=== PATIENT | male | born 1935 | race Caucasian/White ===

== ENCOUNTER 2016-08-05 14:05 | Inpatient (IN) | payer MEDICARE, MEDICAID ==
[~2016-08-05] VITALS: Ht 175.3 cm; Wt 99.5 kg
[~2016-08-05 14:05] MED LIST: ACET325T33 GTB; ALB.5NB20 HHN; ASCO500S2 GTB; DEXT1DRO7 OP; DOCU60SY GTB; DOXA4TAB2 GTB; LACT10SO5 GTB; OMEP40CA6 GTB; RTATR HHN
[2016-08-05] MEDS ORDERED: SODIUM CHLORIDE 0.9% 1L BAG IV* STA (14:25)
[2016-08-05] MEDS ORDERED: CEFEPIME 1GM/50 ML (PMX) 50 ML IVPB ONE (14:30)
[2016-08-05] MEDS ORDERED: VANCOMYCIN 1 GM (PMX) 250 ML IVPB ONE (14:30)
--- NOTE | 2016-08-05 14:58 | RADRPT ---
PROCEDURE: XR Chest. CLINICAL INDICATION: Possible Sepsis TECHNIQUE: Single portable view of the chest was obtained COMPARISON: Chest 09/30/2013. FINDINGS: Again noted is a tracheostomy. The patient is to left and rotated to the right. There is increased density at both lung bases which appears similar and while this may all relate to atelectasis and s carring however basilar infiltrates cannot be excluded. Note there is pleural reaction on the right and a small right pleural effusion should be considered. No definite left pleural effusion. The u pper lungs are clear. It is difficult to assess the heart size however it does not appear enlarged. There is no evidence by mass congestion and pneumothorax. IMPRESSION: 1. No significant change from 09/30/2013. 2. Increased density at the lung bases may all relate to atelectasis and scarring however basilar i nfiltrates cannot be excluded. 3. No definite congestive heart failure. RPTAT:AAJJ Physician Kerry Date Time Electronically viewed and signed by Physician Kerry on 08/05/2016 14:58 /
[2016-08-05 15:13] LABS: HEMATOCRIT 30.8 % (42.0-52.0); HEMOGLOBIN 9.9 g/dl (14.0-18.0); MEAN CORPUSCULAR HEMOGLOBIN 25.7 pg (29.0-33.0); MEAN CORPUSCULAR HGB CONC 32.3 g/dl (32.0-37.0); MEAN CORPUSCULAR VOLUME 79.6 fl (82.0-101.0); MEAN PLATELET VOLUME 9.2 fl (7.4-10.4); PLATELET COUNT 238 10^3/UL (140-440); RED BLOOD COUNT 3.87 10^6/ul (4.70-6.10); RED CELL DISTRIBUTION WIDTH 19.7 % (11.5-14.5); UNCORRECTED WBC 29.5 10^3/ul (4.8-10.8); WHITE BLOOD COUNT 29.5 10^3/ul (4.8-10.8)
[2016-08-05 15:15] LABS: CONDITION 1; LH ANALYZER COMMENTS 1; SUSPECT 1
[2016-08-05 15:16] LABS: ADD UMIC YES; URINE BILIRUBIN (Dip) NEGATIVE (NEGATIVE); URINE BLOOD (Dip) 3+ (NEGATIVE); URINE GLUCOSE (Dip) NEGATIVE (NEGATIVE); URINE KETONES (Dip) NEGATIVE (NEGATIVE); URINE LEUKOCYTE ESTERASE (Dip) 2+ (NEGATIVE); URINE NITRITE (Dip) NEGATIVE (NEGATIVE); URINE TOTAL PROTEIN (Dip) 1+ (NEGATIVE); URINE UROBILINOGEN (Dip) 0.2 E.U./dL (0.1-1.0)
[2016-08-05 15:23] LABS: INR 1.11; PROTIME 14.3 Sec (12.2-14.2); PT RATIO 1.1
[2016-08-05] MEDS ORDERED: DOXA4TAB2 GTB (15:23)
[2016-08-05 15:24] LABS: PARTIAL THROMBOPLASTIN TIME 33.1 Sec (25.0-35.0)
[2016-08-05 15:27] LABS: ALBUMIN 3.3 g/dl (3.3-4.9)
[2016-08-05 15:28] LABS: POTASSIUM 4.5 mmol/L (3.5-5.1)
[2016-08-05] MEDS ORDERED: CRAN450T7 GTB (15:28)
[2016-08-05 15:30] LABS: BILIRUBIN,INDIRECT 0.8 mg/dl (0-1.1); BILIRUBIN,TOTAL 0.8 mg/dl (0.2-1.3); CREATININE 1.17 mg/dl (0.61-1.24)
[2016-08-05] MEDS ORDERED: DEXT15DR2 BOTH EYES (15:30)
[2016-08-05 15:31] LABS: ALBUMIN/GLOBULIN RATIO 0.8; CALCIUM 8.7 mg/dl (8.4-10.2); TOTAL PROTEIN 7.4 g/dl (6.1-8.1)
[2016-08-05 15:32] LABS: URINE COLOR DARK YELLOW (YELLOW)
[2016-08-05] MEDS ORDERED: OMEP20CA16 GTB (15:33)
[2016-08-05 15:35] LABS: BACTERIA,URINE MANY; SQUAMOUS EPITHELIAL CELL,UR MODERATE
[2016-08-05] MEDS ORDERED: BEN25 GTB (15:35)
[2016-08-05 15:41] LABS: TROPONIN-I 0.018 ng/ml (0.00-0.12)
[2016-08-05] MEDS ORDERED: ACET160L14 GTB (15:50)
[2016-08-05] MEDS ORDERED: HEP30MU30 IJ (16:04)
[2016-08-05] MEDS ORDERED: DSS GTB (16:06)
--- NOTE | 2016-08-05 16:43 | ERA ---
ER Documentation Chief Complaint Date/Time DATE: 08/05/16 TIME: 16:32 Chief Complaint PT HERE WITH ABN LAB WORK, ELEVATED WBC, PT TRACH/VENT HPI 81-year-old man brought in by EMS from snf for elevated WBC and suspected urinary tract infection. He has a suprapubic catheter in place and has had recent purulent discharge into the catheter and urinary bag. 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 He has had no vomiting or diarrhea, no blood per rectum. HPI supplemented by reviewing previous medical records, snf records, speaking to EMS, and nursing staff. ROS All systems reviewed and are negative except as per history of present illness. Medications Home Meds Reported Medications [Dss] No Conflict Check, 100 MG GTB DAILY 08/05/16 Heparin Sod (Porcine) (Heparin) 1,000 Unit/Ml Soln, 5000 UNIT IJ Q12 08/05/16 Acetaminophen (Ed-Apap) 160 Mg/5 Ml Liquid, 640 MG GTB Q6 Y for PRN TEMP>100 08/05/16 Diphenhydramine Hcl* (Benadryl*) 25 Mg Cap, 25 MG GTB Q4H Y for ITCHING, CAP 08/05/16 Omeprazole* (Omeprazole*) 20 Mg Capsule.dr, 40 MG GTB QAM, #30 CAP 08/05/16 Dextran/Hypromellose/Glycerin (Artificial Tears Drops) 15 Ml Drops, 1 DROP BOTH EYES Q12, EA 08/05/16 Cranberry Fruit (CRANBERRY) 450 Mg Tablet, 450 MG GTB DAILY, TAB 08/05/16 Doxazosin Mesylate* (Cardura*) 4 Mg Tablet, 4 MG GTB QHS, #30 TAB HOLD IF SBP<110 FOR HYPERTENSION 08/05/16 Discontinued Reported Medications Acetaminophen* (Tylenol*) 325 Mg Tablet, 650 MG GTB Q6 Y for FEVER 09/30/13 Docusate Sodium (Colace) 60 Mg/15 Ml Syrup, 10 ML GTB DAILY 09/30/13 Doxazosin Mesylate* (Cardura*) 4 Mg Tablet, 4 MG GTB HS 09/30/13 Ipratropium [place]* (Atrovent*) 2.5 Ml Nebu, 0.5 MG HHN Q6 09/30/13 Albuterol Sulfate* (Albuterol Sulfate* Neb) 20 Ml Nebu, 2.5 MG HHN Q6 09/30/13 Dextran 70/Hypromellose/Pf (ARTIFICIAL TEARS DROPS) 1 Each Droperette, 1 EACH OP BID 06/02/13 Omeprazole* (Omeprazole*) 40 Mg Capsule.dr, 40 MG GTB DAILY 06/02/13 Lactulose* (Lactulose*) 10 Gm/15 Ml Solution, 10 GM GTB DAILY 06/02/13 Ascorbic Acid* (Vitamin C* Liq) 100 Mg/Ml Syrup, 500 MG GTB DAILY 06/02/13 Allergies Allergies: Coded Allergies: No Known Allergy (Unverified , 08/05/16) PMhx/Soc 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, recurrent urinary tract infections, hypertension, diabetes mellitus, cauda equina syndrome, anemia, urinary retention, previous ventricular tachycardia History of Surgery: Yes Anesthesia Reaction: No Hx Neurological Disorder: Yes Hx Respiratory Disorders: Yes Hx Cardiac Disorders: Yes Hx Psychiatric Problems: No Hx Alcohol Use: No Hx Substance Use: No Hx Tobacco Use: No Smoking Status: Former smoker FmHx Family History: No diabetes Physical Exam Vitals Vital Signs Date Time Temp Pulse Resp B/P Pulse Ox O2 Delivery O2 Flow Rate FiO2 08/05/16 16:09 97.6 79 14 129/65 100 Mechanical Ventilator 08/05/16 14:28 97.6 81 12 113/64 100 Physical Exam GENERAL: Elderly, chronically debilitated man, afebrile, dehydrated HEENT: Dry mucous membranes, pink conjunctiva, no cervical spine tenderness or step-off deformities, no goiter, no jaundice or icterus, extraocular movements intact without pain. No submandibular induration, and no pharyngeal erythema NEURO: Eyes are open, pupils equal round reactive to light, patient has movement of the right upper extremity although he has diffuse extremity contractures, positive gaze tracking, nonverbal CARDIAC: Regular rate and rhythm, no murmurs rubs or gallops LUNGS: Clear bilaterally no wheezing crackles or stridor ABDOMEN: Protuberant and soft, no rigidity, no rebound, no psoas sign no obturator sign. Normoactive bowel sounds SKIN: Warm and dry to touch, no abrasions, contusions, or hematomas, no lacerations, no ecchymosis, no target lesions, and without ulcers EXTREMITIES: No clubbing cyanosis or edema, calves are bilaterally symmetrical, no Homans sign, no popliteal cord sign. Distal pulses equal and bilateral PSYCH: Normal affect without agitation or irritability Result Diagram: 08/05/16 1450 08/05/16 1450 Results 24 hrs Laboratory Tests Test 08/05/16 14:50 08/05/16 15:00 Activated Partial Thromboplast Time 33.1Sec Alanine Aminotransferase (ALT/SGPT) 22IU/L Albumin 3.3g/dl Albumin/Globulin Ratio 0.80 Alkaline Phosphatase 75IU/L Anion Gap 17 Aspartate Amino Transf (AST/SGOT) 16IU/L Blood Morphology Comment Blood Urea Nitrogen 38mg/dl Calcium Level 8.7mg/dl Carbon Dioxide Level 29mmol/L Chloride Level 91mmol/L Creatinine 1.17mg/dl Direct Bilirubin 0.00mg/dl Globulin 4.10g/dl Glucose Level 157mg/dl Hematocrit 30.8% Hemoglobin 9.9g/dl INR International Normalized Ratio 1.11 Indirect Bilirubin 0.8mg/dl Lactic Acid Level 1.6mmol/L Lipase 31U/L Mean Corpuscular Hemoglobin 25.7pg Mean Corpuscular Hemoglobin Concent 32.3g/dl Mean Corpuscular Volume 79.6fl Mean Platelet Volume 9.2fl Platelet Count 77558^3/UL Potassium Level 4.5mmol/L Prothrombin Time 14.3Sec Prothrombin Time Ratio 1.1 Red Blood Count 3.8710^6/ul Red Cell Distribution Width 19.7% Sodium Level 132mmol/L Total Bilirubin 0.8mg/dl Total Protein 7.4g/dl Troponin I 0.018ng/ml White Blood Count 29.510^3/ul Urine Bacteria MANY Urine Bilirubin NEGATIVE Urine Clarity CLOUDY Urine Color DARK YELLOW Urine Glucose NEGATIVE% Urine Hemoglobin 3+ Urine Ketones NEGATIVE Urine Leukocyte Esterase 2+ Urine Microscopic RBC 10-25/HPF Urine Microscopic WBC >200/HPF Urine Nitrite NEGATIVE Urine Specific [place] 1.015 Urine Squamous Epithelial Cells MODERATE Urine Total Protein 1+ Urine Urobilinogen 0.2 E.U./dL Urine pH 6.5 Current Medications Medications (Trade) Dose Ordered Sig/Pedrito Route PRN Reason Start Time Stop Time Status Last Admin Dose Admin Sodium Chloride 2000 ml 2,000 ml BOLUS OVER 2 HOURS STAT IV* 08/05/16 14:25 1/13/17 14:28 DC 08/05/16 15:06 Vancomycin HCl 250 ml @ 125 mls/hr ONCE ONCE IVPB 08/05/16 14:30 08/05/16 16:29 DC 08/05/16 16:04 Cefepime HCl (Maxipime 1gm/50 ml (Pmx)) 50 ml @ 100 mls/hr ONCE ONCE IVPB 08/05/16 14:30 08/05/16 14:59 DC 08/05/16 15:10 Procedures/MDM IV line was established patient was placed on patient monitor rhythm strip revealed a sinus rhythm at about 80 bpm with upright P and T waves. Patient was afebrile. Blood and urine cultures have been ordered results are pending I will follow-up. I administered 2 L normal saline intravenously and cefepime 1 g IV as well as vancomycin 1 g IV. EKG performed, read by me: 79 bpm, normal sinus rhythm, normal axis, no acute ST segment changes, narrow QRS complex, with good R-wave progression in precordial leads. Chest X-ray 1V Interpreted by me: Soft Tissue: No acute abnormalities Bones: No acute abnormalities Mediastinum/Cardiac Silhouette/Lungs: Atelectatic changes bilaterally, no acute infiltrates CBC revealed leukocytosis of 30, electrolytes revealed dehydration with an increased BUN/creatinine ratio, liver function tests are normal, troponin was negative. Urine analysis was positive for infection. Lactic acid was low at 1.6. Patient's infectious symptoms have not stabilized and the patient is at risk of rapid decompensation. The patient will be admitted for careful hydration, antibiotic therapy, and infectious source control. Severe Sepsis Assessment: Infectious Source: Bladder Severe Sepsis Managment: Blood Cultures X 2 before broad spectrum antibiotics initiated within 3 hours of recognition. 30 ml/kg NS bolus 20 mL's per KG bolus was given as I do not want to push the patient to fluid overload Initial Lactate: normal Repeat Lactate not indicated as initial < 2.0 Critical Care: Time: 30 minutes Treatments/Evaluations: Emergent fluid management, while maintaining close respiratory support. Immediate broad spectrum antibiotic therapy. Simultaneous assessment for possible sources in order to direct therapy. Consideration for invasive and chemical support to prevent respiratory or cardiac collapse. Perfusion Reassessment for Septic Shock: Temp afebrile, Pulse 70, RR 18, BP 140/80 Heart Exam: Regular rate Lung Exam: No Crackles Capillary Refill: Less than 2 second Peripheral Pulses: Radially present Skin: Warm and dry I considered further perfusion assessment with CVP measurement, SCVO2, bedside ultrasound volume assessment, passive leg raise, trial of further fluid bolus. And preceded with IV antibiotic Accepting Care Team: Current data and ongoing care discussed. Time: Time of admission Primary Provider: Dr. Kwok Consulting: Pulmonary Outstanding Data: none Departure Diagnosis: Primary Impression: UTI (urinary tract infection) Qualified Code: N30.00 - Acute cystitis without hematuria Additional Impressions: Dehydration Respiratory failure Qualified Code: J96.21 - Acute on chronic respiratory failure with hypoxia Tracheostomy dependence Lymphocytosis Condition: Fair SALLY NGUYEN MD Aug 05, 2016 16:43
[2016-08-05] MEDS ORDERED: VANCOMYCIN IV PER PHARMACY XX SCH (17:30)
--- NOTE | 2016-08-05 18:01 | HP ---
DATE OF ADMISSION: 08/05/2016 CHIEF COMPLAINT: The [facility] for elevated white blood cell s and suspected urinary tract infection. HISTORY OF PRESENT ILLNESS: The patient is a 81-year-old gentleman with past medical history positi ve for ventilator dependent respiratory failure, patient was status post CVA with intracranial bleed , chronic encephalopathy, dysphagia with PEG, hypertension, cauda equina syndrome, chronic anemia an d history of ventricular tachycardia. The patient cannot provide any medical history due to history of encephalopathy, most of the history was obtained from medical records and talking to the ER phys ician and nursing staff. The patient's white blood cells were noted to be elevated 29,500. Urinaly sis was positive for leukocyte esterase and many bacteria. Urine looks cloudy. The patient has a F oley catheter. Lactic acid was 1.6. The patient did not have any fever on admission, patient was d iagnosed for possible urinary tract infection and was started on broad spectrum antibiotics, was giv en vancomycin and cefepime in the emergency room and patient will be admitted for further evaluation and management. Urine and blood cultures were collected as well prior to starting of antibiotic tr eatment. No nausea, vomiting were reported. PAST MEDICAL HISTORY: Per HPI. PAST SURGICAL HISTORY: Status post tracheostomy, status post PEG placement, status post right nephr ostomy. FAMILY HISTORY: Noncontributory. SOCIAL HISTORY: The patient is a former smoker according to records, the patient currently is a res ident of subacute facility and no current history of tobacco use, illicit drug use or alcohol use. ALLERGIES: NO KNOWN ALLERGIES. MEDICATIONS ON ADMISSION: 1. Heparin. 2. Tylenol. 3. Benadryl. 4. Omeprazole. 5. Artificial Tears. 6. Cranberry extract. 7. Doxazosin. REVIEW OF SYSTEMS: A 12-point review of systems is negative unless what mentioned in the HPI. PHYSICAL GENERAL: Well-developed, obese gentleman, opens eyes. Does not follow any commands. Awake. VITAL SIGNS: Temperature 97.6, pulse is 79, blood pressure 129/65, respiratory rate 14 on assist co ntrol of 14, oxygen saturation is 100% on 100% FIO2. HEENT: Head is atraumatic, normocephalic. Pupils equal, round, reactive to light and accommodation . Oral mucosa is pink and moist. NECK: Supple. The patient has a tracheostomy at the base of the neck with no bleeding, moderate am ount of secretions. CHEST: Slightly diminished at the bases. Scattered rhonchi bilaterally. GASTROINTESTINAL: Abdomen is protuberant, soft, nondistended, nontender. G-tube with intact stoma. There is no guarding, no tenderness. Bowel sounds present. EXTREMITIES: No edema, clubbing, cyanosis present. GENITOURINARY: The patient has a Aguilar catheter with yellow urine with noted sediment. SKIN: There is no apparent rash noted. NEUROLOGIC: The patient opens eyes. Does not follow any commands. The patient also has contractur ed left upper and lower extremity. LABORATORY AND IMAGING DATA: On admission, chest x-ray with no significant change from year 2013, i ncreased density at the lung bases may be all related to atelectasis and scarring. However, bibasil ar infiltrates cannot be excluded. Known definite congestive heart failure. CBC: White blood cells 29.5, hemoglobin 9.9, hematocrit 30.8, platelets 238. Chemistry: Sodium 13 2, potassium 4.5, chloride 91, carbon dioxide 29, anion gap 17, BUN is 38, creatinine 1.17, glucose 157, AST 16, ALT is 22, alkaline phosphatase 75, lipase 31. ASSESSMENT AND PLAN: 1. Possible urinary tract infection. Continue patient on cefepime and vancomycin secondary to syst emic inflammatory response syndrome with leukocytosis secondary to #1. 2. Possible healthcare-acquired pneumonia. Continue patient on broad spectrum antibiotics. Will a sk Dr. Enriquez to see patient in infectious disease consultation. 3. Ventilator dependent respiratory failure. Will ask Dr. Gomez to see patient in pulmonology co nsultation. Continue oxygen supplementation, bronchodilators and ventilator support. 4. Hemorrhagic cerebrovascular accident. 5. Benign prostatic hypertrophy. Continue doxazosin. 6. Hypertension. Continue to monitor blood pressure. 7. Chronic encephalopathy. 8. Dysphagia with PEG. Will continue current G-tube feeding, monitor residual, aspiration precauti ons. 9. Continue heparin for deep venous thrombosis prophylaxis and omeprazole for peptic ulcer disease prophylaxis. Further recommendations based on clinical course. Plan of care discussed with Dr. Ramos. Dictated By: JAGJIT ART PRODUCT DEVELOPMENT WORKER for RACHELLE RAMOS MD SR/NTS Conf#: [id number] [facility]#: [id number]
[2016-08-05 19:51] LABS: LYMPHOCYTES # 2.7 10^3/ul (0.8-2.9); MONOCYTE # 1.5 10^3/ul (0.3-0.9)
[2016-08-05] MEDS: DOXAZOSIN 4 MG TAB GTB SCH (21:11)
[2016-08-05] MEDS: ARTIFICIAL TEARS 15 ML OPH BOTH EYES SCH (21:13)
[2016-08-05] MEDS: HEPARIN 5,000 UNIT/0.5 ML SYG SC SCH (21:23)
--- NOTE | 2016-08-05 21:53 | CONS ---
DATE OF ADMISSION: 08/05/2016 DATE OF CONSULTATION: 08/05/2016 TYPE OF CONSULTATION: Infectious Disease. REASON FOR CONSULTATION: Antibiotic management. HISTORY OF PRESENT ILLNESS: Jason Morgan is a 81-year-old male with numerous problems who was sent from [facility] facility with elevated white count and suspected UTI. His past problems i nclude: 1. Ventilator-dependent respiratory failure. 2. Status post tracheostomy. 3. Status post G-tube placement for dysphagia. 4. Status post right nephrostomy. 5. Status post cerebrovascular accident with intracranial bleed. 6. Chronic encephalopathy. 7. Hypertension. 8. Cauda equina syndrome. 9. Chronic anemia. 10. History of supraventricular tachycardia. On admission, the patient's white count was 29.5, H and H of 9.9 and 30.8, platelet count 238,000. BUN and creatinine is 38/1.17, glucose of 157. AST 16, ALT 22. The patient has a Aguilar catheter. Lactic acid was 1.6. Urinalysis is positive for leukocyte esterase and many bacteria. He had 2+ le ukocyte esterase and greater than 200 white cells per high powered field. BUN and creatinine was 38 /1.17. Chest x-ray showed no significant change from 09/30/2013, increased density of lung bases ma y all relate to atelectasis and scarring; however basilar infiltrates cannot be excluded. No defini te congestive heart failure. PAST MEDICAL HISTORY: Operations as outlined. FAMILY HISTORY: Noncontributory. SOCIAL HISTORY: He is a former smoker. He resides in a subacute facility. No current history of s moking, drugs or alcohol use. ALLERGIES: NONE TO PENICILLIN, SULFA OR FOODS. MEDICATIONS: Per chart. REVIEW OF SYSTEMS: As per HPI. PHYSICAL EXAMINATION: GENERAL: The patient is a well-developed, well-nourished, obese male who does not follow commands. He is awake. He has a trach, PEG and a Aguilar. SKIN: Without generalized rash. HEENT: Within normal limits. NECK: Supple. LYMPH NODES: None palpable. NECK: He has a tracheostomy in base of the neck. No bleeding, no discharge. CHEST: Decreased breath sounds at the bases with occasional rhonchi scattered bilaterally. HEART: Without murmur or gallop. ABDOMEN: Soft, nontender, without organosplenomegaly or masses. G-tube is intact. Bowel sounds ar e present. EXTREMITIES: Without cyanosis, clubbing, or edema. RECTAL AND GENITAL: Deferred. NEUROLOGIC: The patient is encephalopathic. He also has contractured left upper and left lower ext remities. IMPRESSION AND PLAN: The patient was started on vancomycin and cefepime for possible urinary tract infection, as well as possible healthcare-acquired pneumonia and was seen by Dr. Gomez as well. H as a history of hemorrhagic cerebrovascular accident, benign prostatic hypertrophy on doxazosin. I will dictate my findings to Dr. Kwok. Dictated By: MARIA GUADALUPE DIMAS MD, JD/KAYLA Conf#: [id number] DID#: [id number]
[2016-08-06] VITALS (20 sets, daily range): BP systolic 118–128; BP diastolic 50–65; PULSE 81–90; RESP 12–21; TEMP 98.2
[2016-08-06] MEDS: CEFEPIME 1GM/50 ML (PMX) 50 ML IVPB SCH ×3 (00:32→22:52)
[2016-08-06] MEDS ORDERED: VANCOMYCIN 1.25 GM in SOD CHLORIDE 0.9% 250 ML IVPB SCH (01:00)
[2016-08-06] MEDS ORDERED: ALBUTEROL/IPRATROPIUM (NEB) 3 ML AMP HHN PRN (06:00)
[2016-08-06] MEDS ORDERED: ACETAMINOPHEN 325 MG TAB PO PRN (06:00)
[2016-08-06] MEDS ORDERED: PANTOPRAZOLE (EC) 40 MG TAB PO SCH (06:00)
[2016-08-06 08:00] LABS: BASOPHIL # 0.1 10^3/ul (0.0-0.1); BASOPHILS % 0.4 % (0.0-2.0); EOSINOPHILS # 0.2 10^3/ul (0.0-0.5); HEMATOCRIT 30.3 % (42.0-52.0); HEMOGLOBIN 9.6 g/dl (14.0-18.0); LYMPHOCYTES # 1.2 10^3/ul (0.8-2.9); LYMPHOCYTES % 5.6 % (15.0-51.0); MEAN CORPUSCULAR HEMOGLOBIN 25.5 pg (29.0-33.0); MEAN CORPUSCULAR HGB CONC 31.9 g/dl (32.0-37.0); MEAN PLATELET VOLUME 9.4 fl (7.4-10.4); MONOCYTE # 0.7 10^3/ul (0.3-0.9); MONOCYTES % 3.2 % (0.0-11.0); NEUTROPHIL # 19.7 10^3/ul (1.6-7.5); NEUTROPHILS % 89.8 % (39.0-77.0); PLATELET COUNT 239 10^3/UL (140-440); RED BLOOD COUNT 3.79 10^6/ul (4.70-6.10); RED CELL DISTRIBUTION WIDTH 20.1 % (11.5-14.5)
[2016-08-06 08:11] LABS: CONDITION 1; LH ANALYZER COMMENTS 1
[2016-08-06 08:31] LABS: POTASSIUM 4.5 mmol/L (3.5-5.1)
[2016-08-06 08:34] LABS: CREATININE 0.93 mg/dl (0.61-1.24)
[2016-08-06 08:35] LABS: CALCIUM 8.5 mg/dl (8.4-10.2)
[2016-08-06] MEDS: LANSOPRAZOLE 30 MG CAP GTB SCH (09:40)
[2016-08-06] MEDS: HEPARIN 5,000 UNIT/0.5 ML SYG SC SCH ×2 (09:51→22:53)
--- NOTE | 2016-08-06 10:40 | CONS ---
Date/Time of Note Date/Time of Note DATE: 08/06/16 TIME: 10:39 Assessment/Plan Assessment/Plan Chief Complaint/Hosp Course ID PROGRESS NOTE TOTAL ABX DAY #2 => Vanco IV + Cefepime 24H INTERVAL SUMMARY * Noncommunicative on the Vent, chronic encephalopathy, no fevers, WBC down, renal fx stable * CXR 08/05/16: IMPRESSION:1. No significant change from 09/30/2013.2. Increased density at the lung bases may all relate to atelectasis and scarring however basilar infiltrates cannot be excluded.3. No definite congestive heart failure. PHYSICAL EXAMINATION: GENERAL: 81 yo M w/chronic encephalopathy, VSS, NAD, vented HEENT: Unremarkable NECK: Trachea secure to Vent CHEST: Rise symmetrical with course BS, Vented HEART: RRR ABDOMEN: Soft, peg EXTREMITIES: Warm ID ASSESSMENT: 81 yo obese, chronic encephalopathic M due to PMHx ICH, cauda equina syndrome w/ functional quadriplegia, dysphagia, Trach/peg admit with: 1. SIRS w/marked leukocytosis, no fevers recorded @ [facility], VSS 2. UTI per UA 3. Hx of recurrent UTI due to retention => 1) BPH, 2) Neurogenic bladder 4. Chronic hypoxic VDRF * CXR this admission without compelling evidence for PNA, same as CXR in 2013 5. 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 Problems: Consultation Date/Type/Reason Admit Date/Time Aug 05, 2016 at 15:58 Initial Consult Date Exam/Review of Systems Vital Signs Vitals Vital Signs Date Time Temp Pulse Resp B/P Pulse Ox O2 Delivery O2 Flow Rate FiO2 08/06/16 07:31 98.5 85 12 128/62 100 08/06/16 05:04 50 08/06/16 03:55 Trach Collar Results Result Diagram: 08/06/16 0700 08/06/16 0700 Results 24 hrs Laboratory Tests Test 08/05/16 14:50 08/05/16 15:00 08/05/16 17:30 08/05/16 22:17 Activated Partial Thromboplast Time 33.1 Alanine Aminotransferase (ALT/SGPT) 22 Albumin 3.3 Albumin/Globulin Ratio 0.80 Alkaline Phosphatase 75 Anion Gap 17 H Aspartate Amino Transf (AST/SGOT) 16 Band Neutrophils % 8.0 H Blood Morphology Comment Blood Urea Nitrogen 38 H Calcium Level 8.7 Carbon Dioxide Level 29 Chloride Level 91 L Creatinine 1.17 Direct Bilirubin 0.00 Globulin 4.10 H Glucose Level 157 Hematocrit 30.8 L Hemoglobin 9.9 L INR International Normalized Ratio 1.11 Indirect Bilirubin 0.8 Lactic Acid Level 1.6 1.0 0.9 Lipase 31 Lymphocytes # 2.7 Lymphocytes % 9.0 L Mean Corpuscular Hemoglobin 25.7 L Mean Corpuscular Hemoglobin Concent 32.3 Mean Corpuscular Volume 79.6 L Mean Platelet Volume 9.2 Monocytes # 1.5 H Monocytes % 5.0 Neutrophils # 23.0 H Neutrophils % 78.0 H Platelet Count 238 Potassium Level 4.5 Prothrombin Time 14.3 H Prothrombin Time Ratio 1.1 Red Blood Count 3.87 L Red Cell Distribution Width 19.7 H Sodium Level 132 L Total Bilirubin 0.8 Total Protein 7.4 Troponin I 0.018 White Blood Count 29.5 H Urine Bacteria MANY Urine Bilirubin NEGATIVE Urine Clarity CLOUDY H Urine Color DARK YELLOW Urine Glucose NEGATIVE Urine Hemoglobin 3+ H Urine Ketones NEGATIVE Urine Leukocyte Esterase 2+ H Urine Microscopic RBC 10-25 Urine Microscopic WBC >200 Urine Nitrite NEGATIVE Urine Specific [place] 1.015 Urine Squamous Epithelial Cells MODERATE Urine Total Protein 1+ H Urine Urobilinogen 0.2 E.U./dL Urine pH 6.5 Test 08/06/16 07:00 Anion Gap 14 Basophils # Pending Basophils % Pending Blood Morphology Comment Blood Urea Nitrogen 30 H Calcium Level 8.5 Carbon Dioxide Level 29 Chloride Level 98 Creatinine 0.93 Eosinophils # Pending Eosinophils % Pending Glucose Level 119 Hematocrit 30.3 L Hemoglobin 9.6 L Lymphocytes # Pending Lymphocytes % Pending Mean Corpuscular Hemoglobin 25.5 L Mean Corpuscular Hemoglobin Concent 31.9 L Mean Corpuscular Volume 80.0 L Mean Platelet Volume 9.4 Monocytes # Pending Monocytes % Pending Neutrophils # Pending Neutrophils % Pending Nucleated Red Blood Cells # Pending Nucleated Red Blood Cells % Pending Platelet Count 239 Potassium Level 4.5 Red Blood Count 3.79 L Red Cell Distribution Width 20.1 H Sodium Level 136 White Blood Count 22.0 #H Medications Medications Current Medications Eye Lubricant (Artificial Tears Oph) 1 drop Q12 BOTH EYES Last administered on 08/05/16 21:13; Admin Dose 1 DROP; Start 08/05/16 at 21:00 Doxazosin Mesylate (Cardura) 4 mg QHS GTB Last administered on 08/05/16 21:11 ; Admin Dose 4 MG; Start 08/05/16 at 21:00 Heparin Sodium (Porcine) 5000 unit 5,000 unit Q12 SC Last administered on 09:51; Admin Dose 5,000 UNIT; Start 08/05/16 at 21:00 Cefepime HCl 50 ml @ 100 mls/hr Q12 IVPB Last administered on 08/06/16 00:32 ; Admin Dose 100 MLS/HR; Start 08/05/16 at 23:00 Vancomycin HCl/ Sodium Chloride (Vancocin/NS) 250 ml @ 83.333 mls/ hr Q12H IVPB Last administered on 08/06/16 02:49; Admin Dose 83.333 MLS/HR; Start at 01:00 Acetaminophen (Tylenol Tab) 650 mg Q6H PRN PO PAIN AND OR ELEVATED TEMP; Start 08/06/16 at 06:00 Influenza Virus Vaccine (Fluzone) 0.5 ml ONCE ONCE IM* ; Start 08/08/16 at 09:00 ; Stop 08/08/16 at 09:01 Lansoprazole (Prevacid) 30 mg DAILY@06 GTB Last administered on 08/06/16 09:40 ; Admin Dose 30 MG; Start 08/06/16 at 08:30 RAYMUNDO ROBLEDO NP Aug 06, 2016 10:40
[2016-08-06] MEDS: ARTIFICIAL TEARS 15 ML OPH BOTH EYES SCH ×2 (11:33→22:52)
[2016-08-06 12:32] LABS: ANISOCYTOSIS 1+; BURR CELLS 1+
--- NOTE | 2016-08-06 13:57 | CONS ---
DATE OF ADMISSION: 08/05/2016 DATE OF CONSULTATION: 08/06/2016 TYPE OF CONSULTATION: Pulmonary. REASON FOR CONSULTATION: Shortness of breath. Thank you, Dr. Sheldon, for this consultation. HISTORY OF PRESENT ILLNESS: This is a 81-year-old gentleman with a history of vent-dependent respir atory failure secondary to a cerebrovascular accident with encephalopathy, with dysphagia and PEG tu be, a history of cauda equina syndrome and chronic anemia, [facility] [place] [facility] of fever and leukocytosis and found to have bacteremia, with a white count of 29,0 00 and lactic acid mildly elevated. The patient is nonverbal and unable to give me further details. PAST MEDICAL HISTORY: As above. MEDICATIONS: Per chart. ALLERGIES: NONE KNOWN. SOCIAL HISTORY: Nonsmoker, no alcohol, no history of drug use. FAMILY HISTORY: Noncontributory. SYSTEMS REVIEW: A 12-point review of systems was negative, other than that mentioned above. PHYSICAL EXAMINATION: GENERAL: Chronically ill-appearing gentleman, who appears comfortable at rest. Eyes are open. Not following commands. VITAL SIGNS: Currently afebrile. Pulse is 86, blood pressure 119/50, O2 saturation 98% on 50% FIO2 . NECK: Trach site is clean and intact. CARDIAC EXAM: S1, S2. No added sounds or murmurs. CHEST: Diminished air entry bilaterally. ABDOMEN: Soft, nontender. No guarding, no rebound. EXTREMITIES: No cyanosis, clubbing, or edema. NEUROLOGIC: Generalized weakness. Unable to assess. LABORATORY: White count 22,000, hemoglobin 9.6, platelets of 239, BUN 30, creatinine 0.93, INR 1.11 . Chest x-ray was reviewed and shows bibasilar atelectasis. IMPRESSION: 1. Vent-dependent respiratory failure. 2. Severe sepsis, likely secondary to healthcare-associated pneumonia and probable urinary tract in fection. 3. Encephalopathy secondary to a history of hemorrhagic cerebrovascular accident. 4. Vent-dependent respiratory failure. PLAN: 1. Patient to continue on vent support. 2. Continue broad-spectrum antibiotics. 3. Continue tube feeding. 4. Deep venous thrombosis and gastrointestinal prophylaxis. Dictated By: SARINA BRISCOE/KAYLA Conf#: [id number] DID#: [id number]
[2016-08-06] MEDS: VANCOMYCIN 1 GM in NS 250 ML IVPB SCH (15:41)
[2016-08-06] MEDS: DOXAZOSIN 4 MG TAB GTB SCH (22:53)
[2016-08-07] VITALS (25 sets, daily range): BP systolic 116–142; BP diastolic 56–65; PULSE 68–81; RESP 12–20
[2016-08-07] MEDS: VANCOMYCIN 1 GM in NS 250 ML IVPB SCH (03:08)
[2016-08-07] MEDS: LANSOPRAZOLE 30 MG CAP GTB SCH (06:39)
[2016-08-07 07:11] LABS: BASOPHILS % 0.1 % (0.0-2.0); EOSINOPHILS # 0.4 10^3/ul (0.0-0.5); EOSINOPHILS % 2.9 % (0.0-7.0); HEMATOCRIT 27.7 % (42.0-52.0); HEMOGLOBIN 8.8 g/dl (14.0-18.0); LYMPHOCYTES # 1.4 10^3/ul (0.8-2.9); MEAN CORPUSCULAR HEMOGLOBIN 25.5 pg (29.0-33.0); MEAN CORPUSCULAR HGB CONC 31.9 g/dl (32.0-37.0); MEAN CORPUSCULAR VOLUME 79.8 fl (82.0-101.0); MEAN PLATELET VOLUME 9.9 fl (7.4-10.4); MONOCYTE # 0.7 10^3/ul (0.3-0.9); MONOCYTES % 5.3 % (0.0-11.0); NEUTROPHILS % 80.7 % (39.0-77.0); PLATELET COUNT 244 10^3/UL (140-440); RED BLOOD COUNT 3.47 10^6/ul (4.70-6.10); RED CELL DISTRIBUTION WIDTH 19.9 % (11.5-14.5); UNCORRECTED WBC 12.4 10^3/ul (4.8-10.8); WHITE BLOOD COUNT 12.4 10^3/ul (4.8-10.8)
[2016-08-07 07:25] LABS: CONDITION 1; LH ANALYZER COMMENTS 1
[2016-08-07 07:46] LABS: POTASSIUM 4.6 mmol/L (3.5-5.1)
[2016-08-07 07:48] LABS: CREATININE 0.96 mg/dl (0.61-1.24)
[2016-08-07 07:49] LABS: CALCIUM 8.2 mg/dl (8.4-10.2)
[2016-08-07] MEDS: CEFEPIME 1GM/50 ML (PMX) 50 ML IVPB SCH ×2 (08:58→21:16)
[2016-08-07] MEDS: ARTIFICIAL TEARS 15 ML OPH BOTH EYES SCH ×2 (08:58→21:16)
[2016-08-07] MEDS: HEPARIN 5,000 UNIT/0.5 ML SYG SC SCH ×2 (09:09→21:19)
--- NOTE | 2016-08-07 14:59 | PN ---
Date/Time of Note Date/Time of Note DATE: 08/07/16 TIME: 14:55 Assessment/Plan VTE Prophylaxis VTE Prophylaxis Intervention: heparin Lines/Catheters [facility] Peripheral IV Urinary Cath still in place: Yes (Suprapubic Cath.) Reason Cath still needed: urinary retention Assessment/Plan Assessment/Plan 1. Possible urinary tract infection. Continue patient on cefepime and vancomycin secondary to systemic inflammatory response syndrome with leukocytosis secondary to #1. 2. Possible healthcare-acquired pneumonia. - Continue patient on broad spectrum antibiotics. - per Dr. Enriquez in infectious disease consultation. 3. Ventilator dependent respiratory failure. - per Dr. Gomez to see patient in pulmonology consultation. Continue oxygen supplementation, bronchodilators and ventilator support. 4. Hemorrhagic cerebrovascular accident. 5. Benign prostatic hypertrophy. Continue doxazosin. 6. Hypertension. Continue to monitor blood pressure. 7. Chronic encephalopathy. 8. Dysphagia with PEG. Will continue current G-tube feeding, monitor residual , aspiration precautions. 9. Continue heparin for deep venous thrombosis prophylaxis and omeprazole for peptic ulcer disease prophylaxis. Further recommendations based on clinical course. Plan of care discussed with Dr. Kwok. Subjective 24 Hr Interval Summary Free Text/Dictation NAD. No new issues reported per staff Constitutional: requiring O2 Exam/Review of Systems Vital Signs Vitals Vital Signs Date Time Temp Pulse Resp B/P Pulse Ox O2 Delivery O2 Flow Rate FiO2 08/07/16 13:00 74 14 100 40 08/07/16 11:30 98.6 129/58 08/06/16 03:55 Trach Collar Intake and Output 08/06/16 08/06/16 08/07/16 15:00 23:00 07:00 Intake Total 1980 ml 300 ml Output Total 1150 ml Balance 830 ml 300 ml Exam Eyes: nl sclera ENMT: nl external ears & nose Neck: non-tender Respiratory: diminished breath sounds, other Cardiovascular: nl pulses Gastrointestinal: non-tender, other, soft Neurological: lethargic Skin: other Lymph: nontender Results Result Diagram: 08/07/16 0600 08/07/16 0600 Results 24 hrs Laboratory Tests Test 08/07/16 06:00 Anion Gap 14 Basophils # 0.0 Basophils % 0.1 Blood Morphology Comment Blood Urea Nitrogen 33 H Calcium Level 8.2 L Carbon Dioxide Level 29 Chloride Level 102 Creatinine 0.96 Eosinophils # 0.4 Eosinophils % 2.9 Glucose Level 138 Hematocrit 27.7 L Hemoglobin 8.8 L Lymphocytes # 1.4 Lymphocytes % 11.0 L Mean Corpuscular Hemoglobin 25.5 L Mean Corpuscular Hemoglobin Concent 31.9 L Mean Corpuscular Volume 79.8 L Mean Platelet Volume 9.9 Monocytes # 0.7 Monocytes % 5.3 Neutrophils # 10.0 H Neutrophils % 80.7 H Nucleated Red Blood Cells # 0.0 Nucleated Red Blood Cells % 0.0 Platelet Count 244 Potassium Level 4.6 Red Blood Count 3.47 L Red Cell Distribution Width 19.9 H Sodium Level 140 White Blood Count 12.4 #H Medications Medications Current Medications Eye Lubricant (Artificial Tears Oph) 1 drop Q12 BOTH EYES Last administered on 08/07/16 08:58; Admin Dose 1 DROP; Start 08/05/16 at 21:00 Doxazosin Mesylate (Cardura) 4 mg QHS GTB Last administered on 08/06/16 22:53 ; Admin Dose 4 MG; Start 08/05/16 at 21:00 Heparin Sodium (Porcine) 5000 unit 5,000 unit Q12 SC Last administered on 09:09; Admin Dose 5,000 UNIT; Start 08/05/16 at 21:00 Cefepime HCl (Maxipime 1gm/50 ml (Pmx)) 50 ml @ 100 mls/hr Q12 IVPB Last administered on 08/07/16 08:58; Admin Dose 100 MLS/HR; Start 08/05/16 at 23:00 Acetaminophen (Tylenol Tab) 650 mg Q6H PRN PO PAIN AND OR ELEVATED TEMP; Start 08/06/16 at 06:00 Influenza Virus Vaccine (Fluzone) 0.5 ml ONCE ONCE IM* ; Start 08/08/16 at 09:00 ; Stop 08/08/16 at 09:01 Lansoprazole 30 mg 30 mg DAILY@06 GTB Last administered on 08/07/16 06:39; Admin Dose 30 MG; Start 08/06/16 at 08:30 Vancomycin HCl (Vancocin) 250 ml @ 125 mls/hr Q12H IVPB Last administered on 03:08; Admin Dose 125 MLS/HR; Start 08/06/16 at 15:00 SAMIA LICEA Aug 07, 2016 14:58
--- NOTE | 2016-08-07 15:18 | CONS ---
Date/Time of Note Date/Time of Note DATE: 08/07/16 TIME: 15:14 Assessment/Plan Assessment/Plan Chief Complaint/Hosp Course ID PROGRESS NOTE TOTAL ABX DAY #3 => Vanco IV + Cefepime 24H INTERVAL SUMMARY * Clincally improving => Noncommunicative on the Vent, chronic encephalopathy, no fevers, WBC downtrend continues, renal fx stable * CXR 08/05/16: IMPRESSION:1. No significant change from 09/30/2013.2. Increased density at the lung bases may all relate to atelectasis and scarring however basilar infiltrates cannot be excluded.3. No definite congestive heart failure. 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 SIRS w/marked leukocytosis, no fevers recorded @ [facility], VSS * BCx on admission (-) preliminary 2. Complicated polymicrobial GNR UTI: Duane: 08/05/16-1499 URINE CULTURE Preliminary Organism 1 GRAM NEGATIVE CHERELLE COLONY COUNT >100,000 CFU/ml Organism 2 GRAM NEGATIVE CHERELLE#2 COLONY COUNT >100,000 CFU/ml 3. Hx of recurrent UTI due to retention => 1) BPH, 2) Neurogenic bladder 4. Chronic hypoxic VDRF * CXR this admission without compelling evidence for PNA, same as CXR in 2013 5. 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 Problems: Consultation Date/Type/Reason Admit Date/Time Aug 05, 2016 at 15:58 Exam/Review of Systems Vital Signs Vitals Vital Signs Date Time Temp Pulse Resp B/P Pulse Ox O2 Delivery O2 Flow Rate FiO2 08/07/16 15:04 98.5 70 14 127/58 98 08/07/16 13:00 40 08/06/16 03:55 Trach Collar Intake and Output 08/06/16 08/06/16 08/07/16 15:00 23:00 07:00 Intake Total 1980 ml 300 ml Output Total 1150 ml Balance 830 ml 300 ml Results Result Diagram: 08/07/16 0600 08/07/16 0600 Results 24 hrs Laboratory Tests Test 08/07/16 06:00 Anion Gap 14 Basophils # 0.0 Basophils % 0.1 Blood Morphology Comment Blood Urea Nitrogen 33 H Calcium Level 8.2 L Carbon Dioxide Level 29 Chloride Level 102 Creatinine 0.96 Eosinophils # 0.4 Eosinophils % 2.9 Glucose Level 138 Hematocrit 27.7 L Hemoglobin 8.8 L Lymphocytes # 1.4 Lymphocytes % 11.0 L Mean Corpuscular Hemoglobin 25.5 L Mean Corpuscular Hemoglobin Concent 31.9 L Mean Corpuscular Volume 79.8 L Mean Platelet Volume 9.9 Monocytes # 0.7 Monocytes % 5.3 Neutrophils # 10.0 H Neutrophils % 80.7 H Nucleated Red Blood Cells # 0.0 Nucleated Red Blood Cells % 0.0 Platelet Count 244 Potassium Level 4.6 Red Blood Count 3.47 L Red Cell Distribution Width 19.9 H Sodium Level 140 White Blood Count 12.4 #H Medications Medications Current Medications Eye Lubricant (Artificial Tears Oph) 1 drop Q12 BOTH EYES Last administered on 08/07/16t 08:58; Admin Dose 1 DROP; Start 08/05/16 at 21:00 Doxazosin Mesylate (Cardura) 4 mg QHS GTB Last administered on 08/06/16 22:53 ; Admin Dose 4 MG; Start 08/05/16 at 21:00 Heparin Sodium (Porcine) 5000 unit 5,000 unit Q12 SC Last administered on 09:09; Admin Dose 5,000 UNIT; Start 08/05/16 at 21:00 Cefepime HCl (Maxipime 1gm/50 ml (Pmx)) 50 ml @ 100 mls/hr Q12 IVPB Last administered on 08/07/16 08:58; Admin Dose 100 MLS/HR; Start 08/05/16 at 23:00 Acetaminophen (Tylenol Tab) 650 mg Q6H PRN PO PAIN AND OR ELEVATED TEMP; Start 08/06/16 at 06:00 Influenza Virus Vaccine (Fluzone) 0.5 ml ONCE ONCE IM* ; Start 08/08/16 at 09:00 ; Stop 08/08/16 at 09:01 Lansoprazole 30 mg 30 mg DAILY@06 GTB Last administered on 08/07/16 06:39; Admin Dose 30 MG; Start 08/06/16 at 08:30 Vancomycin HCl (Vancocin) 250 ml @ 125 mls/hr Q12H IVPB Last administered on 03:08; Admin Dose 125 MLS/HR; Start 08/06/16 at 15:00 RAYMUNDO ROBLEDO NP Aug 07, 2016 15:18
--- NOTE | 2016-08-07 18:18 | PN ---
DATE: 08/07/2016 SUBJECTIVE: The patient remains stable on mechanical ventilation. No new events. PHYSICAL EXAMINATION: VITAL SIGNS: Temperature 98, pulse is 74, blood pressure 129/58, O2 saturation 96%, FIO2 of 40%. NECK: Trach site clean and intact. CARDIAC: S1, S2. No added sounds or murmurs. CHEST: Diminished air entry bilaterally. ABDOMEN: Soft, nontender. No guarding or rebound. EXTREMITIES: No cyanosis, clubbing, edema. NEUROLOGIC: Grossly intact. No focal deficits. LABORATORY DATA: White count 12.4, hemoglobin 8.9, platelets of 244. BUN 33, creatinine 0.96. IMPRESSION: 1. Respiratory failure. 2. Resolving leukocytosis. 3. Urinary tract infection and likely healthcare-associated pneumonia. 4. History of chronic encephalopathy. PLAN: 1. Continue antibiotics with improvement in leukocytosis. 2. Continue tube feeding. 3. Continue vent support. 4. DVT and GI prophylaxis. Dictated By: SARINA AGUIRRE MD SV/KAYLA Conf#: [id number] DID#: [id number] CC: RACHELLE RAMOS MD;*EndCC*
[2016-08-07] MEDS: VANCOMYCIN 750 MG in SOD CHLORIDE 0.9% 150 ML IVPB SCH (21:16)
[2016-08-07] MEDS: DOXAZOSIN 4 MG TAB GTB SCH (21:17)
[2016-08-08] VITALS (26 sets, daily range): BP systolic 102–146; BP diastolic 60–86; PULSE 64–80; RESP 12–20
[2016-08-08] MEDS: LANSOPRAZOLE 30 MG CAP GTB SCH (05:55)
[2016-08-08 06:12] LABS: EOSINOPHILS # 0.4 10^3/ul (0.0-0.5); EOSINOPHILS % 3.8 % (0.0-7.0); HEMATOCRIT 26.1 % (42.0-52.0); HEMOGLOBIN 8.4 g/dl (14.0-18.0); LYMPHOCYTES # 1.4 10^3/ul (0.8-2.9); LYMPHOCYTES % 12.2 % (15.0-51.0); MEAN CORPUSCULAR HEMOGLOBIN 25.6 pg (29.0-33.0); MEAN CORPUSCULAR HGB CONC 32.1 g/dl (32.0-37.0); MEAN CORPUSCULAR VOLUME 79.8 fl (82.0-101.0); MEAN PLATELET VOLUME 8.8 fl (7.4-10.4); MONOCYTE # 0.8 10^3/ul (0.3-0.9); MONOCYTES % 6.9 % (0.0-11.0); NEUTROPHIL # 8.7 10^3/ul (1.6-7.5); NEUTROPHILS % 77.1 % (39.0-77.0); PLATELET COUNT 249 10^3/UL (140-440); RED BLOOD COUNT 3.27 10^6/ul (4.70-6.10); RED CELL DISTRIBUTION WIDTH 20.5 % (11.5-14.5); UNCORRECTED WBC 11.2 10^3/ul (4.8-10.8); WHITE BLOOD COUNT 11.2 10^3/ul (4.8-10.8)
[2016-08-08 06:21] LABS: CONDITION 1; LH ANALYZER COMMENTS 1
[2016-08-08 06:27] LABS: POTASSIUM 4.6 mmol/L (3.5-5.1)
[2016-08-08 06:30] LABS: CREATININE 0.79 mg/dl (0.61-1.24)
[2016-08-08 06:31] LABS: CALCIUM 8.1 mg/dl (8.4-10.2)
[2016-08-08] MEDS ORDERED: LIDOCAINE 1% (MDV) 20 ML INJ SC ONE (08:00)
[2016-08-08] MEDS ORDERED: INFLUENZA VIRUS VACCINE 0.5 ML (DISPENSING) IM* ONE (09:00)
[2016-08-08] MEDS: ARTIFICIAL TEARS 15 ML OPH BOTH EYES SCH ×2 (09:12→21:04)
[2016-08-08] MEDS: CEFEPIME 1GM/50 ML (PMX) 50 ML IVPB SCH (09:12)
[2016-08-08] MEDS: HEPARIN 5,000 UNIT/0.5 ML SYG SC SCH ×2 (09:17→21:05)
[2016-08-08] MEDS: VANCOMYCIN 750 MG in SOD CHLORIDE 0.9% 150 ML IVPB SCH (09:24)
--- NOTE | 2016-08-08 16:16 | CONS ---
Date/Time of Note Date/Time of Note DATE: 08/08/16 TIME: 16:08 Assessment/Plan Assessment/Plan Chief Complaint/Hosp Course ID PROGRESS NOTE TOTAL ABX DAY #4 => Vanco IV + Cefepime 24H INTERVAL SUMMARY * Low Grade temps persisting = overall improved * Noncommunicative on the Vent, chronic encephalopathy, no fevers, WBC downtrend continues, renal fx stable 508 Source: CATHETER U Sp Descrip: URINE CULTURE Final Organism 1 K PNEUMO ESBL COLONY COUNT >100,000 CFU/ml . MULTI DRUG RESISTANT ORGANISM Organism 2 MORGANELLA MORGANII SSP MORG. COLONY COUNT >100,000 CFU/ml PHONED TO ALYSHA, TEL, LEFT A MESSAGE ON Proenza Schouer AND A COPY TO AT 1040 08/08/16 BY AD. RACH GOSS M.I.CWero RX M.I.C. 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 SIRS w/marked leukocytosis, no fevers recorded @ [facility], VSS * BCx on admission (-) preliminary 2. Complicated polymicrobial GNR UTI: Duane: 08/05/16-1500 URINE CULTURE Final Organism 1 K PNEUMO ESBL MULTI DRUG RESISTANT ORGANISM COLONY COUNT >100,000 CFU/ml Organism 2 MORGANELLA MORGANII SSP MORG. COLONY COUNT >100,000 CFU/ml 3. Hx of recurrent UTI due to retention => 1) BPH, 2) Neurogenic bladder 4. Chronic hypoxic VDRF * CXR this admission without compelling evidence for PNA, same as CXR in 2013 5. 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 . Problems: Consultation Date/Type/Reason Admit Date/Time Aug 05, 2016 at 15:58 Exam/Review of Systems Vital Signs Vitals Vital Signs Date Time Temp Pulse Resp B/P Pulse Ox O2 Delivery O2 Flow Rate FiO2 08/08/16 16:05 98.6 73 20 146/74 99 08/08/16 15:10 40 08/08/16 04:00 Mechanical Ventilator Intake and Output 08/07/16 08/07/16 08/08/16 15:00 23:00 07:00 Intake Total 1290 ml 1140 ml 1440 ml Output Total 650 ml 350 ml 500 ml Balance 640 ml 790 ml 940 ml Results Result Diagram: 08/08/16 0500 08/08/16 0500 Results 24 hrs Laboratory Tests Test 08/08/16 05:00 Anion Gap 14 Basophils # 0.0 Basophils % 0.0 Blood Morphology Comment Blood Urea Nitrogen 34 H Calcium Level 8.1 L Carbon Dioxide Level 31 Chloride Level 103 Creatinine 0.79 Eosinophils # 0.4 Eosinophils % 3.8 Glucose Level 131 Hematocrit 26.1 L Hemoglobin 8.4 L Lymphocytes # 1.4 Lymphocytes % 12.2 L Mean Corpuscular Hemoglobin 25.6 L Mean Corpuscular Hemoglobin Concent 32.1 Mean Corpuscular Volume 79.8 L Mean Platelet Volume 8.8 Monocytes # 0.8 Monocytes % 6.9 Neutrophils # 8.7 H Neutrophils % 77.1 H Nucleated Red Blood Cells # 0.0 Nucleated Red Blood Cells % 0.0 Platelet Count 249 Potassium Level 4.6 Red Blood Count 3.27 L Red Cell Distribution Width 20.5 H Sodium Level 143 White Blood Count 11.2 H Medications Medications Current Medications Eye Lubricant (Artificial Tears Oph) 1 drop Q12 BOTH EYES Last administered on 08/08/16 09:12; Admin Dose 1 DROP; Start 08/05/16 at 21:00 Doxazosin Mesylate (Cardura) 4 mg QHS GTB Last administered on 08/07/16 21:17 ; Admin Dose 4 MG; Start 08/05/16 at 21:00 Heparin Sodium (Porcine) 5000 unit 5,000 unit Q12 SC Last administered on 09:17; Admin Dose 5,000 UNIT; Start 08/05/16 at 21:00 Cefepime HCl (Maxipime 1gm/50 ml (Pmx)) 50 ml @ 100 mls/hr Q12 IVPB Last administered on 08/08/16 09:12; Admin Dose 100 MLS/HR; Start 08/05/16 at 23:00 Acetaminophen (Tylenol Tab) 650 mg Q6H PRN PO PAIN AND OR ELEVATED TEMP; Start 08/06/16 at 06:00 Lansoprazole 30 mg 30 mg DAILY@06 GTB Last administered on 08/08/16 05:55; Admin Dose 30 MG; Start 08/06/16 at 08:30 Vancomycin HCl/ Sodium Chloride (Vancocin/NS) 150 ml @ 75 mls/hr Q12 IVPB Last administered on 08/08/16 09:24; Admin Dose 75 MLS/HR; Start 08/07/16 at 21 :00 Miscellaneous Information (*Rx Drug Level Order Reminder*) 1 ONCE ONCE XX ; Start 08/09/16 at 08:00; Stop 08/09/16 at 08:01 RAYMUNDO ROBLEDO NP Aug 08, 2016 16:16
[2016-08-08] MEDS ORDERED: ERTAPENEM SODIUM 1 GM in SOD CHLORIDE 0.9% 100 ML IVPB SCH (18:00)
[2016-08-08] MEDS: DOXAZOSIN 4 MG TAB GTB SCH (21:04)
--- NOTE | 2016-08-08 23:04 | PN ---
Date/Time of Note Date/Time of Note DATE: 08/08/16 TIME: 22:59 Assessment/Plan VTE Prophylaxis VTE Prophylaxis Intervention: LMWH Lines/Catheters [facility] Saline Lock Urinary Cath still in place: No Assessment/Plan Chief Complaint/Hosp Course ASSESSMENT AND PLAN: 1. Polymicrobial urinary tract infection. Continue abx per ID, Dr Enriquez. 2. Systemic inflammatory response syndrome with leukocytosis secondary to #1. 2. Possible healthcare-acquired pneumonia. Continue patient on broad spectrum antibiotics. 3. Ventilator dependent respiratory failure. Dr. Reese following in pulmonology consultation. Continue oxygen supplementation, bronchodilators and ventilator support. 4. Hemorrhagic cerebrovascular accident. 5. Benign prostatic hypertrophy. Continue doxazosin. 6. Hypertension. Continue to monitor blood pressure. 7. Chronic encephalopathy. 8. Dysphagia with PEG. Continue current G-tube feeding, monitor residual, aspiration precautions. Pt needs PICC line for IVF and abx. Continue heparin for deep venous thrombosis prophylaxis and omeprazole for peptic ulcer disease prophylaxis. Further recommendations based on clinical course. Plan of care discussed with Dr. Del Angel. Problems: Subjective 24 Hr Interval Summary Free Text/Dictation No fever, N/V reported, SR on tele. Exam/Review of Systems Vital Signs Vitals Vital Signs Date Time Temp Pulse Resp B/P Pulse Ox O2 Delivery O2 Flow Rate FiO2 08/08/16 21:06 64 08/08/16 20:17 97.9 16 102/84 100 08/08/16 19:15 40 08/08/16 04:00 Mechanical Ventilator Intake and Output 08/07/16 08/07/16 08/08/16 15:00 23:00 07:00 Intake Total 1290 ml 1140 ml 1440 ml Output Total 650 ml 350 ml 500 ml Balance 640 ml 790 ml 940 ml Exam GENERAL: Well-developed, obese gentleman, opens eyes. Does not follow any commands. HEENT: Head is atraumatic, normocephalic. NECK: Supple. The patient has a tracheostomy at the base of the neck with no bleeding, moderate amount of secretions. CHEST: Slightly diminished at the bases. Scattered rhonchi bilaterally. GASTROINTESTINAL: Abdomen is protuberant, soft, nondistended, nontender. G- tube with intact stoma. There is no guarding, no tenderness. Bowel sounds present. EXTREMITIES: No edema, clubbing, cyanosis present. GENITOURINARY: The patient has a Aguilar catheter SKIN: There is no apparent rash noted. NEUROLOGIC: The patient opens eyes. Does not follow any commands. Results Result Diagram: 08/08/16 0500 08/08/16 0500 Results 24 hrs Laboratory Tests Test 08/08/16 05:00 Anion Gap 14 Basophils # 0.0 Basophils % 0.0 Blood Morphology Comment Blood Urea Nitrogen 34 H Calcium Level 8.1 L Carbon Dioxide Level 31 Chloride Level 103 Creatinine 0.79 Eosinophils # 0.4 Eosinophils % 3.8 Glucose Level 131 Hematocrit 26.1 L Hemoglobin 8.4 L Lymphocytes # 1.4 Lymphocytes % 12.2 L Mean Corpuscular Hemoglobin 25.6 L Mean Corpuscular Hemoglobin Concent 32.1 Mean Corpuscular Volume 79.8 L Mean Platelet Volume 8.8 Monocytes # 0.8 Monocytes % 6.9 Neutrophils # 8.7 H Neutrophils % 77.1 H Nucleated Red Blood Cells # 0.0 Nucleated Red Blood Cells % 0.0 Platelet Count 249 Potassium Level 4.6 Red Blood Count 3.27 L Red Cell Distribution Width 20.5 H Sodium Level 143 White Blood Count 11.2 H Medications Medications Current Medications Eye Lubricant (Artificial Tears Oph) 1 drop Q12 BOTH EYES Last administered on 08/08/16 21:04; Admin Dose 1 DROP; Start 08/05/16 at 21:00 Doxazosin Mesylate (Cardura) 4 mg QHS GTB Last administered on 08/08/16 21:04 ; Admin Dose 4 MG; Start 08/05/16 at 21:00 Heparin Sodium (Porcine) (Heparin (5000 Units/0.5 ml)) 5,000 unit Q12 SC Last administered on 08/08/16 21:05; Admin Dose 5,000 UNIT; Start 08/05/16 at 21:00 Acetaminophen (Tylenol Tab) 650 mg Q6H PRN PO PAIN AND OR ELEVATED TEMP; Start 08/06/16 at 06:00 Lansoprazole 30 mg 30 mg DAILY@06 GTB Last administered on 08/08/16 05:55; Admin Dose 30 MG; Start 08/06/16 at 08:30 Ertapenem/Sodium Chloride (Invanz/NS) 100 ml @ 200 mls/hr Q24H IVPB Last administered on 1/16/17at 18:22; Admin Dose 200 MLS/HR; Start 08/08/16 at 18:00 ; Stop 08/16/16 at 17:59 JAGJIT ART Aug 08, 2016 23:04
[2016-08-09] VITALS (23 sets, daily range): BP systolic 123–144; BP diastolic 59–69; PULSE 58–83; RESP 12–19
[2016-08-09] MEDS: LANSOPRAZOLE 30 MG CAP GTB SCH (06:37)
[2016-08-09 07:09] LABS: CREATININE 0.7 mg/dl (0.61-1.24)
[2016-08-09 07:10] LABS: CALCIUM 8.3 mg/dl (8.4-10.2)
[2016-08-09 07:29] LABS: BASOPHIL # 0.1 10^3/ul (0.0-0.1); BASOPHILS % 0.5 % (0.0-2.0); EOSINOPHILS # 0.5 10^3/ul (0.0-0.5); EOSINOPHILS % 5.1 % (0.0-7.0); HEMATOCRIT 26.7 % (42.0-52.0); HEMOGLOBIN 8.6 g/dl (14.0-18.0); LYMPHOCYTES # 1.4 10^3/ul (0.8-2.9); LYMPHOCYTES % 12.8 % (15.0-51.0); MEAN CORPUSCULAR HEMOGLOBIN 25.9 pg (29.0-33.0); MEAN CORPUSCULAR HGB CONC 32.2 g/dl (32.0-37.0); MEAN CORPUSCULAR VOLUME 80.4 fl (82.0-101.0); MEAN PLATELET VOLUME 9.5 fl (7.4-10.4); MONOCYTE # 0.3 10^3/ul (0.3-0.9); MONOCYTES % 2.9 % (0.0-11.0); NEUTROPHIL # 8.3 10^3/ul (1.6-7.5); NEUTROPHILS % 78.7 % (39.0-77.0); PLATELET COUNT 256 10^3/UL (140-440); RED BLOOD COUNT 3.32 10^6/ul (4.70-6.10); RED CELL DISTRIBUTION WIDTH 20.2 % (11.5-14.5); UNCORRECTED WBC 10.6 10^3/ul (4.8-10.8); WHITE BLOOD COUNT 10.6 10^3/ul (4.8-10.8)
[2016-08-09 07:45] LABS: CONDITION 1; LH ANALYZER COMMENTS 1
[2016-08-09] MEDS: ARTIFICIAL TEARS 15 ML OPH BOTH EYES SCH ×2 (08:53→21:05)
[2016-08-09] MEDS: HEPARIN 5,000 UNIT/0.5 ML SYG SC SCH ×2 (08:57→21:07)
--- NOTE | 2016-08-09 11:41 | PN ---
Date/Time of Note Date/Time of Note DATE: 08/09/16 TIME: 11:37 Assessment/Plan VTE Prophylaxis VTE Prophylaxis Intervention: SCD's Lines/Catheters IV Catheter Type (from [facility]): Peripheral IV Urinary Cath still in place: No Assessment/Plan Chief Complaint/Hosp Course ASSESSMENT AND PLAN: 1. Polymicrobial urinary tract infection. Continue abx per ID, Dr Enriquez. 2. Systemic inflammatory response syndrome with leukocytosis secondary to #1. 2. Possible healthcare-acquired pneumonia. Continue patient on broad spectrum antibiotics. 3. Ventilator dependent respiratory failure. Dr. Gomez is following in pulmonology consultation. Continue oxygen supplementation, bronchodilators and ventilator support. 4. Hemorrhagic cerebrovascular accident. 5. Benign prostatic hypertrophy. Continue doxazosin. 6. Hypertension. Continue to monitor blood pressure. 7. Chronic encephalopathy. 8. Dysphagia with PEG. Continue current G-tube feeding, monitor residual, aspiration precautions. 9. IV excess. Patient needs PICC line for IVF and abxs. Poor peripheral excess. No family found to obtain consent. Continue heparin for deep venous thrombosis prophylaxis and omeprazole for peptic ulcer disease prophylaxis. Further recommendations based on clinical course. Plan of care discussed with Dr. Del Angel. Problems: Subjective 24 Hr Interval Summary Free Text/Dictation Patient looks comfortable, no fever, N/V. Exam/Review of Systems Vital Signs Vitals Vital Signs Date Time Temp Pulse Resp B/P Pulse Ox O2 Delivery O2 Flow Rate FiO2 08/09/16 11:22 71 12 99 40 08/09/16 07:14 98.3 128/66 08/08/16 04:00 Mechanical Ventilator Intake and Output 08/08/16 08/08/16 08/09/16 15:00 23:00 07:00 Intake Total 1540 ml 575 ml Output Total 600 ml 601 ml Balance 940 ml -26 ml Exam GENERAL: Well-developed, obese gentleman, opens eyes. Does not follow any commands. HEENT: Head is atraumatic, normocephalic. NECK: Supple. The patient has a tracheostomy at the base of the neck with no bleeding, moderate amount of secretions. CHEST: Slightly diminished at the bases. Scattered rhonchi bilaterally. GASTROINTESTINAL: Abdomen is protuberant, soft, nondistended, nontender. G- tube with intact stoma. There is no guarding, no tenderness. Bowel sounds present. EXTREMITIES: No edema, clubbing, cyanosis present. GENITOURINARY: The patient has a Aguilar catheter SKIN: There is no apparent rash noted. NEUROLOGIC: The patient opens eyes. Does not follow any commands. Results Result Diagram: 08/09/1662508/09/16 06 Results 24 hrs Laboratory Tests Test 08/09/16 06:26 Anion Gap 14 Basophils # 0.1 Basophils % 0.5 Blood Morphology Comment Blood Urea Nitrogen 33 H Calcium Level 8.3 L Carbon Dioxide Level 30 Chloride Level 104 Creatinine 0.70 Eosinophils # 0.5 Eosinophils % 5.1 Glucose Level 117 Hematocrit 26.7 L Hemoglobin 8.6 L Lymphocytes # 1.4 Lymphocytes % 12.8 L Mean Corpuscular Hemoglobin 25.9 L Mean Corpuscular Hemoglobin Concent 32.2 Mean Corpuscular Volume 80.4 L Mean Platelet Volume 9.5 Monocytes # 0.3 Monocytes % 2.9 Neutrophils # 8.3 H Neutrophils % 78.7 H Nucleated Red Blood Cells # 0.0 Nucleated Red Blood Cells % 0.0 Platelet Count 256 Potassium Level 5.0 Red Blood Count 3.32 L Red Cell Distribution Width 20.2 H Sodium Level 143 White Blood Count 10.6 Medications Medications Current Medications Eye Lubricant (Artificial Tears Oph) 1 drop Q12 BOTH EYES Last administered on 08/09/16 08:53; Admin Dose 1 DROP; Start 08/05/16 at 21:00 Doxazosin Mesylate (Cardura) 4 mg QHS GTB Last administered on 08/08/16 21:04 ; Admin Dose 4 MG; Start 08/05/16 at 21:00 Heparin Sodium (Porcine) (Heparin (5000 Units/0.5 ml)) 5,000 unit Q12 SC Last administered on 08/09/16 08:57; Admin Dose 5,000 UNIT; Start 08/05/16 at 21:00 Acetaminophen (Tylenol Tab) 650 mg Q6H PRN PO PAIN AND OR ELEVATED TEMP; Start 08/06/16 at 06:00 Lansoprazole 30 mg 30 mg DAILY@06 GTB Last administered on 08/09/16 06:37; Admin Dose 30 MG; Start 08/06/16 at 08:30 Ertapenem/Sodium Chloride (Invanz/NS) 100 ml @ 200 mls/hr Q24H IVPB Last administered on 1/16/17at 18:22; Admin Dose 200 MLS/HR; Start 08/08/16 at 18:00 ; Stop 08/16/16 at 17:59 JAGJIT ART Aug 09, 2016 11:41
--- NOTE | 2016-08-09 12:57 | PN ---
DATE: 08/09/2016 SUBJECTIVE: No acute changes overnight. Patient is lying comfortably in bed. He is nonverbal, no ncommunicative and afebrile. LABORATORIES: WBC today 10.6, platelets 256, neutrophils 78.7, no bands. BUN 33, creatinine 0.70. INDWELLINGS: Trach, PEG, Aguilar. MICROBIOLOGY: Urine culture on admission grew Klebsiella pneumoniae and Morganella morganii species , both susceptible to Bactrim, tobramycin. ANTIMICROBIALS: The patient is on Invanz. PHYSICAL EXAMINATION: GENERAL: Chronically ill-appearing, elderly man who is in no distress. HEENT: Head atraumatic, normocephalic. Sclerae anicteric. Buccal mucosa dry. NECK: Supple. Tracheostomy present. CHEST: Rise symmetrical. Breath sounds diminished to bases. HEART: S1, S2. ABDOMEN: Soft, bowel tones present. EXTREMITIES: Without cyanosis. ASSESSMENT: 1. Systemic inflammatory response syndrome on admission. 2. Polymicrobial multidrug resistant urinary tract infection. 3. History of benign prostatic hypertrophy. 4. Chronic respiratory failure. 5. Dysphagia. PLAN: The patient remains stable. We are going to change antibiotics back to cefepime and add oral Bactrim as Klebsiella extended-spectrum beta-lactamase was resistant to imipenem. Continue present care as per primary team. Vent support per pulmonary. Dictated By: SUSANNE LANIER GEOTECHNICAL FIELD TECHNICIAN for MARIA GUADALUPE CLARK/KAYLA Conf#: [id number] DID#: [id number]
--- NOTE | 2016-08-09 15:12 | PN ---
DATE: 08/09/2016 SUBJECTIVE: The patient remained stable, no new events. Vital signs remain stable with no evidence of fever. PHYSICAL EXAMINATION: VITAL SIGNS: Temperature 97, pulse is 65, blood pressure 123/69, O2 saturation 96% on FIO2 of 40%. NECK: Trach site clean and intact. CARDIAC: S1, S2, no added sounds or murmurs. CHEST: Diminished air entry bilaterally. ABDOMEN: Soft, nontender. No guarding or rebound. EXTREMITIES: No cyanosis, clubbing, edema. NEUROLOGIC: Generalized weakness, unable to assess. LABORATORY DATA: White count 10.6, hemoglobin 8.6, platelets 256. BUN 33, creatinine 0.7. IMPRESSION AND PLAN: 1. Status post septic shock. 2. Pending IV access. 3. Chronic encephalopathy. 4. Dysphagia with percutaneous endoscopic gastrostomy tube. 5. History of vent-dependent respiratory failure. Patient will require: 1. Continued broad-spectrum antibiotics. 2. Continue supplemental O2. 3. Continue vent support. 4. DVT and GI prophylaxis. 5. Tube feeding as tolerated. 6. Discharge planning okayed from pulmonary standpoint. Dictated By: SARINA BRISCOE/KAYLA Conf#: [id number] DID#: [id number]
[2016-08-09] MEDS: CEFEPIME 1GM/50 ML (PMX) 50 ML IVPB SCH ×2 (15:59→21:05)
--- NOTE | 2016-08-09 16:58 | RADRPT ---
PROCEDURE: XR Chest. CLINICAL INDICATION: Check PICC line position. TECHNIQUE: Single frontal view. COMPARISON: 08/05/2016. FINDINGS: There is a right arm PICC line with the tip in the right axillary vein. The tracheostomy tube remai ns in position. There is mild atelectasis at the lung bases, unchanged. The lungs are otherwise cl ear. The heart size is normal. There is a small right pleural effusion. There is no left pleural effusion. There is no pneumothorax. IMPRESSION: 1. Right arm PICC line tip in the right axillary vein. 2. Tracheostomy tube. 3. Unchanged atelectasis at the lung bases. 4. Small right pleural effusion. RPTAT: QQ .Pardeep Chase MD, MD Date Time Electronically viewed and signed by .Pardeep Chase MD, MD on 08/09/2016 16:58 .R/
--- NOTE | 2016-08-09 17:19 | RADRPT ---
PROCEDURE: Ultrasound guidance for placement of needle in right upper extremity vein. CLINICAL INDICATION: Venous access. TECHNIQUE: Limited sonography of the left upper extremity was performed. Ultrasound images were recorded and s tored in the patient's medical record. COMPARISON: None. FINDINGS: The ultrasound images demonstrate a patent left upper extremity vein. The PICC line was inserted by the PICC line nurse. IMPRESSION: 1. Ultrasound guidance for a needle placement in a left upper extremity vein. 2. The left upper extremity vein is patent. RPTAT: QQ .Pardeep Chase MD, MD Date Time Electronically viewed and signed by .Pardeep Chase MD, MD on 08/09/2016 17:19 .R/
[2016-08-09] MEDS ORDERED: SOD CHLORIDE 0.9% 100 ML ONE (17:43)
[2016-08-09] MEDS ORDERED: LIDOCAINE 1% (MPF) 5 ML VIAL ONE (17:43)
[2016-08-09] MEDS: TRIMETHOPRIM/SULFAMETHOX (DS) TAB PO SCH (21:04)
[2016-08-09] MEDS: DOXAZOSIN 4 MG TAB GTB SCH (21:05)
[2016-08-10] VITALS (23 sets, daily range): BP systolic 107–125; BP diastolic 51–63; PULSE 62–72; RESP 12–18
[2016-08-10] MEDS: LANSOPRAZOLE 30 MG CAP GTB SCH (06:27)
[2016-08-10 07:15] LABS: HEMATOCRIT 27.1 % (42.0-52.0); HEMOGLOBIN 8.8 g/dl (14.0-18.0); MEAN CORPUSCULAR HEMOGLOBIN 25.8 pg (29.0-33.0); MEAN CORPUSCULAR HGB CONC 32.4 g/dl (32.0-37.0); MEAN CORPUSCULAR VOLUME 79.6 fl (82.0-101.0); MEAN PLATELET VOLUME 9.8 fl (7.4-10.4); PLATELET COUNT 235 10^3/UL (140-440); RED BLOOD COUNT 3.41 10^6/ul (4.70-6.10)
[2016-08-10 07:19] LABS: UNCORRECTED WBC 16.3 10^3/ul (4.8-10.8); WHITE BLOOD COUNT 9.8 10^3/ul (4.8-10.8)
[2016-08-10 07:20] LABS: CONDITION 1; LH ANALYZER COMMENTS 1; SUSPECT 1
[2016-08-10 07:30] LABS: POTASSIUM 4.6 mmol/L (3.5-5.1)
[2016-08-10 07:32] LABS: CREATININE 0.81 mg/dl (0.61-1.24)
[2016-08-10 07:33] LABS: CALCIUM 8.1 mg/dl (8.4-10.2)
[2016-08-10] MEDS: TRIMETHOPRIM/SULFAMETHOX (DS) TAB PO SCH ×2 (09:36→20:46)
[2016-08-10] MEDS: ARTIFICIAL TEARS 15 ML OPH BOTH EYES SCH ×2 (09:36→20:48)
[2016-08-10] MEDS: CEFEPIME 1GM/50 ML (PMX) 50 ML IVPB SCH ×2 (09:36→20:46)
[2016-08-10] MEDS: HEPARIN 5,000 UNIT/0.5 ML SYG SC SCH ×2 (09:44→21:02)
[2016-08-10 11:40] LABS: ANISOCYTOSIS 2+
[2016-08-10 11:46] LABS: HYPOCHROMASIA 2+; MICROCYTOSIS 1+
--- NOTE | 2016-08-10 14:47 | CONS ---
Date/Time of Note Date/Time of Note DATE: 08/10/16 TIME: 14:45 Consult Date/Type/Reason Admit Date/Time Aug 05, 2016 at 15:58 Initial Consult Date Type of Consultation: ID Subjective no acute changes, awake, looks comfortable, no fevers, nad Objective Vital Signs Date Time Temp Pulse Resp B/P Pulse Ox O2 Delivery O2 Flow Rate FiO2 08/10/16 13:19 69 14 97 30 08/10/16 11:46 98.7 107/51 08/08/16 04:00 Mechanical Ventilator Intake and Output 08/09/16 08/09/16 08/10/16 15:00 23:00 07:00 Intake Total 50 ml 500 ml Output Total 650 ml Balance 50 ml -150 ml Results/Medications Result Diagram: 08/10/16 0604 08/10/16 0604 Results 24 hrs Laboratory Tests Test 08/10/16 06:04 Anion Gap 15 Anisocytosis 2+ Basophils # Basophils % Blood Morphology Comment Blood Urea Nitrogen 31 H Calcium Level 8.1 L Carbon Dioxide Level 30 Chloride Level 106 Creatinine 0.81 Eosinophils # Eosinophils % Glucose Level 122 Hematocrit 27.1 L Hemoglobin 8.8 L Hypochromasia 2+ Lymphocytes # Lymphocytes % Mean Corpuscular Hemoglobin 25.8 L Mean Corpuscular Hemoglobin Concent 32.4 Mean Corpuscular Volume 79.6 L Mean Platelet Volume 9.8 Microcytosis 1+ Monocytes # Monocytes % Neutrophils # Neutrophils % Nucleated Red Blood Cells # Nucleated Red Blood Cells % Platelet Count 235 Potassium Level 4.6 Red Blood Count 3.41 L Red Cell Distribution Width 20.0 H Sodium Level 146 H White Blood Count 9.8 Medications Current Medications Eye Lubricant (Artificial Tears Oph) 1 drop Q12 BOTH EYES Last administered on 08/10/16 09:36; Admin Dose 1 DROP; Start 08/05/16 at 21:00 Doxazosin Mesylate (Cardura) 4 mg QHS GTB Last administered on 08/09/16 21:05 ; Admin Dose 4 MG; Start 08/05/16 at 21:00 Heparin Sodium (Porcine) (Heparin (5000 Units/0.5 ml)) 5,000 unit Q12 SC Last administered on 08/10/16 09:44; Admin Dose 5,000 UNIT; Start 08/05/16 at 21:00 Acetaminophen (Tylenol Tab) 650 mg Q6H PRN PO PAIN AND OR ELEVATED TEMP; Start 08/06/16 at 06:00 Lansoprazole 30 mg 30 mg DAILY@06 GTB Last administered on 08/10/16 06:27; Admin Dose 30 MG; Start 08/06/16 at 08:30 Cefepime HCl (Maxipime 1gm/50 ml (Pmx)) 50 ml @ 100 mls/hr Q12 IVPB Last administered on 08/10/16 09:36; Admin Dose 100 MLS/HR; Start 08/09/16 at 13:30 Trimethoprim/ Sulfamethoxazole (Bactrim (Ds)) 1 tab BID PO Last administered on 08/10/16 09:36; Admin Dose 1 TAB; Start 08/09/16 at 21:00 IV Flush (NS 10 ml) 10 ml PRN PRN IV IV PROTOCOL; Start 08/09/16 at 18:00 Assessment/Plan Chief Complaint/Hosp Course INDWELLINGS: Trach, PEG, Aguilar. MICROBIOLOGY: Urine culture on admission grew Klebsiella pneumoniae and Morganella morganii species, both susceptible to Bactrim, tobramycin. ANTIMICROBIALS: Cefepime, Bactrim. PHYSICAL EXAMINATION: GENERAL: Chronically ill-appearing, elderly man who is in no distress. HEENT: Head atraumatic, normocephalic. Sclerae anicteric. Buccal mucosa dry. NECK: Supple. Tracheostomy present. CHEST: Rise symmetrical. Breath sounds diminished to bases. HEART: S1, S2. ABDOMEN: Soft, bowel tones present. EXTREMITIES: Without cyanosis. ASSESSMENT: 1. Systemic inflammatory response syndrome on admission. 2. Polymicrobial multidrug resistant urinary tract infection. 3. History of benign prostatic hypertrophy. 4. Chronic respiratory failure. 5. Dysphagia. PLAN: The patient remains stable. Continue present care, abx, vent per pulmonary DW staff Problems: SUSANNE LANIER NP Aug 10, 2016 14:47
--- NOTE | 2016-08-10 16:09 | PN ---
Date/Time of Note Date/Time of Note DATE: 08/10/16 TIME: 16:05 Assessment/Plan VTE Prophylaxis VTE Prophylaxis Intervention: SCD's Lines/Catheters IV [facility] Central Line Central line still needed: Yes Urinary Cath still in place: No (Suprapubic ) Assessment/Plan Chief Complaint/Hosp Course ASSESSMENT AND PLAN: 1. Polymicrobial urinary tract infection. Continue cefepime for per ID recommendation. Dr Enriquez is following patient in infection disease consultation. 2. Systemic inflammatory response syndrome with leukocytosis secondary to #1. 3. Possible healthcare-acquired pneumonia. Continue patient on broad spectrum antibiotics. 4. Ventilator dependent respiratory failure. Dr. Reese following in pulmonology consultation. Continue oxygen supplementation, bronchodilators and ventilator support. 5. Hemorrhagic cerebrovascular accident. 6. Benign prostatic hypertrophy. Continue doxazosin. 7. Hypertension. Continue to monitor blood pressure. 8. Chronic encephalopathy. 9. Dysphagia with PEG. Continue current G-tube feeding, monitor residual, aspiration precautions. Await for final ID recommendations prior to [facility] to [facility] facility. Continue heparin for deep venous thrombosis prophylaxis and omeprazole for peptic ulcer disease prophylaxis. Further recommendations based on clinical course. Plan of care discussed with Dr. Del Angel. Problems: Subjective 24 Hr Interval Summary Free Text/Dictation Patient status post PICC line insertion yesterday, no fever nausea vomiting per RN, continues to have moderate secretions from the trach. Exam/Review of Systems Vital Signs Vitals Vital Signs Date Time Temp Pulse Resp B/P Pulse Ox O2 Delivery O2 Flow Rate FiO2 08/10/16 15:43 98.5 71 16 110/58 97 08/10/16 15:22 30 08/08/16 04:00 Mechanical Ventilator Intake and Output 08/09/16 08/09/16 08/10/16 15:00 23:00 07:00 Intake Total 50 ml 500 ml Output Total 650 ml Balance 50 ml -150 ml Exam GENERAL: Well-developed, obese gentleman, opens eyes. Does not follow any commands. HEENT: Head is atraumatic, normocephalic. NECK: Supple. The patient has a tracheostomy at the base of the neck with no bleeding, moderate amount of secretions. CHEST: Slightly diminished at the bases. Scattered rhonchi bilaterally. GASTROINTESTINAL: Abdomen is protuberant, soft, nondistended, nontender. G- tube with intact stoma. There is no guarding, no tenderness. Bowel sounds present. EXTREMITIES: No edema, clubbing, cyanosis present. GENITOURINARY: The patient has a Aguilar catheter SKIN: There is no apparent rash noted. NEUROLOGIC: The patient opens eyes. Does not follow any commands. Results Result Diagram: 08/10/16 0604 08/10/16 0604 Results 24 hrs Laboratory Tests Test 08/10/16 06:04 Anion Gap 15 Anisocytosis 2+ Basophils # Basophils % Blood Morphology Comment Blood Urea Nitrogen 31 H Calcium Level 8.1 L Carbon Dioxide Level 30 Chloride Level 106 Creatinine 0.81 Eosinophils # Eosinophils % Glucose Level 122 Hematocrit 27.1 L Hemoglobin 8.8 L Hypochromasia 2+ Lymphocytes # Lymphocytes % Mean Corpuscular Hemoglobin 25.8 L Mean Corpuscular Hemoglobin Concent 32.4 Mean Corpuscular Volume 79.6 L Mean Platelet Volume 9.8 Microcytosis 1+ Monocytes # Monocytes % Neutrophils # Neutrophils % Nucleated Red Blood Cells # Nucleated Red Blood Cells % Platelet Count 235 Potassium Level 4.6 Red Blood Count 3.41 L Red Cell Distribution Width 20.0 H Sodium Level 146 H White Blood Count 9.8 Medications Medications Current Medications Eye Lubricant (Artificial Tears Oph) 1 drop Q12 BOTH EYES Last administered on 08/10/16 09:36; Admin Dose 1 DROP; Start 08/05/16 at 21:00 Doxazosin Mesylate (Cardura) 4 mg QHS GTB Last administered on 08/09/16 21:05 ; Admin Dose 4 MG; Start 08/05/16 at 21:00 Heparin Sodium (Porcine) (Heparin (5000 Units/0.5 ml)) 5,000 unit Q12 SC Last administered on 08/10/16 09:44; Admin Dose 5,000 UNIT; Start 08/05/16 at 21:00 Acetaminophen (Tylenol Tab) 650 mg Q6H PRN PO PAIN AND OR ELEVATED TEMP; Start 08/06/16 at 06:00 Lansoprazole 30 mg 30 mg DAILY@06 GTB Last administered on 08/10/16 06:27; Admin Dose 30 MG; Start 08/06/16 at 08:30 Cefepime HCl (Maxipime 1gm/50 ml (Pmx)) 50 ml @ 100 mls/hr Q12 IVPB Last administered on 08/10/16 09:36; Admin Dose 100 MLS/HR; Start 08/09/16 at 13:30 Trimethoprim/ Sulfamethoxazole (Bactrim (Ds)) 1 tab BID PO Last administered on 08/10/16 09:36; Admin Dose 1 TAB; Start 08/09/16 at 21:00 IV Flush (NS 10 ml) 10 ml PRN PRN IV IV PROTOCOL; Start 08/09/16 at 18:00 JAGJIT ART Aug 10, 2016 16:09
[2016-08-10] MEDS: DOXAZOSIN 4 MG TAB GTB SCH (20:47)
[2016-08-11] VITALS (24 sets, daily range): BP systolic 112–134; BP diastolic 56–63; PULSE 61–72; RESP 12–20
[2016-08-11] MEDS: LANSOPRAZOLE 30 MG CAP GTB SCH (06:25)
[2016-08-11] MEDS: ARTIFICIAL TEARS 15 ML OPH BOTH EYES SCH ×2 (10:42→20:29)
[2016-08-11] MEDS: TRIMETHOPRIM/SULFAMETHOX (DS) TAB PO SCH ×2 (10:42→20:30)
[2016-08-11] MEDS: CEFEPIME 1GM/50 ML (PMX) 50 ML IVPB SCH ×2 (10:42→20:32)
[2016-08-11] MEDS: HEPARIN 5,000 UNIT/0.5 ML SYG SC SCH ×2 (10:50→20:43)
--- NOTE | 2016-08-11 11:41 | CONS ---
Date/Time of Note Date/Time of Note DATE: 08/11/16 TIME: 11:40 Consult Date/Type/Reason Admit Date/Time Aug 05, 2016 at 15:58 Type of Consultation: ID Subjective no fevers, lying comfortably in bed, nad Objective Vital Signs Date Time Temp Pulse Resp B/P Pulse Ox O2 Delivery O2 Flow Rate FiO2 08/11/16 08:45 70 13 98 30 08/11/16 08:05 98.0 115/56 08/08/16 04:00 Mechanical Ventilator Intake and Output 08/10/16 08/10/16 08/11/16 15:00 23:00 07:00 Intake Total 550 ml Output Total 501 ml 500 ml Balance 49 ml -500 ml Results/Medications Result Diagram: 08/10/1604 08/10/16 06 Medications Current Medications Eye Lubricant (Artificial Tears Oph) 1 drop Q12 BOTH EYES Last administered on 08/11/16 10:42; Admin Dose 1 DROP; Start 08/05/16 at 21:00 Doxazosin Mesylate (Cardura) 4 mg QHS GTB Last administered on 08/10/16 20:47 ; Admin Dose 4 MG; Start 08/05/16 at 21:00 Heparin Sodium (Porcine) (Heparin (5000 Units/0.5 ml)) 5,000 unit Q12 SC Last administered on 08/11/16 10:50; Admin Dose 5,000 UNIT; Start 08/05/16 at 21:00 Acetaminophen (Tylenol Tab) 650 mg Q6H PRN PO PAIN AND OR ELEVATED TEMP; Start 08/06/16 at 06:00 Lansoprazole 30 mg 30 mg DAILY@06 GTB Last administered on 08/11/16 06:25; Admin Dose 30 MG; Start 08/06/16 at 08:30 Cefepime HCl (Maxipime 1gm/50 ml (Pmx)) 50 ml @ 100 mls/hr Q12 IVPB Last administered on 08/11/16 10:42; Admin Dose 100 MLS/HR; Start 08/09/16 at 13:30 Trimethoprim/ Sulfamethoxazole (Bactrim (Ds)) 1 tab BID PO Last administered on 08/11/16 10:42; Admin Dose 1 TAB; Start 08/09/16 at 21:00 IV Flush (NS 10 ml) 10 ml PRN PRN IV IV PROTOCOL; Start 08/09/16 at 18:00 Assessment/Plan Chief Complaint/Hosp Course INDWELLINGS: Trach, PEG, Aguilar. MICROBIOLOGY: Urine culture on admission grew Klebsiella pneumoniae and Morganella morganii species, both susceptible to Bactrim, tobramycin. ANTIMICROBIALS: Cefepime, Bactrim. PHYSICAL EXAMINATION: GENERAL: Chronically ill-appearing, elderly man who is in no distress. HEENT: Head atraumatic, normocephalic. Sclerae anicteric. Buccal mucosa dry. NECK: Supple. Tracheostomy present. CHEST: Rise symmetrical. Breath sounds diminished to bases. HEART: S1, S2. ABDOMEN: Soft, bowel tones present. EXTREMITIES: Without cyanosis. ASSESSMENT: 1. Systemic inflammatory response syndrome on admission. 2. Polymicrobial multidrug resistant urinary tract infection. 3. History of benign prostatic hypertrophy. 4. Chronic respiratory failure. 5. Dysphagia. PLAN: The patient remains stable. Continue present care, complete abx for 6 more days, vent support per pulmonary DW staff Problems: SUSANNE LANIER NP Aug 11, 2016 11:41
--- NOTE | 2016-08-11 14:30 | PN ---
DATE: 08/11/2016 PULMONARY FOLLOWUP NOTE SUBJECTIVE: The patient remains unchanged. VITAL SIGNS: Temperature 98, pulse is 70, blood pressure 134/60, O2 saturation 96% on 30% FIO2. NECK: Trach site clean and intact. CARDIAC: S1, S2, no added sounds or murmurs. CHEST: Diminished air entry bilaterally. ABDOMEN: Soft, nontender. No guarding or rebound. EXTREMITIES: No cyanosis, clubbing, no edema. NEUROLOGIC: Generalized weakness, unable to assess. LABORATORIES: White count 9.8, hemoglobin 8.7, platelets of 235. Chemistry within normal limits. IMPRESSION AND PLAN: 1. Resolving urinary tract infection and possible healthcare-associated pneumonia. 2. Vent-dependent respiratory failure. 3. Chronic encephalopathy. 4. History of dysphagia with G-tube. The patient stable for [facility] following a PICC line placement. Dictated By: SARINA BRISCOE/KAYLA Conf#: [id number] DID#: [id number]
--- NOTE | 2016-08-11 16:15 | DS ---
Date/Time of Note Date/Time of Note DATE: 08/11/16 TIME: 16:14 Discharge Summary Admission/Discharge Info Admit Date/Time Aug 05, 2016 at 15:58 Discharge Date/Time Patient Condition: Stable Hospital Course INDWELLINGS: Trach, PEG, Aguilar. MICROBIOLOGY: Urine culture on admission grew Klebsiella pneumoniae and Morganella morganii species, both susceptible to Bactrim, tobramycin. ANTIMICROBIALS: Cefepime, Bactrim. PHYSICAL EXAMINATION: GENERAL: Chronically ill-appearing, elderly man who is in no distress. HEENT: Head atraumatic, normocephalic. Sclerae anicteric. Buccal mucosa dry. NECK: Supple. Tracheostomy present. CHEST: Rise symmetrical. Breath sounds diminished to bases. HEART: S1, S2. ABDOMEN: Soft, bowel tones present. EXTREMITIES: Without cyanosis. ASSESSMENT: 1. Systemic inflammatory response syndrome on admission. 2. Polymicrobial multidrug resistant urinary tract infection. 3. History of benign prostatic hypertrophy. 4. Chronic respiratory failure. 5. Dysphagia. PLAN: The patient remains stable. Continue present care, complete abx for 6 more days, vent support per pulmonary DW staff Home Meds Reported Medications [Dss] No Conflict Check, 100 MG GTB DAILY 08/05/16 Heparin Sod (Porcine) (Heparin) 1,000 Unit/Ml Soln, 5000 UNIT IJ Q12 08/05/16 Acetaminophen (Ed-Apap) 160 Mg/5 Ml Liquid, 640 MG GTB Q6 Y for PRN TEMP>100 08/05/16 Diphenhydramine Hcl* (Benadryl*) 25 Mg Cap, 25 MG GTB Q4H Y for ITCHING, CAP 08/05/16 Omeprazole* (Omeprazole*) 20 Mg Capsule.dr, 40 MG GTB QAM, #30 CAP 08/05/16 Dextran/Hypromellose/Glycerin (Artificial Tears Drops) 15 Ml Drops, 1 DROP BOTH EYES Q12, EA 08/05/16 Cranberry Fruit (CRANBERRY) 450 Mg Tablet, 450 MG GTB DAILY, TAB 08/05/16 Doxazosin Mesylate* (Cardura*) 4 Mg Tablet, 4 MG GTB QHS, #30 TAB HOLD IF SBP<110 FOR HYPERTENSION 08/05/16 Discontinued Reported Medications Acetaminophen* (Tylenol*) 325 Mg Tablet, 650 MG GTB Q6 Y for FEVER 09/30/13 Docusate Sodium (Colace) 60 Mg/15 Ml Syrup, 10 ML GTB DAILY 09/30/13 Doxazosin Mesylate* (Cardura*) 4 Mg Tablet, 4 MG GTB HS 09/30/13 Ipratropium [place]* (Atrovent*) 2.5 Ml Nebu, 0.5 MG HHN Q6 09/30/13 Albuterol Sulfate* (Albuterol Sulfate* Neb) 20 Ml Nebu, 2.5 MG HHN Q6 09/30/13 Dextran 70/Hypromellose/Pf (ARTIFICIAL TEARS DROPS) 1 Each Droperette, 1 EACH OP BID 06/02/13 Omeprazole* (Omeprazole*) 40 Mg Capsule.dr, 40 MG GTB DAILY 06/02/13 Lactulose* (Lactulose*) 10 Gm/15 Ml Solution, 10 GM GTB DAILY 06/02/13 Ascorbic Acid* (Vitamin C* Liq) 100 Mg/Ml Syrup, 500 MG GTB DAILY 06/02/13 SAMIA LICEA Aug 11, 2016 16:14
--- NOTE | 2016-08-11 16:15 | PDOCDIS ---
Discharge Instructions CONDITION Patient Condition: Stable HOME CARE INSTRUCTIONS: Special Diet: Diabetisource ACTIVITY: Activity Restrictions: Slowly Increase Activity Rest between Activity Avoid heavy lifting Do not operate Machinery Do not operate Power Tool Avoid Heavy Housework Bathing Restrictions: Sponge Bath SAMIA LICEA Aug 11, 2016 16:15
[2016-08-11] MEDS: DOXAZOSIN 4 MG TAB GTB SCH (20:31)
== END 2016-08-11 22:02 | disposition home or self-care (01) | DRG 689 ==
LOC: E/R 14:05 → TEL 15:58
PROVIDERS: ADMIT Internal Medicine; ATTEND Internal Medicine
PROC: 5A1955Z Respiratory Ventilation, Greater than 96 Consecutive Hours (ICD-10-PCS; principal; 2016-08-05)
PROC: 02H633Z Insertion of Infusion Device into Right Atrium, Percutaneous Approach (ICD-10-PCS; 2016-08-09)
DX: N39.0 Urinary tract infection, site not specified (principal); J18.9 Pneumonia, unspecified organism; G93.49 Other encephalopathy; J96.10 Chronic respiratory failure, unspecified whether with hypoxia or hypercapnia; Z93.0 Tracheostomy status; E11.9 Type 2 diabetes mellitus without complications; E86.0 Dehydration; D64.9 Anemia, unspecified; G83.4 Cauda equina syndrome; J98.11 Atelectasis; R13.10 Dysphagia, unspecified; B96.1 Klebsiella pneumoniae [K. pneumoniae] as the cause of diseases classified elsewhere; B96.89 Other specified bacterial agents as the cause of diseases classified elsewhere; Z16.24 Resistance to multiple antibiotics; Z93.1 Gastrostomy status; Z93.59 Other cystostomy status; I69.998 Other sequelae following unspecified cerebrovascular disease; I10 Essential (primary) hypertension; Z87.891 Personal history of nicotine dependence; Y95 Nosocomial condition; N40.0 Benign prostatic hyperplasia without lower urinary tract symptoms; Z79.02 Long term (current) use of antithrombotics/antiplatelets
CPT/HCPCS: 36415; 36569; 71010; 76937; 80048; 80053; 80202; 81001; 81003; 83605; 83690; 84484; 85025; 85610; 85730; 87040; 87081; 87086; 90686; 93005; 94002; 94003; 96372; 96374; 96375; 96376; C1769; J0692; J1335; J3370; J7030; J7050

== ENCOUNTER 2017-06-28 16:56 | Inpatient (IN) | payer MEDICARE, OTHER ==
[~2017-06-28] VITALS: Ht 170.2 cm; Wt 80.0 kg
[~2017-06-28 16:56] MED LIST changes: +ACET160L14 GTB; -ACET325T33 GTB; -ALB.5NB20 HHN; -ASCO500S2 GTB; +BEN25 GTB; +CRAN450T7 GTB; +DEXT15DR2 BOTH EYES; -DEXT1DRO7 OP; -DOCU60SY GTB; +DSS GTB; +HEP30MU30 IJ; -LACT10SO5 GTB; +OMEP20CA16 GTB; -OMEP40CA6 GTB; -RTATR HHN
[2017-06-28] MEDS ORDERED: CEFEPIME 2GM/50 ML (PMX) 50 ML IVPB STA (17:01)
[2017-06-28 17:08] VITALS: Ht 170.2 cm; Wt 80.0 kg
[2017-06-28 17:28] LABS: ABNORMAL IP MESSAGE 1; HEMATOCRIT 38.4 % (42.0-52.0); MEAN CORPUSCULAR HEMOGLOBIN 26.3 pg (29.0-33.0); MEAN CORPUSCULAR HGB CONC 31.3 g/dl (32.0-37.0); MEAN CORPUSCULAR VOLUME 84.2 fl (82.0-101.0); MEAN PLATELET VOLUME 11.7 fl (7.4-10.4); PLATELET COUNT 291 10^3/UL (140-415); POSITIVE DIFF @See below; RED BLOOD COUNT 4.56 10^6/ul (4.70-6.10); RED CELL DISTRIBUTION WIDTH 19.6 % (11.5-14.5); WHITE BLOOD COUNT 33.8 10^3/ul (4.8-10.8)
--- NOTE | 2017-06-28 17:29 | RADRPT ---
PROCEDURE: XR Chest. CLINICAL INDICATION: Sepsis. TECHNIQUE: Single frontal view. COMPARISON: 08/09/2016. FINDINGS: The tracheostomy tube is in satisfactory position. There is mild left basilar atelectasis. The lungs are otherwise clear. The heart size is normal. There is no pleural effusion. There is no pneumothorax. IMPRESSION: 1. Tracheostomy tube. 2. Mild left basilar atelectasis. 3. Otherwise unremarkable chest radiograph. RPTAT: QQ .Pardeep Chase MD, Date Time Electronically viewed and signed by .Pardeep Chase MD, on 06/28/2017 17:29 .R/
[2017-06-28] MEDS ORDERED: ASC500 GTB (17:40)
[2017-06-28] MEDS ORDERED: FRS220B GTB (17:41)
[2017-06-28] MEDS ORDERED: METF500T4 GTB (17:42)
[2017-06-28] MEDS ORDERED: DOCU-159 PO (17:43)
[2017-06-28 17:49] LABS: ALBUMIN 3.5 g/dl (3.3-4.9); ALBUMIN/GLOBULIN RATIO 0.85; BILIRUBIN,INDIRECT 0.6 mg/dl (0-1.1); BILIRUBIN,TOTAL 0.6 mg/dl (0.2-1.3); CALCIUM 9.6 mg/dl (8.4-10.2); CREATININE 1.57 mg/dl (0.61-1.24); POTASSIUM 5.2 mmol/L (3.5-5.1); TOTAL PROTEIN 7.6 g/dl (6.1-8.1)
[2017-06-28 17:50] LABS: INR 1.08; PARTIAL THROMBOPLASTIN TIME 32.9 Sec (25.0-35.0); PROTIME 14.1 Sec (11.9-14.9); PT RATIO 1.1
[2017-06-28 18:00] LABS: TROPONIN-I 0.065 ng/ml (0.00-0.12)
[2017-06-28 18:12] LABS: ADD UMIC YES; UR ASCORBIC ACID 40 mg/dL (NEGATIVE); UR BACTERIA MODERATE /HPF (NONE SEEN); UR BILIRUBIN (Dip) NEGATIVE (NEGATIVE); UR BLOOD (Dip) 3+ mg/dL (NEGATIVE); UR CLARITY TURBID (CLEAR); UR COLOR YELLOW (YELLOW); UR GLUCOSE (Dip) NEGATIVE (NEGATIVE); UR KETONES (Dip) NEGATIVE (NEGATIVE); UR LEUKOCYTE ESTERASE (Dip) 2+ Leu/ul (NEGATIVE); UR NITRITE (Dip) NEGATIVE (NEGATIVE); UR RBC > 182 /HPF (0-5); UR SPECIFIC GRAVITY (Dip) 1.017 (1.003-1.030); UR SQUAMOUS EPITHELIAL CELL FEW /HPF (FEW); UR TOTAL PROTEIN (Dip) 2+ mg/dl (NEGATIVE); UR UROBILINOGEN (Dip) NEGATIVE (NEGATIVE)
--- NOTE | 2017-06-28 18:33 | HP ---
Date/Time of Note Date/Time of Note DATE: 06/28/17 TIME: 18:25 Assessment/Plan Assessment/Plan Assessment/Plan -Sepsis with leukocytosis and elevated lactate. Follow-up in urine and blood cultures. Dr. Enriquez is asked to see patient in infection disease consultation. -Possible cystitis in patient nephrostomy -Ventilator dependent respiratory failure. Dr. Gomez is asked to see patient in pulmonology consultation. 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 Plan of care discussed with Dr. Kwok. HPI/ROS Admit Date/Time Admit Date/Time Hx of Present Illness The patient is a 81-year-old male with history of hemorrhagic CVA, chronic encephalopathy, cauda equina syndrome, ventilator dependent respiratory failure , G-tube, chronic anemia and history of ventricular tachycardia. [facility] due to elevated white blood cells which is 33,000. Patient has chronic encephalopathy and cannot provide any history most of the history obtained from medical records and talking to nursing staff patient is also known to me from previous admission. Patient was noted to have elevated lactate on evaluation in the emergency room. Urinalysis was positive for leukocyte esterase. Chest x-ray is unremarkable. PMH/Family/Social Past Medical History per HPI Medical History: hypertension Past Surgical History Status post right nephrostomy, status post tracheostomy, status post G-tube placement Family History Significant Family History: no pertinent family hx Social History Alcohol Use: none Smoking Status: Former smoker Drug Use: none Exam/Review of Systems Vital Signs Vitals Vital Signs Date Time Temp Pulse Resp B/P Pulse Ox O2 Delivery O2 Flow Rate FiO2 06/28/17 17:10 94 18 97 30 06/28/17 17:08 98.1 141/110 Exam Constitutional: non-verbal Head: normocephalic Neck: other (tracheostomy), supple Respiratory: other (rhonhi) Cardiovascular: nl pulses, regular rate and rhythm Gastrointestinal: other (GT), soft Genitourinary - Male: other Neurological: lethargic Labs Result Diagram: 06/28/17 1705 06/28/17 1705 JAGJTI ART Jun 28, 2017 18:33
[2017-06-28] MEDS ORDERED: ACETAMINOPHEN 325 MG TAB PO PRN (19:00)
[2017-06-28] MEDS ORDERED: ONDANSETRON 4 MG INJ IV PRN ×2 (19:00→21:00)
[2017-06-28 19:37] LABS: ANISOCYTOSIS 1+ (0-0); EOSINOPHILS % (M) 1 % (0-7); MICROCYTOSIS 1+ (0-0); MONOCYTES % (M) 4 % (0-11); PLATELET ESTIMATE NORMAL
--- NOTE | 2017-06-28 19:49 | ERD ---
ER Documentation Chief Complaint Chief Complaint SENT FROM SNF FOR ELEVATED WBC. HPI 81-year-old male with chronic debilitated condition on trach vent sent in for increased white blood cell count. There have been no fevers reported by staff. Paramedics stated there are no other abnormalities at this patient who is on his normal vent settings. I reviewed the patient's EMR for additional history. ROS All systems reviewed and are negative except as per history of present illness. Medications Home Meds Reported Medications Docusate Sodium* (Docusate Sodium*) 100 Mg Capsule, 100 MG PO DAILY, #30 CAP 06/28/17 Metformin* (Glucophage*) 500 Mg Tab, 500 MG GTB WITH BREAKFAST LUNCH, #30 TAB 06/28/17 Ferrous Sulfate (Ferrous Sulfate) 220 Mg/5 Ml Elixir, 7.5 ML GTB BID, BOTTLE 06/28/17 Ascorbic Acid (Vitamin C) 500 Mg Tab, 500 MG GTB BID, TAB 06/28/17 Heparin Sod (Porcine) (Heparin) 1,000 Unit/Ml Soln, 5000 UNIT IJ Q12 08/05/16 Dextran/Hypromellose/Glycerin (Artificial Tears Drops) 15 Ml Drops, 1 DROP BOTH EYES Q12, EA 08/05/16 Cranberry Fruit (CRANBERRY) 450 Mg Tablet, 450 MG GTB DAILY, TAB 08/05/16 Doxazosin Mesylate* (Cardura*) 4 Mg Tablet, 4 MG GTB QHS, #30 TAB HOLD IF SBP<110 FOR HYPERTENSION 08/05/16 Discontinued Reported Medications [Dss] No Conflict Check, 100 MG GTB DAILY 08/05/16 Acetaminophen (Ed-Apap) 160 Mg/5 Ml Liquid, 640 MG GTB Q6 Y for PRN TEMP>100 08/05/16 Diphenhydramine Hcl* (Benadryl*) 25 Mg Cap, 25 MG GTB Q4H Y for ITCHING, CAP 08/05/16 Omeprazole* (Omeprazole*) 20 Mg Capsule., 40 MG GTB QAM, #30 CAP 08/05/16 Allergies Allergies: Coded Allergies: No Known Allergy (Unverified , 06/28/17) PMhx/Soc History of Surgery: No Hx Neurological Disorder: No (CVA. Chronic encephalopathy) Hx Respiratory Disorders: No Hx Cardiac Disorders: No (Hx of V tach) Hx Psychiatric Problems: No Hx Miscellaneous Medical Probl: Yes (Cauda equina syndrome) Hx Alcohol Use: No ([place]) Smoking Status: Former smoker Physical Exam Vitals Vital Signs Date Time Temp Pulse Resp B/P Pulse Ox O2 Delivery O2 Flow Rate FiO2 06/28/17 18:30 95 15 102/61 98 Trach Collar 06/28/17 17:10 94 18 97 30 06/28/17 17:08 98.1 88 16 141/110 100 Physical Exam Const: [] No obvious distress on vent, debilitated, not responsive. Head: Atraumatic Eyes: Normal Conjunctiva ENT: Normal External Ears, Nose and Mouth. Neck: Trach site clean dry intact, no deformities. Resp: Transmitted upper airway rhonchorous sounds from ventilator, no asymmetric breath sounds noticed. Cardio: Regular rate and rhythm, no murmurs Abd: Soft, mild distention with tympany, unable to elicit any appearance of pain with deep palpation, normal bowel sounds and no palpable masses Skin: No petechiae or rashes Ext: No cyanosis, mild bilateral edema lower extremity and sacrum, no evidence of acute infection or abscess, distal pulses intact all 4 extremities Neur: Awake, no signs of being alert, to participate with neurological exam secondary to chronic condition. Result Diagram: 06/28/17 1705 06/28/17 170 Results 24 hrs Laboratory Tests Test 06/28/17 17:05 06/28/17 17:20 White Blood Count 33.810^3/ul Red Blood Count 4.5610^6/ul Hemoglobin 12.0g/dl Hematocrit 38.4% Mean Corpuscular Volume 84.2fl Mean Corpuscular Hemoglobin 26.3pg Mean Corpuscular Hemoglobin Concent 31.3g/dl Red Cell Distribution Width 19.6% Platelet Count 18930^3/UL Mean Platelet Volume 11.7fl Segmented Neutrophils % (Manual) 70% Band Neutrophils % (Manual) 21% Lymphocytes % (Manual) 4% Monocytes % (Manual) 4% Eosinophils % (Manual) 1% Nucleated Red Blood Cells % 0.0/100WBC Neutrophils # (Manual) 26.010^3/ul Band Neutrophils # 7.010^3/ul Absolute Lymphocytes (Manual) 1.310^3/ul Absolute Monocytes (Manual) 1.310^3/ul Platelet Estimate NORMAL Anisocytosis 1+ Microcytosis 1+ Prothrombin Time 14.1Sec Prothrombin Time Ratio 1.1 INR International Normalized Ratio 1.08 Activated Partial Thromboplast Time 32.9Sec Sodium Level 141mmol/L Potassium Level 5.2mmol/L Chloride Level 102mmol/L Carbon Dioxide Level 30mmol/L Anion Gap 14 Blood Urea Nitrogen 58mg/dl Creatinine 1.57mg/dl Glucose Level 151mg/dl Lactic Acid Level 2.5mmol/L Calcium Level 9.6mg/dl Total Bilirubin 0.6mg/dl Direct Bilirubin 0.00mg/dl Indirect Bilirubin 0.6mg/dl Aspartate Amino Transf (AST/SGOT) 17IU/L Alanine Aminotransferase (ALT/SGPT) 29IU/L Alkaline Phosphatase 72IU/L Troponin I 0.065ng/ml Total Protein 7.6g/dl Albumin 3.5g/dl Globulin 4.10g/dl Albumin/Globulin Ratio 0.85 Urine Color YELLOW Urine Clarity TURBID Urine pH 5.0 Urine Specific [place] 1.017 Urine Ketones NEGATIVEmg/dL Urine Nitrite NEGATIVEmg/dL Urine Bilirubin NEGATIVEmg/dL Urine Urobilinogen NEGATIVEmg/dL Urine Leukocyte Esterase 2+Mindy/ul Urine Microscopic RBC > 182/HPF Urine Microscopic WBC > 182/HPF Urine Squamous Epithelial Cells FEW/HPF Urine Bacteria MODERATE/HPF Urine Hyaline Casts FEW/HPF Urine Hemoglobin 3+mg/dL Urine Glucose NEGATIVEmg/dL Urine Total Protein 2+mg/dl Current Medications Medications (Trade) Dose Ordered Sig/Pedrito Route PRN Reason Start Time Stop Time Status Last Admin Dose Admin Cefepime HCl (Maxipime 2gm/50 ml (Pmx)) 50 ml @ 100 mls/hr ONCE STAT IVPB 06/28/17 17:01 06/28/17 17:30 DC 06/28/17 17:27 Ondansetron HCl (Zofran Inj) 4 mg ER BRIDGE PRN IV NAUSEA AND/OR VOMITING 06/28/17 19:00 06/29/17 18:59 Acetaminophen (Tylenol Tab) 650 mg ER BRIDGE PRN PO MILD PAIN/FEVER 06/28/17 19:00 06/29/17 18:59 Procedures/MDM Debilitated patient with multiple comorbidities with UTI with extremely high white blood cell count as well as renal insufficiency. Signs of dehydration with lactic acid of 2.5. Patient does not meet criteria for sepsis as he has had normal vital signs of the I feel he very fragile condition. He was given 2 L of normal saline and cefepime. Urine culture and blood cultures and feces cultures were obtained. No tachycardia. Keeping the patient on his current ventilator settings. Patient is being admitted to telemetry to Dr. Kwok for further management. EKG interpretation: Normal sinus rhythm rate of 92, first-degree AV block, no ST or T-wave changes concerning for acute ischemia. court monitor interpretation: Normal sinus rhythm without arrhythmia Chest x-ray interpretation: See no acute process, I see no infiltrates, no pulmonary edema, pneumothorax, no fractures. Departure Diagnosis: Primary Impression: Complicated UTI (urinary tract infection) Additional Impressions: Renal insufficiency Chronic respiratory failure Dehydration Lactic acidosis Condition: Serious JOON YUN DO Jun 28, 2017 19:49
[2017-06-28] MEDS ORDERED: SOD CHLORIDE 0.9% 1,000 ML IV ONE ×2 (20:00)
[2017-06-28] MEDS ORDERED: VANCOMYCIN IV PER PHARMACY XX SCH (21:00)
[2017-06-28] MEDS ORDERED: morphine 2 MG INJ IV PRN (21:00)
[2017-06-28] MEDS ORDERED: HEPARIN 5,000 UNIT/0.5 ML VIAL SC SCH (21:00)
[2017-06-28 22:00] VITALS: RESP 15
[2017-06-28 22:32] VITALS: PULSE 95
[2017-06-28 22:48] VITALS: BP 121/64; PULSE 93; RESP 14
[2017-06-28 23:49] VITALS: BP 118/62; RESP 20
[2017-06-29] VITALS (21 sets, daily range): BP systolic 136–168; BP diastolic 64–76; PULSE 79–95; RESP 13–22
[2017-06-29] MEDS ORDERED: NACL 0.9% 3 ML SYG IV SCH
[2017-06-29] MEDS ORDERED: DEXTROSE 50% 50 ML SYRINGE IV PRN ×2 (00:30)
[2017-06-29] MEDS ORDERED: GLUCOSE GEL 15 GRAM TUBE BUCCAL PRN (00:30)
[2017-06-29] MEDS ORDERED: GLUCOSE GEL 15 GRAM TUBE PO PRN ×2 (00:30)
[2017-06-29] MEDS ORDERED: GLUCAGON 1 MG INJ IM PRN (00:30)
[2017-06-29] MEDS ORDERED: VANCOMYCIN 1.5 GM in SOD CHLORIDE 0.9% 250 ML IVPB ONE (01:00)
[2017-06-29] MEDS: DEXTROSE 5%-0.45% NACL 1,000 ML IV SCH ×2 (01:25→09:17)
[2017-06-29] MEDS: DOXAZOSIN 4 MG TAB GTB SCH ×2 (01:43→21:55)
[2017-06-29] MEDS ORDERED: ACCU-CHEK XX SCH (02:00)
[2017-06-29] MEDS ORDERED: metFORMIN 500 MG TAB GTB SCH (07:55)
[2017-06-29 08:09] LABS: ABNORMAL IP MESSAGE 1; HEMATOCRIT 33.6 % (42.0-52.0); HEMOGLOBIN 10.4 g/dl (14.0-18.0); MEAN CORPUSCULAR HEMOGLOBIN 26.1 pg (29.0-33.0); MEAN CORPUSCULAR VOLUME 84.2 fl (82.0-101.0); MEAN PLATELET VOLUME 11.6 fl (7.4-10.4); PLATELET COUNT 272 10^3/UL (140-415); POSITIVE DIFF @See below; RED BLOOD COUNT 3.99 10^6/ul (4.70-6.10); RED CELL DISTRIBUTION WIDTH 19.8 % (11.5-14.5); WHITE BLOOD COUNT 26.5 10^3/ul (4.8-10.8)
[2017-06-29 08:30] LABS: CALCIUM 9.2 mg/dl (8.4-10.2); CREATININE 1.42 mg/dl (0.61-1.24); POTASSIUM 4.5 mmol/L (3.5-5.1)
[2017-06-29] MEDS: FAMOTIDINE 20 MG TAB PO SCH (08:56)
[2017-06-29] MEDS: ASCORBIC ACID 500 MG TAB GTB SCH ×2 (08:56→21:55)
[2017-06-29] MEDS: DOCUSATE SODIUM 100 MG CAP PO SCH (08:56)
[2017-06-29] MEDS: ARTIFICIAL TEARS 15 ML OPH BOTH EYES SCH ×2 (08:56→21:55)
[2017-06-29] MEDS: FERROUS SULFATE 60 MG/ML 5ML CUP GTB SCH ×2 (08:57→21:54)
[2017-06-29] MEDS: INSULIN ASPART [NOVOLOG] 3 ML PEN SC SCH ×4 (08:59→18:23)
[2017-06-29] MEDS ORDERED: CEFEPIME 1GM/50 ML (PMX) 50 ML IVPB SCH (09:00)
[2017-06-29 09:01] LABS: ANISOCYTOSIS 2+ (0-0); BASOPHILS % (M) 1 % (0-2); EOSINOPHILS % (M) 2 % (0-7); MICROCYTOSIS 2+ (0-0); MONOCYTES % (M) 3 % (0-11); PLATELET ESTIMATE NORMAL; POLYCHROMASIA 3+ (0-0)
[2017-06-29] MEDS: ACETAMINOPHEN 325 MG TAB PO PRN (11:26)
--- NOTE | 2017-06-29 12:21 | CONS ---
DATE OF ADMISSION: 06/28/2017 DATE OF CONSULTATION: REASON FOR CONSULTATION: Ventilator management. Thank you, Dr. Kwok, for this consultation. 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 Found on admission to have white count of 33, no change neurologicall y, leuk esterase was noted in the urine. The patient nonverbal, unable to give me further informati on. PAST MEDICAL HISTORY: As above. MEDICATIONS: Per chart. ALLERGIES: NONE. SOCIAL HISTORY: Nonsmoker, no alcohol, no history of drug use. FAMILY HISTORY: Noncontributory. SYSTEMS REVIEW: A 12-point review of systems currently unable to perform. PHYSICAL EXAMINATION: GENERAL: Chronically ill appearing gentleman, appears comfortable at rest, no acute distress. VITAL SIGNS: Currently afebrile, pulse is 93, blood pressure 153/74, O2 sat 96%, FIO2 of 30%. NECK: Trach site appears clean and intact. CARDIAC: S1, S2, no added sounds or murmurs. CHEST: Diminished air entry bilaterally. ABDOMEN: Soft, nontender. No guarding or rebound. EXTREMITIES: No cyanosis, clubbing, edema. NEUROLOGIC: Generalized weakness. LABORATORY DATA: White count now 26.5, hemoglobin 10.4, platelets of 272. BUN 57, creatinine 1.42, INR was 1.08. Chest x-ray on admission demonstrated mild bibasilar atelectasis. Urinalysis was po sitive for UTI. IMPRESSION AND PLAN: 1. Ventilator-dependent respiratory failure. 2. History of encephalopathy. 3. Urinary tract infection with significant leukocytosis. 4. Dysphagia with gastrostomy tube. PLAN: 1. Continue antibiotics, currently on vancomycin and cefepime pending cultures. 2. Continue tube feeding. 3. Continue mechanical ventilation. 4. Aspiration precautions. 5. DVT and GI prophylaxis. Dictated By: SARINA AGUIRRE MD SV/KAYLA Conf#: [id number] DID#: [id number] CC: RACHELLE KWOK MD;*EndCC*
--- NOTE | 2017-06-29 12:55 | CONS ---
DATE OF ADMISSION: 06/28/2017 DATE OF CONSULTATION: 06/29/2017 INFECTIOUS DISEASE CONSULTATION REASON FOR CONSULTATION: Antibiotic management. HISTORY OF PRESENT ILLNESS: Jason Morgan is a 81-year-old male with numerous problems who com es in with sepsis and is being seen for antibiotics for infectious disease evaluation. The patient is a 81-year-old male with numerous problems includin. Hemorrhagic CVA. 2. Chronic encephalopathy. 3. Cauda equina syndrome. 4. Ventilator-dependent respiratory failure. 5. G-tube. 6. Anemia of chronic disease. 7. Ventricular tachycardia. The patient was brought into the emergency room with an elevated white count. His white count was 3 3.8, H and H of 12 and 38.4, platelet count 291,000. BUN and creatinine 58/1.57, glucose of 151, po tassium 5.2. As noted, he has chronic encephalopathy and most of the history is taken from medical records. He had elevated lactic acid also in the emergency room. Chest x-ray was unremarkable. Hi s urinalysis showed 2+ leukocyte esterase, greater than 182 red cells and white cells per high power ed field, moderate bacteria and the urine was turbid. He had a tracheostomy in place, mild left bas ilar atelectasis. PAST SURGICAL HISTORY: Includes status post right nephrostomy, status post tracheostomy, status pos t G-tube placement. FAMILY HISTORY: Noncontributory. SOCIAL HISTORY: He does not smoke currently, but was a former smoker. He does not drink or abuse d rugs. He lives in a custodial facility and is encephalopathic, has a history of hypertension in the past. ALLERGIES: NONE TO PENICILLIN, SULFA OR FOODS. MEDICATIONS: Per chart review. REVIEW OF SYSTEMS: As per HPI. PHYSICAL EXAMINATION: GENERAL: The patient is nonverbal. VITAL SIGNS: Stable. He is afebrile. SKIN: Without generalized rash. HEENT: Within normal limits. NECK: Supple. Tracheostomy in place. LYMPH NODES: None palpable. CHEST: Scattered rhonchi bilaterally. HEART: Without murmur or gallop. ABDOMEN: Soft, nontender without organosplenomegaly or masses. G-tube in place. RECTAL AND GENITAL: Deferred. NEUROLOGIC: No focal neurological abnormalities. IMPRESSION AND PLAN: The patient currently comes in with significant elevated white count and he al so has a significant urinary tract infection. The patient was begun on vancomycin and cefepime. We will continue him on this regimen since he is from a healthcare facility or a penitentiary. I will await the results of the cultures. His white count is down somewhat to 26.5 today. I will dictate my findings to Dr. Ramos and nurse practitioner Bianka Huffman. Dictated By: MARIA GUADALUPE DIMAS MD, JD/NTS Conf#: [id number] DID#: [id number] CC: RACHELLE RAMOS MD;*EndCC*
--- NOTE | 2017-06-29 18:58 | PN ---
Date/Time of Note Date/Time of Note DATE: 06/29/17 TIME: 18:57 Assessment/Plan Lines/Catheters IV Catheter Type (from Nrs): Mid Line Assessment/Plan Assessment/Plan -Sepsis with leukocytosis and elevated lactate. Follow-up in urine and blood cultures. Dr. Enriquez is asked to see patient in infection disease consultation. -Possible cystitis in patient nephrostomy -Ventilator dependent respiratory failure. Dr. Gomez is asked to see patient in pulmonology consultation. 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 Plan of care discussed with Dr. Kwok. Exam/Review of Systems Vital Signs Vitals Vital Signs Date Time Temp Pulse Resp B/P Pulse Ox O2 Delivery O2 Flow Rate FiO2 06/29/17 17:10 82 17 99 30 06/29/17 15:57 98.5 136/64 06/28/17 22:48 Trach Collar Intake and Output 06/28/17 06/28/17 06/29/17 15:00 23:00 07:00 Intake Total 830 ml Output Total 500 ml Balance 330 ml Exam Constitutional: non-verbal Respiratory: diminished breath sounds Cardiovascular: nl pulses Gastrointestinal: other, soft Musculoskeletal: muscle weakness Results Result Diagram: 06/29/17 0743 06/29/17 0743 Results 24 hrs Laboratory Tests Test 06/28/17 19:20 06/28/17 22:30 06/29/17 01:55 06/29/17 07:43 Lactic Acid Level 1.7 1.3 Bedside Glucose 156 White Blood Count 26.5 #H Red Blood Count 3.99 L Hemoglobin 10.4 L Hematocrit 33.6 L Mean Corpuscular Volume 84.2 Mean Corpuscular Hemoglobin 26.1 L Mean Corpuscular Hemoglobin Concent 31.0 L Red Cell Distribution Width 19.8 H Platelet Count 272 Mean Platelet Volume 11.6 H Neutrophils % Segmented Neutrophils % (Manual) 67 Band Neutrophils % (Manual) 19 H Lymphocytes % Lymphocytes % (Manual) 8 L Monocytes % Monocytes % (Manual) 3 Eosinophils % Eosinophils % (Manual) 2 Basophils % Basophils % (Manual) 1 Nucleated Red Blood Cells % 0.0 Neutrophils # Neutrophils # (Manual) 19.1 H Band Neutrophils # 5.0 H Absolute Lymphocytes (Manual) 2.1 Lymphocytes # Monocytes # Absolute Monocytes (Manual) 0.7 Eosinophils # Basophils # Basophils # (Manual) 0.2 H Nucleated Red Blood Cells # Platelet Estimate NORMAL Polychromasia 3+ Anisocytosis 2+ Microcytosis 2+ Sodium Level 145 H Potassium Level 4.5 Chloride Level 105 Carbon Dioxide Level 31 Anion Gap 14 Blood Urea Nitrogen 57 H Creatinine 1.42 H Glucose Level 209 Hemoglobin A1c 5.7 Calcium Level 9.2 Test 06/29/17 08:53 06/29/17 11:27 06/29/17 18:19 Bedside Glucose 201 195 191 Medications Medications Current Medications Ascorbic Acid (Vitamin C) 500 mg BID GTB Last administered on 06/29/17 08:56; Admin Dose 500 MG; Start 06/29/17 at 09:00 Eye Lubricant (Artificial Tears Oph) 1 drop Q12 BOTH EYES Last administered on 06/29/17 08:56; Admin Dose 1 DROP; Start 06/29/17 at 09:00 Docusate Sodium (Colace) 100 mg DAILY PO Last administered on 06/29/17 08:56; Admin Dose 100 MG; Start 06/29/17 at 09:00 Doxazosin Mesylate (Cardura) 4 mg QHS GTB Last administered on 06/29/17 01:43 ; Admin Dose 4 MG; Start 06/29/17 at 00:00 Ferrous Sulfate (Feosol Liquid Cup) 330 mg BID GTB Last administered on 08:57; Admin Dose 330 MG; Start 06/29/17 at 09:00 Ondansetron HCl (Zofran Inj) 4 mg Q6H PRN IV NAUSEA AND/OR VOMITING; Start 06/28/17 at 21:00 Acetaminophen (Tylenol Tab) 650 mg Q6H PRN PO PAIN LEVEL 1-3 OR FEVER Last administered on 06/29/17 11:26; Admin Dose 650 MG; Start 06/28/17 at 21:00 Morphine Sulfate (morphine) 2 mg Q4H PRN IV PAIN LEVEL 7-10; Start 06/28/17 at 21:00 Famotidine (Pepcid) 20 mg DAILY PO Last administered on 06/29/17 08:56; Admin Dose 20 MG; Start 06/29/17 at 09:00 Diagnostic Test (Pha) 1 ea 1 ea 02 XX ; Start 06/29/17 at 02:00 Dextrose/Sodium Chloride 1,000 ml @ 100 mls/hr Q10H IV Last administered on t 09:17; Admin Dose 100 MLS/HR; Start 06/29/17 at 00:00 Vancomycin HCl (Vancocin) 250 ml @ 125 mls/hr Q24H IVPB ; Start 06/30/17 at 01: 00 Miscellaneous Information 1 ea NOTE XX ; Start 06/29/17 at 00:30 Glucose (Glutose) 15 gm Q15M PRN PO DECREASED GLUCOSE; Start 06/29/17 at 00:30 Glucose (Glutose) 22.5 gm Q15M PRN PO DECREASED GLUCOSE; Start 06/29/17 at 00: 30 Dextrose (D50w Syringe) 25 ml Q15M PRN IV DECREASED GLUCOSE; Start 06/29/17 at 00:30 Dextrose (D50w Syringe) 50 ml Q15M PRN IV DECREASED GLUCOSE; Start 06/29/17 at 00:30 Glucagon (Glucagen) 1 mg Q15M PRN IM DECREASED GLUCOSE; Start 06/29/17 at 00:30 Glucose 15 gm 15 gm Q15M PRN BUCCAL DECREASED GLUCOSE; Start 06/29/17 at 00:30 Cefepime HCl (Maxipime 1gm/50 ml (Pmx)) 50 ml @ 100 mls/hr Q24H IVPB ; Start 06/30/17 at 09:00 SAMIA LICEA Jun 29, 2017 18:58
[2017-06-30] VITALS (24 sets, daily range): BP systolic 130–167; BP diastolic 63–78; PULSE 73–92; RESP 12–20
[2017-06-30] MEDS ORDERED: VANCOMYCIN 1 GM in NS 250 ML IVPB SCH (01:00)
[2017-06-30] MEDS: Insulin NOVOLOG SS MILD Algorithm (NPO/TPN/ENTERAL FEEDS) SC SCH ×4 (01:31→17:37)
[2017-06-30] MEDS: DEXTROSE 5%-0.45% NACL 1,000 ML IV SCH ×3 (04:50→16:00)
[2017-06-30 07:29] LABS: BASOPHIL # 0.1 10^3/ul (0.0-0.1); BASOPHILS % 0.4 % (0.0-2.0); EOSINOPHILS # 0.4 10^3/ul (0.0-0.5); EOSINOPHILS % 2.6 % (0.0-7.0); HEMATOCRIT 30.6 % (42.0-52.0); HEMOGLOBIN 9.1 g/dl (14.0-18.0); LYMPHOCYTES # 1.5 10^3/ul (0.8-2.9); LYMPHOCYTES % 9.6 % (15.0-51.0); MEAN CORPUSCULAR HEMOGLOBIN 25.6 pg (29.0-33.0); MEAN CORPUSCULAR HGB CONC 29.7 g/dl (32.0-37.0); MEAN PLATELET VOLUME 12.2 fl (7.4-10.4); MONOCYTE # 1.2 10^3/ul (0.3-0.9); MONOCYTES % 7.5 % (0.0-11.0); NEUTROPHIL # 12.4 10^3/ul (1.6-7.5); NEUTROPHILS % 78.6 % (39.0-77.0); PLATELET COUNT 247 10^3/UL (140-415); RED BLOOD COUNT 3.56 10^6/ul (4.70-6.10); RED CELL DISTRIBUTION WIDTH 19.6 % (11.5-14.5); WHITE BLOOD COUNT 15.7 10^3/ul (4.8-10.8)
[2017-06-30 07:50] LABS: CALCIUM 8.2 mg/dl (8.4-10.2); CREATININE 1.07 mg/dl (0.61-1.24); POTASSIUM 4.3 mmol/L (3.5-5.1)
[2017-06-30] MEDS ORDERED: CEFEPIME 1GM/50 ML (PMX) 50 ML IVPB SCH (09:00)
[2017-06-30] MEDS: FERROUS SULFATE 60 MG/ML 5ML CUP GTB SCH ×2 (09:24→21:47)
[2017-06-30] MEDS: ASCORBIC ACID 500 MG TAB GTB SCH ×2 (09:24→21:47)
[2017-06-30] MEDS: FAMOTIDINE 20 MG TAB PO SCH (09:24)
[2017-06-30] MEDS: DOCUSATE SODIUM 100 MG CAP PO SCH (09:24)
[2017-06-30] MEDS: ARTIFICIAL TEARS 15 ML OPH BOTH EYES SCH ×2 (09:25→21:46)
--- NOTE | 2017-06-30 15:13 | CONS ---
Date/Time of Note Date/Time of Note DATE: 06/30/17 TIME: 15:12 Consult Date/Type/Reason Admit Date/Time Jun 28, 2017 at 19:00 Initial Consult Date Type of Consultation: Pulmonary Subjective Patient remains stable this morning. No new events Objective Vital Signs Date Time Temp Pulse Resp B/P Pulse Ox O2 Delivery O2 Flow Rate FiO2 06/30/17 13:22 80 06/30/17 13:10 15 99 30 06/30/17 11:52 98.7 148/67 06/28/17 22:48 Trach Collar Intake and Output 06/29/17 06/29/17 06/30/17 14:59 22:59 06:59 Intake Total 600 ml 2055 ml Output Total 500 ml 1200 ml Balance 100 ml 855 ml Exam PHYSICAL EXAMINATION: GENERAL: Chronically ill appearing gentleman, appears comfortable at rest, no acute distress. VITAL SIGNS: As above NECK: Trach site appears clean and intact. CARDIAC: S1, S2, no added sounds or murmurs. CHEST: Diminished air entry bilaterally. ABDOMEN: Soft, nontender. No guarding or rebound. EXTREMITIES: No cyanosis, clubbing, edema. NEUROLOGIC: Generalized weakness. Results/Medications Result Diagram: 06/30/1737 06/30/17 0637 Results 24 hrs Laboratory Tests Test 06/29/17 18:19 06/30/17 01:23 06/30/17 06:28 06/30/17 06:37 Bedside Glucose 191 204 156 White Blood Count 15.7 #H Red Blood Count 3.56 L Hemoglobin 9.1 L Hematocrit 30.6 L Mean Corpuscular Volume 86.0 Mean Corpuscular Hemoglobin 25.6 L Mean Corpuscular Hemoglobin Concent 29.7 L Red Cell Distribution Width 19.6 H Platelet Count 247 Mean Platelet Volume 12.2 H Neutrophils % 78.6 H Lymphocytes % 9.6 L Monocytes % 7.5 Eosinophils % 2.6 Basophils % 0.4 Nucleated Red Blood Cells % 0.0 Neutrophils # 12.4 H Lymphocytes # 1.5 Monocytes # 1.2 H Eosinophils # 0.4 Basophils # 0.1 Nucleated Red Blood Cells # 0.0 Sodium Level 141 Potassium Level 4.3 Chloride Level 103 Carbon Dioxide Level 30 Anion Gap 12 Blood Urea Nitrogen 41 #H Creatinine 1.07 Glucose Level 167 Calcium Level 8.2 L Test 06/30/17 12:24 Bedside Glucose 249 H Medications Current Medications Ascorbic Acid (Vitamin C) 500 mg BID GTB Last administered on 06/30/17 09:24; Admin Dose 500 MG; Start 06/29/17 at 09:00 Eye Lubricant (Artificial Tears Oph) 1 drop Q12 BOTH EYES Last administered on 06/30/17 09:25; Admin Dose 1 DROP; Start 06/29/17 at 09:00 Docusate Sodium (Colace) 100 mg DAILY PO Last administered on 06/30/17 09:24; Admin Dose 100 MG; Start 06/29/17 at 09:00 Doxazosin Mesylate (Cardura) 4 mg QHS GTB Last administered on 06/29/17 21:55 ; Admin Dose 4 MG; Start 06/29/17 at 00:00 Ferrous Sulfate (Feosol Liquid Cup) 330 mg BID GTB Last administered on 09:24; Admin Dose 330 MG; Start 06/29/17 at 09:00 Ondansetron HCl (Zofran Inj) 4 mg Q6H PRN IV NAUSEA AND/OR VOMITING; Start 06/28/17 at 21:00 Acetaminophen (Tylenol Tab) 650 mg Q6H PRN PO PAIN LEVEL 1-3 OR FEVER Last administered on 06/29/17 11:26; Admin Dose 650 MG; Start 06/28/17 at 21:00 Morphine Sulfate (morphine) 2 mg Q4H PRN IV PAIN LEVEL 7-10; Start 06/28/17 at 21:00 Famotidine 20 mg 20 mg DAILY PO Last administered on 06/30/17 09:24; Admin Dose 20 MG; Start 06/29/17 at 09:00 Dextrose/Sodium Chloride (D5-1/2ns) 1,000 ml @ 100 mls/hr Q10H IV Last administered on 06/30/17 04:50; Admin Dose 100 MLS/HR; Start 06/29/17 at 00:00 Miscellaneous Information 1 ea NOTE XX ; Start 06/29/17 at 00:30 Glucose (Glutose) 15 gm Q15M PRN PO DECREASED GLUCOSE; Start 06/29/17 at 00:30 Glucose (Glutose) 22.5 gm Q15M PRN PO DECREASED GLUCOSE; Start 06/29/17 at 00: 30 Dextrose (D50w Syringe) 25 ml Q15M PRN IV DECREASED GLUCOSE; Start 06/29/17 at 00:30 Dextrose (D50w Syringe) 50 ml Q15M PRN IV DECREASED GLUCOSE; Start 06/29/17 at 00:30 Glucagon (Glucagen) 1 mg Q15M PRN IM DECREASED GLUCOSE; Start 06/29/17 at 00:30 Glucose (Glutose) 15 gm Q15M PRN BUCCAL DECREASED GLUCOSE; Start 06/29/17 at 00 :30 Insulin Aspart (Adult SC Insulin - Mild Algorithm)... Q6 SC Last administered on 06/30/17t 12:34; Admin Dose 3 UNIT; Start 06/30/17 at 00:00 Cefepime HCl (Maxipime 1gm/50 ml (Pmx)) 50 ml @ 100 mls/hr Q12 IVPB ; Start at 21:00 Assessment/Plan Chief Complaint/Hosp Course IMPRESSION AND PLAN: 1. Ventilator-dependent respiratory failure. 2. History of encephalopathy. 3. Urinary tract infection Klebsiella and strep species with improving leukocytosis 4. Dysphagia with gastrostomy tube. PLAN: 1. Continue antibiotics. ID recommendations. 2. Continue tube feeding. 3. Continue mechanical ventilation. 4. Aspiration precautions. 5. DVT and GI prophylaxis. Problems: SARINA AGUIRRE MD, [facility] Jun 30, 2017 15:13
--- NOTE | 2017-06-30 16:12 | PN ---
Date/Time of Note Date/Time of Note DATE: 06/30/17 TIME: 16:10 Assessment/Plan VTE Prophylaxis VTE Prophylaxis Intervention: SCD's Lines/Catheters IV C[facility]ter Type (from [facility]): Mid Line Assessment/Plan Chief Complaint/Hosp Course Assessment/Plan -Sepsis with leukocytosis and elevated lactate with GNR bacteremia 2 to UTI. Continue antibiotics per ID. Dr. Enriquez is following in infection disease consultation. -Acute cystitis in patient with nephrostomy -Ventilator dependent respiratory failure. Dr. Gomez is following in pulmonology consultation. 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 Plan of care discussed with Dr. Kwok. Problems: Exam/Review of Systems Vital Signs Vitals Vital Signs Date Time Temp Pulse Resp B/P Pulse Ox O2 Delivery O2 Flow Rate FiO2 06/30/17 15:45 98.9 77 18 134/75 97 06/30/17 15:10 30 06/28/17 22:48 Trach Collar Intake and Output 06/29/17 06/29/17 06/30/17 15:00 23:00 07:00 Intake Total 600 ml 2055 ml Output Total 500 ml 1200 ml Balance 100 ml 855 ml Exam Constitutional: non-verbal Head: normocephalic Neck: other (tracheostomy), supple Respiratory: other (rhonhi) Cardiovascular: nl pulses, regular rate and rhythm Gastrointestinal: other (GT), soft Genitourinary - Male: other Neurological: lethargic Results Result Diagram: 06/30/17 0637 06/30/17 0637 Results 24 hrs Laboratory Tests Test 06/29/17 18:19 06/30/17 01:23 06/30/17 06:28 06/30/17 06:37 Bedside Glucose 191 204 156 White Blood Count 15.7 #H Red Blood Count 3.56 L Hemoglobin 9.1 L Hematocrit 30.6 L Mean Corpuscular Volume 86.0 Mean Corpuscular Hemoglobin 25.6 L Mean Corpuscular Hemoglobin Concent 29.7 L Red Cell Distribution Width 19.6 H Platelet Count 247 Mean Platelet Volume 12.2 H Neutrophils % 78.6 H Lymphocytes % 9.6 L Monocytes % 7.5 Eosinophils % 2.6 Basophils % 0.4 Nucleated Red Blood Cells % 0.0 Neutrophils # 12.4 H Lymphocytes # 1.5 Monocytes # 1.2 H Eosinophils # 0.4 Basophils # 0.1 Nucleated Red Blood Cells # 0.0 Sodium Level 141 Potassium Level 4.3 Chloride Level 103 Carbon Dioxide Level 30 Anion Gap 12 Blood Urea Nitrogen 41 #H Creatinine 1.07 Glucose Level 167 Calcium Level 8.2 L Test 06/30/17 12:24 Bedside Glucose 249 H Medications Medications Current Medications Ascorbic Acid (Vitamin C) 500 mg BID GTB Last administered on 06/30/17 09:24; Admin Dose 500 MG; Start 06/29/17 at 09:00 Eye Lubricant (Artificial Tears Oph) 1 drop Q12 BOTH EYES Last administered on 06/30/17 09:25; Admin Dose 1 DROP; Start 06/29/17 at 09:00 Docusate Sodium (Colace) 100 mg DAILY PO Last administered on 06/30/17 09:24; Admin Dose 100 MG; Start 06/29/17 at 09:00 Doxazosin Mesylate (Cardura) 4 mg QHS GTB Last administered on 06/29/17 21:55 ; Admin Dose 4 MG; Start 06/29/17 at 00:00 Ferrous Sulfate (Feosol Liquid Cup) 330 mg BID GTB Last administered on 09:24; Admin Dose 330 MG; Start 06/29/17 at 09:00 Ondansetron HCl (Zofran Inj) 4 mg Q6H PRN IV NAUSEA AND/OR VOMITING; Start 06/28/17 at 21:00 Acetaminophen (Tylenol Tab) 650 mg Q6H PRN PO PAIN LEVEL 1-3 OR FEVER Last administered on 06/29/17 11:26; Admin Dose 650 MG; Start 06/28/17 at 21:00 Morphine Sulfate (morphine) 2 mg Q4H PRN IV PAIN LEVEL 7-10; Start 06/28/17 at 21:00 Famotidine 20 mg 20 mg DAILY PO Last administered on 06/30/17 09:24; Admin Dose 20 MG; Start 06/29/17 at 09:00 Dextrose/Sodium Chloride (D5-1/2ns) 1,000 ml @ 100 mls/hr Q10H IV Last administered on 06/30/17 04:50; Admin Dose 100 MLS/HR; Start 06/29/17 at 00:00 Miscellaneous Information 1 ea NOTE XX ; Start 06/29/17 at 00:30 Glucose (Glutose) 15 gm Q15M PRN PO DECREASED GLUCOSE; Start 06/29/17 at 00:30 Glucose (Glutose) 22.5 gm Q15M PRN PO DECREASED GLUCOSE; Start 06/29/17 at 00: 30 Dextrose (D50w Syringe) 25 ml Q15M PRN IV DECREASED GLUCOSE; Start 06/29/17 at 00:30 Dextrose (D50w Syringe) 50 ml Q15M PRN IV DECREASED GLUCOSE; Start 06/29/17 at 00:30 Glucagon (Glucagen) 1 mg Q15M PRN IM DECREASED GLUCOSE; Start 06/29/17 at 00:30 Glucose (Glutose) 15 gm Q15M PRN BUCCAL DECREASED GLUCOSE; Start 06/29/17 at 00 :30 Insulin Aspart (Adult SC Insulin - Mild Algorithm)... Q6 SC Last administered on 06/30/17t 12:34; Admin Dose 3 UNIT; Start 06/30/17 at 00:00 Cefepime HCl (Maxipime 1gm/50 ml (Pmx)) 50 ml @ 100 mls/hr Q12 IVPB ; Start at 21:00 JAGJIT ART Jun 30, 2017 16:12
[2017-06-30] MEDS: CEFEPIME 1GM/50 ML (PMX) 50 ML IVPB SCH (21:47)
[2017-06-30] MEDS: DOXAZOSIN 4 MG TAB GTB SCH (21:47)
[2017-07-01] VITALS (24 sets, daily range): BP systolic 141–164; BP diastolic 66–77; PULSE 72–77; RESP 12–20
[2017-07-01] MEDS: Insulin NOVOLOG SS MILD Algorithm (NPO/TPN/ENTERAL FEEDS) SC SCH ×5 (01:12→23:51)
[2017-07-01] MEDS: DEXTROSE 5%-0.45% NACL 1,000 ML IV SCH ×2 (05:20→11:51)
[2017-07-01 06:59] LABS: BASOPHIL # 0.1 10^3/ul (0.0-0.1); BASOPHILS % 0.6 % (0.0-2.0); EOSINOPHILS # 0.6 10^3/ul (0.0-0.5); EOSINOPHILS % 5.2 % (0.0-7.0); HEMATOCRIT 30.3 % (42.0-52.0); HEMOGLOBIN 9.1 g/dl (14.0-18.0); LYMPHOCYTES # 1.5 10^3/ul (0.8-2.9); MEAN CORPUSCULAR HEMOGLOBIN 26.1 pg (29.0-33.0); MEAN CORPUSCULAR VOLUME 87.1 fl (82.0-101.0); MEAN PLATELET VOLUME 11.8 fl (7.4-10.4); MONOCYTES % 9.4 % (0.0-11.0); NEUTROPHIL # 7.3 10^3/ul (1.6-7.5); NEUTROPHILS % 67.1 % (39.0-77.0); PLATELET COUNT 253 10^3/UL (140-415); RED BLOOD COUNT 3.48 10^6/ul (4.70-6.10); RED CELL DISTRIBUTION WIDTH 19.4 % (11.5-14.5); WHITE BLOOD COUNT 10.9 10^3/ul (4.8-10.8)
[2017-07-01 07:28] LABS: CALCIUM 8.1 mg/dl (8.4-10.2); CREATININE 0.91 mg/dl (0.61-1.24); POTASSIUM 4.3 mmol/L (3.5-5.1)
[2017-07-01] MEDS: FERROUS SULFATE 60 MG/ML 5ML CUP GTB SCH ×2 (08:48→21:38)
[2017-07-01] MEDS: DOCUSATE SODIUM 100 MG CAP PO SCH (08:48)
[2017-07-01] MEDS: FAMOTIDINE 20 MG TAB PO SCH (08:49)
[2017-07-01] MEDS: ASCORBIC ACID 500 MG TAB GTB SCH ×2 (08:49→21:38)
[2017-07-01] MEDS: CEFEPIME 1GM/50 ML (PMX) 50 ML IVPB SCH ×2 (08:49→21:37)
[2017-07-01] MEDS: ARTIFICIAL TEARS 15 ML OPH BOTH EYES SCH ×2 (08:49→22:00)
--- NOTE | 2017-07-01 08:57 | PN ---
DATE: 06/30/2017 SUBJECTIVE: No acute changes. The patient is lying comfortably in bed, afebrile and in no distress . WBC decreased to 15.7, platelets 247, neutrophils 78.6. BUN 41, creatinine 1.07. MICROBIOLOGY: Urine culture growing Klebsiella pneumoniae and Streptococcus agalactiae. Blood cult ure growing gram-negative rods. DIAGNOSTICS: Chest x-ray since admission revealed mild left basilar atelectasis. ANTIMICROBIALS: The patient is on cefepime and vancomycin. INDWELLINGS: Trach, PEG, Aguilar. PHYSICAL EXAMINATION: GENERAL: A 81-year-old elderly man who is in no distress. HEENT: Head atraumatic, normocephalic. Sclerae anicteric. Buccal mucosa dry. NECK: Supple. CHEST: Rise symmetrical. Breath sounds diminished at the bases. HEART: S1, S2. ABDOMEN: Soft, bowel sounds present. EXTREMITIES: Without cyanosis. ASSESSMENT: 1. Sepsis, present on admission. 2. Polymicrobial urinary tract infection. 3. Chronic respiratory failure. 4. Dysphagia. 5. History of nephrostomy. PLAN: The patient remains stable. White blood cell count tracing down. We are going to discontinu e vancomycin, keep him on cefepime. Repeat blood cultures. Continue vent management as per pulmona ry recommendations. Dictated By: SUSANNE LANIER LOT ATTENDANT for MARIA GUADALUPE CLARK/KAYLA Conf#: [id number] DID#: [id number]
--- NOTE | 2017-07-01 11:12 | PN ---
Date/Time of Note Date/Time of Note DATE: 07/01/17 TIME: 11:11 Assessment/Plan VTE Prophylaxis VTE Prophylaxis Intervention: other Lines/Catheters IV Catheter Type (from Nrs): Mid Line Assessment/Plan Chief Complaint/Hosp Course -Sepsis with leukocytosis and elevated lactate with GNR bacteremia 2 to UTI. Continue antibiotics per ID. Dr. Enriquez is following in infection disease consultation. -Acute cystitis in patient with nephrostomy -Ventilator dependent respiratory failure. Dr. Gomez is following in pulmonology consultation. 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 -Dysphagia with G-tube -Hypertension Patient to go to [place] if qualifies Problems: Subjective 24 Hr Interval Summary Free Text/Dictation Patient no ventilator, appears comfortable Exam/Review of Systems Vital Signs Vitals Vital Signs Date Time Temp Pulse Resp B/P Pulse Ox O2 Delivery O2 Flow Rate FiO2 07/01/17 09:37 76 15 99 30 07/01/17 07:32 98.3 146/70 06/28/17 22:48 Trach Collar Intake and Output 06/30/17 06/30/17 07/01/17 15:00 23:00 07:00 Intake Total 2090 ml 2560 ml Output Total 1050 ml 1000 ml Balance 1040 ml 1560 ml Exam Constitutional: well developed Head: atraumatic, normocephalic Neck: supple Respiratory: diminished breath sounds Cardiovascular: regular rate and rhythm Gastrointestinal: non-tender, soft Extremities: normal pulses Results Result Diagram: 07/01/17 0605 07/01/17 0605 Results 24 hrs Laboratory Tests Test 06/30/17 12:24 06/30/17 17:34 07/01/17 01:01 07/01/17 05:40 Bedside Glucose 249 H 174 197 198 Test 07/01/17 06:05 White Blood Count 10.9 #H Red Blood Count 3.48 L Hemoglobin 9.1 L Hematocrit 30.3 L Mean Corpuscular Volume 87.1 Mean Corpuscular Hemoglobin 26.1 L Mean Corpuscular Hemoglobin Concent 30.0 L Red Cell Distribution Width 19.4 H Platelet Count 253 Mean Platelet Volume 11.8 H Neutrophils % 67.1 Lymphocytes % 14.0 L Monocytes % 9.4 Eosinophils % 5.2 Basophils % 0.6 Nucleated Red Blood Cells % 0.0 Neutrophils # 7.3 Lymphocytes # 1.5 Monocytes # 1.0 H Eosinophils # 0.6 H Basophils # 0.1 Nucleated Red Blood Cells # 0.0 Sodium Level 141 Potassium Level 4.3 Chloride Level 103 Carbon Dioxide Level 31 Anion Gap 11 Blood Urea Nitrogen 33 H Creatinine 0.91 Glucose Level 184 Calcium Level 8.1 L Medications Medications Current Medications Ascorbic Acid (Vitamin C) 500 mg BID GTB Last administered on 07/01/17 08:49; Admin Dose 500 MG; Start 06/29/17 at 09:00 Eye Lubricant (Artificial Tears Oph) 1 drop Q12 BOTH EYES Last administered on 07/01/17 08:49; Admin Dose 1 DROP; Start 06/29/17 at 09:00 Docusate Sodium (Colace) 100 mg DAILY PO Last administered on 07/01/17 08:48; Admin Dose 100 MG; Start 06/29/17 at 09:00 Doxazosin Mesylate (Cardura) 4 mg QHS GTB Last administered on 06/30/17 21:47 ; Admin Dose 4 MG; Start 06/29/17 at 00:00 Ferrous Sulfate (Feosol Liquid Cup) 330 mg BID GTB Last administered on 08:48; Admin Dose 330 MG; Start 06/29/17 at 09:00 Ondansetron HCl (Zofran Inj) 4 mg Q6H PRN IV NAUSEA AND/OR VOMITING; Start 06/28/17 at 21:00 Acetaminophen (Tylenol Tab) 650 mg Q6H PRN PO PAIN LEVEL 1-3 OR FEVER Last administered on 06/29/17 11:26; Admin Dose 650 MG; Start 06/28/17 at 21:00 Morphine Sulfate (morphine) 2 mg Q4H PRN IV PAIN LEVEL 7-10; Start 06/28/17 at 21:00 Famotidine 20 mg 20 mg DAILY PO Last administered on 07/01/17 08:49; Admin Dose 20 MG; Start 06/29/17 at 09:00 Dextrose/Sodium Chloride (D5-1/2ns) 1,000 ml @ 100 mls/hr Q10H IV Last administered on 07/01/17 05:20; Admin Dose 100 MLS/HR; Start 06/29/17 at 00:00 Miscellaneous Information 1 ea NOTE XX ; Start 06/29/17 at 00:30 Glucose (Glutose) 15 gm Q15M PRN PO DECREASED GLUCOSE; Start 06/29/17 at 00:30 Glucose (Glutose) 22.5 gm Q15M PRN PO DECREASED GLUCOSE; Start 06/29/17 at 00: 30 Dextrose (D50w Syringe) 25 ml Q15M PRN IV DECREASED GLUCOSE; Start 06/29/17 at 00:30 Dextrose (D50w Syringe) 50 ml Q15M PRN IV DECREASED GLUCOSE; Start 06/29/17 at 00:30 Glucagon (Glucagen) 1 mg Q15M PRN IM DECREASED GLUCOSE; Start 06/29/17 at 00:30 Glucose (Glutose) 15 gm Q15M PRN BUCCAL DECREASED GLUCOSE; Start 06/29/17 at 00 :30 Insulin Aspart (Adult SC Insulin - Mild Algorithm)... Q6 SC Last administered on 07/01/17 05:55; Admin Dose 2 UNIT; Start 06/30/17 at 00:00 Cefepime HCl (Maxipime 1gm/50 ml (Pmx)) 50 ml @ 100 mls/hr Q12 IVPB Last administered on 07/01/17 08:49; Admin Dose 100 MLS/HR; Start 06/30/17 at 21:00 PATTI JIANG Jul 01, 2017 11:12
[2017-07-01] MEDS: SOD CHLORIDE 0.9% 1,000 ML IV SCH ×2 (12:39→21:38)
--- NOTE | 2017-07-01 16:43 | CONS ---
Date/Time of Note Date/Time of Note DATE: 07/01/17 TIME: 16:40 Consultation Date/Type/Reason Admit Date/Time Jun 28, 2017 at 19:00 Initial Consult Date SUBJECTIVE: 81 y/o male being treated for sepsis and UTI. No acute changes. The patient is awake, comfortably resting in bed, afebrile VS: 148/68 P:72 R:16 SO2:99% T:98.6 LABS: Reveiwed. WBC-10.9 BUN-33 Cr-0.91 MICROBIOLOGY: Urine culture growing Klebsiella pneumoniae and Streptococcus agalactiae. Blood culture growing gram-negative rods. DIAGNOSTICS: Chest x-ray since admission revealed mild left basilar atelectasis. ANTIMICROBIALS: The patient is on cefepime and vancomycin. INDWELLINGS: Trach, PEG, Aguilar. PHYSICAL EXAMINATION: GENERAL: A 81-year-old elderly man who is in no distress. HEENT: Head atraumatic, normocephalic. Sclerae anicteric. Buccal mucosa dry. NECK: Supple. CHEST: Rise symmetrical. Breath sounds diminished at the bases. HEART: S1, S2. ABDOMEN: Soft, bowel sounds present. EXTREMITIES: Without cyanosis. ASSESSMENT: 1. Sepsis, present on admission. 2. Polymicrobial urinary tract infection. 3. Chronic respiratory failure. 4. Dysphagia. 5. History of nephrostomy. PLAN: The patient remains stable. Continue with cefepime. Repeat blood cultures pending. Continue vent management as per pulmonary recommendations. Type of Consultation: ID Exam/Review of Systems Vital Signs Vitals Vital Signs Date Time Temp Pulse Resp B/P Pulse Ox O2 Delivery O2 Flow Rate FiO2 07/01/17 16:31 73 07/01/17 15:35 14 98 30 07/01/17 15:20 98.6 148/68 06/28/17 22:48 Trach Collar Intake and Output 06/30/17 06/30/17 07/01/17 15:00 23:00 07:00 Intake Total 2090 ml 2560 ml Output Total 1050 ml 1000 ml Balance 1040 ml 1560 ml Results Result Diagram: 07/01/17 0605 07/01/17 0605 Results 24 hrs Laboratory Tests Test 06/30/17 17:34 07/01/17 01:01 07/01/17 05:40 07/01/17 06:05 Bedside Glucose 174 197 198 White Blood Count 10.9 #H Red Blood Count 3.48 L Hemoglobin 9.1 L Hematocrit 30.3 L Mean Corpuscular Volume 87.1 Mean Corpuscular Hemoglobin 26.1 L Mean Corpuscular Hemoglobin Concent 30.0 L Red Cell Distribution Width 19.4 H Platelet Count 253 Mean Platelet Volume 11.8 H Neutrophils % 67.1 Lymphocytes % 14.0 L Monocytes % 9.4 Eosinophils % 5.2 Basophils % 0.6 Nucleated Red Blood Cells % 0.0 Neutrophils # 7.3 Lymphocytes # 1.5 Monocytes # 1.0 H Eosinophils # 0.6 H Basophils # 0.1 Nucleated Red Blood Cells # 0.0 Sodium Level 141 Potassium Level 4.3 Chloride Level 103 Carbon Dioxide Level 31 Anion Gap 11 Blood Urea Nitrogen 33 H Creatinine 0.91 Glucose Level 184 Calcium Level 8.1 L Test 07/01/17 11:56 Bedside Glucose 210 Medications Medications Current Medications Ascorbic Acid (Vitamin C) 500 mg BID GTB Last administered on 07/01/17 08:49; Admin Dose 500 MG; Start 06/29/17 at 09:00 Eye Lubricant (Artificial Tears Oph) 1 drop Q12 BOTH EYES Last administered on 07/01/17 08:49; Admin Dose 1 DROP; Start 06/29/17 at 09:00 Docusate Sodium (Colace) 100 mg DAILY PO Last administered on 07/01/17 08:48; Admin Dose 100 MG; Start 06/29/17 at 09:00 Doxazosin Mesylate (Cardura) 4 mg QHS GTB Last administered on 06/30/17 21:47 ; Admin Dose 4 MG; Start 06/29/17 at 00:00 Ferrous Sulfate (Feosol Liquid Cup) 330 mg BID GTB Last administered on 08:48; Admin Dose 330 MG; Start 06/29/17 at 09:00 Ondansetron HCl (Zofran Inj) 4 mg Q6H PRN IV NAUSEA AND/OR VOMITING; Start 06/28/17 at 21:00 Acetaminophen (Tylenol Tab) 650 mg Q6H PRN PO PAIN LEVEL 1-3 OR FEVER Last administered on 06/29/17 11:26; Admin Dose 650 MG; Start 06/28/17 at 21:00 Morphine Sulfate (morphine) 2 mg Q4H PRN IV PAIN LEVEL 7-10; Start 06/28/17 at 21:00 Famotidine (Pepcid) 20 mg DAILY PO Last administered on 07/01/17 08:49; Admin Dose 20 MG; Start 06/29/17 at 09:00 Miscellaneous Information 1 ea NOTE XX ; Start 06/29/17 at 00:30 Glucose (Glutose) 15 gm Q15M PRN PO DECREASED GLUCOSE; Start 06/29/17 at 00:30 Glucose (Glutose) 22.5 gm Q15M PRN PO DECREASED GLUCOSE; Start 06/29/17 at 00: 30 Dextrose (D50w Syringe) 25 ml Q15M PRN IV DECREASED GLUCOSE; Start 06/29/17 at 00:30 Dextrose (D50w Syringe) 50 ml Q15M PRN IV DECREASED GLUCOSE; Start 06/29/17 at 00:30 Glucagon (Glucagen) 1 mg Q15M PRN IM DECREASED GLUCOSE; Start 06/29/17 at 00:30 Glucose (Glutose) 15 gm Q15M PRN BUCCAL DECREASED GLUCOSE; Start 06/29/17 at 00 :30 Insulin Aspart (Adult SC Insulin - Mild Algorithm)... Q6 SC Last administered on 07/01/17 11:59; Admin Dose 2 UNIT; Start 06/30/17 at 00:00 Cefepime HCl 50 ml @ 100 mls/hr Q12 IVPB Last administered on 07/01/17 08:49 ; Admin Dose 100 MLS/HR; Start 06/30/17 at 21:00 Sodium Chloride (NS) 1,000 ml @ 100 mls/hr Q10H IV Last administered on 12:39; Admin Dose 100 MLS/HR; Start 07/01/17 at 12:30 TATUM JACK Jul 01, 2017 16:43
--- NOTE | 2017-07-01 19:40 | CONS ---
Date/Time of Note Date/Time of Note DATE: 07/01/17 TIME: 19:39 Consult Date/Type/Reason Admit Date/Time Jun 28, 2017 at 19:00 Initial Consult Date Type of Consultation: Pulm Subjective No events on MV Objective Vital Signs Date Time Temp Pulse Resp B/P Pulse Ox O2 Delivery O2 Flow Rate FiO2 07/01/17 19:30 77 19 98 30 07/01/17 15:20 98.6 148/68 06/28/17 22:48 Trach Collar Intake and Output 06/30/17 06/30/17 07/01/17 15:00 23:00 07:00 Intake Total 2090 ml 2560 ml Output Total 1050 ml 1000 ml Balance 1040 ml 1560 ml Exam HEENT: Neck supple; no JVD; no LAD; + trach CVS: RRR, S1 and S2 CHEST: Clear ABD: Soft, NT, + BS EXT: No c/c; contracted Results/Medications Result Diagram: 07/01/17 0605 07/01/17 0605 Results 24 hrs Laboratory Tests Test 07/01/17 01:01 07/01/17 05:40 07/01/17 06:05 07/01/17 11:56 Bedside Glucose 197 198 210 White Blood Count 10.9 #H Red Blood Count 3.48 L Hemoglobin 9.1 L Hematocrit 30.3 L Mean Corpuscular Volume 87.1 Mean Corpuscular Hemoglobin 26.1 L Mean Corpuscular Hemoglobin Concent 30.0 L Red Cell Distribution Width 19.4 H Platelet Count 253 Mean Platelet Volume 11.8 H Neutrophils % 67.1 Lymphocytes % 14.0 L Monocytes % 9.4 Eosinophils % 5.2 Basophils % 0.6 Nucleated Red Blood Cells % 0.0 Neutrophils # 7.3 Lymphocytes # 1.5 Monocytes # 1.0 H Eosinophils # 0.6 H Basophils # 0.1 Nucleated Red Blood Cells # 0.0 Sodium Level 141 Potassium Level 4.3 Chloride Level 103 Carbon Dioxide Level 31 Anion Gap 11 Blood Urea Nitrogen 33 H Creatinine 0.91 Glucose Level 184 Calcium Level 8.1 L Test 07/01/17 17:19 Bedside Glucose 156 Medications Current Medications Ascorbic Acid (Vitamin C) 500 mg BID GTB Last administered on 07/01/17t 08:49; Admin Dose 500 MG; Start 06/29/17 at 09:00 Eye Lubricant (Artificial Tears Oph) 1 drop Q12 BOTH EYES Last administered on 07/01/17 08:49; Admin Dose 1 DROP; Start 06/29/17 at 09:00 Docusate Sodium (Colace) 100 mg DAILY PO Last administered on 07/01/17 08:48; Admin Dose 100 MG; Start 06/29/17 at 09:00 Doxazosin Mesylate (Cardura) 4 mg QHS GTB Last administered on 06/30/17 21:47 ; Admin Dose 4 MG; Start 06/29/17 at 00:00 Ferrous Sulfate (Feosol Liquid Cup) 330 mg BID GTB Last administered on 08:48; Admin Dose 330 MG; Start 06/29/17 at 09:00 Ondansetron HCl (Zofran Inj) 4 mg Q6H PRN IV NAUSEA AND/OR VOMITING; Start 06/28/17 at 21:00 Acetaminophen (Tylenol Tab) 650 mg Q6H PRN PO PAIN LEVEL 1-3 OR FEVER Last administered on 06/29/17 11:26; Admin Dose 650 MG; Start 06/28/17 at 21:00 Morphine Sulfate (morphine) 2 mg Q4H PRN IV PAIN LEVEL 7-10; Start 06/28/17 at 21:00 Famotidine (Pepcid) 20 mg DAILY PO Last administered on 07/01/17 08:49; Admin Dose 20 MG; Start 06/29/17 at 09:00 Miscellaneous Information 1 ea NOTE XX ; Start 06/29/17 at 00:30 Glucose (Glutose) 15 gm Q15M PRN PO DECREASED GLUCOSE; Start 06/29/17 at 00:30 Glucose (Glutose) 22.5 gm Q15M PRN PO DECREASED GLUCOSE; Start 06/29/17 at 00: 30 Dextrose (D50w Syringe) 25 ml Q15M PRN IV DECREASED GLUCOSE; Start 06/29/17 at 00:30 Dextrose (D50w Syringe) 50 ml Q15M PRN IV DECREASED GLUCOSE; Start 06/29/17 at 00:30 Glucagon (Glucagen) 1 mg Q15M PRN IM DECREASED GLUCOSE; Start 06/29/17 at 00:30 Glucose (Glutose) 15 gm Q15M PRN BUCCAL DECREASED GLUCOSE; Start 06/29/17 at 00 :30 Insulin Aspart (Adult SC Insulin - Mild Algorithm)... Q6 SC Last administered on 07/01/17 17:24; Admin Dose 1 UNIT; Start 06/30/17 at 00:00 Cefepime HCl 50 ml @ 100 mls/hr Q12 IVPB Last administered on 07/01/17 08:49 ; Admin Dose 100 MLS/HR; Start 06/30/17 at 21:00 Sodium Chloride (NS) 1,000 ml @ 100 mls/hr Q10H IV Last administered on 12:39; Admin Dose 100 MLS/HR; Start 07/01/17 at 12:30 Assessment/Plan Additional Assessment/Plan IMP: 1. Ventilator-dependent respiratory failure. 2. History of encephalopathy. 3. Urinary tract infection Klebsiella and strep species with improving leukocytosis 4. Dysphagia with gastrostomy tube. RECS: 1. Vent support 2. Abx per ID 3. TF/Free H20 MISHA DAVIS MD Jul 01, 2017 19:40
[2017-07-01] MEDS: DOXAZOSIN 4 MG TAB GTB SCH (21:38)
[2017-07-02] VITALS (24 sets, daily range): BP systolic 122–158; BP diastolic 56–96; PULSE 74–84; RESP 13–20
[2017-07-02] MEDS: Insulin NOVOLOG SS MILD Algorithm (NPO/TPN/ENTERAL FEEDS) SC SCH ×4 (05:46→23:44)
[2017-07-02] MEDS: DOCUSATE SODIUM 100 MG CAP PO SCH (08:28)
[2017-07-02] MEDS: FERROUS SULFATE 60 MG/ML 5ML CUP GTB SCH ×2 (08:28→21:00)
[2017-07-02] MEDS: FAMOTIDINE 20 MG TAB PO SCH (08:28)
[2017-07-02] MEDS: CEFEPIME 1GM/50 ML (PMX) 50 ML IVPB SCH ×2 (08:28→21:00)
[2017-07-02] MEDS: ASCORBIC ACID 500 MG TAB GTB SCH ×2 (08:28→20:59)
[2017-07-02] MEDS: ARTIFICIAL TEARS 15 ML OPH BOTH EYES SCH ×2 (08:29→21:00)
[2017-07-02] MEDS: SOD CHLORIDE 0.9% 1,000 ML IV SCH ×4 (08:34→19:44)
--- NOTE | 2017-07-02 11:13 | PN ---
Date/Time of Note Date/Time of Note DATE: 07/02/17 TIME: 11:13 Assessment/Plan VTE Prophylaxis VTE Prophylaxis Intervention: other Lines/Catheters IV Catheter Type (from Nrsg): Mid Line Urinary Cath still in place: Yes (suprapubic catherter) Reason Cath still needed: skin wounds contaminated by urine Assessment/Plan Chief Complaint/Hosp Course -Sepsis with leukocytosis and elevated lactate with GNR bacteremia 2 to UTI. Continue antibiotics per ID. Dr. Enriquez is following in infection disease consultation. -Acute cystitis in patient with nephrostomy -Ventilator dependent respiratory failure. Dr. Gomez is following in pulmonology consultation. 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 -Dysphagia with G-tube -Hypertension Patient to go to [place] if qualifies Problems: Subjective 24 Hr Interval Summary Free Text/Dictation Trach in place, patient appears stable Exam/Review of Systems Vital Signs Vitals Vital Signs Date Time Temp Pulse Resp B/P Pulse Ox O2 Delivery O2 Flow Rate FiO2 07/02/17 09:05 79 14 98 30 07/02/17 07:33 99.4 148/70 06/28/17 22:48 Trach Collar Intake and Output 07/01/17 07/01/17 07/02/17 15:00 23:00 07:00 Intake Total 50 ml 1860 ml 1860 ml Output Total 1000 ml 1500 ml Balance 50 ml 860 ml 360 ml Exam Constitutional: well developed Head: atraumatic, normocephalic Neck: supple Respiratory: clear to auscultation Cardiovascular: regular rate and rhythm Gastrointestinal: non-tender, soft Extremities: normal pulses Results Result Diagram: 07/01/1760407/01/17 06 Results 24 hrs Laboratory Tests Test 07/01/17 11:56 07/01/17 17:19 07/01/17 23:38 07/02/17 05:41 Bedside Glucose 210 156 145 158 Medications Medications Current Medications Ascorbic Acid (Vitamin C) 500 mg BID GTB Last administered on 07/02/17 08:28 ; Admin Dose 500 MG; Start 06/29/17 at 09:00 Eye Lubricant (Artificial Tears Oph) 1 drop Q12 BOTH EYES Last administered on 07/02/17 08:29; Admin Dose 1 DROP; Start 06/29/17 at 09:00 Docusate Sodium (Colace) 100 mg DAILY PO Last administered on 07/02/17 08:28 ; Admin Dose 100 MG; Start 06/29/17 at 09:00 Doxazosin Mesylate (Cardura) 4 mg QHS GTB Last administered on 07/01/17 21:38 ; Admin Dose 4 MG; Start 06/29/17 at 00:00 Ferrous Sulfate (Feosol Liquid Cup) 330 mg BID GTB Last administered on 08:28; Admin Dose 330 MG; Start 06/29/17 at 09:00 Ondansetron HCl (Zofran Inj) 4 mg Q6H PRN IV NAUSEA AND/OR VOMITING; Start 06/28/17 at 21:00 Acetaminophen (Tylenol Tab) 650 mg Q6H PRN PO PAIN LEVEL 1-3 OR FEVER Last administered on 06/29/17 11:26; Admin Dose 650 MG; Start 06/28/17 at 21:00 Morphine Sulfate (morphine) 2 mg Q4H PRN IV PAIN LEVEL 7-10; Start 06/28/17 at 21:00 Famotidine (Pepcid) 20 mg DAILY PO Last administered on 07/02/17 08:28; Admin Dose 20 MG; Start 06/29/17 at 09:00 Miscellaneous Information 1 ea NOTE XX ; Start 06/29/17 at 00:30 Glucose (Glutose) 15 gm Q15M PRN PO DECREASED GLUCOSE; Start 06/29/17 at 00:30 Glucose (Glutose) 22.5 gm Q15M PRN PO DECREASED GLUCOSE; Start 06/29/17 at 00: 30 Dextrose (D50w Syringe) 25 ml Q15M PRN IV DECREASED GLUCOSE; Start 06/29/17 at 00:30 Dextrose (D50w Syringe) 50 ml Q15M PRN IV DECREASED GLUCOSE; Start 06/29/17 at 00:30 Glucagon (Glucagen) 1 mg Q15M PRN IM DECREASED GLUCOSE; Start 06/29/17 at 00:30 Glucose (Glutose) 15 gm Q15M PRN BUCCAL DECREASED GLUCOSE; Start 06/29/17 at 00 :30 Insulin Aspart (Adult SC Insulin - Mild Algorithm)... Q6 SC Last administered on 07/02/17 05:46; Admin Dose 1 UNIT; Start 06/30/17 at 00:00 Cefepime HCl 50 ml @ 100 mls/hr Q12 IVPB Last administered on 07/02/17 08:28 ; Admin Dose 100 MLS/HR; Start 06/30/17 at 21:00 Sodium Chloride (NS) 1,000 ml @ 100 mls/hr Q10H IV Last administered on 08:34; Admin Dose 100 MLS/HR; Start 07/01/17 at 12:30 PATTI JIANG Jul 02, 2017 11:13
--- NOTE | 2017-07-02 15:37 | CONS ---
Date/Time of Note Date/Time of Note DATE: 07/02/17 TIME: 15:37 Assessment/Plan Assessment/Plan Chief Complaint/Hosp Course ID PROGRESS NOTE CURRENT ABX: Vanco IV #3.5 + Cefepime #3.5 07/01/1760407/01/17 06 24H INTERVAL SUMMARY * Non-communicative -> Awake, alert, in process of bed bath 2/2 Constipated => now having BM due to laxative * 06/28/17 URINE CULTURE Final Organism 1 K.PNEUMONIAE SSP PNEUMONIAE COLONY COUNT >100,000 CFU/ml Organism 2 STREP AGALACTIAE - (GROUP B) COLONY COUNT >100,000 CFU/ml * 06/28/17 BCx 1/2 bottles => Organism 1 GRAM POSITIVE CHERELLE * 06/28/17 BCx 1/2 bottles => Organism 1 K.PNEUMONIAE SSP PNEUMONIAE K PNE SPP M.I.C. RX --------- --- CEFAZOLIN I CEFOTAXIME S CIPROFLOXACIN >=4 R GENTAMICIN <=1 S LEVOFLOXACIN >=8 R TOBRAMYCIN <=1 S TRIMETHOPRIM/SULFAMETHOXAZOLE <=20 S Exam Constitutional: VSS, NAD, well developed, awake, vented Head: atraumatic, normocephalic Eyes: nl lids ENMT: Unremarkable Neck: (+)Trach -> Secure to Vent Respiratory: Equal chest rise bilaterally, without dyspnea on observation No normal air movement Cardiovascular: regular rate and rhythm Gastrointestinal: Soft, mild distention Genitourinary: Suprapubic FC present, normal M genitalia Extremities: warm Neurological: Awake, alert Skin: other. minor skin tears ID ASSESSMENT 81 yo M admit with: 1. GNR Sepsis w/fevers, marked leukocytosis, lactic acid 2.5 on admission => RESOLVING * 06/28/17 BCx 1/2 bottles => Organism 1 GRAM POSITIVE CHERELLE = PROBABLE SKIN CONTAMINANT * 06/28/17 BCx 1/2 bottles => Organism 1 K.PNEUMONIAE SSP PNEUMONIAE = UROSEPSIS 2. Polymicrobial urinary tract infection. * 06/28/17 URINE CULTURE Final Organism 1 K.PNEUMONIAE SSP PNEUMONIAE COLONY COUNT >100,000 CFU/ml Organism 2 STREP AGALACTIAE - (GROUP B) COLONY COUNT >100,000 CFU/ml 3. History of nephrostomy. 4. Chronic respiratory failure. * 06/28/17 CXR on admission = unremarkable 5. Dysphagia. 6. Constipated => now having BM due to laxative (-)MRSA INVASIVES: Trach, peg, FC ABX ALLERGY: KNDA CURRENT ABX: Vanco IV + Cefepime ID RECOMMENDATIONS 1. Continue current ABX and await GPR BCx result (possibly a contaminant). 2. ID colleague consider ED-ESCALATE ABX to Ceftriaxone 1GM to complete 14 days = last day 07/13/17 * Back to SNF on Ceftriaxone 1GM IVP daily when afebrile x 24H w/normalized WBC . Problems: Consultation Date/Type/Reason Admit Date/Time Jun 28, 2017 at 19:00 Initial Consult Date Type of Consultation: ID Exam/Review of Systems Vital Signs Vitals Vital Signs Date Time Temp Pulse Resp B/P Pulse Ox O2 Delivery O2 Flow Rate FiO2 07/02/17 15:33 98.6 70 14 150/70 98 07/02/17 15:05 30 06/28/17 22:48 Trach Collar Intake and Output 07/01/17 07/01/17 07/02/17 15:00 23:00 07:00 Intake Total 50 ml 1860 ml 1860 ml Output Total 1000 ml 1500 ml Balance 50 ml 860 ml 360 ml Results Result Diagram: 07/01/17 0607/01/17 0605 Results 24 hrs Laboratory Tests Test 07/01/17 17:19 07/01/17 23:38 07/02/17 05:41 07/02/17 11:47 Bedside Glucose 156 145 158 182 Medications Medications Current Medications Ascorbic Acid (Vitamin C) 500 mg BID GTB Last administered on 07/02/17 08:28 ; Admin Dose 500 MG; Start 06/29/17 at 09:00 Eye Lubricant (Artificial Tears Oph) 1 drop Q12 BOTH EYES Last administered on 07/02/17 08:29; Admin Dose 1 DROP; Start 06/29/17 at 09:00 Docusate Sodium (Colace) 100 mg DAILY PO Last administered on 07/02/17 08:28 ; Admin Dose 100 MG; Start 06/29/17 at 09:00 Doxazosin Mesylate (Cardura) 4 mg QHS GTB Last administered on 07/01/17 21:38 ; Admin Dose 4 MG; Start 06/29/17 at 00:00 Ferrous Sulfate (Feosol Liquid Cup) 330 mg BID GTB Last administered on 08:28; Admin Dose 330 MG; Start 06/29/17 at 09:00 Ondansetron HCl (Zofran Inj) 4 mg Q6H PRN IV NAUSEA AND/OR VOMITING; Start 06/28/17 at 21:00 Acetaminophen (Tylenol Tab) 650 mg Q6H PRN PO PAIN LEVEL 1-3 OR FEVER Last administered on 06/29/17 11:26; Admin Dose 650 MG; Start 06/28/17 at 21:00 Morphine Sulfate (morphine) 2 mg Q4H PRN IV PAIN LEVEL 7-10; Start 06/28/17 at 21:00 Famotidine (Pepcid) 20 mg DAILY PO Last administered on 07/02/17 08:28; Admin Dose 20 MG; Start 06/29/17 at 09:00 Miscellaneous Information 1 ea NOTE XX ; Start 06/29/17 at 00:30 Glucose (Glutose) 15 gm Q15M PRN PO DECREASED GLUCOSE; Start 06/29/17 at 00:30 Glucose (Glutose) 22.5 gm Q15M PRN PO DECREASED GLUCOSE; Start 06/29/17 at 00: 30 Dextrose (D50w Syringe) 25 ml Q15M PRN IV DECREASED GLUCOSE; Start 06/29/17 at 00:30 Dextrose (D50w Syringe) 50 ml Q15M PRN IV DECREASED GLUCOSE; Start 06/29/17 at 00:30 Glucagon (Glucagen) 1 mg Q15M PRN IM DECREASED GLUCOSE; Start 06/29/17 at 00:30 Glucose (Glutose) 15 gm Q15M PRN BUCCAL DECREASED GLUCOSE; Start 06/29/17 at 00 :30 Insulin Aspart (Adult SC Insulin - Mild Algorithm)... Q6 SC Last administered on 07/02/17 11:49; Admin Dose 2 UNIT; Start 06/30/17 at 00:00 Cefepime HCl 50 ml @ 100 mls/hr Q12 IVPB Last administered on 07/02/17 08:28 ; Admin Dose 100 MLS/HR; Start 06/30/17 at 21:00 Sodium Chloride (NS) 1,000 ml @ 100 mls/hr Q10H IV Last administered on 08:34; Admin Dose 100 MLS/HR; Start 07/01/17 at 12:30 RAYMUNDO ROBLEDO NP Jul 02, 2017 15:37
--- NOTE | 2017-07-02 18:33 | CONS ---
Date/Time of Note Date/Time of Note DATE: 07/02/17 TIME: 18:32 Consult Date/Type/Reason Admit Date/Time Jun 28, 2017 at 19:00 Type of Consultation: Pulm Subjective No events. Stable overnight. Objective Vital Signs Date Time Temp Pulse Resp B/P Pulse Ox O2 Delivery O2 Flow Rate FiO2 07/02/17 17:25 78 20 99 30 07/02/17 15:33 98.6 150/70 06/28/17 22:48 Trach Collar Intake and Output 07/01/17 07/01/17 07/02/17 15:00 23:00 07:00 Intake Total 50 ml 1860 ml 1860 ml Output Total 1000 ml 1500 ml Balance 50 ml 860 ml 360 ml Exam HEENT: Neck supple; no JVD; no LAD; + trach CVS: RRR, S1 and S2 CHEST: Clear ABD: Soft, NT, + BS EXT: No c/c; contracted Results/Medications Result Diagram: 07/01/17 0605 07/01/17 0605 Results 24 hrs Laboratory Tests Test 07/01/17 23:38 07/02/17 05:41 07/02/17 11:47 07/02/17 17:34 Bedside Glucose 145 158 182 173 Medications Current Medications Ascorbic Acid (Vitamin C) 500 mg BID GTB Last administered on 07/02/17 08:28 ; Admin Dose 500 MG; Start 06/29/17 at 09:00 Eye Lubricant (Artificial Tears Oph) 1 drop Q12 BOTH EYES Last administered on 07/02/17 08:29; Admin Dose 1 DROP; Start 06/29/17 at 09:00 Docusate Sodium (Colace) 100 mg DAILY PO Last administered on 07/02/17 08:28 ; Admin Dose 100 MG; Start 06/29/17 at 09:00 Doxazosin Mesylate (Cardura) 4 mg QHS GTB Last administered on 07/01/17 21:38 ; Admin Dose 4 MG; Start 06/29/17 at 00:00 Ferrous Sulfate (Feosol Liquid Cup) 330 mg BID GTB Last administered on 08:28; Admin Dose 330 MG; Start 06/29/17 at 09:00 Ondansetron HCl (Zofran Inj) 4 mg Q6H PRN IV NAUSEA AND/OR VOMITING; Start 06/28/17 at 21:00 Acetaminophen (Tylenol Tab) 650 mg Q6H PRN PO PAIN LEVEL 1-3 OR FEVER Last administered on 06/29/17 11:26; Admin Dose 650 MG; Start 06/28/17 at 21:00 Morphine Sulfate (morphine) 2 mg Q4H PRN IV PAIN LEVEL 7-10; Start 06/28/17 at 21:00 Famotidine (Pepcid) 20 mg DAILY PO Last administered on 07/02/17 08:28; Admin Dose 20 MG; Start 06/29/17 at 09:00 Miscellaneous Information 1 ea NOTE XX ; Start 06/29/17 at 00:30 Glucose (Glutose) 15 gm Q15M PRN PO DECREASED GLUCOSE; Start 06/29/17 at 00:30 Glucose (Glutose) 22.5 gm Q15M PRN PO DECREASED GLUCOSE; Start 06/29/17 at 00: 30 Dextrose (D50w Syringe) 25 ml Q15M PRN IV DECREASED GLUCOSE; Start 06/29/17 at 00:30 Dextrose (D50w Syringe) 50 ml Q15M PRN IV DECREASED GLUCOSE; Start 06/29/17 at 00:30 Glucagon (Glucagen) 1 mg Q15M PRN IM DECREASED GLUCOSE; Start 06/29/17 at 00:30 Glucose (Glutose) 15 gm Q15M PRN BUCCAL DECREASED GLUCOSE; Start 06/29/17 at 00 :30 Insulin Aspart (Adult SC Insulin - Mild Algorithm)... Q6 SC Last administered on 07/02/17 17:38; Admin Dose 1 UNIT; Start 06/30/17 at 00:00 Cefepime HCl 50 ml @ 100 mls/hr Q12 IVPB Last administered on 07/02/17 08:28 ; Admin Dose 100 MLS/HR; Start 06/30/17 at 21:00 Sodium Chloride (NS) 1,000 ml @ 100 mls/hr Q10H IV Last administered on 08:34; Admin Dose 100 MLS/HR; Start 07/01/17 at 12:30 Assessment/Plan Additional Assessment/Plan IMP: 1. Ventilator-dependent respiratory failure. 2. History of encephalopathy. 3. Urinary tract infection Klebsiella and strep species with improving leukocytosis 4. Dysphagia with gastrostomy tube. RECS: 1. Vent support 2. Abx per ID 3. TF/Free H20 4. DVT/GI prophylaxis MISHA DAVIS MD Jul 02, 2017 18:33
[2017-07-02] MEDS: DOXAZOSIN 4 MG TAB GTB SCH (20:59)
[2017-07-03] VITALS (21 sets, daily range): BP systolic 117–153; BP diastolic 60–70; PULSE 69–78; RESP 12–32
[2017-07-03] MEDS: ACETAMINOPHEN 325 MG TAB PO PRN (03:09)
[2017-07-03] MEDS: SOD CHLORIDE 0.9% 1,000 ML IV SCH (05:39)
[2017-07-03] MEDS: Insulin NOVOLOG SS MILD Algorithm (NPO/TPN/ENTERAL FEEDS) SC SCH ×3 (05:40→17:32)
[2017-07-03 06:41] LABS: WHITE BLOOD COUNT 12.8 10^3/ul (4.8-10.8)
[2017-07-03 06:42] LABS: BASOPHIL # 0.1 10^3/ul (0.0-0.1); BASOPHILS % 0.6 % (0.0-2.0); EOSINOPHILS # 0.7 10^3/ul (0.0-0.5); EOSINOPHILS % 5.5 % (0.0-7.0); HEMATOCRIT 30.7 % (42.0-52.0); HEMOGLOBIN 9.2 g/dl (14.0-18.0); LYMPHOCYTES # 1.8 10^3/ul (0.8-2.9); MEAN CORPUSCULAR HEMOGLOBIN 25.7 pg (29.0-33.0); MEAN CORPUSCULAR VOLUME 85.8 fl (82.0-101.0); MEAN PLATELET VOLUME 11.6 fl (7.4-10.4); MONOCYTE # 0.8 10^3/ul (0.3-0.9); MONOCYTES % 6.2 % (0.0-11.0); NEUTROPHIL # 8.8 10^3/ul (1.6-7.5); NEUTROPHILS % 68.8 % (39.0-77.0); PLATELET COUNT 246 10^3/UL (140-415); RED BLOOD COUNT 3.58 10^6/ul (4.70-6.10); RED CELL DISTRIBUTION WIDTH 19.2 % (11.5-14.5)
[2017-07-03 07:13] LABS: CALCIUM 8.3 mg/dl (8.4-10.2); CREATININE 0.75 mg/dl (0.61-1.24); POTASSIUM 4.7 mmol/L (3.5-5.1)
[2017-07-03] MEDS: FERROUS SULFATE 60 MG/ML 5ML CUP GTB SCH (09:15)
[2017-07-03] MEDS: FAMOTIDINE 20 MG TAB PO SCH (09:15)
[2017-07-03] MEDS: DOCUSATE SODIUM 100 MG CAP PO SCH (09:15)
[2017-07-03] MEDS: ASCORBIC ACID 500 MG TAB GTB SCH (09:15)
[2017-07-03] MEDS: CEFEPIME 1GM/50 ML (PMX) 50 ML IVPB SCH (09:15)
[2017-07-03] MEDS: ARTIFICIAL TEARS 15 ML OPH BOTH EYES SCH (09:16)
--- NOTE | 2017-07-03 14:06 | CONS ---
Date/Time of Note Date/Time of Note DATE: 07/03/17 TIME: 14:05 Consult Date/Type/Reason Admit Date/Time Jun 28, 2017 at 19:00 Type of Consultation: Pulm Subjective Patient remains comfortable no new events Objective Vital Signs Date Time Temp Pulse Resp B/P Pulse Ox O2 Delivery O2 Flow Rate FiO2 07/03/17 13:10 76 17 99 30 07/03/17 11:28 98.3 137/60 Intake and Output 07/02/17 07/02/17 07/03/17 15:00 23:00 07:00 Intake Total 1050 ml 1910 ml 2860 ml Output Total 1300 ml 1700 ml Balance 1050 ml 610 ml 1160 ml Exam PHYSICAL EXAMINATION GENERAL: Elderly gentleman, stable on mechanical ventilation VITAL SIGNS: see below. HEENT: Pupils equal, round, and reactive to light. Tracheostomy site clean and intact. CARDIAC: S1, S2, 1/6 systolic ejection murmur CHEST: Diminished air entry bilaterally. ABDOMEN: Mildly distended. Bowel sounds present no guarding or rebound EXTREMITIES: No cyanosis, clubbing edema +1 NEUROLOGIC: Generalized weakness Results/Medications Result Diagram: 07/03/17 0613 07/03/17 0613 Results 24 hrs Laboratory Tests Test 07/02/17 17:34 07/02/17 23:41 07/03/17 05:38 07/03/17 06:13 Bedside Glucose 173 168 151 White Blood Count 12.8 H Red Blood Count 3.58 L Hemoglobin 9.2 L Hematocrit 30.7 L Mean Corpuscular Volume 85.8 Mean Corpuscular Hemoglobin 25.7 L Mean Corpuscular Hemoglobin Concent 30.0 L Red Cell Distribution Width 19.2 H Platelet Count 246 Mean Platelet Volume 11.6 H Neutrophils % 68.8 Lymphocytes % 14.0 L Monocytes % 6.2 Eosinophils % 5.5 Basophils % 0.6 Nucleated Red Blood Cells % 0.0 Neutrophils # 8.8 H Lymphocytes # 1.8 Monocytes # 0.8 Eosinophils # 0.7 H Basophils # 0.1 Nucleated Red Blood Cells # 0.0 Sodium Level 140 Potassium Level 4.7 Chloride Level 106 Carbon Dioxide Level 29 Anion Gap 10 Blood Urea Nitrogen 26 H Creatinine 0.75 Glucose Level 151 Calcium Level 8.3 L Test 07/03/17 12:26 Bedside Glucose 155 Medications Current Medications Ascorbic Acid (Vitamin C) 500 mg BID GTB Last administered on 07/03/17 09:15 ; Admin Dose 500 MG; Start 06/29/17 at 09:00 Eye Lubricant (Artificial Tears Oph) 1 drop Q12 BOTH EYES Last administered on 07/03/17 09:16; Admin Dose 1 DROP; Start 06/29/17 at 09:00 Docusate Sodium (Colace) 100 mg DAILY PO Last administered on 07/03/17 09:15 ; Admin Dose 100 MG; Start 06/29/17 at 09:00 Doxazosin Mesylate (Cardura) 4 mg QHS GTB Last administered on 07/02/17 20:59 ; Admin Dose 4 MG; Start 06/29/17 at 00:00 Ferrous Sulfate (Feosol Liquid Cup) 330 mg BID GTB Last administered on 09:15; Admin Dose 330 MG; Start 06/29/17 at 09:00 Ondansetron HCl (Zofran Inj) 4 mg Q6H PRN IV NAUSEA AND/OR VOMITING; Start 06/28/17 at 21:00 Acetaminophen (Tylenol Tab) 650 mg Q6H PRN PO PAIN LEVEL 1-3 OR FEVER Last administered on 07/03/17 03:09; Admin Dose 650 MG; Start 06/28/17 at 21:00 Morphine Sulfate (morphine) 2 mg Q4H PRN IV PAIN LEVEL 7-10; Start 06/28/17 at 21:00 Famotidine (Pepcid) 20 mg DAILY PO Last administered on 07/03/17 09:15; Admin Dose 20 MG; Start 06/29/17 at 09:00 Miscellaneous Information 1 ea NOTE XX ; Start 06/29/17 at 00:30 Glucose (Glutose) 15 gm Q15M PRN PO DECREASED GLUCOSE; Start 06/29/17 at 00:30 Glucose (Glutose) 22.5 gm Q15M PRN PO DECREASED GLUCOSE; Start 06/29/17 at 00: 30 Dextrose (D50w Syringe) 25 ml Q15M PRN IV DECREASED GLUCOSE; Start 06/29/17 at 00:30 Dextrose (D50w Syringe) 50 ml Q15M PRN IV DECREASED GLUCOSE; Start 06/29/17 at 00:30 Glucagon (Glucagen) 1 mg Q15M PRN IM DECREASED GLUCOSE; Start 06/29/17 at 00:30 Glucose (Glutose) 15 gm Q15M PRN BUCCAL DECREASED GLUCOSE; Start 06/29/17 at 00 :30 Insulin Aspart (Adult SC Insulin - Mild Algorithm)... Q6 SC Last administered on 07/03/17 12:34; Admin Dose 1 UNIT; Start 06/30/17 at 00:00 Cefepime HCl 50 ml @ 100 mls/hr Q12 IVPB Last administered on 07/03/17 09:15 ; Admin Dose 100 MLS/HR; Start 06/30/17 at 21:00 Sodium Chloride (NS) 1,000 ml @ 100 mls/hr Q10H IV Last administered on 05:39; Admin Dose 100 MLS/HR; Start 07/01/17 at 12:30 Assessment/Plan Chief Complaint/Hosp Course IMP: 1. Ventilator-dependent respiratory failure. 2. History of encephalopathy. 3. Urinary tract infection Klebsiella and strep species with improving leukocytosis 4. Dysphagia with gastrostomy tube. RECS: 1. Vent support 2. Abx per ID 3. TF/Free H20 Transfer to [facility] Problems: SARINA AGUIRRE MD, FCCP Jul 03, 2017 14:06
--- NOTE | 2017-07-03 14:54 | PN ---
DATE: 07/03/2017 SUBJECTIVE: No acute changes. The patient is nonverbal, noncommunicative, in no distress. No feve rs. LABORATORY DATA: WBC 12.8, H and H 9.2 and 30.7, platelets 246, neutrophils 68.8, BUN 26, creatinin e 0.75. MICROBIOLOGY: Blood culture on admission grew Klebsiella pneumoniae and Corynebacterium species. U rine culture grew Klebsiella pneumoniae, Streptococcus agalactiae. INDWELLINGS: Trach, PEG, Aguilar. ANTIMICROBIALS: The patient is on IV cefepime. PHYSICAL EXAMINATION: GENERAL: This is a chronically ill-appearing, elderly man who is nonverbal, noncommunicative. The patient is in no distress. HEENT: Head atraumatic, normocephalic. Sclerae anicteric. Buccal mucosa dry. NECK: Supple. Tracheostomy present. CHEST: Rise symmetrical. Breath sounds diminished to bases. HEART: S1, S2. ABDOMEN: Obese, soft, bowel tones present. ASSESSMENT: 1. Sepsis with bacteremia, present on admission. 2. Urinary tract infection. 3. Chronic respiratory failure. 4. Dysphagia. 5. Chronic encephalopathy. PLAN: Continue present care, antibiotics. Repeat blood cultures. Follow recommendations of specia lists. Dictated By: SUSANNE LANIER SALES SUPPORT ASSISTANT for MARIA GUADALUPE CLARK/KAYLA Conf#: [id number] DID#: [id number]
--- NOTE | 2017-07-03 21:53 | DS ---
Date/Time of Note Date/Time of Note DATE: 07/03/17 TIME: 21:52 Discharge Summary Admission/Discharge Info Admit Date/Time Jun 28, 2017 at 19:00 Discharge Date/Time Jul 03, 2017 at 20:05 Patient Condition: Stable Hx of Present Illness The patient is a 81-year-old male with history of hemorrhagic CVA, chronic encephalopathy, cauda equina syndrome, ventilator dependent respiratory failure , G-tube, chronic anemia and history of ventricular tachycardia. [facility] due to elevated white blood cells which is 33,000. Patient has chronic encephalopathy and cannot provide any history most of the history obtained from medical records and talking to nursing staff patient is also known to me from previous admission. Patient was noted to have elevated lactate on evaluation in the emergency room. Urinalysis was positive for leukocyte esterase. Chest x-ray is unremarkable. Hospital Course Patient d/kevin to [place]. -Sepsis with leukocytosis and elevated lactate with GNR bacteremia 2 to UTI. Continue antibiotics per ID. Dr. Enriquez is following in infection disease consultation. -Acute cystitis in patient with nephrostomy -Ventilator dependent respiratory failure. Dr. Gomez is following in pulmonology consultation. 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 -Dysphagia with G-tube -Hypertension Plan of care discussed with Dr. Kwok. Home Meds Reported Medications Docusate Sodium* (Docusate Sodium*) 100 Mg Capsule, 100 MG PO DAILY, #30 CAP 06/28/17 Metformin* (Glucophage*) 500 Mg Tab, 500 MG GTB WITH BREAKFAST LUNCH, #30 TAB 06/28/17 Ferrous Sulfate (Ferrous Sulfate) 220 Mg/5 Ml Elixir, 7.5 ML GTB BID, BOTTLE 06/28/17 Ascorbic Acid (Vitamin C) 500 Mg Tab, 500 MG GTB BID, TAB 06/28/17 Heparin Sod (Porcine) (Heparin) 1,000 Unit/Ml Soln, 5000 UNIT IJ Q12 08/05/16 Dextran/Hypromellose/Glycerin (Artificial Tears Drops) 15 Ml Drops, 1 DROP BOTH EYES Q12, EA 08/05/16 Cranberry Fruit (CRANBERRY) 450 Mg Tablet, 450 MG GTB DAILY, TAB 08/05/16 Doxazosin Mesylate* (Cardura*) 4 Mg Tablet, 4 MG GTB QHS, #30 TAB HOLD IF SBP<110 FOR HYPERTENSION 08/05/16 Discontinued Reported Medications [Dss] No Conflict Check, 100 MG GTB DAILY 08/05/16 Acetaminophen (Ed-Apap) 160 Mg/5 Ml Liquid, 640 MG GTB Q6 Y for PRN TEMP>100 08/05/16 Diphenhydramine Hcl* (Benadryl*) 25 Mg Cap, 25 MG GTB Q4H Y for ITCHING, CAP 08/05/16 Omeprazole* (Omeprazole*) 20 Mg Capsule.dr, 40 MG GTB QAM, #30 CAP 08/05/16 Primary Care Provider Luis Alberto Kwok MD Time spent on discharge: > 30 minutes Pending Labs Laboratory Tests Test 07/02/17 23:41 07/03/17 05:38 07/03/17 06:13 07/03/17 12:26 Bedside Glucose 168mg/dL (70-220) 151mg/dL (70-220) 155mg/dL (70-220) White Blood Count 12.810^3/ul (4.8-10.8) Red Blood Count 3.5810^6/ul (4.70-6.10) Hemoglobin 9.2g/dl (14.0-18.0) Hematocrit 30.7% (42.0-52.0) Mean Corpuscular Volume 85.8fl (82.0-101.0) Mean Corpuscular Hemoglobin 25.7pg (29.0-33.0) Mean Corpuscular Hemoglobin Concent 30.0g/dl (32.0-37.0) Red Cell Distribution Width 19.2% (11.5-14.5) Platelet Count 50143^3/UL (140-415) Mean Platelet Volume 11.6fl (7.4-10.4) Neutrophils % 68.8% (39.0-77.0) Lymphocytes % 14.0% (15.0-51.0) Monocytes % 6.2% (0.0-11.0) Eosinophils % 5.5% (0.0-7.0) Basophils % 0.6% (0.0-2.0) Nucleated Red Blood Cells % 0.0/100WBC (0.0-0.0) Neutrophils # 8.810^3/ul (1.6-7.5) Lymphocytes # 1.810^3/ul (0.8-2.9) Monocytes # 0.810^3/ul (0.3-0.9) Eosinophils # 0.710^3/ul (0.0-0.5) Basophils # 0.110^3/ul (0.0-0.1) Nucleated Red Blood Cells # 0.010^3/ul (0.0-0.0) Sodium Level 140mmol/L (135-144) Potassium Level 4.7mmol/L (3.5-5.1) Chloride Level 106mmol/L (97-110) Carbon Dioxide Level 29mmol/L (21-31) Anion Gap 10 (8-16) Blood Urea Nitrogen 26mg/dl (7-20) Creatinine 0.75mg/dl (0.61-1.24) Glucose Level 151mg/dl (70-220) Calcium Level 8.3mg/dl (8.4-10.2) Test 07/03/17 17:25 Bedside Glucose 168mg/dL (70-220) JAGJIT ART Jul 03, 2017 21:53
== END 2017-07-03 20:05 | DRG 870 ==
LOC: EDSEX → E/R 16:56 → TEL 19:00
PROVIDERS: ADMIT Internal Medicine; ATTEND Internal Medicine
PROC: 5A1955Z Respiratory Ventilation, Greater than 96 Consecutive Hours (ICD-10-PCS; principal; 2017-06-28)
DX: A41.9 Sepsis, unspecified organism (principal); G93.40 Encephalopathy, unspecified; I47.2 Ventricular tachycardia; Z99.11 Dependence on respirator [ventilator] status; L89.153 Pressure ulcer of sacral region, stage 3; J96.10 Chronic respiratory failure, unspecified whether with hypoxia or hypercapnia; E87.2 Acidosis; G83.4 Cauda equina syndrome; N30.00 Acute cystitis without hematuria; E86.0 Dehydration; Z93.6 Other artificial openings of urinary tract status; Z93.1 Gastrostomy status; R13.10 Dysphagia, unspecified; D63.8 Anemia in other chronic diseases classified elsewhere; B96.1 Klebsiella pneumoniae [K. pneumoniae] as the cause of diseases classified elsewhere; Z99.81 Dependence on supplemental oxygen; Z86.73 Personal history of transient ischemic attack (TIA), and cerebral infarction without residual deficits; Z87.891 Personal history of nicotine dependence
CPT/HCPCS: 36415; 71010; 80048; 80053; 81001; 82962; 83036; 83605; 84484; 85025; 85610; 85730; 87040; 87081; 87086; 93005; 94002; 94003; 94799; 96374; J0692; J1815; J3370; J7030; J7042; J7050

== ENCOUNTER 2017-11-02 18:46 | Observation (INO) | END 2017-11-05 18:55 ==

== ENCOUNTER 2018-11-09 14:31 | Inpatient (IN) | payer MEDICARE, OTHER ==
[~2018-11-09] VITALS: Ht 167.6 cm; Wt 107.0 kg
[~2018-11-09 14:31] MED LIST changes: -ACET160L14 GTB; +AMLO-147 GTB; -BEN25 GTB; +BISA10SU75 PR; -DEXT15DR2 BOTH EYES; +DOCU-159 GTB; -DOXA4TAB2 GTB; +DOXA4TAB3 GTB; -DSS GTB; +FAMO20TA18 GTB; +FERR220S13 GTB; -HEP30MU30 IJ; +HEPA500021 IJ; +HYDR-3671 GTB; +MAGN400O19 GTB; +METF100010 GTB; +MINE3.5O31 BOTH EYES; +MULT-105 GTB; -OMEP20CA16 GTB; +SENN-120 GTB; +VIT500LI GTB
[2018-11-09] MEDS ORDERED: PIPER-TAZO 3.375 GM IV (PMX) 100 ML IVPB STA (14:39)
[2018-11-09] MEDS ORDERED: ONDANSETRON 4 MG INJ IV PRN ×2 (15:00→22:00)
[2018-11-09] MEDS ORDERED: ACETAMINOPHEN 325 MG TAB PO PRN (15:00)
--- NOTE | 2018-11-09 16:23 | HP ---
Date/Time of Note Date/Time of Note DATE: 11/09/18 TIME: 16:00 Assessment/Plan VTE Prophylaxis SCD contraindicated: other Pharmacological prophylaxis: other Pharm contraindication: other Assessment/Plan Assessment/Plan - Possible SEPSIS- CBC pending - ID consult- Dr Enriquez notified - Lactc acid pending - FU CULTURES - Abdominal distention - GI consult - Dr Wolf notified - Right pulmonary effusion -Dr. Gomez notified in pulmonology consultation. - per pulmonary -Ventilator dependent respiratory failure. - Dr. Gomez notified in pulmonology consultation. 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 Recommendations based on clinical course. Plan of care discussed with Dr. Kwok. Result Diagram: 11/09/18 1525 Results 24hrs Laboratory Tests Test 11/09/18 15:25 11/09/18 15:31 White Blood Count 19.1 #H Red Blood Count 3.91 L Hemoglobin 8.9 L Hematocrit 31.6 L Mean Corpuscular Volume 80.8 L Mean Corpuscular Hemoglobin 22.8 L Mean Corpuscular Hemoglobin Concent 28.2 L Red Cell Distribution Width 19.6 H Platelet Count 349 # Mean Platelet Volume 10.8 H Immature Granulocytes % 1.400 H Neutrophils % 76.3 Lymphocytes % 10.0 L Monocytes % 4.8 Eosinophils % 7.0 Basophils % 0.5 Nucleated Red Blood Cells % 0.0 Immature Granulocytes # 0.270 H Neutrophils # 14.6 H Lymphocytes # 1.9 Monocytes # 0.9 Eosinophils # 1.3 H Basophils # 0.1 Nucleated Red Blood Cells # 0.0 POC Venous Lactate 1.3 HPI/ROS Admit Date/Time Admit Date/Time ROS Patient seen inn ED AT 1500 HPI A 83 year-old male with history of hemorrhagic CVA, chronic encephalopathy, cauda equina syndrome, ventilator dependent respiratory failure, G-tube, chronic anemia and history of ventricular tachycardia. Patient was brought from detention facility due to abdominal distension Patient has chronic en cephalopathy and is unable to provide any history most of the history obtained from medical records and talking to nursing staff patient Cxr showed right pleural effusion as as well; All septic work is pending; dw Dr Wolf. Patient is seen in ER- remains stable on supplemental oxygen. Patient is ad mitted under Dr Kwok for further evaluation and treatment ROS All systems reviewed and are negative except as per history of present illness. Allergies Allergies: Coded Allergies: No Known Allergy (Unverified , 11/02/17) Subjective hx not possible: pt non-verbal PMH/Family/Social Past Medical History PMhx/Soc History of Surgery: Yes Hx Neurological Disorder: Yes (CVA hemorrhagic) Hx Respiratory Disorders: Yes (Vent depended resp failure) Hx Cardiac Disorders: Yes (Hypertension, Anemia of chronic disease , History of ventricular tachycardia.) Hx Neuro Disorders: Chronic encephalopathy.Cauda equina syndrome. Hx Miscellaneous Medical Probl: Yes (G-TUBE) Hx Alcohol Use: No (Unable to obtain information. Patient is nonverbal.) Hx Substance Use: No (Unable to obtain information. Patient is nonverbal.) Hx Tobacco Use: No (Unable to obtain information. Patient is nonverbal.) Smoking Status: Former smoker Past Surgical History Status post right nephrostomy, status post tracheostomy, status post G-tube placement Family History Significant Family History: no pertinent family hx Social History Alcohol Use: none Smoking Status: Former smoker Drug Use: none Medications Current Medications Ondansetron HCl (Zofran Inj) 4 mg ER BRIDGE PRN IV NAUSEA/VOMITING; Start 11/09/18 at 15:00; Stop 11/10/18 at 14:59 Acetaminophen (Tylenol Tab) 650 mg ER BRIDGE PRN PO .MILD PAIN 1-3 OR TEMP; Start 11/09/18 at 15:00; Stop 11/10/18 at 14:59 Coded Allergies: No Known Drug Allergies (Verified Allergy, Unknown, 11/09/18) Family History Significant Family History: no pertinent family hx Social History Smoking Status: Former smoker Exam/Review of Systems Vital Signs Vitals Vital Signs Date Temp Pulse Resp B/P (MAP) Pulse Ox O2 O2 Flow FiO2 Time Delivery Rate 11/09/18 94 16 99 30 15:08 11/09/18 98.3 136/69 14:38 (91) Exam Constitutional: well developed, non-verbal Psych: nl mood/affect Eyes: nl lids, nl sclera ENMT: nl external ears & nose Neck: non-tender Respiratory: crackles/rales, diminished breath sounds Cardiovascular: nl pulses, other (S1S2) Gastrointestinal: distended Musculoskeletal: muscle weakness, range of motion Extremities: normal pulses Neurological: confused, unresponsive SAMIA LICEA Nov 09, 2018 16:10
[2018-11-09] MEDS ORDERED: ASPIRIN 300 MG SUPP PR ONE (16:30)
[2018-11-09] MEDS ORDERED: SOD CHLORIDE 0.9% 1,000 ML IV STA (16:48)
--- NOTE | 2018-11-09 16:58 | CONS ---
DATE OF ADMISSION: 11/09/2018 DATE OF CONSULTATION: 11/09/2018 TYPE OF CONSULTATION: Infectious disease. REASON FOR CONSULTATION: Antibiotic management. HISTORY OF PRESENT ILLNESS: Jason Morgan is an 83-year-old male who comes in with sepsis and l eukocytosis. The patient has a history of: 1. Hemorrhagic CVA. 2. Chronic encephalopathy. 3. Cauda equina syndrome. 4. Ventilatory-dependent respiratory failure. 5. G-tube placement. 6. Anemia of chronic disease. 7. History of ventricular tachycardia. [facility]. A chest x-ray showed right pleural effusion and septic workup was begun. The patient also has a history of hypertension. PAST SURGICAL HISTORY: Status post right nephrostomy, status post tracheostomy, status post G-tube p lacement. FAMILY HISTORY: Noncontributory. SOCIAL HISTORY: He does not smoke, drink or abuse drugs. We do know about his past. ALLERGIES: NONE TO PENICILLIN, SULFA OR FOODS. MEDICATIONS: Per chart. REVIEW OF SYSTEMS: He is a former smoker. PHYSICAL EXAMINATION: GENERAL: He is nonverbal. He has a trach, PEG and Aguilar. VITAL SIGNS: Stable. SKIN: Without generalized rash. HEENT: Within normal limits. NECK: Supple. LYMPH NODES: None palpable. CHEST: Decreased breath sounds at the bases with occasional rales. HEART: Without murmur or gallop. ABDOMEN: Soft, nontender, distended without organosplenomegaly or masses. EXTREMITIES: He has some muscle wasting and weakness. RECTAL AND GENITAL: Deferred. NEUROLOGICAL: The patient is confused and unresponsive. HOSPITAL COURSE: Chest x-ray showed new right perihilar and right lower lobe extensive infiltrates a nd moderate right pleural effusion, no other significant change. White count was 19.1 with 76 polys, H and H of 8.9 and 31.6, platelet count 349,000. BUN and creatinine is 36/0.86. Troponin was 0.243 which is high. The patient was begun on Zosyn. Blood cultures and urine cultures were ordered. Th e patient is on Zosyn and should be continued on this regimen. I will dictate my findings to Dr. Lavonne lord. Dictated By: MARIA GUADALUPE DIMAS MD, JD/KAYLA Conf#: [id number] [facility]#: [id number] CC: CAM RENDON MD; ANNE BAZZI MD;*End*
--- NOTE | 2018-11-09 18:11 | CONS ---
DATE OF ADMISSION: 11/09/2018 DATE OF CONSULTATION: TYPE OF CONSULTATION: Gastroenterology. Dear Dr. Ramos: Thank you for asking me to see Mr. Morgan in GI consultation. HISTORY OF PRESENT ILLNESS: The patient, as you know, is an 83-year-old gentleman, resident o [facility], admitted to the hospital because of abdominal distention. He has history of status p ost tracheostomy, respiratory failure, ventilator dependent. He also has a G-tube into place. He patino pposedly has a chronic encephalopathy. He had some kind of a CVA in the past which resulted in anoxi c encephalopathy type of picture. He got chronic encephalopathy. GI consultation is requested becau se of abdominal distention. Now, he is unable to communicate. He also has hypertension. MEDICATIONS PRIOR TO ADMISSION: Include: 1. Albuterol. 2. Bisacodyl. 3. Ceftriaxone. 4. Chlorhexidine. 5. Colace. 6. Flumazenil. 7. Glucagon. 8. Heparin. 9. Ipratropium. 10. Lansoprazole. Some of the home medications include: 1. Amlodipine. 2. Doxazosin. 3. DuoNeb. 4. Ferrous sulfate. 5. Heparin. 6. Metformin. 7. Senna. PAST MEDICAL HISTORY: Essentially as mentioned above, history of cauda equina syndrome, anemia, hist ory of ventricular tachycardia in the past, history of hemorrhagic CVA. ALLERGIES: 1. PENICILLIN. 2. SULFA. 3. SOME OTHER FOODS. PHYSICAL EXAMINATION: GENERAL: The patient is an 83-year-old gentleman who at this time is lethargic, is mildly obe se. VITAL SIGNS: Include temperature 98.3, pulse is 94, blood pressure is 136/69. CARDIOVASCULAR: Normal heart sounds. RESPIRATORY: Normal breath sounds. ABDOMEN: Showed distention. There is a G-tube in place. There is a suprapubic catheter in place. It appears dull to percussion indicating this could be ascites. LABORATORY WORKUP: Potassium 4.4, BUN is 36, creatinine 0.86. Bilirubin 0.2, AST 21, ALT 31, alkali ne phosphatase 62. Troponin 0.243. IMAGING STUDIES: Chest x-ray shows evidence of right perihilar and right lower lobe infiltrates and also right pleural effusion. CLINICAL IMPRESSION: 1. From the gastrointestinal standpoint, he has evidence of abdominal distention. It is quite sugge stive of ascites. He did have a paracentesis in the past. Whether he got cirrhosis or not, it is no t very clear. Rule out cirrhosis. Rule out spontaneous bacterial peritonitis. 2. Respiratory failure. 3. He has got a G-tube. 4. He has got suprapubic catheter. 5. He has got history of cerebrovascular accident. 6. He has tachycardia in the past. He is on Zosyn at this time. PLAN: I recommend continue present medication. I recommend CAT scan of the abdomen. I discussed wi th Dr. Rendon and CAT scan of the abdomen is ordered. If there is ascites, paracentesis will be orde red by Dr. Rendon. I will be happy to follow this patient with you. Once again, doctor, thank you for this consultation. Dictated By: ANNE BILLINGS/NTS Conf#: [id number] DID#: [id number] CC: RACHELLE RAMOS MD; CAM RENDON MD;*EndCC*
--- NOTE | 2018-11-09 18:55 | ERD ---
ER Documentation Chief Complaint Chief Complaint Sent from [facility] for ABD distension HPI Patient is an 83-year-old male with stroke, diabetes, chronic trach vent who presents with abdominal distention. Please note the history and physical exam is limited secondary to the patient's altered mental status. The patient was brought in by ambulance. He supposedly turned blue last night per paramedics as well. He came from a nursing facility. His primary doctor is Dr. Kwok. ROS All systems reviewed and are negative except as per history of present illness. Medications Home Meds Reported Medications Multivitamin with Minerals (Multivitamins with Minerals) 1 Each Tablet, 1 EACH GTB DAILY, TAB 11/02/17 Heparin Sodium,Porcine/Pf (HEPARIN SOD 5,000 UNIT/ 0.5 ML) 5,000 Unit/0.5 Ml Vial, 5000 UNIT IJ Q12H, VIAL 11/02/17 Amlodipine Besylate* (Amlodipine Besylate*) 10 Mg Tablet, 10 MG GTB DAILY, #30 TAB HOLD IF SBP<110 11/02/17 Sennosides* (Senna Lax*) 8.6 Mg Tablet, 1 TAB GTB BID, TAB 11/02/17 Famotidine* (Famotidine*) 20 Mg Tablet, 20 MG GTB DAILY, #30 TAB 11/02/17 Hydralazine Hcl* (Hydralazine Hcl*) 25 Mg Tab, 25 MG GTB Q6H PRN for FOR SBP>160, #60 TAB 11/02/17 Bisacodyl* (Bisacodyl*) 10 Mg Supp, 10 MG MD Q24H for CONSTIPATION, SUPP 11/02/17 Docusate Sodium* (Docusate Sodium*) 100 Mg Capsule, 100 MG GTB DAILY, #30 CAP 11/02/17 Cranberry Fruit (CRANBERRY) 450 Mg Tablet, 450 MG GTB DAILY, TAB 11/02/17 Artificial Tears* (Akwa Oint*) 3.5 Gm Oint, 1 APPLIC BOTH EYES Q12H, #1 TUB 11/02/17 Magnesium Hydroxide* (Milk Of Magnesia*) 400 Mg/5 Ml Oral.susp, 30 ML GTB DAILY, ML 11/02/17 Doxazosin Mesylate* (Doxazosin Mesylate*) 4 Mg Tablet, 4 MG GTB HS, TAB 4/12/18 Vit C-Ascorbate Ca-Ascorb Sod (Vitamin C) 500 Mg/15 Ml Liquid, 5 ML GTB BID, ML 11/02/17 Ferrous Sulfate* (Ferrous Sulfate*) 220 Mg/5 Ml Solution, 7.5 ML GTB BID, ML 11/02/17 Metformin Hcl* (Metformin Hcl*) 1,000 Mg Tablet, 1000 MG GTB WITH BREAKFAST DINNE, #60 TAB 11/02/17 Allergies Allergies: Coded Allergies: No Known Allergy (Unverified , 11/02/17) PMhx/Soc History of Surgery: Yes Hx Neurological Disorder: Yes (CVA hemorrhagic) Hx Respiratory Disorders: Yes (Vent depended resp failure) Hx Cardiac Disorders: Yes (HTN, Anemia ) Hx Miscellaneous Medical Probl: Yes (G-TUBE) Hx Alcohol Use: No (Unable to obtain information. Patient is nonverbal.) Hx Substance Use: No (Unable to obtain information. Patient is nonverbal.) Hx Tobacco Use: No (Unable to obtain information. Patient is nonverbal.) Smoking Status: Former smoker FmHx Unable to obtain Physical Exam Vitals Vital Signs Date Temp Pulse Resp B/P (MAP) Pulse Ox O2 O2 Flow FiO2 Time Delivery Rate 11/09/18 71 18 127/66 98 Room Air 18:08 (86) 11/09/18 94 16 98 30 17:30 11/09/18 94 16 99 30 15:08 11/09/18 98.3 102 24 136/69 97 14:38 (91) Physical Exam Const: Chronically ill Head: Atraumatic Eyes: Normal Conjunctiva ENT: Normal External Ears, Nose and Mouth. Neck: Trach in place. Resp: Clear to auscultation bilaterally Cardio: Regular rate and rhythm, no murmurs Abd: Distended abdomen which is tympanitic Skin: No petechiae or rashes Back: No midline or flank tenderness Ext: Bilateral lower extremity edema Neur: Awake but altered at baseline Result Diagram: 11/09/18 1525 11/09/18 1525 Results 24 hrs Laboratory Tests Test 11/09/18 15:25 11/09/18 15:31 11/09/18 16:20 11/09/18 16:27 White Blood 19.1 10^3/ul Count Red Blood Count 3.91 10^6/ul Hemoglobin 8.9 g/dl Hematocrit 31.6 % Mean 80.8 fl Corpuscular Volume Mean 22.8 pg Corpuscular Hemoglobin Mean 28.2 g/dl Corpuscular Hemoglobin Conc ent Red Cell 19.6 % Distribution Width Platelet Count 349 10^3/UL Mean Platelet 10.8 fl Volume Immature 1.400 % Granulocytes % Neutrophils % 76.3 % Lymphocytes % 10.0 % Monocytes % 4.8 % Eosinophils % 7.0 % Basophils % 0.5 % Nucleated Red 0.0 /100WBC Blood Cells % Immature 0.270 10^3/ul Granulocytes # Neutrophils # 14.6 10^3/ul Lymphocytes # 1.9 10^3/ul Monocytes # 0.9 10^3/ul Eosinophils # 1.3 10^3/ul Basophils # 0.1 10^3/ul Nucleated Red 0.0 10^3/ul Blood Cells # Prothrombin 14.0 Sec Time Prothrombin 1.1 Time Ratio INR 1.07 International Normalized Rati o Activated 29.2 Sec Partial Thrombo plast Time Sodium Level 138 mmol/L Potassium Level 4.4 mmol/L Chloride Level 103 mmol/L Carbon Dioxide 27 mmol/L Level Anion Gap 8 Blood Urea 36 mg/dl Nitrogen Creatinine 0.86 mg/dl Est Glomerular mL/min Filtrat Rate mL/min Glucose Level 131 mg/dl Calcium Level 9.6 mg/dl Total Bilirubin 0.2 mg/dl Direct 0.00 mg/dl Bilirubin Indirect 0.2 mg/dl Bilirubin Aspartate Amino 21 IU/L Transf (AST/SGO T) Alanine 31 IU/L Aminotransferas e (ALT/SGPT) Alkaline 62 IU/L Phosphatase Troponin I 0.243 ng/ml Total Protein 7.0 g/dl Albumin 3.4 g/dl Globulin 3.60 g/dl Albumin/Globuli 0.94 n Ratio POC Venous 1.3 mmol/L Lactate Urine Color YELLOW Urine Clarity SLIGHTLY CLOUDY Urine pH 6.0 Urine Specific 1.017 [place] Urine Ketones NEGATIVE mg/dL Urine Nitrite NEGATIVE mg/dL Urine Bilirubin NEGATIVE mg/dL Urine NEGATIVE mg/dL Urobilinogen Urine Leukocyte 3+ Mindy/ul Esterase Urine 10 /HPF Microscopic RBC Urine 61 /HPF Microscopic WBC Urine Squamous FEW /HPF Epithelial Cell s Urine Bacteria FEW /HPF Urine Yeast FEW /HPF (Budding) Urine 1+ mg/dL Hemoglobin Urine Glucose NEGATIVE mg/dL Urine Total NEGATIVE mg/dl Protein Blood Gas Blood arterial Specimen Source Arterial Blood 11/09/2018 4:50: Date Drawn 12 PM Arterial Blood 7.440 pH (Temp corrected ) Arterial Blood 41.2 mmhg pCO2 (Temp correct) Arterial Blood 77.4 mmHG pO2 (Temp corrected ) Arterial Blood 27.4 mmol/L HCO3 Arterial Blood 3.0 mmol/L Base Excess Arterial Blood 95.0 mmHG Oxygen Saturati on Lasha Test ACCEPTAB Arterial Blood Right Radial Gas Puncture Site Arterial 0.3 % Blood Carboxyhe moglobin Arterial Blood 0.2 % Methemoglobin Blood Gas A-a 88.1 mmHg O2 Differential Oxyhemoglobin 94.5 % Percent Blood Gas 37.0 C Temperature Blood Gas 16.0 Respiration Rate Blood Gas VENT - AC Modality FiO2 30.0 % Blood Gas Tidal 600.0 mL Volume Blood Gas Low 5.0 cmH2O PEEP Setting Blood Gas NZ Notified Whom Blood Gas 11/09/2018 4:57: Notified Time 35 PM Current Medications Medications Dose Sig/Pedrito Start Time Status Last (Trade) Ordered Route PRN Stop Time Admin Dose Reason Admin Piperacillin 100 ml @ ONCE STAT 11/09/18 DC 11/09/18 Sod/ 200 mls/hr IVPB 14:39 15:33 Tazobactam 11/09/18 15:08 Sod Ondansetron 4 mg ER BRIDGE 11/09/18 HCl (Zofran PRN IV 15:00 Inj) NAUSEA/VOMITI 11/10/18 14:59 NG 650 mg ER BRIDGE 11/09/18 Acetaminophen PRN PO 15:00 (Tylenol .MILD PAIN 11/10/18 14:59 Tab) 1-3 OR TEMP Aspirin 300 mg ONCE ONCE 11/09/18 DC 11/09/18 (Aspirin) MD 16:30 18:04 11/09/18 16:31 Sodium 1,000 ml @ Q1H STAT 11/09/18 DC 11/09/18 Chloride 1,000 mls/hr IV 16:48 18:05 11/09/18 17:47 Procedures/MDM CT abdomen and pelvis read by radiology. Chest x-ray read by radiology. EKG read by me: Rate/Rhythm: Regular rate and rhythm at a normal rate Intervals: Normal Impression: No evidence of ischemia or arrhythmia Sepsis Documentation: Patient's infectious symptoms have not stabilized and the patient is at risk of rapid decompensation. The patient will be admitted for careful hydration, antibiotic therapy, and infectious source control. SEVERE SEPSIS CRITERIA: Infectious source: Cystitis End organ damage indicated by: Positive troponin SEPSIS MANAGEMENT Time of recognition of sepsis: 152. Time of recognition of severe sepsis: 152. Time of recognition of septic shock: No septic shock at this time. 3 HOUR BUNDLE Blood cultures x 2 before broad-spectrum antibiotics: Yes 30 ml/kg NS bolus not given fully as the patient has significant fluid and anasarca and I was concerned about fluid overload Initial lactate 1.3 Repeat lactate pending SEPTIC SHOCK ASSESSMENT: No lactic acid > 4.0 No persistent hypotension (SBP < 90 or 40 mmHg drop, MAP < 65) despite 30 mL/kg IV fluid bolus VOLUME REASSESSMENT FOR SEPTIC SHOCK: No septic shock PERSISTENT HYPOTENSION TREATMENT: Comfort care no Central line not Required Vasopressor started not required I considered further perfusion assessment with CVP measurement, SCVO2, bedside ultrasound volume assessment, passive leg raise, trial of further fluid bolus. And proceeded with 30 ml/kg fluid bolus of NSS, broad spectrum antibiotics, and admission. The patient has not NSTEMI as well and was given aspirin per rectum. Prognosis is poor and discussion with the family regarding goals of care would be appropriate. CRITICAL CARE Critical care time 35 minutes Emergent fluid management while maintaining close respiratory support. Provision of immediate and broad-spectrum antibiotic therapy. Simultaneous assessment for possible sources in order to direct targeted therapy. Considerat ion for invasive and chemical support to prevent cardiopulmonary collapse. Critical care time is independent of procedures performed. Departure Diagnosis: Primary Impression: Severe sepsis Additional Impressions: NSTEMI (non-ST elevated myocardial infarction) Abdominal pain Abdominal location: generalized Qualified Codes: R10.84 - Generalized abdominal pain Cystitis Condition: Serious CAM RENDON MD Nov 09, 2018 18:55
[2018-11-09 20:36] VITALS: PULSE 76
[2018-11-09 21:07] VITALS: RESP 16
[2018-11-09 22:00] VITALS: Ht 167.6 cm; Wt 107.0 kg
[2018-11-09] MEDS ORDERED: morphine 2 MG INJ IV PRN (22:00)
[2018-11-09] MEDS ORDERED: PENDING SANTYL ORDER FOR WOUND CARE XX PRN (22:30)
[2018-11-09] MEDS: SOD CHLORIDE 0.9% 1,000 ML IV SCH (22:43)
[2018-11-09 23:34] VITALS: RESP 16
[2018-11-10] VITALS (23 sets, daily range): BP systolic 97–132; BP diastolic 53–62; PULSE 57–77; RESP 16
[2018-11-10] MEDS: ACCU-CHEK XX SCH (02:00)
[2018-11-10] MEDS ORDERED: GLUCOSE GEL 15 GRAM TUBE PO PRN ×2 (02:00)
[2018-11-10] MEDS ORDERED: DEXTROSE 50% 50 ML SYRINGE IV PRN ×2 (02:00)
[2018-11-10] MEDS ORDERED: GLUCOSE GEL 15 GRAM TUBE BUCCAL PRN (02:00)
[2018-11-10] MEDS ORDERED: GLUCAGON 1 MG INJ IM PRN (02:00)
[2018-11-10] MEDS ORDERED: INSULIN ASPART [NOVOLOG] 3 ML PEN SC SCH ×3 (05:00→08:30)
[2018-11-10] MEDS: SOD CHLORIDE 0.9% 1,000 ML IV SCH ×2 (08:30→18:00)
[2018-11-10] MEDS: INSULIN ASPART [NOVOLOG] 3 ML PEN SC SCH ×4 (08:30→21:00)
--- NOTE | 2018-11-10 12:28 | PN ---
Date/Time of Note Date/Time of Note DATE: 11/10/18 TIME: 12:27 Assessment/Plan VTE Prophylaxis Pharmacological prophylaxis: LMWH Lines/Catheters IV Catheter Type (from [facility]): Peripheral IV Urinary Cath still in place: Yes Reason Cath still needed: skin wounds contaminated by urine Assessment/Plan Hospital Course - Possible SEPSIS- CBC pending - ID consult- Dr Enriquez notified - Lactc acid pending - FU CULTURES - Abdominal distention - GI consult - Dr Wolf notified - Right pulmonary effusion -Dr. Gomez notified in pulmonology consultation. - per pulmonary -Ventilator dependent respiratory failure. - Dr. Gomez notified in pulmonology consultation. 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 Result Diagram: 11/10/18 0642 11/10/18 0642 Results 24hrs Laboratory Tests Test 11/09/18 15:25 11/09/18 15:31 11/09/18 16:20 11/09/18 16:27 White Blood 19.1 #H Count Red Blood Count 3.91 L Hemoglobin 8.9 L Hematocrit 31.6 L Mean Corpuscular 80.8 L Volume Mean Corpuscular 22.8 L Hemoglobin Mean Corpuscular 28.2 L Hemoglobin Corina nt Red Cell 19.6 H Distribution Width Platelet Count 349 # Mean Platelet 10.8 H Volume Immature 1.400 H Granulocytes % Neutrophils % 76.3 Lymphocytes % 10.0 L Monocytes % 4.8 Eosinophils % 7.0 Basophils % 0.5 Nucleated Red 0.0 Blood Cells % Immature 0.270 H Granulocytes # Neutrophils # 14.6 H Lymphocytes # 1.9 Monocytes # 0.9 Eosinophils # 1.3 H Basophils # 0.1 Nucleated Red 0.0 Blood Cells # Prothrombin Time 14.0 Prothrombin Time 1.1 Ratio INR 1.07 International Normalized Ratio Activated 29.2 Partial Thrombop last Time Sodium Level 138 Potassium Level 4.4 Chloride Level 103 Carbon Dioxide 27 Level Anion Gap 8 Blood Urea 36 H Nitrogen Creatinine 0.86 Est Glomerular Filtrat Rate mL/min Glucose Level 131 Calcium Level 9.6 Total Bilirubin 0.2 Direct Bilirubin 0.00 Indirect 0.2 Bilirubin Aspartate Amino 21 Transf (AST/SGOT ) Alanine 31 Aminotransferase (ALT/SGPT) Alkaline 62 Phosphatase Troponin I 0.243 *H Total Protein 7.0 Albumin 3.4 Globulin 3.60 H Albumin/Globulin 0.94 Ratio POC Venous 1.3 Lactate Urine Color YELLOW Urine Clarity SLIGHTLY CLOUDY A Urine pH 6.0 Urine Specific 1.017 [place] Urine Ketones NEGATIVE Urine Nitrite NEGATIVE Urine Bilirubin NEGATIVE Urine NEGATIVE Urobilinogen Urine Leukocyte 3+ H Esterase Urine 10 H Microscopic RBC Urine 61 H Microscopic WBC Urine Squamous FEW Epithelial Cells Urine Bacteria FEW A Urine Yeast FEW A (Budding) Urine Hemoglobin 1+ H Urine Glucose NEGATIVE Urine Total NEGATIVE Protein Blood Gas Blood arterial Specimen Source Arterial Blood 11/09/2018 4:50: Date Drawn 12 PM Arterial Blood 7.440 pH (Temp corrected) Arterial Blood 41.2 pCO2 (Temp correct) Arterial Blood 77.4 L pO2 (Temp corrected) Arterial Blood 27.4 H HCO3 Arterial Blood 3.0 Base Excess Arterial Blood 95.0 Oxygen Saturatio n Lasha Test ACCEPTAB Arterial Blood Right Radial Gas Puncture Site Arterial 0.3 Blood Carboxyhem oglobin Arterial Blood 0.2 Methemoglobin Blood Gas A-a O2 88.1 H Differential Oxyhemoglobin 94.5 Percent Blood Gas 37.0 Temperature Blood Gas 16.0 Respiration Rate Blood Gas VENT - AC Modality FiO2 30.0 Blood Gas Tidal 600.0 Volume Blood Gas Low 5.0 PEEP Setting Blood Gas Notified Whom Blood Gas 11/09/2018 4:57: Notified Time 35 PM Test 11/09/18 19:30 11/10/18 06:24 11/10/18 06:42 11/10/18 08:29 Lactic Acid 1.1 0.9 Level Bedside Glucose 98 103 White Blood 12.2 #H Count Red Blood Count 3.07 #L Hemoglobin 6.9 #*L Hematocrit 24.3 #L Mean Corpuscular 79.2 L Volume Mean Corpuscular 22.5 L Hemoglobin Mean Corpuscular 28.4 L Hemoglobin Corina nt Red Cell 19.7 H Distribution Width Platelet Count 302 Mean Platelet 11.7 H Volume Immature 1.300 H Granulocytes % Neutrophils % 67.3 Lymphocytes % 15.3 Monocytes % 6.8 Eosinophils % 8.8 H Basophils % 0.5 Nucleated Red 0.0 Blood Cells % Immature 0.160 H Granulocytes # Neutrophils # 8.2 H Lymphocytes # 1.9 Monocytes # 0.8 Eosinophils # 1.1 H Basophils # 0.1 Nucleated Red 0.0 Blood Cells # Sodium Level 139 Potassium Level 4.4 Chloride Level 107 Carbon Dioxide 26 Level Anion Gap 6 Blood Urea 34 H Nitrogen Creatinine 0.80 Est Glomerular Filtrat Rate mL/min Glucose Level 91 # Hemoglobin A1c 5.8 Calcium Level 8.8 Total Bilirubin 0.4 Direct Bilirubin 0.00 Indirect 0.4 Bilirubin Aspartate Amino 22 Transf (AST/SGOT ) Alanine 32 Aminotransferase (ALT/SGPT) Alkaline 38 L Phosphatase Troponin I 0.215 *H Total Protein 5.2 #L Albumin 2.5 L Globulin 2.70 Albumin/Globulin 0.92 Ratio Subjective 24 Hr Interval Summary Free Text/Dictation Patient is sedated, on vent via trach Exam/Review of Systems Exam Vitals Vital Signs Date Temp Pulse Resp B/P (MAP) Pulse Ox O2 O2 Flow FiO2 Time Delivery Rate 11/10/18 98.7 62 16 132/62 100 Mechanical 11:56 (85) Ventilator 11/10/18 30 11:15 Intake and Output 11/09/18 11/09/18 11/10/18 1515:00 23:00 07:00 IntakeIntake Total 0 ml OutputOutput Total 1550 ml BalanceBalance -1550 ml Constitutional: well developed Head: normocephalic, atraumatic Neck: supple Respiratory: diminished breath sounds Cardiovascular: regular rate and rhythm Gastrointestinal: soft, non-tender Extremities: normal pulses Results Results 24hrs Laboratory Tests Test 11/09/18 15:25 11/09/18 15:31 11/09/18 16:20 11/09/18 16:27 White Blood 19.1 #H Count Red Blood Count 3.91 L Hemoglobin 8.9 L Hematocrit 31.6 L Mean Corpuscular 80.8 L Volume Mean Corpuscular 22.8 L Hemoglobin Mean Corpuscular 28.2 L Hemoglobin Corina nt Red Cell 19.6 H Distribution Width Platelet Count 349 # Mean Platelet 10.8 H Volume Immature 1.400 H Granulocytes % Neutrophils % 76.3 Lymphocytes % 10.0 L Monocytes % 4.8 Eosinophils % 7.0 Basophils % 0.5 Nucleated Red 0.0 Blood Cells % Immature 0.270 H Granulocytes # Neutrophils # 14.6 H Lymphocytes # 1.9 Monocytes # 0.9 Eosinophils # 1.3 H Basophils # 0.1 Nucleated Red 0.0 Blood Cells # Prothrombin Time 14.0 Prothrombin Time 1.1 Ratio INR 1.07 International Normalized Ratio Activated 29.2 Partial Thrombop last Time Sodium Level 138 Potassium Level 4.4 Chloride Level 103 Carbon Dioxide 27 Level Anion Gap 8 Blood Urea 36 H Nitrogen Creatinine 0.86 Est Glomerular Filtrat Rate mL/min Glucose Level 131 Calcium Level 9.6 Total Bilirubin 0.2 Direct Bilirubin 0.00 Indirect 0.2 Bilirubin Aspartate Amino 21 Transf (AST/SGOT ) Alanine 31 Aminotransferase (ALT/SGPT) Alkaline 62 Phosphatase Troponin I 0.243 *H Total Protein 7.0 Albumin 3.4 Globulin 3.60 H Albumin/Globulin 0.94 Ratio POC Venous 1.3 Lactate Urine Color YELLOW Urine Clarity SLIGHTLY CLOUDY A Urine pH 6.0 Urine Specific 1.017 [place] Urine Ketones NEGATIVE Urine Nitrite NEGATIVE Urine Bilirubin NEGATIVE Urine NEGATIVE Urobilinogen Urine Leukocyte 3+ H Esterase Urine 10 H Microscopic RBC Urine 61 H Microscopic WBC Urine Squamous FEW Epithelial Cells Urine Bacteria FEW A Urine Yeast FEW A (Budding) Urine Hemoglobin 1+ H Urine Glucose NEGATIVE Urine Total NEGATIVE Protein Blood Gas Blood arterial Specimen Source Arterial Blood 11/09/2018 4:50: Date Drawn 12 PM Arterial Blood 7.440 pH (Temp corrected) Arterial Blood 41.2 pCO2 (Temp correct) Arterial Blood 77.4 L pO2 (Temp corrected) Arterial Blood 27.4 H HCO3 Arterial Blood 3.0 Base Excess Arterial Blood 95.0 Oxygen Saturatio n Lasha Test ACCEPTAB Arterial Blood Right Radial Gas Puncture Site Arterial 0.3 Blood Carboxyhem oglobin Arterial Blood 0.2 Methemoglobin Blood Gas A-a O2 88.1 H Differential Oxyhemoglobin 94.5 Percent Blood Gas 37.0 Temperature Blood Gas 16.0 Respiration Rate Blood Gas VENT - AC Modality FiO2 30.0 Blood Gas Tidal 600.0 Volume Blood Gas Low 5.0 PEEP Setting Blood Gas Notified Whom Blood Gas 11/09/2018 4:57: Notified Time 35 PM Test 11/09/18 19:30 11/10/18 06:24 11/10/18 06:42 11/10/18 08:29 Lactic Acid 1.1 0.9 Level Bedside Glucose 98 103 White Blood 12.2 #H Count Red Blood Count 3.07 #L Hemoglobin 6.9 #*L Hematocrit 24.3 #L Mean Corpuscular 79.2 L Volume Mean Corpuscular 22.5 L Hemoglobin Mean Corpuscular 28.4 L Hemoglobin Corina nt Red Cell 19.7 H Distribution Width Platelet Count 302 Mean Platelet 11.7 H Volume Immature 1.300 H Granulocytes % Neutrophils % 67.3 Lymphocytes % 15.3 Monocytes % 6.8 Eosinophils % 8.8 H Basophils % 0.5 Nucleated Red 0.0 Blood Cells % Immature 0.160 H Granulocytes # Neutrophils # 8.2 H Lymphocytes # 1.9 Monocytes # 0.8 Eosinophils # 1.1 H Basophils # 0.1 Nucleated Red 0.0 Blood Cells # Sodium Level 139 Potassium Level 4.4 Chloride Level 107 Carbon Dioxide 26 Level Anion Gap 6 Blood Urea 34 H Nitrogen Creatinine 0.80 Est Glomerular Filtrat Rate mL/min Glucose Level 91 # Hemoglobin A1c 5.8 Calcium Level 8.8 Total Bilirubin 0.4 Direct Bilirubin 0.00 Indirect 0.4 Bilirubin Aspartate Amino 22 Transf (AST/SGOT ) Alanine 32 Aminotransferase (ALT/SGPT) Alkaline 38 L Phosphatase Troponin I 0.215 *H Total Protein 5.2 #L Albumin 2.5 L Globulin 2.70 Albumin/Globulin 0.92 Ratio Medications Medication Current Medications Sodium Chloride 1,000 ml @ 100 mls/hr Q10H IV Last administered on 11/10/18at 08:30; Admin Dose 100 MLS/HR; Start 11/09/18 at 22:00 Morphine Sulfate (morphine) 2 mg Q4H PRN IV SEVERE PAIN LEVEL 7-10; Start 11/09/18 at 22:00 Ondansetron HCl (Zofran Inj) 4 mg Q6H PRN IV NAUSEA AND/OR VOMITING; Start 11/09/18 at 22:00 Miscellaneous Information (Pending [facility] Order For Wound Care) This patient garcia... PRN PRN XX WOUND CARE; Start 11/09/18 at 22:30 Diagnostic Test (Pha) (Accu-Chek) 1 ea 02 XX ; Start 11/10/18 at 02:00 Miscellaneous Information 1 ea NOTE XX ; Start 11/10/18 at 02:00 Glucose (Glutose) 15 gm Q15M PRN PO DECREASED GLUCOSE; Start 11/10/18 at 02:00 Glucose (Glutose) 22.5 gm Q15M PRN PO DECREASED GLUCOSE; Start 11/10/18 at 02:00 Dextrose (D50w Syringe) 25 ml Q15M PRN IV DECREASED GLUCOSE; Start 11/10/18 at 02:00 Dextrose (D50w Syringe) 50 ml Q15M PRN IV DECREASED GLUCOSE; Start 11/10/18 at 02:00 Glucagon (Glucagen) 1 mg Q15M PRN IM DECREASED GLUCOSE; Start 11/10/18 at 02:00 Glucose (Glutose) 15 gm Q15M PRN BUCCAL DECREASED GLUCOSE; Start 11/10/18 at 02:00 Insulin Aspart (Novolog Insulin Pen) NOVOLOG *MILD* ALGORI... Q4 SC ; Start 11/10/18 at 09:00 PATTI JIANG Nov 10, 2018 12:28
--- NOTE | 2018-11-10 12:53 | CONS ---
Assessment/Plan Assessment/Plan Hospital Course (Demo Recall) No acute events per report patient is awake noncommunicative in no distress, NG tube to intermittent suction. No fevers. WBC 12.2 H&H 6.9 and 24.3 platelets 302 no shift no bands BUN 34 creatinine 0.8 troponin 0 0.215 Microbiology: Urine culture preliminary growing yeast Indwelling: Trach PEG suprapubic catheter Diagnostics: CT abdomen and pelvis on admission revealed large extraperitoneal fluid collections anasarca cholelithiasis bilateral nonobstructing renal stones diverticulosis of the descending and sigmoid colon bilateral pleural effusions, right greater than left with significant atelectasis/consolidation involving the left right lower lobes. Please see full report in the chart. Chest x-ray on admission revealed new right perihilar and right lower lobe extensive infiltrates and moderate right pleural effusion Antimicrobials: Zosyn Physical examination: Chronically ill-appearing well-developed obese elderly man who is awake in no distress. Head atraumatic normocephalic neck is supple tracheostomy present chest rise symmetrical breath sounds diminished bases. He art: S1-S2. Abdomen soft bowel sounds present extremities without cyanosis Assessment: 1. Sepsis, present on admission 2. Healthcare associated pneumonia 3. Urinary tract infection 4. Ascites, possible SBP 5. Non-ST elevation PR 6. Chronic respiratory failure and dysphagia 7. Acute on chronic anemia 8. Encephalopathy, likely chronic Plan: We will add vancomycin and fluconazole to the regimen, continue Zosyn, consider cardiology evaluation, consider paracentesis with fluid cultures and analysis. Patient is going to have blood transfusion today Discussed with RN Consultation Date/Type/Reason Admit Date/Time Nov 09, 2018 at 14:44 Initial Consult Date Type of Consult id Date/Time of Note DATE: 11/10/18 TIME: 12:52 Exam/Review of Systems Exam Vitals Vital Signs Date Temp Pulse Resp B/P (MAP) Pulse Ox O2 O2 Flow FiO2 Time Delivery Rate 11/10/18 98.7 62 16 132/62 100 Mechanical 11:56 (85) Ventilator 11/10/18 30 11:15 Results Result Diagram: 11/10/18 0642 11/10/18 0642 Results 24hrs Laboratory Tests Test 11/09/18 15:25 11/09/18 15:31 11/09/18 16:20 11/09/18 16:27 White Blood 19.1 #H Count Red Blood Count 3.91 L Hemoglobin 8.9 L Hematocrit 31.6 L Mean Corpuscular 80.8 L Volume Mean Corpuscular 22.8 L Hemoglobin Mean Corpuscular 28.2 L Hemoglobin Corina nt Red Cell 19.6 H Distribution Width Platelet Count 349 # Mean Platelet 10.8 H Volume Immature 1.400 H Granulocytes % Neutrophils % 76.3 Lymphocytes % 10.0 L Monocytes % 4.8 Eosinophils % 7.0 Basophils % 0.5 Nucleated Red 0.0 Blood Cells % Immature 0.270 H Granulocytes # Neutrophils # 14.6 H Lymphocytes # 1.9 Monocytes # 0.9 Eosinophils # 1.3 H Basophils # 0.1 Nucleated Red 0.0 Blood Cells # Prothrombin Time 14.0 Prothrombin Time 1.1 Ratio INR 1.07 International Normalized Ratio Activated 29.2 Partial Thrombop last Time Sodium Level 138 Potassium Level 4.4 Chloride Level 103 Carbon Dioxide 27 Level Anion Gap 8 Blood Urea 36 H Nitrogen Creatinine 0.86 Est Glomerular Filtrat Rate mL/min Glucose Level 131 Calcium Level 9.6 Total Bilirubin 0.2 Direct Bilirubin 0.00 Indirect 0.2 Bilirubin Aspartate Amino 21 Transf (AST/SGOT ) Alanine 31 Aminotransferase (ALT/SGPT) Alkaline 62 Phosphatase Troponin I 0.243 *H Total Protein 7.0 Albumin 3.4 Globulin 3.60 H Albumin/Globulin 0.94 Ratio POC Venous 1.3 Lactate Urine Color YELLOW Urine Clarity SLIGHTLY CLOUDY A Urine pH 6.0 Urine Specific 1.017 [place] Urine Ketones NEGATIVE Urine Nitrite NEGATIVE Urine Bilirubin NEGATIVE Urine NEGATIVE Urobilinogen Urine Leukocyte 3+ H Esterase Urine 10 H Microscopic RBC Urine 61 H Microscopic WBC Urine Squamous FEW Epithelial Cells Urine Bacteria FEW A Urine Yeast FEW A (Budding) Urine Hemoglobin 1+ H Urine Glucose NEGATIVE Urine Total NEGATIVE Protein Blood Gas Blood arterial Specimen Source Arterial Blood 11/09/2018 4:50: Date Drawn 12 PM Arterial Blood 7.440 pH (Temp corrected) Arterial Blood 41.2 pCO2 (Temp correct) Arterial Blood 77.4 L pO2 (Temp corrected) Arterial Blood 27.4 H HCO3 Arterial Blood 3.0 Base Excess Arterial Blood 95.0 Oxygen Saturatio n Lasha Test ACCEPTAB Arterial Blood Right Radial Gas Puncture Site Arterial 0.3 Blood Carboxyhem oglobin Arterial Blood 0.2 Methemoglobin Blood Gas A-a O2 88.1 H Differential Oxyhemoglobin 94.5 Percent Blood Gas 37.0 Temperature Blood Gas 16.0 Respiration Rate Blood Gas VENT - AC Modality FiO2 30.0 Blood Gas Tidal 600.0 Volume Blood Gas Low 5.0 PEEP Setting Blood Gas Notified Whom Blood Gas 11/09/2018 4:57: Notified Time 35 PM Test 11/09/18 19:30 11/10/18 06:24 11/10/18 06:42 11/10/18 08:29 Lactic Acid 1.1 0.9 Level Bedside Glucose 98 103 White Blood 12.2 #H Count Red Blood Count 3.07 #L Hemoglobin 6.9 #*L Hematocrit 24.3 #L Mean Corpuscular 79.2 L Volume Mean Corpuscular 22.5 L Hemoglobin Mean Corpuscular 28.4 L Hemoglobin Corina nt Red Cell 19.7 H Distribution Width Platelet Count 302 Mean Platelet 11.7 H Volume Immature 1.300 H Granulocytes % Neutrophils % 67.3 Lymphocytes % 15.3 Monocytes % 6.8 Eosinophils % 8.8 H Basophils % 0.5 Nucleated Red 0.0 Blood Cells % Immature 0.160 H Granulocytes # Neutrophils # 8.2 H Lymphocytes # 1.9 Monocytes # 0.8 Eosinophils # 1.1 H Basophils # 0.1 Nucleated Red 0.0 Blood Cells # Sodium Level 139 Potassium Level 4.4 Chloride Level 107 Carbon Dioxide 26 Level Anion Gap 6 Blood Urea 34 H Nitrogen Creatinine 0.80 Est Glomerular Filtrat Rate mL/min Glucose Level 91 # Hemoglobin A1c 5.8 Calcium Level 8.8 Total Bilirubin 0.4 Direct Bilirubin 0.00 Indirect 0.4 Bilirubin Aspartate Amino 22 Transf (AST/SGOT ) Alanine 32 Aminotransferase (ALT/SGPT) Alkaline 38 L Phosphatase Troponin I 0.215 *H Total Protein 5.2 #L Albumin 2.5 L Globulin 2.70 Albumin/Globulin 0.92 Ratio Medications Medication Current Medications Sodium Chloride 1,000 ml @ 100 mls/hr Q10H IV Last administered on 11/10/18at 08:30; Admin Dose 100 MLS/HR; Start 11/09/18 at 22:00 Morphine Sulfate (morphine) 2 mg Q4H PRN IV SEVERE PAIN LEVEL 7-10; Start 11/09/18 at 22:00 Ondansetron HCl (Zofran Inj) 4 mg Q6H PRN IV NAUSEA AND/OR VOMITING; Start 11/09/18 at 22:00 Miscellaneous Information (Pending [facility] Order For Wound Care) This patient garcia... PRN PRN XX WOUND CARE; Start 11/09/18 at 22:30 Diagnostic Test (Pha) (Accu-Chek) 1 ea 02 XX ; Start 11/10/18 at 02:00 Miscellaneous Information 1 ea NOTE XX ; Start 11/10/18 at 02:00 Glucose (Glutose) 15 gm Q15M PRN PO DECREASED GLUCOSE; Start 11/10/18 at 02:00 Glucose (Glutose) 22.5 gm Q15M PRN PO DECREASED GLUCOSE; Start 11/10/18 at 02:00 Dextrose (D50w Syringe) 25 ml Q15M PRN IV DECREASED GLUCOSE; Start 11/10/18 at 02:00 Dextrose (D50w Syringe) 50 ml Q15M PRN IV DECREASED GLUCOSE; Start 11/10/18 at 02:00 Glucagon (Glucagen) 1 mg Q15M PRN IM DECREASED GLUCOSE; Start 11/10/18 at 02:00 Glucose (Glutose) 15 gm Q15M PRN BUCCAL DECREASED GLUCOSE; Start 11/10/18 at 02:00 Insulin Aspart (Novolog Insulin Pen) NOVOLOG *MILD* ALGORI... Q4 SC ; Start 11/10/18 at 09:00 Lidocaine (Xylocaine 1% (Mpf)) 5 ml ONCE ONCE SC ; Start 11/10/18 at 13:00; Stop 11/10/18 at 13:01 SUSANNE LANIER NP Nov 10, 2018 12:53
[2018-11-10] MEDS ORDERED: LIDOCAINE 1% (MPF) 5 ML VIAL SC ONE (13:00)
[2018-11-10] MEDS ORDERED: VANCOMYCIN IV PER PHARMACY XX SCH (13:00)
[2018-11-10] MEDS ORDERED: FLUCONAZOLE 100 MG/50 ML (PMX) 50 ML IVPB SCH (13:00)
[2018-11-10] MEDS: PIPER-TAZO 3.375 GM IV (PMX) 100 ML IVPB SCH ×2 (13:41→21:56)
[2018-11-10] MEDS ORDERED: VANCOMYCIN HCL 2 GM in SOD CHLORIDE 0.9% 500 ML IVPB ONE (14:00)
--- NOTE | 2018-11-10 15:12 | CONS ---
Consultation Date/Type/Reason Admit Date/Time Nov 09, 2018 at 14:44 Type of Consult Cardiology Date/Time of Note DATE: 11/10/18 TIME: 15:11 Hx of Present Illness 83 yo with elevated trop with significant anemia - conservative Rx advised with blood transfusion Full Note dictated # [id number] Past Medical History Home Meds Reported Medications Multivitamin with Minerals (Multivitamins with Minerals) 1 Each Tablet, 1 EACH GTB DAILY, TAB 11/02/17 Heparin Sodium,Porcine/Pf (HEPARIN SOD 5,000 UNIT/ 0.5 ML) 5,000 Unit/0.5 Ml Vial, 5000 UNIT IJ Q12H, VIAL 11/02/17 Amlodipine Besylate* (Amlodipine Besylate*) 10 Mg Tablet, 10 MG GTB DAILY, #30 TAB HOLD IF SBP<110 11/02/17 Sennosides* (Senna Lax*) 8.6 Mg Tablet, 1 TAB GTB BID, TAB 11/02/17 Famotidine* (Famotidine*) 20 Mg Tablet, 20 MG GTB DAILY, #30 TAB 11/02/17 Hydralazine Hcl* (Hydralazine Hcl*) 25 Mg Tab, 25 MG GTB Q6H PRN for FOR SBP>160, #60 TAB 11/02/17 Bisacodyl* (Bisacodyl*) 10 Mg Supp, 10 MG NM Q24H for CONSTIPATION, SUPP 11/02/17 Docusate Sodium* (Docusate Sodium*) 100 Mg Capsule, 100 MG GTB DAILY, #30 CAP 11/02/17 Cranberry Fruit (CRANBERRY) 450 Mg Tablet, 450 MG GTB DAILY, TAB 11/02/17 Artificial Tears* (Akwa Oint*) 3.5 Gm Oint, 1 APPLIC BOTH EYES Q12H, #1 TUB 11/02/17 Magnesium Hydroxide* (Milk Of Magnesia*) 400 Mg/5 Ml Oral.susp, 30 ML GTB DAILY, ML 11/02/17 Doxazosin Mesylate* (Doxazosin Mesylate*) 4 Mg Tablet, 4 MG GTB HS, TAB 11/02/17 Vit C-Ascorbate Ca-Ascorb Sod (Vitamin C) 500 Mg/15 Ml Liquid, 5 ML GTB BID, ML 11/02/17 Ferrous Sulfate* (Ferrous Sulfate*) 220 Mg/5 Ml Solution, 7.5 ML GTB BID, ML 11/02/17 Metformin Hcl* (Metformin Hcl*) 1,000 Mg Tablet, 1000 MG GTB WITH BREAKFAST DINNE, #60 TAB 11/02/17 Medications Current Medications Sodium Chloride 1,000 ml @ 100 mls/hr Q10H IV Last administered on 11/10/18at 08:30; Admin Dose 100 MLS/HR; Start 11/09/18 at 22:00 Morphine Sulfate (morphine) 2 mg Q4H PRN IV SEVERE PAIN LEVEL 7-10; Start 10/22 04/11 at 22:00 Ondansetron HCl (Zofran Inj) 4 mg Q6H PRN IV NAUSEA AND/OR VOMITING; Start 11/09/18 at 22:00 Miscellaneous Information (Pending [facility] Order For Wound Care) This patient garcia... PRN PRN XX WOUND CARE; Start 11/09/18 at 22:30 Diagnostic Test (Pha) (Accu-Chek) 1 ea 02 XX ; Start 11/10/18 at 02:00 Miscellaneous Information 1 ea NOTE XX ; Start 11/10/18 at 02:00 Glucose (Glutose) 15 gm Q15M PRN PO DECREASED GLUCOSE; Start 11/10/18 at 02:00 Glucose (Glutose) 22.5 gm Q15M PRN PO DECREASED GLUCOSE; Start 11/10/18 at 02:00 Dextrose (D50w Syringe) 25 ml Q15M PRN IV DECREASED GLUCOSE; Start 11/10/18 at 02:00 Dextrose (D50w Syringe) 50 ml Q15M PRN IV DECREASED GLUCOSE; Start 11/10/18 at 02:00 Glucagon (Glucagen) 1 mg Q15M PRN IM DECREASED GLUCOSE; Start 11/10/18 at 02:00 Glucose (Glutose) 15 gm Q15M PRN BUCCAL DECREASED GLUCOSE; Start 11/10/18 at 02:00 Insulin Aspart (Novolog Insulin Pen) NOVOLOG *MILD* ALGORI... Q4 SC ; Start 11/10/18 at 09:00 Fluconazole/ Sodium Chloride 50 ml @ 50 mls/hr Q24H IVPB Last administered on 11/10/18at 14:37; Admin Dose 50 MLS/HR; Start 11/10/18 at 13:00 Vancomycin HCl (Vanco Iv Per Pharmacy) VANCOMYCIN PER PHARMACY PER PROTOCOL XX ; Start 11/10/18 at 13:00 Piperacillin Sod/ Tazobactam Sod 100 ml @ 200 mls/hr Q8 IVPB Last administered on 11/10/18at 13:41; Admin Dose 200 MLS/HR; Start 11/10/18 at 14:00 Vancomycin HCl 2 gm/Sodium Chloride 500 ml @ 125 mls/hr LOADING DOSE ONCE IVPB Last administered on 11/10/18at 14:37; Admin Dose 125 MLS/HR; Start 11/10/18 at 14:00; Stop 11/10/18 at 17:59 Vancomycin HCl 250 ml @ 125 mls/hr Q12H IVPB ; Start 11/11/18 at 03:00 Allergies: Coded Allergies: No Known Drug Allergies (Verified Allergy, Unknown, 11/09/18) Social History Smoking Status: Unknown if ever smoked Exam/Review of Systems Vital Signs Vitals Vital Signs Date Temp Pulse Resp B/P (MAP) Pulse Ox O2 O2 Flow FiO2 Time Delivery Rate 11/10/18 56 16 100 30 14:03 11/10/18 98.7 132/62 Mechanical 11:56 (85) Ventilator Intake and Output 11/09/18 11/09/18 11/10/18 1515:00 23:00 07:00 IntakeIntake Total 0 ml OutputOutput Total 1550 ml BalanceBalance -1550 ml Labs Result Diagram: 11/10/18 0642 11/10/18 0642 Results 24hrs Laboratory Tests Test 11/09/18 15:25 11/09/18 15:31 11/09/18 16:20 11/09/18 16:27 White Blood 19.1 #H Count Red Blood Count 3.91 L Hemoglobin 8.9 L Hematocrit 31.6 L Mean Corpuscular 80.8 L Volume Mean Corpuscular 22.8 L Hemoglobin Mean Corpuscular 28.2 L Hemoglobin Corina nt Red Cell 19.6 H Distribution Width Platelet Count 349 # Mean Platelet 10.8 H Volume Immature 1.400 H Granulocytes % Neutrophils % 76.3 Lymphocytes % 10.0 L Monocytes % 4.8 Eosinophils % 7.0 Basophils % 0.5 Nucleated Red 0.0 Blood Cells % Immature 0.270 H Granulocytes # Neutrophils # 14.6 H Lymphocytes # 1.9 Monocytes # 0.9 Eosinophils # 1.3 H Basophils # 0.1 Nucleated Red 0.0 Blood Cells # Prothrombin Time 14.0 Prothrombin Time 1.1 Ratio INR 1.07 International Normalized Ratio Activated 29.2 Partial Thrombop last Time Sodium Level 138 Potassium Level 4.4 Chloride Level 103 Carbon Dioxide 27 Level Anion Gap 8 Blood Urea 36 H Nitrogen Creatinine 0.86 Est Glomerular Filtrat Rate mL/min Glucose Level 131 Calcium Level 9.6 Total Bilirubin 0.2 Direct Bilirubin 0.00 Indirect 0.2 Bilirubin Aspartate Amino 21 Transf (AST/SGOT ) Alanine 31 Aminotransferase (ALT/SGPT) Alkaline 62 Phosphatase Troponin I 0.243 *H Total Protein 7.0 Albumin 3.4 Globulin 3.60 H Albumin/Globulin 0.94 Ratio POC Venous 1.3 Lactate Urine Color YELLOW Urine Clarity SLIGHTLY CLOUDY A Urine pH 6.0 Urine Specific 1.017 [place] Urine Ketones NEGATIVE Urine Nitrite NEGATIVE Urine Bilirubin NEGATIVE Urine NEGATIVE Urobilinogen Urine Leukocyte 3+ H Esterase Urine 10 H Microscopic RBC Urine 61 H Microscopic WBC Urine Squamous FEW Epithelial Cells Urine Bacteria FEW A Urine Yeast FEW A (Budding) Urine Hemoglobin 1+ H Urine Glucose NEGATIVE Urine Total NEGATIVE Protein Blood Gas Blood arterial Specimen Source Arterial Blood 11/09/2018 4:50: Date Drawn 12 PM Arterial Blood 7.440 pH (Temp corrected) Arterial Blood 41.2 pCO2 (Temp correct) Arterial Blood 77.4 L pO2 (Temp corrected) Arterial Blood 27.4 H HCO3 Arterial Blood 3.0 Base Excess Arterial Blood 95.0 Oxygen Saturatio n Lasha Test ACCEPTAB Arterial Blood Right Radial Gas Puncture Site Arterial 0.3 Blood Carboxyhem oglobin Arterial Blood 0.2 Methemoglobin Blood Gas A-a O2 88.1 H Differential Oxyhemoglobin 94.5 Percent Blood Gas 37.0 Temperature Blood Gas 16.0 Respiration Rate Blood Gas VENT - AC Modality FiO2 30.0 Blood Gas Tidal 600.0 Volume Blood Gas Low 5.0 PEEP Setting Blood Gas Notified Whom Blood Gas 11/09/2018 4:57: Notified Time 35 PM Test 11/09/18 19:30 11/10/18 06:24 11/10/18 06:42 11/10/18 08:29 Lactic Acid 1.1 0.9 Level Bedside Glucose 98 103 White Blood 12.2 #H Count Red Blood Count 3.07 #L Hemoglobin 6.9 #*L Hematocrit 24.3 #L Mean Corpuscular 79.2 L Volume Mean Corpuscular 22.5 L Hemoglobin Mean Corpuscular 28.4 L Hemoglobin Corina nt Red Cell 19.7 H Distribution Width Platelet Count 302 Mean Platelet 11.7 H Volume Immature 1.300 H Granulocytes % Neutrophils % 67.3 Lymphocytes % 15.3 Monocytes % 6.8 Eosinophils % 8.8 H Basophils % 0.5 Nucleated Red 0.0 Blood Cells % Immature 0.160 H Granulocytes # Neutrophils # 8.2 H Lymphocytes # 1.9 Monocytes # 0.8 Eosinophils # 1.1 H Basophils # 0.1 Nucleated Red 0.0 Blood Cells # Sodium Level 139 Potassium Level 4.4 Chloride Level 107 Carbon Dioxide 26 Level Anion Gap 6 Blood Urea 34 H Nitrogen Creatinine 0.80 Est Glomerular Filtrat Rate mL/min Glucose Level 91 # Hemoglobin A1c 5.8 Calcium Level 8.8 Total Bilirubin 0.4 Direct Bilirubin 0.00 Indirect 0.4 Bilirubin Aspartate Amino 22 Transf (AST/SGOT ) Alanine 32 Aminotransferase (ALT/SGPT) Alkaline 38 L Phosphatase Troponin I 0.215 *H Total Protein 5.2 #L Albumin 2.5 L Globulin 2.70 Albumin/Globulin 0.92 Ratio Test 11/10/18 13:20 Bedside Glucose 107 Medications Medications Current Medications Sodium Chloride 1,000 ml @ 100 mls/hr Q10H IV Last administered on 11/10/18at 08:30; Admin Dose 100 MLS/HR; Start 11/09/18 at 22:00 Morphine Sulfate (morphine) 2 mg Q4H PRN IV SEVERE PAIN LEVEL 7-10; Start 11/09/18 at 22:00 Ondansetron HCl (Zofran Inj) 4 mg Q6H PRN IV NAUSEA AND/OR VOMITING; Start 11/09/18 at 22:00 Miscellaneous Information (Pending [facility] Order For Wound Care) This patient garcia... PRN PRN XX WOUND CARE; Start 11/09/18 at 22:30 Diagnostic Test (Pha) (Accu-Chek) 1 ea 02 XX ; Start 11/10/18 at 02:00 Miscellaneous Information 1 ea NOTE XX ; Start 11/10/18 at 02:00 Glucose (Glutose) 15 gm Q15M PRN PO DECREASED GLUCOSE; Start 11/10/18 at 02:00 Glucose (Glutose) 22.5 gm Q15M PRN PO DECREASED GLUCOSE; Start 11/10/18 at 02:00 Dextrose (D50w Syringe) 25 ml Q15M PRN IV DECREASED GLUCOSE; Start 11/10/18 at 02:00 Dextrose (D50w Syringe) 50 ml Q15M PRN IV DECREASED GLUCOSE; Start 11/10/18 at 02:00 Glucagon (Glucagen) 1 mg Q15M PRN IM DECREASED GLUCOSE; Start 11/10/18 at 02:00 Glucose (Glutose) 15 gm Q15M PRN BUCCAL DECREASED GLUCOSE; Start 11/10/18 at 02:00 Insulin Aspart (Novolog Insulin Pen) NOVOLOG *MILD* ALGORI... Q4 SC ; Start 11/10/18 at 09:00 Fluconazole/ Sodium Chloride 50 ml @ 50 mls/hr Q24H IVPB Last administered on 11/10/18at 14:37; Admin Dose 50 MLS/HR; Start 11/10/18 at 13:00 Vancomycin HCl (Vanco Iv Per Pharmacy) VANCOMYCIN PER PHARMACY PER PROTOCOL XX ; Start 11/10/18 at 13:00 Piperacillin Sod/ Tazobactam Sod 100 ml @ 200 mls/hr Q8 IVPB Last administered on 11/10/18at 13:41; Admin Dose 200 MLS/HR; Start 11/10/18 at 14:00 Vancomycin HCl 2 gm/Sodium Chloride 500 ml @ 125 mls/hr LOADING DOSE ONCE IVPB Last administered on 11/10/18at 14:37; Admin Dose 125 MLS/HR; Start 11/10/18 at 14:00; Stop 11/10/18 at 17:59 Vancomycin HCl 250 ml @ 125 mls/hr Q12H IVPB ; Start 11/11/18 at 03:00 VEGA WISE MD Nov 10, 2018 15:12
--- NOTE | 2018-11-10 15:34 | CONS ---
Assessment/Plan Assessment/Plan Assessment/Plan (Daily) 83 years old male was admitted for abdominal distention and Sepsis and found to have anemia. Patient is seen for Anemia . #Anemia -Hgb up 6.9 today; no transfusion is given due to staff is unable to get consent - will do Anemia workup - fu results- - iron panel - Ferritin level - SPEP - vitamin b12 level - Folate - Erythropoietin level - Haptoglobin - Retic - LDH -TSH #Severe SEPSIS -2/2 PNA -continue antibiotics per ID # -Ventilator dependent respiratory failure. 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 Patient was admitted due to abdominal distension ; NSTEMI, Sepsis, Anemia, PNA . Oncology /Hematology is consulted for Anemia. Patient has no next of kin to sign the consent for blood transfusion. ROS All systems reviewed and are negative except as per history of present illness. Allergies Allergies: Coded Allergies: No Known Allergy (Unverified , 11/02/17) Subjective hx not possible: pt non-verbal PMH/Family/Social Past Medical History PMhx/Soc History of Surgery: Yes Hx Neurological Disorder: Yes (CVA hemorrhagic) Hx Respiratory Disorders: Yes (Vent depended resp failure) Hx Cardiac Disorders: Yes (Hypertension, Anemia of chronic disease , History of ventricular tachycardia.) Hx Neuro Disorders: Chronic encephalopathy.Cauda equina syndrome. Hx Miscellaneous Medical Probl: Yes (G-TUBE) Hx Alcohol Use: No (Unable to obtain information. Patient is nonverbal.) Hx Substance Use: No (Unable to obtain information. Patient is nonverbal.) Hx Tobacco Use: No (Unable to obtain information. Patient is nonverbal.) Smoking Status: Former smoker Past Surgical History Status post right nephrostomy, status post tracheostomy, status post G-tube placement Family History Significant Family History: no pertinent family hx Social History Alcohol Use: none Smoking Status: Former smoker Drug Use: none Medications Current Medications Ondansetron HCl (Zofran Inj) 4 mg ER BRIDGE PRN IV NAUSEA/VOMITING; Start 11/09/18 at 15:00; Stop 11/10/18 at 14:59 Acetaminophen (Tylenol Tab) 650 mg ER BRIDGE PRN PO .MILD PAIN 1-3 OR TEMP; Start 11/09/18 at 15:00; Stop 11/10/18 at 14:59 Coded Allergies: No Known Drug Allergies (Verified Allergy, Unknown, 11/09/18) Family History Significant Family History: no pertinent family hx Social History Smoking Status: Former smoker Subjective hx not possible: pt non-verbal, pt critical, pt critical status Constitutional: requiring IVF, requiring O2 Past Medical History Home Meds Reported Medications Multivitamin with Minerals (Multivitamins with Minerals) 1 Each Tablet, 1 EACH GTB DAILY, TAB 11/02/17 Heparin Sodium,Porcine/Pf (HEPARIN SOD 5,000 UNIT/ 0.5 ML) 5,000 Unit/0.5 Ml Vial, 5000 UNIT IJ Q12H, VIAL 11/02/17 Amlodipine Besylate* (Amlodipine Besylate*) 10 Mg Tablet, 10 MG GTB DAILY, #30 TAB HOLD IF SBP<110 11/02/17 Sennosides* (Senna Lax*) 8.6 Mg Tablet, 1 TAB GTB BID, TAB 11/02/17 Famotidine* (Famotidine*) 20 Mg Tablet, 20 MG GTB DAILY, #30 TAB 11/02/17 Hydralazine Hcl* (Hydralazine Hcl*) 25 Mg Tab, 25 MG GTB Q6H PRN for FOR SBP>16 0, #60 TAB 11/02/17 Bisacodyl* (Bisacodyl*) 10 Mg Supp, 10 MG PA Q24H for CONSTIPATION, SUPP 11/02/17 Docusate Sodium* (Docusate Sodium*) 100 Mg Capsule, 100 MG GTB DAILY, #30 CAP 11/02/17 Cranberry Fruit (CRANBERRY) 450 Mg Tablet, 450 MG GTB DAILY, TAB 11/02/17 Artificial Tears* (Akwa Oint*) 3.5 Gm Oint, 1 APPLIC BOTH EYES Q12H, #1 TUB 11/02/17 Magnesium Hydroxide* (Milk Of Magnesia*) 400 Mg/5 Ml Oral.susp, 30 ML GTB DAILY, ML 11/02/17 Doxazosin Mesylate* (Doxazosin Mesylate*) 4 Mg Tablet, 4 MG GTB HS, TAB 11/02/17 Vit C-Ascorbate Ca-Ascorb Sod (Vitamin C) 500 Mg/15 Ml Liquid, 5 ML GTB BID, ML 11/02/17 Ferrous Sulfate* (Ferrous Sulfate*) 220 Mg/5 Ml Solution, 7.5 ML GTB BID, ML 11/02/17 Metformin Hcl* (Metformin Hcl*) 1,000 Mg Tablet, 1000 MG GTB WITH BREAKFAST DINNE, #60 TAB 11/02/17 Medications Current Medications Sodium Chloride 1,000 ml @ 100 mls/hr Q10H IV Last administered on 11/10/18at 08:30; Admin Dose 100 MLS/HR; Start 11/09/18 at 22:00 Morphine Sulfate (morphine) 2 mg Q4H PRN IV SEVERE PAIN LEVEL 7-10; Start 11/09/18 at 22:00 Ondansetron HCl (Zofran Inj) 4 mg Q6H PRN IV NAUSEA AND/OR VOMITING; Start 11/09/18 at 22:00 Miscellaneous Information (Pending [facility] Order For Wound Care) This patient garcia... PRN PRN XX WOUND CARE; Start 11/09/18 at 22:30 Diagnostic Test (Pha) (Accu-Chek) 1 ea 02 XX ; Start 11/10/18 at 02:00 Miscellaneous Information 1 ea NOTE XX ; Start 11/10/18 at 02:00 Glucose (Glutose) 15 gm Q15M PRN PO DECREASED GLUCOSE; Start 11/10/18 at 02:00 Glucose (Glutose) 22.5 gm Q15M PRN PO DECREASED GLUCOSE; Start 11/10/18 at 02:00 Dextrose (D50w Syringe) 25 ml Q15M PRN IV DECREASED GLUCOSE; Start 11/10/18 at 02:00 Dextrose (D50w Syringe) 50 ml Q15M PRN IV DECREASED GLUCOSE; Start 11/10/18 at 02:00 Glucagon (Glucagen) 1 mg Q15M PRN IM DECREASED GLUCOSE; Start 11/10/18 at 02:00 Glucose (Glutose) 15 gm Q15M PRN BUCCAL DECREASED GLUCOSE; Start 11/10/18 at 02:00 Insulin Aspart (Novolog Insulin Pen) NOVOLOG *MILD* ALGORI... Q4 SC ; Start 11/10/18 at 09:00 Fluconazole/ Sodium Chloride 50 ml @ 50 mls/hr Q24H IVPB Last administered on 11/10/18at 14:37; Admin Dose 50 MLS/HR; Start 11/10/18 at 13:00 Vancomycin HCl (Vanco Iv Per Pharmacy) VANCOMYCIN PER PHARMACY PER PROTOCOL XX ; Start 11/10/18 at 13:00 Piperacillin Sod/ Tazobactam Sod 100 ml @ 200 mls/hr Q8 IVPB Last administered on 11/10/18at 13:41; Admin Dose 200 MLS/HR; Start 11/10/18 at 14:00 Vancomycin HCl 2 gm/Sodium Chloride 500 ml @ 125 mls/hr LOADING DOSE ONCE IVPB Last administered on 11/10/18at 14:37; Admin Dose 125 MLS/HR; Start 11/10/18 at 14:00; Stop 11/10/18 at 17:59 Vancomycin HCl 250 ml @ 125 mls/hr Q12H IVPB ; Start 11/11/18 at 03:00 Allergies: Coded Allergies: No Known Drug Allergies (Verified Allergy, Unknown, 11/09/18) Social History Smoking Status: Unknown if ever smoked Exam/Review of Systems Exam Vitals Vital Signs Date Temp Pulse Resp B/P (MAP) Pulse Ox O2 O2 Flow FiO2 Time Delivery Rate 11/10/18 56 16 100 30 14:03 11/10/18 98.7 132/62 Mechanical 11:56 (85) Ventilator Intake and Output 11/09/18 11/09/18 11/10/18 1515:00 23:00 07:00 IntakeIntake Total 0 ml OutputOutput Total 1550 ml BalanceBalance -1550 ml Constitutional: well developed, non-verbal, frail, obese Psych: nl mood/affect Eyes: nl lids, nl sclera ENMT: nl external ears & nose Neck: supple, other (trach intact ) Respiratory: diminished breath sounds Cardiovascular: nl pulses, other (s1s2) Gastrointestinal: distended, other (GT noted) Musculoskeletal: muscle weakness, range of motion Extremities: edema Neurological: unresponsive Results Result Diagram: 11/10/18 0642 11/10/18 0642 Results 24hrs Laboratory Tests Test 11/09/18 15:25 11/09/18 15:31 11/09/18 16:20 11/09/18 16:27 White Blood 19.1 #H Count Red Blood Count 3.91 L Hemoglobin 8.9 L Hematocrit 31.6 L Mean Corpuscular 80.8 L Volume Mean Corpuscular 22.8 L Hemoglobin Mean Corpuscular 28.2 L Hemoglobin Corina nt Red Cell 19.6 H Distribution Width Platelet Count 349 # Mean Platelet 10.8 H Volume Immature 1.400 H Granulocytes % Neutrophils % 76.3 Lymphocytes % 10.0 L Monocytes % 4.8 Eosinophils % 7.0 Basophils % 0.5 Nucleated Red 0.0 Blood Cells % Immature 0.270 H Granulocytes # Neutrophils # 14.6 H Lymphocytes # 1.9 Monocytes # 0.9 Eosinophils # 1.3 H Basophils # 0.1 Nucleated Red 0.0 Blood Cells # Prothrombin Time 14.0 Prothrombin Time 1.1 Ratio INR 1.07 International Normalized Ratio Activated 29.2 Partial Thrombop last Time Sodium Level 138 Potassium Level 4.4 Chloride Level 103 Carbon Dioxide 27 Level Anion Gap 8 Blood Urea 36 H Nitrogen Creatinine 0.86 Est Glomerular Filtrat Rate mL/min Glucose Level 131 Calcium Level 9.6 Total Bilirubin 0.2 Direct Bilirubin 0.00 Indirect 0.2 Bilirubin Aspartate Amino 21 Transf (AST/SGOT ) Alanine 31 Aminotransferase (ALT/SGPT) Alkaline 62 Phosphatase Troponin I 0.243 *H Total Protein 7.0 Albumin 3.4 Globulin 3.60 H Albumin/Globulin 0.94 Ratio POC Venous 1.3 Lactate Urine Color YELLOW Urine Clarity SLIGHTLY CLOUDY A Urine pH 6.0 Urine Specific 1.017 [place] Urine Ketones NEGATIVE Urine Nitrite NEGATIVE Urine Bilirubin NEGATIVE Urine NEGATIVE Urobilinogen Urine Leukocyte 3+ H Esterase Urine 10 H Microscopic RBC Urine 61 H Microscopic WBC Urine Squamous FEW Epithelial Cells Urine Bacteria FEW A Urine Yeast FEW A (Budding) Urine Hemoglobin 1+ H Urine Glucose NEGATIVE Urine Total NEGATIVE Protein Blood Gas Blood arterial Specimen Source Arterial Blood 11/09/2018 4:50: Date Drawn 12 PM Arterial Blood 7.440 pH (Temp corrected) Arterial Blood 41.2 pCO2 (Temp correct) Arterial Blood 77.4 L pO2 (Temp corrected) Arterial Blood 27.4 H HCO3 Arterial Blood 3.0 Base Excess Arterial Blood 95.0 Oxygen Saturatio n Lasha Test ACCEPTAB Arterial Blood Right Radial Gas Puncture Site Arterial 0.3 Blood Carboxyhem oglobin Arterial Blood 0.2 Methemoglobin Blood Gas A-a O2 88.1 H Differential Oxyhemoglobin 94.5 Percent Blood Gas 37.0 Temperature Blood Gas 16.0 Respiration Rate Blood Gas VENT - AC Modality FiO2 30.0 Blood Gas Tidal 600.0 Volume Blood Gas Low 5.0 PEEP Setting Blood Gas Notified Whom Blood Gas 11/09/2018 4:57: Notified Time 35 PM Test 11/09/18 19:30 11/10/18 06:24 11/10/18 06:42 11/10/18 08:29 Lactic Acid 1.1 0.9 Level Bedside Glucose 98 103 White Blood 12.2 #H Count Red Blood Count 3.07 #L Hemoglobin 6.9 #*L Hematocrit 24.3 #L Mean Corpuscular 79.2 L Volume Mean Corpuscular 22.5 L Hemoglobin Mean Corpuscular 28.4 L Hemoglobin Corina nt Red Cell 19.7 H Distribution Width Platelet Count 302 Mean Platelet 11.7 H Volume Immature 1.300 H Granulocytes % Neutrophils % 67.3 Lymphocytes % 15.3 Monocytes % 6.8 Eosinophils % 8.8 H Basophils % 0.5 Nucleated Red 0.0 Blood Cells % Immature 0.160 H Granulocytes # Neutrophils # 8.2 H Lymphocytes # 1.9 Monocytes # 0.8 Eosinophils # 1.1 H Basophils # 0.1 Nucleated Red 0.0 Blood Cells # Sodium Level 139 Potassium Level 4.4 Chloride Level 107 Carbon Dioxide 26 Level Anion Gap 6 Blood Urea 34 H Nitrogen Creatinine 0.80 Est Glomerular Filtrat Rate mL/min Glucose Level 91 # Hemoglobin A1c 5.8 Calcium Level 8.8 Total Bilirubin 0.4 Direct Bilirubin 0.00 Indirect 0.4 Bilirubin Aspartate Amino 22 Transf (AST/SGOT ) Alanine 32 Aminotransferase (ALT/SGPT) Alkaline 38 L Phosphatase Troponin I 0.215 *H Total Protein 5.2 #L Albumin 2.5 L Globulin 2.70 Albumin/Globulin 0.92 Ratio Test 11/10/18 13:20 Bedside Glucose 107 Medications Medication Current Medications Sodium Chloride 1,000 ml @ 100 mls/hr Q10H IV Last administered on 11/10/18at 08:30; Admin Dose 100 MLS/HR; Start 11/09/18 at 22:00 Morphine Sulfate (morphine) 2 mg Q4H PRN IV SEVERE PAIN LEVEL 7-10; Start 11/09/18 at 22:00 Ondansetron HCl (Zofran Inj) 4 mg Q6H PRN IV NAUSEA AND/OR VOMITING; Start 11/09/18 at 22:00 Miscellaneous Information ([facility] This patient garcia... PRN PRN XX WOUND CARE; Start 11/09/18 at 22:30 Diagnostic Test (Pha) (Accu-Chek) 1 ea 02 XX ; Start 11/10/18 at 02:00 Miscellaneous Information 1 ea NOTE XX ; Start 11/10/18 at 02:00 Glucose (Glutose) 15 gm Q15M PRN PO DECREASED GLUCOSE; Start 11/10/18 at 02:00 Glucose (Glutose) 22.5 gm Q15M PRN PO DECREASED GLUCOSE; Start 11/10/18 at 02:00 Dextrose (D50w Syringe) 25 ml Q15M PRN IV DECREASED GLUCOSE; Start 11/10/18 at 02:00 Dextrose (D50w Syringe) 50 ml Q15M PRN IV DECREASED GLUCOSE; Start 11/10/18 at 02:00 Glucagon (Glucagen) 1 mg Q15M PRN IM DECREASED GLUCOSE; Start 11/10/18 at 02:00 Glucose (Glutose) 15 gm Q15M PRN BUCCAL DECREASED GLUCOSE; Start 11/10/18 at 02:00 Insulin Aspart (Novolog Insulin Pen) NOVOLOG *MILD* ALGORI... Q4 SC ; Start 11/10/18 at 09:00 Fluconazole/ Sodium Chloride 50 ml @ 50 mls/hr Q24H IVPB Last administered on 11/10/18at 14:37; Admin Dose 50 MLS/HR; Start 11/10/18 at 13:00 Vancomycin HCl (Vanco Iv Per Pharmacy) VANCOMYCIN PER PHARMACY PER PROTOCOL XX ; Start 11/10/18 at 13:00 Piperacillin Sod/ Tazobactam Sod 100 ml @ 200 mls/hr Q8 IVPB Last administered on 11/10/18at 13:41; Admin Dose 200 MLS/HR; Start 11/10/18 at 14:00 Vancomycin HCl 2 gm/Sodium Chloride 500 ml @ 125 mls/hr LOADING DOSE ONCE IVPB Last administered on 11/10/18at 14:37; Admin Dose 125 MLS/HR; Start 11/10/18 at 14:00; Stop 11/10/18 at 17:59 Vancomycin HCl 250 ml @ 125 mls/hr Q12H IVPB ; Start 11/11/18 at 03:00 SAMIA LICEA Nov 10, 2018 15:25
[2018-11-10] MEDS ORDERED: PANTOPRAZOLE 40 MG INJ IV ONE (18:00)
[2018-11-10] MEDS: PANTOPRAZOLE IV 80 MG in SOD CHLORIDE 0.9% 100 ML IV SCH (18:49)
--- NOTE | 2018-11-10 20:55 | CONS ---
DATE OF ADMISSION: 11/09/2018 DATE OF CONSULTATION: 11/10/2018 SUBJECTIVE: The patient admitted with history of abdominal distention. CAT scan of the abdomen show ed evidence of ascites and a nasogastric tube was put in on admission, which has been draining coffee -ground material. OBJECTIVE: GENERAL: The lethargic. VITAL SIGNS: Pulse is 60, blood pressure is 109/60. CARDIOVASCULAR: Normal heart sounds. RESPIRATORY: Normal breath sounds. ABDOMEN: Shows soft abdomen with ascites. LABORATORY WORKUP: Hemoglobin dropped to 6.9 from 8.9, WBC count is 12,200. Chemistry: Potassium i s 4.4. The bilirubin is 0.4, AST is 22, ALT 32, alkaline phosphatase is 38. Troponin is 0.243. CAT scan of the abdomen showed ascites with cholelithiasis also is noted, anasarca noted, kidney ston es noted bilaterally. PEG is noted in place. Diverticulosis noted. Thickening of the rectum was no tremaine. A suprapubic catheter is noted. Bilateral pleural effusion noted and consolidation noted in the lungs. IMPRESSION: From the GI standpoint, he has ascites for which he needs to be drained. Rule out malig nant causes versus benign causes. The patient also has cholelithiasis. The patient has upper GI bleeding. Hemoglobin has dropped. PLAN: Recommend Protonix IV to be given. Recommend paracentesis. Recommend eventually EGD and a colonoscopy. Meanwhile, recommend transfusio n. Dictated By: ANNE BAZZI MD NC/NTS Conf#: [id number] DID#: [id number] CC: ANNE BAZZI MD; RACHELLE RAMOS MD;*EndCC*
[2018-11-11] VITALS (21 sets, daily range): BP systolic 113–142; BP diastolic 51–87; PULSE 54–105; RESP 15–20
[2018-11-11] MEDS: INSULIN ASPART [NOVOLOG] 3 ML PEN SC SCH ×6 (01:00→22:07)
[2018-11-11] MEDS: ACCU-CHEK XX SCH (01:14)
[2018-11-11] MEDS: SOD CHLORIDE 0.9% 1,000 ML IV SCH ×2 (02:59→14:29)
[2018-11-11] MEDS: PANTOPRAZOLE IV 80 MG in SOD CHLORIDE 0.9% 100 ML IV SCH ×3 (03:04→23:30)
[2018-11-11] MEDS: VANCOMYCIN 1 GM 250 ML IVPB SCH ×3 (03:06→23:01)
[2018-11-11] MEDS ORDERED: FUROSEMIDE 20 MG INJ IV ONE (04:30)
[2018-11-11] MEDS: PIPER-TAZO 3.375 GM IV (PMX) 100 ML IVPB SCH ×3 (06:02→22:20)
--- NOTE | 2018-11-11 10:29 | CONS ---
Assessment/Plan Assessment/Plan Hospital Course (Demo Recall) #Anemia -Hg up to 7.6 after IV iron started -pt does have iron deficiency evidenced by low iron sat of 7% -vitamin b12 level wnl - LDH only mildly elevated making hemolysis unlikely. haptoglobin pending -TSH wnl -cannot transfuse given inability to obtain consent #presumed SEPSIS -2/2 PNA -continue antibiotics per ID # Abdominal distention -GI recommends paracentesis which we cannot perform due to inability to consent pt #NSTEMI -likey 2/2 demand ischemi -cards following Consultation Date/Type/Reason Admit Date/Time Nov 09, 2018 at 14:44 Initial Consult Date 11/10/18 Type of Consult hematology Reason for Consultation anemia Requesting Provider: RACHELLE RAMOS MD Date/Time of Note DATE: 11/11/18 TIME: 10:20 24 HR Interval Summary Free Text/Dictation pt still has not been able to get blood transfusion due to inability to obtain consent. now on IR iron Subjective hx not possible: pt non-verbal Exam/Review of Systems Exam Vitals Vital Signs Date Temp Pulse Resp B/P (MAP) Pulse Ox O2 O2 Flow FiO2 Time Delivery Rate 11/11/18 67 16 100 30 08:05 11/11/18 97.5 142/87 07:36 (105) 11/10/18 Mechanical 15:36 Ventilator Intake and Output 11/10/18 11/10/18 11/11/18 1515:00 23:00 07:00 IntakeIntake Total 1150 ml 1100 ml OutputOutput Total 900 ml 750 ml BalanceBalance 250 ml 350 ml Constitutional: non-verbal Psych: confusion Head: normocephalic Eyes: nl conjunctiva ENMT: other (NGT in place) Neck: supple Respiratory: clear to auscultation Cardiovascular: regular rate and rhythm Gastrointestinal: soft Musculoskeletal: nl extremities to inspection Results Result Diagram: 11/11/18 0632 11/11/18 0632 Results 24hrs Laboratory Tests Test 11/10/18 13:20 11/10/18 17:14 11/10/18 21:58 11/11/18 01:13 Bedside Glucose 107 108 99 94 Test 11/11/18 04:40 11/11/18 06:32 11/11/18 09:47 Bedside Glucose 110 104 White Blood Count 14.0 H Red Blood Count 3.39 L Hemoglobin 7.6 L Hematocrit 27.0 L Mean Corpuscular 79.6 L Volume Mean Corpuscular 22.4 L Hemoglobin Mean Corpuscular 28.1 L Hemoglobin Concent Red Cell 19.9 H Distribution Width Platelet Count 332 Mean Platelet Volume 11.7 H Immature 1.300 H Granulocytes % Neutrophils % 76.5 Lymphocytes % 8.1 L Monocytes % 5.8 Eosinophils % 7.9 H Basophils % 0.4 Nucleated Red Blood 0.0 Cells % Immature 0.180 H Granulocytes # Neutrophils # 10.7 H Lymphocytes # 1.1 Monocytes # 0.8 Eosinophils # 1.1 H Basophils # 0.1 Nucleated Red Blood 0.0 Cells # Absolute 0.109 Reticulocyte Count Percent Reticulocyte 3.2 H Count Sodium Level 142 Potassium Level 3.8 Chloride Level 107 Carbon Dioxide Level 26 Anion Gap 9 Blood Urea Nitrogen 27 H Creatinine 0.98 Est Glomerular Filtrat Rate mL/min Glucose Level 98 Calcium Level 8.4 Iron Level 21 L Total Iron Binding 299 Capacity Percent Iron 7 L Saturation Ferritin 50.8 Lactate 672 H Dehydrogenase Vitamin B12 Level 326 Thyroid Stimulating 5.900 H Hormone (TSH) Medications Medication Current Medications Sodium Chloride 1,000 ml @ 100 mls/hr Q10H IV Last administered on 11/11/18at 02:59; Admin Dose 100 MLS/HR; Start 11/09/18 at 22:00 Morphine Sulfate (morphine) 2 mg Q4H PRN IV SEVERE PAIN LEVEL 7-10 Last administered on 11/11/18at 04:08; Admin Dose 2 MG; Start 11/09/18 at 22:00 Ondansetron HCl (Zofran Inj) 4 mg Q6H PRN IV NAUSEA AND/OR VOMITING; Start 11/09/18 at 22:00 Miscellaneous Information (Pending Santyl Order For Wound Care) This patient garcia... PRN PRN XX WOUND CARE; Start 11/09/18 at 22:30 Diagnostic Test (Pha) (Accu-Chek) 1 ea 02 XX ; Start 11/10/18 at 02:00 Miscellaneous Information 1 ea NOTE XX ; Start 11/10/18 at 02:00 Glucose (Glutose) 15 gm Q15M PRN PO DECREASED GLUCOSE; Start 11/10/18 at 02:00 Glucose (Glutose) 22.5 gm Q15M PRN PO DECREASED GLUCOSE; Start 11/10/18 at 02:00 Dextrose (D50w Syringe) 25 ml Q15M PRN IV DECREASED GLUCOSE; Start 11/10/18 at 02:00 Dextrose (D50w Syringe) 50 ml Q15M PRN IV DECREASED GLUCOSE; Start 11/10/18 at 02:00 Glucagon (Glucagen) 1 mg Q15M PRN IM DECREASED GLUCOSE; Start 11/10/18 at 02:00 Glucose (Glutose) 15 gm Q15M PRN BUCCAL DECREASED GLUCOSE; Start 11/10/18 at 02:00 Insulin Aspart (Novolog Insulin Pen) NOVOLOG *MILD* ALGORI... Q4 SC ; Start 11/10/18 at 09:00 Fluconazole/ Sodium Chloride 50 ml @ 50 mls/hr Q24H IVPB Last administered on 11/10/18at 14:37; Admin Dose 50 MLS/HR; Start 11/10/18 at 13:00 Vancomycin HCl (Vanco Iv Per Pharmacy) VANCOMYCIN PER PHARMACY PER PROTOCOL XX ; Start 11/10/18 at 13:00 Piperacillin Sod/ Tazobactam Sod 100 ml @ 200 mls/hr Q8 IVPB Last administered on 11/11/18at 06:02; Admin Dose 200 MLS/HR; Start 11/10/18 at 14:00 Vancomycin HCl 250 ml @ 125 mls/hr Q12H IVPB Last administered on 11/11/18at 03:06; Admin Dose 125 MLS/HR; Start 11/11/18 at 03:00 Ferric Sodium Gluconate Complex 125 mg/Sodium Chloride 110 ml @ 110 mls/hr PURA LY@1300 IVPB ; Start 11/11/18 at 13:00; Stop 11/15/18 at 13:59 Pantoprazole 80 mg/Sodium Chloride 100 ml @ 10 mls/hr Q10H IV Last administered on 11/11/18at 03:04; Admin Dose 10 MLS/HR; Start 11/10/18 at 17:30 IRENE RANDLE M.D. Nov 11, 2018 10:29
--- NOTE | 2018-11-11 12:33 | PN ---
Date/Time of Note Date/Time of Note DATE: 11/11/18 TIME: 12:32 Assessment/Plan VTE Prophylaxis Risk score (from [facility] [place])>0 risk: 9 SCD applied (from [facility]): No SCD contraindicated: other Pharmacological prophylaxis: LMWH Lines/Catheters IV Catheter Type (from [facility] [place]): Peripheral IV Urinary Cath still in place: Yes Reason Cath still needed: skin wounds contaminated by urine Assessment/Plan Hospital Course - Possible SEPSIS- CBC pending - ID consult- Dr Enriquez notified - Lactc acid pending - FU CULTURES - Abdominal distention - GI consult - Dr Wolf notified - Right pulmonary effusion -Dr. Gomez notified in pulmonology consultation. - per pulmonary -Ventilator dependent respiratory failure. - Dr. Gomez notified in pulmonology consultation. 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 Result Diagram: 11/11/18 0632 11/11/18 0632 Results 24hrs Laboratory Tests Test 11/10/18 13:20 11/10/18 17:14 11/10/18 21:58 11/11/18 01:13 Bedside Glucose 107 108 99 94 Test 11/11/18 04:40 11/11/18 06:32 11/11/18 09:47 11/11/18 11:12 Bedside Glucose 110 104 White Blood Count 14.0 H Red Blood Count 3.39 L Hemoglobin 7.6 L Hematocrit 27.0 L Mean Corpuscular 79.6 L Volume Mean Corpuscular 22.4 L Hemoglobin Mean Corpuscular 28.1 L Hemoglobin Concent Red Cell 19.9 H Distribution Width Platelet Count 332 Mean Platelet Volume 11.7 H Immature 1.300 H Granulocytes % Neutrophils % 76.5 Lymphocytes % 8.1 L Monocytes % 5.8 Eosinophils % 7.9 H Basophils % 0.4 Nucleated Red Blood 0.0 Cells % Immature 0.180 H Granulocytes # Neutrophils # 10.7 H Lymphocytes # 1.1 Monocytes # 0.8 Eosinophils # 1.1 H Basophils # 0.1 Nucleated Red Blood 0.0 Cells # Absolute 0.109 Reticulocyte Count Percent Reticulocyte 3.2 H Count Sodium Level 142 Potassium Level 3.8 Chloride Level 107 Carbon Dioxide Level 26 Anion Gap 9 Blood Urea Nitrogen 27 H Creatinine 0.98 Est Glomerular Filtrat Rate mL/min Glucose Level 98 Calcium Level 8.4 Iron Level 21 L Total Iron Binding 299 Capacity Percent Iron 7 L Saturation Ferritin 50.8 Lactate 672 H Dehydrogenase Vitamin B12 Level 326 Thyroid Stimulating 5.900 H Hormone (TSH) Prothrombin Time 14.4 Prothrombin Time 1.1 Ratio INR International 1.11 Normalized Ratio Activated 24.4 Partial Thromboplast Time Test 11/11/18 12:17 Bedside Glucose 94 Subjective 24 Hr Interval Summary Free Text/Dictation Patient appears comfortable, on vent via trach, eyes open Exam/Review of Systems Exam Vitals Vital Signs Date Temp Pulse Resp B/P (MAP) Pulse Ox O2 O2 Flow FiO2 Time Delivery Rate 11/11/18 98.6 68 16 114/51 100 11:32 (72) 11/11/18 30 11:22 11/10/18 Mechanical 15:36 Ventilator Intake and Output 11/10/18 11/10/18 11/11/18 1515:00 23:00 07:00 IntakeIntake Total 1150 ml 1100 ml OutputOutput Total 900 ml 750 ml BalanceBalance 250 ml 350 ml Constitutional: well developed Head: normocephalic, atraumatic Neck: supple Respiratory: diminished breath sounds Cardiovascular: regular rate and rhythm Gastrointestinal: soft, non-tender Extremities: normal pulses Results Results 24hrs Laboratory Tests Test 11/10/18 13:20 11/10/18 17:14 11/10/18 21:58 11/11/18 01:13 Bedside Glucose 107 108 99 94 Test 11/11/18 04:40 11/11/18 06:32 11/11/18 09:47 11/11/18 11:12 Bedside Glucose 110 104 White Blood Count 14.0 H Red Blood Count 3.39 L Hemoglobin 7.6 L Hematocrit 27.0 L Mean Corpuscular 79.6 L Volume Mean Corpuscular 22.4 L Hemoglobin Mean Corpuscular 28.1 L Hemoglobin Concent Red Cell 19.9 H Distribution Width Platelet Count 332 Mean Platelet Volume 11.7 H Immature 1.300 H Granulocytes % Neutrophils % 76.5 Lymphocytes % 8.1 L Monocytes % 5.8 Eosinophils % 7.9 H Basophils % 0.4 Nucleated Red Blood 0.0 Cells % Immature 0.180 H Granulocytes # Neutrophils # 10.7 H Lymphocytes # 1.1 Monocytes # 0.8 Eosinophils # 1.1 H Basophils # 0.1 Nucleated Red Blood 0.0 Cells # Absolute 0.109 Reticulocyte Count Percent Reticulocyte 3.2 H Count Sodium Level 142 Potassium Level 3.8 Chloride Level 107 Carbon Dioxide Level 26 Anion Gap 9 Blood Urea Nitrogen 27 H Creatinine 0.98 Est Glomerular Filtrat Rate mL/min Glucose Level 98 Calcium Level 8.4 Iron Level 21 L Total Iron Binding 299 Capacity Percent Iron 7 L Saturation Ferritin 50.8 Lactate 672 H Dehydrogenase Vitamin B12 Level 326 Thyroid Stimulating 5.900 H Hormone (TSH) Prothrombin Time 14.4 Prothrombin Time 1.1 Ratio INR International 1.11 Normalized Ratio Activated 24.4 Partial Thromboplast Time Test 11/11/18 12:17 Bedside Glucose 94 Medications Medication Current Medications Sodium Chloride 1,000 ml @ 100 mls/hr Q10H IV Last administered on 11/11/18at 02:59; Admin Dose 100 MLS/HR; Start 11/09/18 at 22:00 Morphine Sulfate (morphine) 2 mg Q4H PRN IV SEVERE PAIN LEVEL 7-10 Last administered on 11/11/18at 04:08; Admin Dose 2 MG; Start 11/09/18 at 22:00 Ondansetron HCl (Zofran Inj) 4 mg Q6H PRN IV NAUSEA AND/OR VOMITING; Start 11/09/18 at 22:00 Miscellaneous Information (Pending [facility] Order For Wound Care) This patient garcia... PRN PRN XX WOUND CARE; Start 11/09/18 at 22:30 Diagnostic Test (Pha) (Accu-Chek) 1 ea 02 XX ; Start 11/10/18 at 02:00 Miscellaneous Information 1 ea NOTE XX ; Start 11/10/18 at 02:00 Glucose (Glutose) 15 gm Q15M PRN PO DECREASED GLUCOSE; Start 11/10/18 at 02:00 Glucose (Glutose) 22.5 gm Q15M PRN PO DECREASED GLUCOSE; Start 11/10/18 at 02:00 Dextrose (D50w Syringe) 25 ml Q15M PRN IV DECREASED GLUCOSE; Start 11/10/18 at 02:00 Dextrose (D50w Syringe) 50 ml Q15M PRN IV DECREASED GLUCOSE; Start 11/10/18 at 02:00 Glucagon (Glucagen) 1 mg Q15M PRN IM DECREASED GLUCOSE; Start 11/10/18 at 02:00 Glucose (Glutose) 15 gm Q15M PRN BUCCAL DECREASED GLUCOSE; Start 11/10/18 at 02:00 Insulin Aspart (Novolog Insulin Pen) NOVOLOG *MILD* ALGORI... Q4 SC ; Start 11/10/18 at 09:00 Fluconazole/ Sodium Chloride 50 ml @ 50 mls/hr Q24H IVPB Last administered on 11/10/18at 14:37; Admin Dose 50 MLS/HR; Start 11/10/18 at 13:00 Vancomycin HCl (Vanco Iv Per Pharmacy) VANCOMYCIN PER PHARMACY PER PROTOCOL XX ; Start 11/10/18 at 13:00 Piperacillin Sod/ Tazobactam Sod 100 ml @ 200 mls/hr Q8 IVPB Last administered on 11/11/18at 06:02; Admin Dose 200 MLS/HR; Start 11/10/18 at 14:00 Vancomycin HCl 250 ml @ 125 mls/hr Q12H IVPB Last administered on 11/11/18at 03:06; Admin Dose 125 MLS/HR; Start 11/11/18 at 03:00 Ferric Sodium Gluconate Complex 125 mg/Sodium Chloride 110 ml @ 110 mls/hr DAILY@1300 IVPB ; Start 11/11/18 at 13:00; Stop 11/15/18 at 13:59 Pantoprazole 80 mg/Sodium Chloride 100 ml @ 10 mls/hr Q10H IV Last administered on 11/11/18at 03:04; Admin Dose 10 MLS/HR; Start 11/10/18 at 17:30 PATTI JIANG Nov 11, 2018 12:33
--- NOTE | 2018-11-11 13:03 | CONS ---
Assessment/Plan Assessment/Plan Hospital Course (Demo Recall) No acute changes patient is noncommunicative in no distress afebrile. WBC 14 platelets 332 neutrophils 76.5 BUN 27 creatinine 0.98 Microbiology: Blood cultures remain negative urine culture grew Destini species, not albicans Indwelling: Trach PEG NGT suprapubic catheter Diagnostics: CT abdomen and pelvis on admission revealed large extraperitoneal fluid collections anasarca cholelithiasis bilateral nonobstructing renal stones diverticulosis of the descending and sigmoid colon bilateral pleural effusions, right greater than left with significant atelectasis/consolidation involving the left right lower lobes. Please see full report in the chart. Chest x-ray on admission revealed new right perihilar and right lower lobe extensive infiltrates and moderate right pleural effusion. Chest x-ray this morning revealed no significant change Antimicrobials: Vancomycin, fluconazole, Zosyn Physical examination: Chronically ill-appearing well-developed obese elderly man who is awake in no distress. Head atraumatic normocephalic neck is supple tracheostomy present chest rise symmetrical breath sounds diminished bases. Heart: S1-S2. Abdomen soft bowel sounds present extremities without cyanosis Assessment: 1. Sepsis, present on admission 2. Healthcare associated pneumonia 3. Urinary tract infection 4. Ascites, possible SBP 5. Non-ST elevation CA 6. Chronic respiratory failure and dysphagia 7. Acute on chronic anemia 8. Encephalopathy, likely chronic Plan: Remains unchanged, will change fluconazole to Cancidas, continue other antibiotics, pending consent for paracentesis Discussed with RN Consultation Date/Type/Reason Admit Date/Time Nov 09, 2018 at 14:44 Initial Consult Date Type of Consult id Requesting Provider: RACHELLE RAMOS MD Date/Time of Note DATE: 11/11/18 TIME: 13:02 Exam/Review of Systems Exam Vitals Vital Signs Date Temp Pulse Resp B/P (MAP) Pulse Ox O2 O2 Flow FiO2 Time Delivery Rate 11/11/18 61 12:01 11/11/18 98.6 16 114/51 100 11:32 (72) 11/11/18 30 11:22 11/10/18 Mechanical 15:36 Ventilator Intake and Output 11/10/18 11/10/18 11/11/18 1515:00 23:00 07:00 IntakeIntake Total 1150 ml 1100 ml OutputOutput Total 900 ml 750 ml BalanceBalance 250 ml 350 ml Results Result Diagram: 11/11/18 0632 11/11/18 0632 Results 24hrs Laboratory Tests Test 11/10/18 13:20 11/10/18 17:14 11/10/18 21:58 11/11/18 01:13 Bedside Glucose 107 108 99 94 Test 11/11/18 04:40 11/11/18 06:32 11/11/18 09:47 11/11/18 11:12 Bedside Glucose 110 104 White Blood Count 14.0 H Red Blood Count 3.39 L Hemoglobin 7.6 L Hematocrit 27.0 L Mean Corpuscular 79.6 L Volume Mean Corpuscular 22.4 L Hemoglobin Mean Corpuscular 28.1 L Hemoglobin Concent Red Cell 19.9 H Distribution Width Platelet Count 332 Mean Platelet Volume 11.7 H Immature 1.300 H Granulocytes % Neutrophils % 76.5 Lymphocytes % 8.1 L Monocytes % 5.8 Eosinophils % 7.9 H Basophils % 0.4 Nucleated Red Blood 0.0 Cells % Immature 0.180 H Granulocytes # Neutrophils # 10.7 H Lymphocytes # 1.1 Monocytes # 0.8 Eosinophils # 1.1 H Basophils # 0.1 Nucleated Red Blood 0.0 Cells # Absolute 0.109 Reticulocyte Count Percent Reticulocyte 3.2 H Count Sodium Level 142 Potassium Level 3.8 Chloride Level 107 Carbon Dioxide Level 26 Anion Gap 9 Blood Urea Nitrogen 27 H Creatinine 0.98 Est Glomerular Filtrat Rate mL/min Glucose Level 98 Calcium Level 8.4 Iron Level 21 L Total Iron Binding 299 Capacity Percent Iron 7 L Saturation Ferritin 50.8 Lactate 672 H Dehydrogenase Vitamin B12 Level 326 Thyroid Stimulating 5.900 H Hormone (TSH) Prothrombin Time 14.4 Prothrombin Time 1.1 Ratio INR International 1.11 Normalized Ratio Activated 24.4 Partial Thromboplast Time Test 11/11/18 12:17 Bedside Glucose 94 Medications Medication Current Medications Sodium Chloride 1,000 ml @ 100 mls/hr Q10H IV Last administered on 11/11/18at 02:59; Admin Dose 100 MLS/HR; Start 11/09/18 at 22:00 Morphine Sulfate (morphine) 2 mg Q4H PRN IV SEVERE PAIN LEVEL 7-10 Last administered on 11/11/18at 04:08; Admin Dose 2 MG; Start 11/09/18 at 22:00 Ondansetron HCl (Zofran Inj) 4 mg Q6H PRN IV NAUSEA AND/OR VOMITING; Start 11/09/18 at 22:00 Miscellaneous Information (Pending Santyl Order For Wound Care) This patient garcia... PRN PRN XX WOUND CARE; Start 11/09/18 at 22:30 Diagnostic Test (Pha) (Accu-Chek) 1 ea 02 XX ; Start 11/10/18 at 02:00 Miscellaneous Information 1 ea NOTE XX ; Start 11/10/18 at 02:00 Glucose (Glutose) 15 gm Q15M PRN PO DECREASED GLUCOSE; Start 11/10/18 at 02:00 Glucose (Glutose) 22.5 gm Q15M PRN PO DECREASED GLUCOSE; Start 11/10/18 at 02:00 Dextrose (D50w Syringe) 25 ml Q15M PRN IV DECREASED GLUCOSE; Start 11/10/18 at 02:00 Dextrose (D50w Syringe) 50 ml Q15M PRN IV DECREASED GLUCOSE; Start 11/10/18 at 02:00 Glucagon (Glucagen) 1 mg Q15M PRN IM DECREASED GLUCOSE; Start 11/10/18 at 02:00 Glucose (Glutose) 15 gm Q15M PRN BUCCAL DECREASED GLUCOSE; Start 11/10/18 at 02:00 Insulin Aspart (Novolog Insulin Pen) NOVOLOG *MILD* ALGORI... Q4 SC ; Start 11/10/18 at 09:00 Fluconazole/ Sodium Chloride 50 ml @ 50 mls/hr Q24H IVPB Last administered on 11/10/18at 14:37; Admin Dose 50 MLS/HR; Start 11/10/18 at 13:00 Vancomycin HCl (Vanco Iv Per Pharmacy) VANCOMYCIN PER PHARMACY PER PROTOCOL XX ; Start 11/10/18 at 13:00 Piperacillin Sod/ Tazobactam Sod 100 ml @ 200 mls/hr Q8 IVPB Last administered on 11/11/18at 06:02; Admin Dose 200 MLS/HR; Start 11/10/18 at 14:00 Vancomycin HCl 250 ml @ 125 mls/hr Q12H IVPB Last administered on 11/11/18at 03:06; Admin Dose 125 MLS/HR; Start 11/11/18 at 03:00 Ferric Sodium Gluconate Complex 125 mg/Sodium Chloride 110 ml @ 110 mls/hr DAILY@1300 IVPB ; Start 11/11/18 at 13:00; Stop 11/15/18 at 13:59 Pantoprazole 80 mg/Sodium Chloride 100 ml @ 10 mls/hr Q10H IV Last administered on 11/11/18at 03:04; Admin Dose 10 MLS/HR; Start 11/10/18 at 17:30 Miscellaneous Information (*Rx Drug Level Order Reminder*) VANCO TROUGH ON 10/23... 0200 ONCE XX ; Start 11/12/18 at 02:00; Stop 11/12/18 at 02:01 SUSANNE LANIER NP Nov 11, 2018 13:03
[2018-11-11] MEDS: SOD FERRIC GLUC COMPLX 125 MG in SOD CHLORIDE 0.9% 100 ML IVPB SCH (14:20)
[2018-11-11] MEDS ORDERED: CASPOFUNGIN 70 MG in SOD CHLORIDE 0.9% 250 ML IVPB ONE (15:00)
[2018-11-11] MEDS ORDERED: SOD CHLORIDE 0.9% 250 ML IV* ONE (15:50)
[2018-11-12] VITALS (29 sets, daily range): BP systolic 97–160; BP diastolic 46–90; PULSE 49–87; RESP 16–20
[2018-11-12] MEDS: INSULIN ASPART [NOVOLOG] 3 ML PEN SC SCH ×5 (01:00→17:49)
[2018-11-12] MEDS: ACCU-CHEK XX SCH (01:04)
[2018-11-12] MEDS: VANCOMYCIN 1 GM 250 ML IVPB SCH ×2 (03:00→12:33)
[2018-11-12] MEDS: PANTOPRAZOLE IV 80 MG in SOD CHLORIDE 0.9% 100 ML IV SCH (03:00)
[2018-11-12] MEDS: PIPER-TAZO 3.375 GM IV (PMX) 100 ML IVPB SCH ×3 (05:36→21:04)
--- NOTE | 2018-11-12 07:04 | CONS ---
DATE OF ADMISSION: 11/09/2018 DATE OF CONSULTATION: 11/11/2018 SUBJECTIVE: The patient is still unresponsive. He is intubated. He has got a nasogastric tube whic h is draining coffee-ground material. He is admitted with abdominal distention. NG tube showed coff ee-ground material. PHYSICAL EXAMINATION: VITAL SIGNS: Now, his temperature is 98.6, blood pressure 114/51, pulse is 61. CARDIOVASCULAR: Normal heart sounds. RESPIRATORY: Normal breath sounds. RESPIRATORY: Normal breath sounds. ABDOMEN: Ascites. LABORATORY WORKUP: Hemoglobin is 7.6. It was 6.9 yesterday. Platelet count 332,000. Coagulation p rothrombin time 14.4, INR is 1.1. CLINICAL IMPRESSION: The patient has: 1. Upper gastrointestinal bleeding. 2. Rule out esophageal varices, peptic ulcer disease, gastritis, arteriovenous malformation, et cete ra. 3. He got ascites, etiology not known. PLAN: 1. I recommend EGD. The patient is unable to sign the consent and because it is emergency, endoscop y needs to be performed on the medical necessity. 2. Continue Protonix. 3. I recommend paracentesis. Dictated By: ANNE BILLINGS/NTS Conf#: [id number] DID#: [id number] CC: RACHELLE RAMOS MD;*EndCC*
--- NOTE | 2018-11-12 07:06 | CONS ---
DATE OF ADMISSION: 11/09/2018 DATE OF CONSULTATION: 11/10/2018 TYPE OF CONSULTATION: Cardiology. REFERRING PHYSICIAN: Rachelle Ramos MD REASON FOR EVALUATION: Elevated troponins. HISTORY OF PRESENT ILLNESS: Mr. Morgan is an 83-year-old gentleman with history of hypertension, dyslipidemia, history of coronary artery disease, history of ventilator dependent respiratory failure who comes to the hospital now for evaluation of sepsis. I have been asked to see patient in consult ation because of elevated troponins. The patient appears to be hemodynamically stable at this [facility] ular point. His was in first-degree AV block with some nonspecific ST-T changes and was notified alex t his troponin is elevated. It appears that his troponin currently is 0.215 and that is only troponi n available and I ordered another troponin. Currently, the patient had decrease in hemoglobin from 8 .9 on admission to 6.9. I think it would be very reasonable for the patient to have a blood transfus ion. I was informed that the blood transfusion was requested and we are waiting and hopefully he carlos l be transfused from a cardiac standpoint we are going to troponin. Will hold off on anticoagu lation, given decreased hemoglobin. The patient is recently bradycardic and I do not think he is goi ng to tolerate a beta dang at the moment. As such, I think that therapy is expected. We ar e going to rule him out for acute ischemia and continue to monitor him. His blood transfusion will b e given. PAST MEDICAL HISTORY: 1. Hypertension. 2. Dyslipidemia. 3. Coronary artery disease. 4. History of ventilator dependent respiratory failure. 5. History of anemia. 6. History of encephalopathy. ALLERGIES: No known drug allergies. SOCIAL HISTORY: The patient does not smoke, does not drink, does not use drugs. FAMILY HISTORY: Negative for sudden cardiac or premature coronary artery disease. MEDICATIONS: The patient is on: 1. Vancomycin. 2. Zosyn. 3. Fluconazole. 4. Insulin on a sliding scale. 5. Glucose replacement. 6. Morphine. Right now he is not on any AV juni agents. REVIEW OF SYSTEMS: He is not able to provide. According to the nurse there has been: CONSTITUTIONAL: No fevers, no chills, no obvious bleeding noted. HEENT: No changes in vision or hearing. CARDIAC: Comfortable at rest on ventilator. GASTROINTESTINAL: No nausea, vomiting. . NEUROLOGIC: Prior history of CVA. PHYSICAL EXAMINATION: VITAL SIGNS: Temperature 98.7, heart rate 56, blood pressure 132/62. GENERAL: He is a well-nourished gentleman in no acute distress, alert and oriented , not aware of his condition. NEUROLOGICAL: Has an NG tube which might have some bloody discharge in it, he is on a ventilator. HEART: Regular, soft holosystolic murmur. PMI . LUNGS: Coarse at the base. ABDOMEN: Distended, bowel sounds are present. There is no hepatosplenomegaly. HEENT: Intact. EXTREMITIES: Show no clubbing, cyanosis. Trace edema. ECG read by me shows nonspecific changes. LABORATORY DATA: White blood cell count 12.2, hemoglobin is 6.9, platelets 302. INR is 1.1. Sodium is 139. Troponin is 0.2. ASSESSMENT AND PLAN: 1. Elevated blood pressure troponin. This is in the setting of significant anemia. Patient is fairly debilitated. He is hemodynamically stable. There is no indication for acute intervention at this particular point. I cannot anticoagulate the patient as he is with significant decrease in h emoglobin now. For now, conservative therapy is expected. We will track troponins. Will get anothe r set now. 2. Hypertension. Blood pressure well optimized now. Continue to monitor. first-degree block . Patient on AV juni agents. We will monitor clinically if blood pressure remains stable. 3. Respiratory failure. Continue optimization. He is on the ventilator, settings have been fairly well maintained with 100% O2 saturation. 4. Infection. Continue patient antibiotics. I would like to thank Dr. Ramos for referring this patient for my evaluation. Dictated By: VEGA WISE MD ML/NTS Conf#: [id number] DID#: [id number] CC: RACHELLE RAMOS MD;*EndCC*
[2018-11-12] MEDS: SOD CHLORIDE 0.9% 1,000 ML IV SCH ×3 (10:03→21:04)
[2018-11-12] MEDS ORDERED: ACETAMINOPHEN 500 MG TAB PO PRN (10:30)
[2018-11-12] MEDS ORDERED: morphine (1 MG/ML) 10ML SYRINGE IV PRN (10:30)
[2018-11-12] MEDS ORDERED: hydrALAzine 20 MG INJ IV PRN (10:30)
[2018-11-12] MEDS ORDERED: DIPHENHYDRAMINE 50 MG INJ IV PRN (10:30)
[2018-11-12] MEDS ORDERED: ALBUTEROL 0.083% (NEB) 2.5 MG/3 ML AMP HHN PRN (10:30)
[2018-11-12] MEDS ORDERED: ONDANSETRON 4 MG INJ IV PRN ×2 (10:30→12:30)
[2018-11-12] MEDS ORDERED: LABETALOL HCL 20MG INJ IV PRN (10:30)
[2018-11-12] MEDS ORDERED: HYDROmorphONE 1 MG/5 ML IV SYRINGE IV PRN ×3 (10:30→12:30)
[2018-11-12] MEDS ORDERED: FENTAnyl 50 MCG/ML VIAL IV PRN (10:30)
--- NOTE | 2018-11-12 11:41 | CONS ---
Assessment/Plan Assessment/Plan Hospital Course (Demo Recall) #Anemia -Hg up to 7.6 after IV iron started. pt did receive 1 unit of PRBCs yesterday -pt does have iron deficiency evidenced by low iron sat of 7% -vitamin b12 level wnl - LDH only mildly elevated making hemolysis unlikely. haptoglobin pending -TSH wnl -cannot transfuse given inability to obtain consent #presumed SEPSIS -2/2 PNA -continue antibiotics per ID # Abdominal distention -GI recommends paracentesis which we cannot perform due to inability to consent pt #NSTEMI -likey 2/2 demand ischemi -cards following Consultation Date/Type/Reason Admit Date/Time Nov 09, 2018 at 14:44 Initial Consult Date 11/10/18 Type of Consult hematology Reason for Consultation anemia Requesting Provider: RACHELLE RAMOS MD Date/Time of Note DATE: 11/12/18 TIME: 11:37 24 HR Interval Summary Free Text/Dictation pt received 1 unit of PRBCs yesterday Exam/Review of Systems Exam Vitals Vital Signs Date Temp Pulse Resp B/P (MAP) Pulse Ox O2 O2 Flow FiO2 Time Delivery Rate 11/12/18 30 10:26 11/12/18 52 08:01 11/12/18 98.0 20 118/69 100 07:44 (85) 11/10/18 Mechanical 15:36 Ventilator Intake and Output 11/11/18 11/11/18 11/12/18 1515:00 23:00 07:00 IntakeIntake Total 600 ml 1300 ml OutputOutput Total 1350 ml 800 ml BalanceBalance -750 ml 500 ml Constitutional: non-verbal Psych: no complaints, confusion Head: normocephalic Eyes: nl conjunctiva ENMT: nl external ears & nose Neck: supple Respiratory: clear to auscultation Cardiovascular: regular rate and rhythm Gastrointestinal: soft Musculoskeletal: nl extremities to inspection Extremities: normal pulses Results Result Diagram: 11/11/18 0632 11/11/18 0632 Results 24hrs Laboratory Tests Test 11/11/18 12:17 11/11/18 17:16 11/11/18 22:07 11/12/18 01:03 Bedside Glucose 94 90 84 93 Test 11/12/18 05:42 11/12/18 07:02 11/12/18 09:13 Bedside Glucose 82 75 Lab Scanned BLOOD TRANSFUSIO Report N Medications Medication Current Medications Sodium Chloride 1,000 ml @ 100 mls/hr Q10H IV Last administered on 11/12/18at 10:03; Admin Dose 100 MLS/HR; Start 11/09/18 at 22:00 Morphine Sulfate (morphine) 2 mg Q4H PRN IV SEVERE PAIN LEVEL 7-10 Last administered on 11/11/18at 04:08; Admin Dose 2 MG; Start 11/09/18 at 22:00 Ondansetron HCl (Zofran Inj) 4 mg Q6H PRN IV NAUSEA AND/OR VOMITING; Start 11/09/18 at 22:00 Miscellaneous Information (Pending Santyl Order For Wound Care) This patient garcia... PRN PRN XX WOUND CARE; Start 11/09/18 at 22:30 Diagnostic Test (Pha) (Accu-Chek) 1 ea 02 XX ; Start 11/10/18 at 02:00 Miscellaneous Information 1 ea NOTE XX ; Start 11/10/18 at 02:00 Glucose (Glutose) 15 gm Q15M PRN PO DECREASED GLUCOSE; Start 11/10/18 at 02:00 Glucose (Glutose) 22.5 gm Q15M PRN PO DECREASED GLUCOSE; Start 11/10/18 at 02:00 Dextrose (D50w Syringe) 25 ml Q15M PRN IV DECREASED GLUCOSE; Start 11/10/18 at 02:00 Dextrose (D50w Syringe) 50 ml Q15M PRN IV DECREASED GLUCOSE; Start 11/10/18 at 02:00 Glucagon (Glucagen) 1 mg Q15M PRN IM DECREASED GLUCOSE; Start 11/10/18 at 02:00 Glucose (Glutose) 15 gm Q15M PRN BUCCAL DECREASED GLUCOSE; Start 11/10/18 at 02:00 Insulin Aspart (Novolog Insulin Pen) NOVOLOG *MILD* ALGORI... Q4 SC ; Start 11/10/18 at 09:00 Vancomycin HCl (Vanco Iv Per Pharmacy) VANCOMYCIN PER PHARMACY PER PROTOCOL XX ; Start 11/10/18 at 13:00 Piperacillin Sod/ Tazobactam Sod 100 ml @ 200 mls/hr Q8 IVPB Last administered on 11/12/18at 05:36; Admin Dose 200 MLS/HR; Start 11/10/18 at 14:00 Vancomycin HCl 250 ml @ 125 mls/hr Q12H IVPB Last administered on 11/11/18at 23:01; Admin Dose 125 MLS/HR; Start 11/11/18 at 03:00 Ferric Sodium Gluconate Complex 125 mg/Sodium Chloride 110 ml @ 110 mls/hr DAILY@1300 IVPB Last administered on 11/11/18at 14:20; Admin Dose 110 MLS/HR; Start 11/11/18 at 13:00; Stop 11/15/18 at 13:59 Pantoprazole 80 mg/Sodium Chloride 100 ml @ 10 mls/hr Q10H IV Last administered on 11/12/18at 03:00; Admin Dose 10 MLS/HR; Start 11/10/18 at 17:30 Caspofungin 50 mg/ Sodium Chloride 250 ml @ 250 mls/hr Q24H IVPB ; Start 11/12/18 at 15:00 Morphine Sulfate (morphine (REC)) 2 mg PACU ORDER PRN IV MILD PAIN 1-3; Start 11/12/18 at 10:30; Stop 11/12/18 at 15:00 Hydromorphone HCl (Dilaudid) 0.2 mg PACU PRN IV MILD PAIN 1-3; Start 11/12/18 at 10:30; Stop 11/12/18 at 15:00 Fentanyl (Sublimaze) 25 mcg PACU ORDER PRN IV MILD PAIN 1-3; Start 11/12/18 at 10:30; Stop 11/12/18 at 15:00 Ondansetron HCl (Zofran Inj) 4 mg PACU ORDER PRN IV NAUSEA/VOMITING; Start 11/12/18 at 10:30; Stop 11/12/18 at 15:00 Labetalol HCl (Labetalol) 5 mg PACU ORDER PRN IV HIGH BLOOD PRESSURE; Start 11/12/18 at 10:30; Stop 11/12/18 at 15:00 Hydralazine HCl (Apresoline) 5 mg PACU ORDER PRN IV HIGH BLOOD PRESSURE; Start 11/12/18 at 10:30; Stop 11/12/18 at 15:00 Albuterol (Proventil 0.083% (Neb)) 2.5 mg PACU ORDER PRN HHN .WHEEZING; Start 11/12/18 at 10:30; Stop 11/12/18 at 15:00 Diphenhydramine HCl (Benadryl) 25 mg PACU ORDER PRN IV .PRURITUS; Start 11/12/18 at 10:30; Stop 11/12/18 at 15:00 Acetaminophen (Tylenol Tab) 1,000 mg ONCE PRN PO pain; Start 11/12/18 at 10:30; Stop 11/12/18 at 16:00 IRENE RANDLE M.D. Nov 12, 2018 11:41
--- NOTE | 2018-11-12 11:42 | PREAC ---
Date/Time of Note Date/Time of Note DATE: 11/12/18 TIME: 11:40 Anesthesia Eval and Record Evaluation Time Pre-Procedure Interview DATE: 11/12/18 TIME: 11:40 Age 83 Sex male NPO: 8 hrs Preoperative diagnosis upper GI bleed Planned procedure EGD Past Medical History Past Medical History: Includes Cardio: HTN Endo: Diabetes Pulm: Other (respiratory failure and vent dependent; pleural effusion) Neuro: CVA (chronic encephalopathy) GI: Other (dysphagia) Heme: Anemia Surgery & Anesthesia Issues No known issue Meds Anticoagulation: No Beta Mekhi within 24 hr: No Reason Beta Mekhi not given: Pt. not on B-Mekhi Reported Medications Multivitamin with Minerals (Multivitamins with Minerals) 1 Each Tablet, 1 EACH GTB DAILY, TAB 11/02/17 Heparin Sodium,Porcine/Pf (HEPARIN SOD 5,000 UNIT/ 0.5 ML) 5,000 Unit/0.5 Ml Vial, 5000 UNIT IJ Q12H, VIAL 11/02/17 Amlodipine Besylate* (Amlodipine Besylate*) 10 Mg Tablet, 10 MG GTB DAILY, #30 TAB HOLD IF SBP<110 11/02/17 Sennosides* (Senna Lax*) 8.6 Mg Tablet, 1 TAB GTB BID, TAB 11/02/17 Famotidine* (Famotidine*) 20 Mg Tablet, 20 MG GTB DAILY, #30 TAB 11/02/17 Hydralazine Hcl* (Hydralazine Hcl*) 25 Mg Tab, 25 MG GTB Q6H PRN for FOR SBP>160, #60 TAB 11/02/17 Bisacodyl* (Bisacodyl*) 10 Mg Supp, 10 MG ID Q24H for CONSTIPATION, SUPP 11/02/17 Docusate Sodium* (Docusate Sodium*) 100 Mg Capsule, 100 MG GTB DAILY, #30 CAP 11/02/17 Cranberry Fruit (CRANBERRY) 450 Mg Tablet, 450 MG GTB DAILY, TAB 11/02/17 Artificial Tears* (Akwa Oint*) 3.5 Gm Oint, 1 APPLIC BOTH EYES Q12H, #1 TUB 11/02/17 Magnesium Hydroxide* (Milk Of Magnesia*) 400 Mg/5 Ml Oral.susp, 30 ML GTB DAILY, ML 11/02/17 Doxazosin Mesylate* (Doxazosin Mesylate*) 4 Mg Tablet, 4 MG GTB HS, TAB 11/02/17 Vit C-Ascorbate Ca-Ascorb Sod (Vitamin C) 500 Mg/15 Ml Liquid, 5 ML GTB BID, ML 11/02/17 Ferrous Sulfate* (Ferrous Sulfate*) 220 Mg/5 Ml Solution, 7.5 ML GTB BID, ML 11/02/17 Metformin Hcl* (Metformin Hcl*) 1,000 Mg Tablet, 1000 MG GTB WITH BREAKFAST DINNE, #60 TAB 11/02/17 Current Medications Sodium Chloride 1,000 ml @ 100 mls/hr Q10H IV Last administered on 11/12/18at 10:03; Admin Dose 100 MLS/HR; Start 11/09/18 at 22:00 Morphine Sulfate (morphine) 2 mg Q4H PRN IV SEVERE PAIN LEVEL 7-10 Last administered on 11/11/18at 04:08; Admin Dose 2 MG; Start 11/09/18 at 22:00 Ondansetron HCl (Zofran Inj) 4 mg Q6H PRN IV NAUSEA AND/OR VOMITING; Start 11/09/18 at 22:00 Miscellaneous Information (Pending [facility] Order For Wound Care) This patient garcia... PRN PRN XX WOUND CARE; Start 11/09/18 at 22:30 Diagnostic Test (Pha) (Accu-Chek) 1 ea 02 XX ; Start 11/10/18 at 02:00 Miscellaneous Information 1 ea NOTE XX ; Start 11/10/18 at 02:00 Glucose (Glutose) 15 gm Q15M PRN PO DECREASED GLUCOSE; Start 11/10/18 at 02:00 Glucose (Glutose) 22.5 gm Q15M PRN PO DECREASED GLUCOSE; Start 11/10/18 at 02:00 Dextrose (D50w Syringe) 25 ml Q15M PRN IV DECREASED GLUCOSE; Start 11/10/18 at 02:00 Dextrose (D50w Syringe) 50 ml Q15M PRN IV DECREASED GLUCOSE; Start 11/10/18 at 02:00 Glucagon (Glucagen) 1 mg Q15M PRN IM DECREASED GLUCOSE; Start 11/10/18 at 02:00 Glucose (Glutose) 15 gm Q15M PRN BUCCAL DECREASED GLUCOSE; Start 11/10/18 at 02:00 Insulin Aspart (Novolog Insulin Pen) NOVOLOG *MILD* ALGORI... Q4 SC ; Start 11/10/18 at 09:00 Vancomycin HCl (Vanco Iv Per Pharmacy) VANCOMYCIN PER PHARMACY PER PROTOCOL XX ; Start 11/10/18 at 13:00 Piperacillin Sod/ Tazobactam Sod 100 ml @ 200 mls/hr Q8 IVPB Last administered on 11/12/18at 05:36; Admin Dose 200 MLS/HR; Start 11/10/18 at 14:00 Vancomycin HCl 250 ml @ 125 mls/hr Q12H IVPB Last administered on 11/11/18at 23:01; Admin Dose 125 MLS/HR; Start 11/11/18 at 03:00 Ferric Sodium Gluconate Complex 125 mg/Sodium Chloride 110 ml @ 110 mls/hr DAILY@1300 IVPB Last administered on 11/11/18at 14:20; Admin Dose 110 MLS/HR; Start 11/11/18 at 13:00; Stop 11/15/18 at 13:59 Pantoprazole 80 mg/Sodium Chloride 100 ml @ 10 mls/hr Q10H IV Last administered on 11/12/18at 03:00; Admin Dose 10 MLS/HR; Start 11/10/18 at 17:30 Caspofungin 50 mg/ Sodium Chloride 250 ml @ 250 mls/hr Q24H IVPB ; Start 11/12/18 at 15:00 Morphine Sulfate (morphine (REC)) 2 mg PACU ORDER PRN IV MILD PAIN 1-3; Start 11/12/18 at 10:30; Stop 11/12/18 at 15:00 Hydromorphone HCl (Dilaudid) 0.2 mg PACU PRN IV MILD PAIN 1-3; Start 11/12/18 at 10:30; Stop 11/12/18 at 15:00 Fentanyl (Sublimaze) 25 mcg PACU ORDER PRN IV MILD PAIN 1-3; Start 11/12/18 at 10:30; Stop 11/12/18 at 15:00 Ondansetron HCl (Zofran Inj) 4 mg PACU ORDER PRN IV NAUSEA/VOMITING; Start 11/12/18 at 10:30; Stop 11/12/18 at 15:00 Labetalol HCl (Labetalol) 5 mg PACU ORDER PRN IV HIGH BLOOD PRESSURE; Start 11/12/18 at 10:30; Stop 11/12/18 at 15:00 Hydralazine HCl (Apresoline) 5 mg PACU ORDER PRN IV HIGH BLOOD PRESSURE; Start 11/12/18 at 10:30; Stop 11/12/18 at 15:00 Albuterol (Proventil 0.083% (Neb)) 2.5 mg PACU ORDER PRN HHN .WHEEZING; Start 11/12/18 at 10:30; Stop 11/12/18 at 15:00 Diphenhydramine HCl (Benadryl) 25 mg PACU ORDER PRN IV .PRURITUS; Start 11/12/18 at 10:30; Stop 11/12/18 at 15:00 Acetaminophen (Tylenol Tab) 1,000 mg ONCE PRN PO pain; Start 11/12/18 at 10:30; Stop 11/12/18 at 16:00 Meds reviewed: Yes Allergies Coded Allergies: No Known Drug Allergies (Verified Allergy, Unknown, 11/09/18) Allergies Reviewed: Yes Labs/Studies Labs Reviewed: Reviewed by anesthesiologist Result Diagram: 11/11/1832 11/11/18631 test: N/A Studies: ECG, CXR Pre-procedure Exam Last vitals Vital Signs Date Temp Pulse Resp B/P (MAP) Pulse Ox O2 O2 Flow FiO2 Time Delivery Rate 11/12/18 30 10:26 11/12/18 52 08:01 11/12/18 98.0 20 118/69 100 07:44 (85) 11/10/18 Mechanical 15:36 Ventilator Airway: Adequate mouth opening, Adequate thyromental dist Mallampati: Mallampati II Teeth: Normal Lung: Normal Heart: Normal ASA Physical Status ASA physical status: 3 Emergency: E (emergency per GI doctor so will proceed even though patient unable to sign and no family available) Planned Anesthetic General/MAC: Other (trach) Planned Pain Management Parenteral pain med Pre-operative Attestations Prior to commencing anesthesia and surgery, the patient was re-evaluated, there was verification of: *The patient's identity *The results of appropriate recent lab work and preoperative vital signs *The above evaluation not changing prior to induction *Anesthetic plan, risk benefits, alternative and complications discussed with patient/family; questions answered; patient/family understands, accepts and wish es to proceed. DEIDRE CASTRO MD Nov 12, 2018 11:42
[2018-11-12] MEDS ORDERED: FENTAnyl 50 MCG/ML VIAL ONE (11:47)
--- NOTE | 2018-11-12 11:55 | CONS ---
Assessment/Plan Assessment/Plan Hospital Course (Demo Recall) IMP: 1.Nstemi-minimal positive troponin in the setting of severe anemia. likley type 2 demans infarct 2.GIB 3.anemia 4.Bradycardia 5.Possible sepsis RECC: -TELE -Continue abx's and f/u cx data -To have endoscopy -trend cardiac enzymes and transfuse as necessary -check echo to assess EF Consultation Date/Type/Reason Admit Date/Time Nov 09, 2018 at 14:44 Initial Consult Date 11/11/2018 Type of Consult Cardiology Reason for Consultation Nstemi Requesting Provider: RACHELLE RAMOS MD Date/Time of Note DATE: 11/12/18 TIME: 11:47 Exam/Review of Systems Vital Signs Vitals Vital Signs Date Temp Pulse Resp B/P (MAP) Pulse Ox O2 O2 Flow FiO2 Time Delivery Rate 11/12/18 30 10:26 11/12/18 52 08:01 11/12/18 98.0 20 118/69 100 07:44 (85) 11/10/18 Mechanical 15:36 Ventilator Intake and Output 11/11/18 11/11/18 11/12/18 1515:00 23:00 07:00 IntakeIntake Total 600 ml 1300 ml OutputOutput Total 1350 ml 800 ml BalanceBalance -750 ml 500 ml Exam Exam Review of Systems: CONSTITUTIONAL: No fevers, chills. PULMONARY: No sob CARDIOVASCULAR: No chest pain/palpitations GASTROINTESTINAL: No nausea/vomiting. GENITOURINARY: No hematuria/dysuria. MUSCULOSKELETAL: No myagias/arthalgias. PSYCHIATRIC: The patient denies depression. NEUROLOGIC: lethargic/confused Constitutional: alert Psych: no complaints Head: normocephalic ENMT: mucosa pink and moist Neck: supple, jvd (9 cm water) Respiratory: diminished breath sounds (at bases/B) Cardiovascular: regular rate and rhythm Gastrointestinal: soft, non-tender Musculoskeletal: muscle weakness (generalized) Extremities: pitting pedal edema (bilateral) Neurological: lethargic Labs Result Diagram: 11/11/18 0632 11/11/18 0632 Results 24hrs Laboratory Tests Test 11/11/18 12:17 11/11/18 17:16 11/11/18 22:07 11/12/18 01:03 Bedside Glucose 94 90 84 93 Test 11/12/18 05:42 11/12/18 07:02 11/12/18 09:13 Bedside Glucose 82 75 Lab Scanned BLOOD TRANSFUSIO Report N Medications Medications Current Medications Sodium Chloride 1,000 ml @ 100 mls/hr Q10H IV Last administered on 11/12/18at 10:03; Admin Dose 100 MLS/HR; Start 11/09/18 at 22:00 Morphine Sulfate (morphine) 2 mg Q4H PRN IV SEVERE PAIN LEVEL 7-10 Last administered on 11/11/18at 04:08; Admin Dose 2 MG; Start 11/09/18 at 22:00 Ondansetron HCl (Zofran Inj) 4 mg Q6H PRN IV NAUSEA AND/OR VOMITING; Start 11/09/18 at 22:00 Miscellaneous Information (Pending [facility] Order For Wound Care) This patient garcia... PRN PRN XX WOUND CARE; Start 11/09/18 at 22:30 Diagnostic Test (Pha) (Accu-Chek) 1 ea 02 XX ; Start 11/10/18 at 02:00 Miscellaneous Information 1 ea NOTE XX ; Start 11/10/18 at 02:00 Glucose (Glutose) 15 gm Q15M PRN PO DECREASED GLUCOSE; Start 11/10/18 at 02:00 Glucose (Glutose) 22.5 gm Q15M PRN PO DECREASED GLUCOSE; Start 11/10/18 at 02:00 Dextrose (D50w Syringe) 25 ml Q15M PRN IV DECREASED GLUCOSE; Start 11/10/18 at 02:00 Dextrose (D50w Syringe) 50 ml Q15M PRN IV DECREASED GLUCOSE; Start 11/10/18 at 02:00 Glucagon (Glucagen) 1 mg Q15M PRN IM DECREASED GLUCOSE; Start 11/10/18 at 02:00 Glucose (Glutose) 15 gm Q15M PRN BUCCAL DECREASED GLUCOSE; Start 11/10/18 at 02:00 Insulin Aspart (Novolog Insulin Pen) NOVOLOG *MILD* ALGORI... Q4 SC ; Start 11/10/18 at 09:00 Vancomycin HCl (Vanco Iv Per Pharmacy) VANCOMYCIN PER PHARMACY PER PROTOCOL XX ; Start 11/10/18 at 13:00 Piperacillin Sod/ Tazobactam Sod 100 ml @ 200 mls/hr Q8 IVPB Last administered on 11/12/18at 05:36; Admin Dose 200 MLS/HR; Start 11/10/18 at 14:00 Vancomycin HCl 250 ml @ 125 mls/hr Q12H IVPB Last administered on 11/11/18at 23:01; Admin Dose 125 MLS/HR; Start 11/11/18 at 03:00 Ferric Sodium Gluconate Complex 125 mg/Sodium Chloride 110 ml @ 110 mls/hr DAILY@1300 IVPB Last administered on 11/11/18at 14:20; Admin Dose 110 MLS/HR; Start 11/11/18 at 13:00; Stop 11/15/18 at 13:59 Pantoprazole 80 mg/Sodium Chloride 100 ml @ 10 mls/hr Q10H IV Last administered on 11/12/18at 03:00; Admin Dose 10 MLS/HR; Start 11/10/18 at 17:30 Caspofungin 50 mg/ Sodium Chloride 250 ml @ 250 mls/hr Q24H IVPB ; Start 11/12/18 at 15:00 Morphine Sulfate (morphine (REC)) 2 mg PACU ORDER PRN IV MILD PAIN 1-3; Start 11/12/18 at 10:30; Stop 11/12/18 at 15:00 Hydromorphone HCl (Dilaudid) 0.2 mg PACU PRN IV MILD PAIN 1-3; Start 11/12/18 at 10:30; Stop 11/12/18 at 15:00 Fentanyl (Sublimaze) 25 mcg PACU ORDER PRN IV MILD PAIN 1-3; Start 11/12/18 at 10:30; Stop 11/12/18 at 15:00 Ondansetron HCl (Zofran Inj) 4 mg PACU ORDER PRN IV NAUSEA/VOMITING; Start 11/12/18 at 10:30; Stop 11/12/18 at 15:00 Labetalol HCl (Labetalol) 5 mg PACU ORDER PRN IV HIGH BLOOD PRESSURE; Start 11/12/18 at 10:30; Stop 11/12/18 at 15:00 Hydralazine HCl (Apresoline) 5 mg PACU ORDER PRN IV HIGH BLOOD PRESSURE; Start 11/12/18 at 10:30; Stop 11/12/18 at 15:00 Albuterol (Proventil 0.083% (Neb)) 2.5 mg PACU ORDER PRN HHN .WHEEZING; Start 11/12/18 at 10:30; Stop 11/12/18 at 15:00 Diphenhydramine HCl (Benadryl) 25 mg PACU ORDER PRN IV .PRURITUS; Start 11/12/18 at 10:30; Stop 11/12/18 at 15:00 Acetaminophen (Tylenol Tab) 1,000 mg ONCE PRN PO pain; Start 11/12/18 at 10:30; Stop 11/12/18 at 16:00 SHAYAN BARRETT Nov 12, 2018 11:55
--- NOTE | 2018-11-12 12:16 | PAC ---
Date/Time of Note Date/Time of Note DATE: 11/12/18 TIME: 12:14 Post-Anesthesia Notes Post-Anesthesia Note Last documented vital signs Vital Signs Date Temp Pulse Resp B/P (MAP) Pulse Ox O2 O2 Flow FiO2 Time Delivery Rate 11/12/18 98.0 87 18 121/72 98 12:03 (88) 11/12/18 30 10:26 11/10/18 Mechanical 15:36 Ventilator Activity: WNL Respiratory function: Other (vent dependent and SaO2 100% on ventilator ) Cardiovascular function: WNL Mental status: Baseline (history of stroke and chronic encephalopathy. non communicative) Pain reasonably controlled: Yes Hydration appropriate: Yes Nausea/Vomiting absent: Yes Comments BP: 116/98 HR: 60 RR: 16 T: 98 SaO2: 100% DEIDRE CASTRO MD Nov 12, 2018 12:16
[2018-11-12] MEDS ORDERED: PROPOFOL 20 ML ONE (12:27)
[2018-11-12] MEDS ORDERED: LIDOCAINE 2% (SDV) 5 ML INJ ONE (12:27)
--- NOTE | 2018-11-12 12:40 | CONS ---
DATE OF ADMISSION: 11/09/2018 DATE OF CONSULTATION: Patient admitted with upper GI bleeding with hemoglobin up to 6.9 grams and he got transfusion. At t his time, upper endoscopy needs to be performed to make a diagnosis and to treat the possible bleedin g lesion. Patient is unable to sign the consent. I could not reach the family member as a medical n ecessity. The procedure and other emergency medical procedure needs to be performed without family b eing available for consent, and I discussed with Dr. Poole for a second surgeon to support this indica tion. PHYSICAL EXAMINATION: GENERAL: The patient is intubated. He is awake but is unable to understand. VITAL SIGNS: Pulse is 78, blood pressure 110/68. CARDIOVASCULAR: Normal heart sounds. RESPIRATORY: Normal breath sounds. ABDOMEN: Shows soft abdomen with ascites. LABORATORY WORKUP: 1. Hemoglobin still is 7.6. 2. INR is 1.1. CLINICAL IMPRESSION: Upper gastrointestinal bleeding needs to be diagnosed and treated. PLAN: Proceed with upper endoscopy. Dictated By: ANNE BAZZI MD NC/NTS Conf#: [id number] DID#: [id number] CC: RACHELLE RAMOS MD;*EndCC*
--- NOTE | 2018-11-12 13:14 | GILP ---
DATE OF PROCEDURE: PROCEDURE: Esophagogastroduodenoscopy. PREOPERATIVE DIAGNOSIS: The patient presenting with history of severe anemia with hemoglobin 6.9. H e has a nasogastric tube that showed evidence of coffee-ground material. The patient needs a procedu re and he is unable to sign the consent and due to medical emergency, the procedure is performed. POSTOPERATIVE DIAGNOSES: 1. Gastric ulcer noted in the mid body anterior wall of the stomach with a clear clot sitting on the ulcer. By applying the Hemoclip the hemostasis is being achieved. 2. Erosive gastritis. 3. G-tube in place. 4. Erosive distal esophagitis. DESCRIPTION OF PROCEDURE: At this time, intravenous anesthesia was given by anesthesiologist, Dr. Celia Young. While the patient was in left lateral position, Olympus video upper endoscope was inserted into the oropharynx under direct vision and also into the esophagus. There is evidence of multiple erosions noted in the distal esophagus. At this time, the nasogastric tube was withdrawn. Scope at this time was advanced into the stomach. There is evidence of a 4 to 5 mm ulcer with a clot noted in the middle of the ulcer. I used one Hemoclip to close this bleeding site and good position of the H emoclip was noted assuring that hemostasis was achieved. Several erosions noted in the stomach, prob ably due to nasogastric tube. G-tube is noted in place with no ulcer. Duodenum appeared normal. Endoscope at this time was withdrawn. No additional abnormalities detecte d and the procedure was terminated. PLAN: Recommend Protonix 40 mg p.o. b.i.d. for 8 days and then p.o. once a day. Dictated By: ANNE BILLINGS/KAYLA Conf#: [id number] DID#: [id number] CC: RACHELLE RAMOS MD;*EndCC*
--- NOTE | 2018-11-12 13:18 | PN ---
Date/Time of Note Date/Time of Note DATE: 11/12/18 TIME: 13:15 Assessment/Plan VTE Prophylaxis Risk score (from Nsg)>0 risk: 9 SCD applied (from Nsg): No Lines/Catheters IV Catheter Type (from Nrsg): Mid Line Urinary Cath still in place: Yes Assessment/Plan Result Diagram: 11/11/18 0632 11/11/18 0632 Results 24hrs Laboratory Tests Test 11/11/18 17:16 11/11/18 22:07 11/12/18 01:03 11/12/18 05:42 Bedside Glucose 90 84 93 82 Test 11/12/18 07:02 11/12/18 09:13 11/12/18 12:35 Lab Scanned BLOOD TRANSFUSIO Report N Bedside Glucose 75 83 Subjective 24 Hr Interval Summary Free Text/Dictation pt admitted with abd distension pe revealed ascitis etio unknown pt needs paracentesis pt cannot sign family not available for consent hene vproicedure needs to be performed as a medical necessity dis cussed with DR Salvatore WRIGHT who will kindly proceed with paracentesis Exam/Review of Systems Exam Vitals Vital Signs Date Temp Pulse Resp B/P (MAP) Pulse Ox O2 O2 Flow FiO2 Time Delivery Rate 11/12/18 98.0 87 18 121/72 98 12:03 (88) 11/12/18 30 10:26 11/10/18 Mechanical 15:36 Ventilator Intake and Output 11/11/18 11/11/18 11/12/18 1515:00 23:00 07:00 IntakeIntake Total 600 ml 1300 ml OutputOutput Total 1350 ml 800 ml BalanceBalance -750 ml 500 ml Results Results 24hrs Laboratory Tests Test 11/11/18 17:16 11/11/18 22:07 11/12/18 01:03 11/12/18 05:42 Bedside Glucose 90 84 93 82 Test 11/12/18 07:02 11/12/18 09:13 11/12/18 12:35 Lab Scanned BLOOD TRANSFUSIO Report N Bedside Glucose 75 83 Medications Medication Current Medications Sodium Chloride 1,000 ml @ 100 mls/hr Q10H IV Last administered on 11/12/18at 10:03; Admin Dose 100 MLS/HR; Start 11/09/18 at 22:00 Morphine Sulfate (morphine) 2 mg Q4H PRN IV SEVERE PAIN LEVEL 7-10 Last administered on 11/11/18at 04:08; Admin Dose 2 MG; Start 11/09/18 at 22:00 Ondansetron HCl (Zofran Inj) 4 mg Q6H PRN IV NAUSEA AND/OR VOMITING; Start 11/09/18 at 22:00 Miscellaneous Information (Pending [facility] Order For Wound Care) This patient garcia... PRN PRN XX WOUND CARE; Start 11/09/18 at 22:30 Diagnostic Test (Pha) (Accu-Chek) 1 ea 02 XX ; Start 11/10/18 at 02:00 Miscellaneous Information 1 ea NOTE XX ; Start 11/10/18 at 02:00 Glucose (Glutose) 15 gm Q15M PRN PO DECREASED GLUCOSE; Start 11/10/18 at 02:00 Glucose (Glutose) 22.5 gm Q15M PRN PO DECREASED GLUCOSE; Start 11/10/18 at 02:00 Dextrose (D50w Syringe) 25 ml Q15M PRN IV DECREASED GLUCOSE; Start 11/10/18 at 02:00 Dextrose (D50w Syringe) 50 ml Q15M PRN IV DECREASED GLUCOSE; Start 11/10/18 at 02:00 Glucagon (Glucagen) 1 mg Q15M PRN IM DECREASED GLUCOSE; Start 11/10/18 at 02:00 Glucose (Glutose) 15 gm Q15M PRN BUCCAL DECREASED GLUCOSE; Start 11/10/18 at 02:00 Insulin Aspart (Novolog Insulin Pen) NOVOLOG *MILD* ALGORI... Q4 SC ; Start 10/23 at 09:00 Vancomycin HCl (Vanco Iv Per Pharmacy) VANCOMYCIN PER PHARMACY PER PROTOCOL XX ; Start 11/10/18 at 13:00 Piperacillin Sod/ Tazobactam Sod 100 ml @ 200 mls/hr Q8 IVPB Last administered on 11/12/18at 05:36; Admin Dose 200 MLS/HR; Start 11/10/18 at 14:00 Ferric Sodium Gluconate Complex 125 mg/Sodium Chloride 110 ml @ 110 mls/hr DAILY@1300 IVPB Last administered on 11/11/18at 14:20; Admin Dose 110 MLS/HR; Start 11/11/18 at 13:00; Stop 11/15/18 at 13:59 Pantoprazole 80 mg/Sodium Chloride 100 ml @ 10 mls/hr Q10H IV Last administered on 11/12/18at 03:00; Admin Dose 10 MLS/HR; Start 11/10/18 at 17:30 Caspofungin 50 mg/ Sodium Chloride 250 ml @ 250 mls/hr Q24H IVPB ; Start 11/12/18 at 15:00 Morphine Sulfate (morphine (REC)) 2 mg PACU ORDER PRN IV MILD PAIN 1-3; Start 11/12/18 at 10:30; Stop 11/12/18 at 15:00 Hydromorphone HCl (Dilaudid) 0.2 mg PACU PRN IV MILD PAIN 1-3; Start 11/12/18 at 10:30; Stop 11/12/18 at 15:00 Fentanyl (Sublimaze) 25 mcg PACU ORDER PRN IV MILD PAIN 1-3; Start 11/12/18 at 10:30; Stop 11/12/18 at 15:00 Ondansetron HCl (Zofran Inj) 4 mg PACU ORDER PRN IV NAUSEA/VOMITING; Start 11/12/18 at 10:30; Stop 11/12/18 at 15:00 Labetalol HCl (Labetalol) 5 mg PACU ORDER PRN IV HIGH BLOOD PRESSURE; Start 11/12/18 at 10:30; Stop 11/12/18 at 15:00 Hydralazine HCl (Apresoline) 5 mg PACU ORDER PRN IV HIGH BLOOD PRESSURE; Start 11/12/18 at 10:30; Stop 11/12/18 at 15:00 Albuterol (Proventil 0.083% (Neb)) 2.5 mg PACU ORDER PRN HHN .WHEEZING; Start 11/12/18 at 10:30; Stop 11/12/18 at 15:00 Diphenhydramine HCl (Benadryl) 25 mg PACU ORDER PRN IV .PRURITUS; Start 11/12/18 at 10:30; Stop 11/12/18 at 15:00 Acetaminophen (Tylenol Tab) 1,000 mg ONCE PRN PO pain; Start 11/12/18 at 10:30; Stop 11/12/18 at 16:00 Vancomycin HCl 250 ml @ 125 mls/hr Q12H IVPB ; Start 11/12/18 at 12:30 ANNE BAZZI MD Nov 12, 2018 13:18
--- NOTE | 2018-11-12 13:18 | PN ---
Date/Time of Note Date/Time of Note DATE: 11/12/18 TIME: 13:18 Assessment/Plan VTE Prophylaxis Risk score (from [facility] [place])>0 risk: 9 SCD applied (from [facility] [place]): No SCD contraindicated: other Pharmacological prophylaxis: LMWH Lines/Catheters IV Catheter Type (from [facility] Mid Line Urinary Cath still in place: Yes Reason Cath still needed: skin wounds contaminated by urine Assessment/Plan Hospital Course - Possible SEPSIS- CBC pending - ID consult- Dr Enriquez notified - Lactc acid pending - FU CULTURES - Abdominal distention - GI consult - Dr Wolf notified - Right pulmonary effusion -Dr. Gomez notified in pulmonology consultation. - per pulmonary -Ventilator dependent respiratory failure. - Dr. Gomez notified in pulmonology consultation. 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 Result Diagram: 11/11/18 0632 11/11/18 0632 Results 24hrs Laboratory Tests Test 11/11/18 17:16 11/11/18 22:07 11/12/18 01:03 11/12/18 05:42 Bedside Glucose 90 84 93 82 Test 11/12/18 07:02 11/12/18 09:13 11/12/18 12:35 Lab Scanned BLOOD TRANSFUSIO Report N Bedside Glucose 75 83 Subjective 24 Hr Interval Summary Free Text/Dictation Patient sedated, on vent Exam/Review of Systems Exam Vitals Vital Signs Date Temp Pulse Resp B/P (MAP) Pulse Ox O2 O2 Flow FiO2 Time Delivery Rate 11/12/18 97.6 49 20 111/51 100 Mechanical 12:36 (71) Ventilator 11/12/18 30 11:22 Intake and Output 11/11/18 11/11/18 11/12/18 1515:00 23:00 07:00 IntakeIntake Total 600 ml 1300 ml OutputOutput Total 1350 ml 800 ml BalanceBalance -750 ml 500 ml Constitutional: well developed Head: normocephalic, atraumatic Neck: supple Respiratory: diminished breath sounds Cardiovascular: regular rate and rhythm Gastrointestinal: soft, non-tender Extremities: normal pulses Results Results 24hrs Laboratory Tests Test 11/11/18 17:16 11/11/18 22:07 11/12/18 01:03 11/12/18 05:42 Bedside Glucose 90 84 93 82 Test 11/12/18 07:02 11/12/18 09:13 11/12/18 12:35 Lab Scanned BLOOD TRANSFUSIO Report N Bedside Glucose 75 83 Medications Medication Current Medications Sodium Chloride 1,000 ml @ 100 mls/hr Q10H IV Last administered on 11/12/18at 10:03; Admin Dose 100 MLS/HR; Start 11/09/18 at 22:00 Morphine Sulfate (morphine) 2 mg Q4H PRN IV SEVERE PAIN LEVEL 7-10 Last administered on 11/11/18at 04:08; Admin Dose 2 MG; Start 11/09/18 at 22:00 Ondansetron HCl (Zofran Inj) 4 mg Q6H PRN IV NAUSEA AND/OR VOMITING; Start 11/09/18 at 22:00 Miscellaneous Information (Pending [facility] Order For Wound Care) This patient garcia... PRN PRN XX WOUND CARE; Start 11/09/18 at 22:30 Diagnostic Test (Pha) (Accu-Chek) 1 ea 02 XX ; Start 11/10/18 at 02:00 Miscellaneous Information 1 ea NOTE XX ; Start 11/10/18 at 02:00 Glucose (Glutose) 15 gm Q15M PRN PO DECREASED GLUCOSE; Start 11/10/18 at 02:00 Glucose (Glutose) 22.5 gm Q15M PRN PO DECREASED GLUCOSE; Start 11/10/18 at 02:00 Dextrose (D50w Syringe) 25 ml Q15M PRN IV DECREASED GLUCOSE; Start 11/10/18 at 02:00 Dextrose (D50w Syringe) 50 ml Q15M PRN IV DECREASED GLUCOSE; Start 11/10/18 at 02:00 Glucagon (Glucagen) 1 mg Q15M PRN IM DECREASED GLUCOSE; Start 11/10/18 at 02:00 Glucose (Glutose) 15 gm Q15M PRN BUCCAL DECREASED GLUCOSE; Start 11/10/18 at 02:00 Insulin Aspart (Novolog Insulin Pen) NOVOLOG *MILD* ALGORI... Q4 SC ; Start 11/10/18 at 09:00 Vancomycin HCl (Vanco Iv Per Pharmacy) VANCOMYCIN PER PHARMACY PER PROTOCOL XX ; Start 11/10/18 at 13:00 Piperacillin Sod/ Tazobactam Sod 100 ml @ 200 mls/hr Q8 IVPB Last administered on 11/12/18at 05:36; Admin Dose 200 MLS/HR; Start 11/10/18 at 14:00 Ferric Sodium Gluconate Complex 125 mg/Sodium Chloride 110 ml @ 110 mls/hr DAILY@1300 IVPB Last administered on 11/11/18at 14:20; Admin Dose 110 MLS/HR; S tart 11/11/18 at 13:00; Stop 11/15/18 at 13:59 Caspofungin 50 mg/ Sodium Chloride 250 ml @ 250 mls/hr Q24H IVPB ; Start 11/12/18 at 15:00 Morphine Sulfate (morphine (REC)) 2 mg PACU ORDER PRN IV MILD PAIN 1-3; Start 11/12/18 at 10:30; Stop 11/12/18 at 15:00 Hydromorphone HCl (Dilaudid) 0.2 mg PACU PRN IV MILD PAIN 1-3; Start 11/12/18 at 10:30; Stop 11/12/18 at 15:00 Fentanyl (Sublimaze) 25 mcg PACU ORDER PRN IV MILD PAIN 1-3; Start 11/12/18 at 10:30; Stop 11/12/18 at 15:00 Ondansetron HCl (Zofran Inj) 4 mg PACU ORDER PRN IV NAUSEA/VOMITING; Start 11/12/18 at 10:30; Stop 11/12/18 at 15:00 Labetalol HCl (Labetalol) 5 mg PACU ORDER PRN IV HIGH BLOOD PRESSURE; Start 11/12/18 at 10:30; Stop 11/12/18 at 15:00 Hydralazine HCl (Apresoline) 5 mg PACU ORDER PRN IV HIGH BLOOD PRESSURE; Start 11/12/18 at 10:30; Stop 11/12/18 at 15:00 Albuterol (Proventil 0.083% (Neb)) 2.5 mg PACU ORDER PRN HHN .WHEEZING; Start 11/12/18 at 10:30; Stop 11/12/18 at 15:00 Diphenhydramine HCl (Benadryl) 25 mg PACU ORDER PRN IV .PRURITUS; Start 11/12/18 at 10:30; Stop 11/12/18 at 15:00 Acetaminophen (Tylenol Tab) 1,000 mg ONCE PRN PO pain; Start 11/12/18 at 10:30; Stop 11/12/18 at 16:00 Vancomycin HCl 250 ml @ 125 mls/hr Q12H IVPB Last administered on 11/12/18at 12:33; Admin Dose 125 MLS/HR; Start 11/12/18 at 12:30 Hydromorphone HCl (Dilaudid) 0.2 mg PACU PRN IV MILD PAIN 1-3; Start 11/12/18 at 12:30; Stop 11/12/18 at 18:00 Hydromorphone HCl (Dilaudid) 0.4 mg PACU PRN IV MOD PAIN 4-6; Start 11/12/18 at 12:30; Stop 11/12/18 at 18:00 Ondansetron HCl (Zofran Inj) 4 mg PACU ORDER PRN IV NAUSEA/VOMITING; Start 11/12/18 at 12:30; Stop 11/12/18 at 18:00 Pantoprazole (Protonix Iv) 40 mg BID@06,18 IV ; Start 11/12/18 at 18:00 PATTI JIANG Nov 12, 2018 13:18
--- NOTE | 2018-11-12 14:02 | RADRPT ---
Echocardiogram Report Patient Name: AURELIA AGUSTINPatient ID: [id number] : 12 (83y 4m)Study Date: 11/10/2018 7:39:05 AM Gender: MAccession #: [id number] Tech: Kamilla Rooney RDCS Location: [facility] Ref.Physician: SAMIA LICEA Height(Cm): BSA: Weight(Kg): Quality: Technically Difficult StudyAccount #: Procedures: Echocardiographic Report: Transthoracic echocardiogram with complete 2D, M-Mode, and doppler examination. Indications: Shortness of breath. Measurements: 2D/M Mode Doppler Measurement Value Normal Range Measurement Value Normal Range LVIDd 2D 3.7 [ 4.2 - 5.8 ] cm ALEE Vmax 1.1 [ 2.0 - 4.0 ] cm2 LVIDs 2D 2.4 [ 2.5 - 4.0 ] cm ALEE VTI 1.0 [ 2.0 - 4.0 ] cm2 LVPWd 2D 1.2 [ 0.6 - 1.0 ] cm AV Mean Marv 2.1 [ 70.0 - 90.0 ] cm/sec IVSd 2D 1.2 [ 0.6 - 1.0 ] cm AV Mean PG 20.0 [ 2.0 - 4.0 ] mmHg IVS/LVPW 2D 1.0 ratio AV Peak Marv 3.0 [ 100.0 - 170.0 ] cm/sec AoR Diam 2D 2.6 [ 2.6 - 3.4 ] cm AV Peak PG 35.0 [ 2.0 - 9.0 ] mmHg LA/Ao 2D 2 ratio AV VTI 65.3 cm LA Dimen 2D 4.0 [ 3.0 - 4.0 ] cm LVOT Mean Marv 0.6 [ 60.0 - 80.0 ] cm/sec LVOT Diam 2.1 [ 2.3 - 2.9 ] cm LVOT Mean PG 2.0 [ 1.0 - 3.0 ] mmHg LVOT Area 3.5 cm2 LVOT Peak Marv 0.9 [ 70.0 - 110.0 ] cm/sec LVOT Peak PG 3.0 [ 2.0 - 6.0 ] mmHg LVOT VTI 19.1 [ 20.0 - 30.0 ] cm MV E Peak Marv 1.2 [ 60.0 - 130.0 ] cm/sec MV A Peak Marv 1.2 [ 100.0 - 120.0 ] cm/sec MV E/A 1.0 [ 0.8 - 1.5 ] ratio MV Decel Time 190 [ 104 - 258 ] msec Lat E` Marv 0.1 [ 10.0 - 15.0 ] cm/sec MV E/A 1.0 [ 0.8 - 1.5 ] ratio TR Peak Marv 2.0 [ 100.0 - 280.0 ] cm/sec TR Peak PG 16.0 mmHg Findings: Left Ventricle: Normal left ventricular systolic function. Normal left ventricular cavity size. Mild concentric left ventricular hypertrophy. Ejection fraction is visually estimated at 55 %. Tissue Doppler/Mitral Doppler indices are consistent with impaired relaxation (Stage I diastolic dysfunction). Right Ventricle: Normal right ventricular size. Normal right ventricular systolic function. Left Atrium: The left atrium is normal in size. Right Atrium: The right atrium is normal in size. Atrial Septum: Normal atrial septum. Ventricular septum: Normal/intact ventricular septum. Mitral Valve: Normal appearance of the mitral valve. Moderate mitral annular calcification. Trace mitral regurgitation. Aortic Valve: Moderate to severe aortic stenosis. Aortic valve Max velocity 2.95 m/sec. Max PG 35.00 mmHg. Mean PG 20.00 mmHg. Aortic valve area 1.01 cm2. Aortic cusps appear moderately calcified. Tricuspid Valve: Normal appearance of the tricuspid valve. Unable to obtain RVSP due to minimal presence of tricuspid regurgitation. Estimated peak PA systolic pressure 13 mmHg. There is trace tricuspid regurgitation. Pulmonic Valve: Pulmonic valve not well visualized. Pericardium: Normal pericardium with no significant pericardial effusion. Aorta: Normal aortic root. IVC: The IVC is not well visualized. Conclusions: Normal left ventricular systolic function. Normal left ventricular cavity size. Mild concentric left ventricular hypertrophy. Ejection fraction is visually estimated at 55 %. Tissue Doppler/Mitral Doppler indices are consistent with impaired relaxation (Stage I diastolic dysfunction). Moderate to severe aortic stenosis given mismatch betweem gradient and calculated ALEE. Mean PG 20.00 mmHg. Aortic valve area 1.01 cm2. Aortic cusps appear moderately calcified. Normal appearance of the tricuspid valve. Unable to obtain RVSP due to minimal presence of tricuspid regurgitation. Estimated peak PA systolic pressure 13 mmHg. There is trace tricuspid regurgitation. Normal appearance of the mitral valve. Moderate mitral annular calcification. Trace mitral regurgitation. Electronically Signed By: Keegan Flores 2018-11-12 14:02:30 PDT
--- NOTE | 2018-11-12 14:09 | CONS ---
Assessment/Plan Assessment/Plan Hospital Course (Demo Recall) No acute changes, looks comfortable, afebrile Microbiology: Blood cultures remain negative urine culture grew Destini species, not albicans Indwelling: Trach PEG NGT suprapubic catheter Diagnostics: CT abdomen and pelvis on admission revealed large extraperitoneal fluid collections anasarca cholelithiasis bilateral nonobstructing renal stones diverticulosis of the descending and sigmoid colon bilateral pleural effusions, right greater than left with significant atelectasis/consolidation involving the left right lower lobes. Please see full report in the chart. Chest x-ray on admission revealed new right perihilar and right lower lobe extensive infiltrates and moderate right pleural effusion. Chest x-ray this morning revealed no significant change Antimicrobials: Vancomycin, Cancidas, Zosyn Physical examination: Chronically ill-appearing well-developed obese elderly man who is awake in no distress. Head atraumatic normocephalic neck is supple tracheostomy present chest rise symmetrical breath sounds diminished bases. Heart: S1-S2. Abdomen soft bowel sounds present extremities without cyanosis Assessment: 1. Sepsis, present on admission 2. Healthcare associated pneumonia 3. Urinary tract infection 4. Ascites, possible SBP 5. Non-ST elevation CT 6. Chronic respiratory failure and dysphagia 7. Acute on chronic anemia 8. Encephalopathy, likely chronic Plan: Remains unchanged, continue abx, f/u GI/pulmonary rec-s, check labs in am Consultation Date/Type/Reason Admit Date/Time Nov 09, 2018 at 14:44 Initial Consult Date Type of Consult id Requesting Provider: RACHELLE RAMOS MD Date/Time of Note DATE: 11/12/18 TIME: 14:08 Exam/Review of Systems Exam Vitals Vital Signs Date Temp Pulse Resp B/P (MAP) Pulse Ox O2 O2 Flow FiO2 Time Delivery Rate 11/12/18 97.6 49 20 111/51 100 Mechanical 12:36 (71) Ventilator 11/12/18 30 11:22 Intake and Output 11/11/18 11/11/18 11/12/18 1515:00 23:00 07:00 IntakeIntake Total 600 ml 1300 ml OutputOutput Total 1350 ml 800 ml BalanceBalance -750 ml 500 ml Results Result Diagram: 11/11/18 0632 11/11/18 0632 Results 24hrs Laboratory Tests Test 11/11/18 17:16 11/11/18 22:07 11/12/18 01:03 11/12/18 05:42 Bedside Glucose 90 84 93 82 Test 11/12/18 07:02 11/12/18 09:13 11/12/18 12:35 Lab Scanned BLOOD TRANSFUSIO Report N Bedside Glucose 75 83 Medications Medication Current Medications Sodium Chloride 1,000 ml @ 100 mls/hr Q10H IV Last administered on 11/12/18at 10:03; Admin Dose 100 MLS/HR; Start 11/09/18 at 22:00 Morphine Sulfate (morphine) 2 mg Q4H PRN IV SEVERE PAIN LEVEL 7-10 Last administered on 11/11/18at 04:08; Admin Dose 2 MG; Start 11/09/18 at 22:00 Ondansetron HCl (Zofran Inj) 4 mg Q6H PRN IV NAUSEA AND/OR VOMITING; Start 11/09/18 at 22:00 Miscellaneous Information (Pending [facility] Order For Wound Care) This patient garcia... PRN PRN XX WOUND CARE; Start 11/09/18 at 22:30 Diagnostic Test (Pha) (Accu-Chek) 1 ea 02 XX ; Start 11/10/18 at 02:00 Miscellaneous Information 1 ea NOTE XX ; Start 11/10/18 at 02:00 Glucose (Glutose) 15 gm Q15M PRN PO DECREASED GLUCOSE; Start 11/10/18 at 02:00 Glucose (Glutose) 22.5 gm Q15M PRN PO DECREASED GLUCOSE; Start 11/10/18 at 02:00 Dextrose (D50w Syringe) 25 ml Q15M PRN IV DECREASED GLUCOSE; Start 11/10/18 at 02:00 Dextrose (D50w Syringe) 50 ml Q15M PRN IV DECREASED GLUCOSE; Start 11/10/18 at 02:00 Glucagon (Glucagen) 1 mg Q15M PRN IM DECREASED GLUCOSE; Start 11/10/18 at 02:00 Glucose (Glutose) 15 gm Q15M PRN BUCCAL DECREASED GLUCOSE; Start 11/10/18 at 02:00 Insulin Aspart (Novolog Insulin Pen) NOVOLOG *MILD* ALGORI... Q4 SC ; Start 11/10/18 at 09:00 Vancomycin HCl (Vanco Iv Per Pharmacy) VANCOMYCIN PER PHARMACY PER PROTOCOL XX ; Start 11/10/18 at 13:00 Piperacillin Sod/ Tazobactam Sod 100 ml @ 200 mls/hr Q8 IVPB Last administered on 11/12/18at 05:36; Admin Dose 200 MLS/HR; Start 11/10/18 at 14:00 Ferric Sodium Gluconate Complex 125 mg/Sodium Chloride 110 ml @ 110 mls/hr DAILY@1300 IVPB Last administered on 11/11/18at 14:20; Admin Dose 110 MLS/HR; Start 11/11/18 at 13:00; Stop 11/15/18 at 13:59 Caspofungin 50 mg/ Sodium Chloride 250 ml @ 250 mls/hr Q24H IVPB ; Start 11/12/18 at 15:00 Morphine Sulfate (morphine (REC)) 2 mg PACU ORDER PRN IV MILD PAIN 1-3; Start 11/12/18 at 10:30; Stop 11/12/18 at 15:00 Hydromorphone HCl (Dilaudid) 0.2 mg PACU PRN IV MILD PAIN 1-3; Start 11/12/18 at 10:30; Stop 11/12/18 at 15:00 Fentanyl (Sublimaze) 25 mcg PACU ORDER PRN IV MILD PAIN 1-3; Start 11/12/18 at 10:30; Stop 11/12/18 at 15:00 Ondansetron HCl (Zofran Inj) 4 mg PACU ORDER PRN IV NAUSEA/VOMITING; Start 11/12/18 at 10:30; Stop 11/12/18 at 15:00 Labetalol HCl (Labetalol) 5 mg PACU ORDER PRN IV HIGH BLOOD PRESSURE; Start 11/12/18 at 10:30; Stop 11/12/18 at 15:00 Hydralazine HCl (Apresoline) 5 mg PACU ORDER PRN IV HIGH BLOOD PRESSURE; Start 11/12/18 at 10:30; Stop 11/12/18 at 15:00 Albuterol (Proventil 0.083% (Neb)) 2.5 mg PACU ORDER PRN HHN .WHEEZING; Start 11/12/18 at 10:30; Stop 11/12/18 at 15:00 Diphenhydramine HCl (Benadryl) 25 mg PACU ORDER PRN IV .PRURITUS; Start 11/12/18 at 10:30; Stop 11/12/18 at 15:00 Acetaminophen (Tylenol Tab) 1,000 mg ONCE PRN PO pain; Start 11/12/18 at 10:30; Stop 11/12/18 at 16:00 Vancomycin HCl 250 ml @ 125 mls/hr Q12H IVPB Last administered on 11/12/18at 12:33; Admin Dose 125 MLS/HR; Start 11/12/18 at 12:30 Hydromorphone HCl (Dilaudid) 0.2 mg PACU PRN IV MILD PAIN 1-3; Start 11/12/18 at 12:30; Stop 11/12/18 at 18:00 Hydromorphone HCl (Dilaudid) 0.4 mg PACU PRN IV MOD PAIN 4-6; Start 11/12/18 at 12:30; Stop 11/12/18 at 18:00 Ondansetron HCl (Zofran Inj) 4 mg PACU ORDER PRN IV NAUSEA/VOMITING; Start 11/12/18 at 12:30; Stop 11/12/18 at 18:00 Pantoprazole (Protonix Iv) 40 mg BID@06,18 IV ; Start 11/12/18 at 18:00 SUSANNE LANIER NP Nov 12, 2018 14:09
[2018-11-12] MEDS: SOD FERRIC GLUC COMPLX 125 MG in SOD CHLORIDE 0.9% 100 ML IVPB SCH (14:56)
[2018-11-12] MEDS: CASPOFUNGIN 50 MG in SOD CHLORIDE 0.9% 250 ML IVPB SCH (16:38)
[2018-11-12] MEDS: PANTOPRAZOLE 40 MG INJ IV SCH (17:46)
[2018-11-12] MEDS: BALSAM PERU/CASTOR OIL 60 GM TUBE TOP SCH (21:04)
[2018-11-13] VITALS (24 sets, daily range): BP systolic 99–121; BP diastolic 53–73; PULSE 50–103; RESP 16–20
[2018-11-13] MEDS: VANCOMYCIN 1 GM 250 ML IVPB SCH ×2 (00:31→13:02)
[2018-11-13] MEDS: ACCU-CHEK XX SCH (01:40)
[2018-11-13] MEDS: SOD CHLORIDE 0.9% 1,000 ML IV SCH ×3 (05:13→23:27)
[2018-11-13] MEDS: INSULIN ASPART [NOVOLOG] 3 ML PEN SC SCH ×5 (06:00→23:32)
[2018-11-13] MEDS: PIPER-TAZO 3.375 GM IV (PMX) 100 ML IVPB SCH ×3 (06:31→21:10)
[2018-11-13] MEDS: PANTOPRAZOLE 40 MG INJ IV SCH ×2 (06:32→16:41)
--- NOTE | 2018-11-13 07:01 | PN ---
DATE: 11/12/2018 SUBJECTIVE: The patient is an 83-year-old [place] gentleman admitted to the hospital from the halfway because of abdominal distention. He is status post tracheostomy and PEG placement. He is unab le to communicate. PHYSICAL EXAMINATION: GENERAL: At this time, patient is alert. He is intubated. VITAL SIGNS: Pulse is 87, blood pressure is 121/72, temperature 98.0. CARDIOVASCULAR: Normal heart tone. RESPIRATORY: Normal breath sounds. ABDOMEN: Showed ascites. DIAGNOSTIC DATA: CAT scan of the abdomen showed ascites. LABORATORY WORKUP: The prothrombin time is 14.4. The liver panel is normal. CLINICAL IMPRESSION: The patient has ascites. Etiology is not known. It is quite possible that we may be dealing with cirrhosis causing the ascites. Spontaneous bacterial peritonitis needs to be rul ed out. Hence, the patient needs paracentesis. The patient is unable to sign a consent. He is intu bated. He is on ventilator and no family is available. paracentesis needs to be performed without a consent. I discussed with Dr. Chase, radiologist, who has kindly agreed to do the paracentesis without a consent. Other medical necessity and the proc edure need to be performed. Dictated By: ANNE BILLINGS/NTS Conf#: [id number] DID#: [id number] CC: RACHELLE RAMOS MD;*EndCC*
--- NOTE | 2018-11-13 08:08 | PQ ---
Date/Time of Note Date/Time of Note DATE: 11/13/18 TIME: 08:05 Physician Query Documentation Clarification Per RN Integumentary Wound Care Assessment Right Buttocks Pressure Ulcer Stage 3 Please further specify if you agree that the above diagnosis was present on admission To facilitate accurate and complete coding, please radha ( x ) for the answer that applies: (X) Yes ( ) No Please provide your response by clicking edit document,making your choice (x ), clicking ok/save and finally clicking sign. You may alsodocument your response on your progress notes. Thank you for your time. Sincerely, Javier Manriquez [facility] Specialist [address] [id number] [email or web address] JAVIER MANRIQUEZ Nov 13, 2018 08:08 PATTI JIANG Nov 14, 2018 16:13
[2018-11-13] MEDS: BALSAM PERU/CASTOR OIL 60 GM TUBE TOP SCH ×2 (09:30→20:33)
--- NOTE | 2018-11-13 10:38 | CONS ---
Assessment/Plan Assessment/Plan Hospital Course (Demo Recall) #Anemia -2/2 GI bleed. pt has since had hte duodenal ulcer cauterized -Hg up to 7.9 after IV iron started. pt did receive 1 unit of PRBCs. continue IV iron -pt does have iron deficiency evidenced by low iron sat of 7% -vitamin b12 level wnl - LDH only mildly elevated making hemolysis unlikely. haptoglobin pending -TSH wnl -cannot transfuse given inability to obtain consent #presumed SEPSIS -2/2 PNA -continue antibiotics per ID # Abdominal distention - paracentesis today #NSTEMI -likey 2/2 demand ischemi -cards following Consultation Date/Type/Reason Admit Date/Time Nov 09, 2018 at 14:44 Initial Consult Date 11/10/18 Type of Consult hematology Reason for Consultation anemia Requesting Provider: RACHELLE RAMOS MD Date/Time of Note DATE: 11/13/18 TIME: 10:32 24 HR Interval Summary Free Text/Dictation pt had EGD done which demonstrated a duodenal ulcer that was cauterized by GI Exam/Review of Systems Exam Vitals Vital Signs Date Temp Pulse Resp B/P (MAP) Pulse Ox O2 O2 Flow FiO2 Time Delivery Rate 11/13/18 30 08:49 11/13/18 51 08:01 11/13/18 16 100 07:47 11/13/18 98.2 121/67 07:27 (85) 11/13/18 Mechanical 04:24 Ventilator Intake and Output 11/12/18 11/12/18 11/13/18 1414:59 22:59 06:59 IntakeIntake Total 250 ml 1080 ml 950 ml OutputOutput Total 600 ml BalanceBalance 250 ml 480 ml 950 ml Constitutional: non-verbal Head: normocephalic Eyes: nl conjunctiva ENMT: nl external ears & nose, other (trach in place) Neck: supple Respiratory: clear to auscultation Cardiovascular: regular rate and rhythm Gastrointestinal: soft, other (G tube) Musculoskeletal: nl extremities to inspection Extremities: normal pulses Results Result Diagram: 11/13/18 0747 11/13/18 0747 Results 24hrs Laboratory Tests Test 11/12/18 12:35 11/12/18 17:48 11/13/18 00:30 11/13/18 06:41 Bedside Glucose 83 111 124 133 Test 11/13/18 07:47 White Blood Count 10.3 # Red Blood Count 3.41 L Hemoglobin 7.9 L Hematocrit 28.0 L Mean Corpuscular 82.1 Volume Mean Corpuscular 23.2 L Hemoglobin Mean Corpuscular 28.2 L Hemoglobin Concent Red Cell 19.6 H Distribution Width Platelet Count 311 Mean Platelet Volume 11.2 H Immature 0.800 H Granulocytes % Neutrophils % 70.2 Lymphocytes % 13.3 L Monocytes % 6.3 Eosinophils % 8.9 H Basophils % 0.5 Nucleated Red Blood 0.0 Cells % Immature 0.080 H Granulocytes # Neutrophils # 7.2 Lymphocytes # 1.4 Monocytes # 0.7 Eosinophils # 0.9 H Basophils # 0.1 Nucleated Red Blood 0.0 Cells # Sodium Level 144 Potassium Level 4.2 Chloride Level 116 H Carbon Dioxide Level 21 Anion Gap 7 Blood Urea Nitrogen 18 Creatinine 0.87 Est Glomerular Filtrat Rate mL/min Glucose Level 118 Calcium Level 8.0 L Creatine Kinase 32 Creatine Kinase 3.8 Index Creatinine Kinase MB 1.21 (Mass) Troponin I 0.095 Medications Medication Current Medications Sodium Chloride 1,000 ml @ 100 mls/hr Q10H IV Last administered on 11/13/18at 05:13; Admin Dose 100 MLS/HR; Start 11/09/18 at 22:00 Morphine Sulfate (morphine) 2 mg Q4H PRN IV SEVERE PAIN LEVEL 7-10 Last adminis tered on 11/11/18at 04:08; Admin Dose 2 MG; Start 11/09/18 at 22:00 Ondansetron HCl (Zofran Inj) 4 mg Q6H PRN IV NAUSEA AND/OR VOMITING; Start 11/09/18 at 22:00 Miscellaneous Information ([facility] This patient garcia... PRN PRN XX WOUND CARE; Start 11/09/18 at 22:30 Diagnostic Test (Pha) (Accu-Chek) 1 ea 02 XX ; Start 11/10/18 at 02:00 Miscellaneous Information 1 ea NOTE XX ; Start 11/10/18 at 02:00 Glucose (Glutose) 15 gm Q15M PRN PO DECREASED GLUCOSE; Start 11/10/18 at 02:00 Glucose (Glutose) 22.5 gm Q15M PRN PO DECREASED GLUCOSE; Start 11/10/18 at 02:00 Dextrose (D50w Syringe) 25 ml Q15M PRN IV DECREASED GLUCOSE; Start 11/10/18 at 02:00 Dextrose (D50w Syringe) 50 ml Q15M PRN IV DECREASED GLUCOSE; Start 11/10/18 at 02:00 Glucagon (Glucagen) 1 mg Q15M PRN IM DECREASED GLUCOSE; Start 11/10/18 at 02:00 Glucose (Glutose) 15 gm Q15M PRN BUCCAL DECREASED GLUCOSE; Start 11/10/18 at 02:00 Vancomycin HCl (Vanco Iv Per Pharmacy) VANCOMYCIN PER PHARMACY PER PROTOCOL XX ; Start 11/10/18 at 13:00 Piperacillin Sod/ Tazobactam Sod 100 ml @ 200 mls/hr Q8 IVPB Last administered on 11/13/18at 06:31; Admin Dose 200 MLS/HR; Start 11/10/18 at 14:00 Ferric Sodium Gluconate Complex 125 mg/Sodium Chloride 110 ml @ 110 mls/hr DAILY@1300 IVPB Last administered on 11/12/18at 14:56; Admin Dose 110 MLS/HR; Start 11/11/18 at 13:00; Stop 11/15/18 at 13:59 Caspofungin 50 mg/ Sodium Chloride 250 ml @ 250 mls/hr Q24H IVPB Last administered on 11/12/18at 16:38; Admin Dose 250 MLS/HR; Start 11/12/18 at 15:00 Vancomycin HCl 250 ml @ 125 mls/hr Q12H IVPB Last administered on 11/13/18at 00:31; Admin Dose 125 MLS/HR; Start 11/12/18 at 12:30 Pantoprazole (Protonix Iv) 40 mg BID@06,18 IV Last administered on 11/13/18at 06:32; Admin Dose 40 MG; Start 11/12/18 at 18:00 Insulin Aspart (Novolog Insulin Pen) NOVOLOG *MILD* ALGORI... Q6 SC ; Start 11/12/18 at 18:00 IRENE RANDLE M.D. Nov 13, 2018 10:38
[2018-11-13] MEDS ORDERED: LIDOCAINE 1% (MPF) 5 ML VIAL ONE (10:47)
--- NOTE | 2018-11-13 10:49 | CONS ---
Consult Date/Type/Reason Admit Date/Time Nov 09, 2018 at 14:44 Initial Consult Date Requesting Provider: RACHELLE RAMOS MD Date/Time of Note DATE: 11/13/18 TIME: 10:47 Subjective NO acute events - pt stable overall - brday to 50s but BP stable - monitor clinically now - no pauses. ROS: Per nurse - NO F/C/N/V/D/C - chronic SOB/vent' Objective Vitals Vital Signs Date Temp Pulse Resp B/P (MAP) Pulse Ox O2 O2 Flow FiO2 Time Delivery Rate 11/13/18 30 08:49 11/13/18 51 08:01 11/13/18 16 100 07:47 11/13/18 98.2 121/67 07:27 (85) 11/13/18 Mechanical 04:24 Ventilator Intake and Output 11/12/18 11/12/18 11/13/18 1515:00 23:00 07:00 IntakeIntake Total 250 ml 1080 ml 950 ml OutputOutput Total 600 ml BalanceBalance 250 ml 480 ml 950 ml Exam General: WN/WD/NAD, AOx 0 HEENT: Unicetric/atraumatic/EOMI (does not follow commands) NECK: trach Lymph: no lymphadenopathy HEART: regular with no S3, II/ systolic murmur at apex LUNGS: Coarse sounds ABD: soft, NT, ND, +BS : Intact Neuro: non focal SKIN: chronic changes EXT: trace edema Results/Medications Result Diagram: 11/13/18 0747 11/13/18 0747 Results 24 hrs Laboratory Tests Test 11/12/18 12:35 11/12/18 17:48 11/13/18 00:30 11/13/18 06:41 Bedside Glucose 83 111 124 133 Test 11/13/18 07:47 White Blood Count 10.3 # Red Blood Count 3.41 L Hemoglobin 7.9 L Hematocrit 28.0 L Mean Corpuscular 82.1 Volume Mean Corpuscular 23.2 L Hemoglobin Mean Corpuscular 28.2 L Hemoglobin Concent Red Cell 19.6 H Distribution Width Platelet Count 311 Mean Platelet Volume 11.2 H Immature 0.800 H Granulocytes % Neutrophils % 70.2 Lymphocytes % 13.3 L Monocytes % 6.3 Eosinophils % 8.9 H Basophils % 0.5 Nucleated Red Blood 0.0 Cells % Immature 0.080 H Granulocytes # Neutrophils # 7.2 Lymphocytes # 1.4 Monocytes # 0.7 Eosinophils # 0.9 H Basophils # 0.1 Nucleated Red Blood 0.0 Cells # Sodium Level 144 Potassium Level 4.2 Chloride Level 116 H Carbon Dioxide Level 21 Anion Gap 7 Blood Urea Nitrogen 18 Creatinine 0.87 Est Glomerular Filtrat Rate mL/min Glucose Level 118 Calcium Level 8.0 L Creatine Kinase 32 Creatine Kinase 3.8 Index Creatinine Kinase MB 1.21 (Mass) Troponin I 0.095 Home Meds Reported Medications Multivitamin with Minerals (Multivitamins with Minerals) 1 Each Tablet, 1 EACH GTB DAILY, TAB 11/02/17 Heparin Sodium,Porcine/Pf (HEPARIN SOD 5,000 UNIT/ 0.5 ML) 5,000 Unit/0.5 Ml Vial, 5000 UNIT IJ Q12H, VIAL 11/02/17 Amlodipine Besylate* (Amlodipine Besylate*) 10 Mg Tablet, 10 MG GTB DAILY, #30 TAB HOLD IF SBP<110 11/02/17 Sennosides* (Senna Lax*) 8.6 Mg Tablet, 1 TAB GTB BID, TAB 11/02/17 Famotidine* (Famotidine*) 20 Mg Tablet, 20 MG GTB DAILY, #30 TAB 11/02/17 Hydralazine Hcl* (Hydralazine Hcl*) 25 Mg Tab, 25 MG GTB Q6H PRN for FOR SBP>160, #60 TAB 11/02/17 Bisacodyl* (Bisacodyl*) 10 Mg Supp, 10 MG IA Q24H for CONSTIPATION, SUPP 11/02/17 Docusate Sodium* (Docusate Sodium*) 100 Mg Capsule, 100 MG GTB DAILY, #30 CAP 11/02/17 Cranberry Fruit (CRANBERRY) 450 Mg Tablet, 450 MG GTB DAILY, TAB 11/02/17 Artificial Tears* (Akwa Oint*) 3.5 Gm Oint, 1 APPLIC BOTH EYES Q12H, #1 TUB 11/02/17 Magnesium Hydroxide* (Milk Of Magnesia*) 400 Mg/5 Ml Oral.susp, 30 ML GTB DAILY, ML 11/02/17 Doxazosin Mesylate* (Doxazosin Mesylate*) 4 Mg Tablet, 4 MG GTB HS, TAB 4/12/18 Vit C-Ascorbate Ca-Ascorb Sod (Vitamin C) 500 Mg/15 Ml Liquid, 5 ML GTB BID, ML 11/02/17 Ferrous Sulfate* (Ferrous Sulfate*) 220 Mg/5 Ml Solution, 7.5 ML GTB BID, ML 11/02/17 Metformin Hcl* (Metformin Hcl*) 1,000 Mg Tablet, 1000 MG GTB WITH BREAKFAST DI NNE, #60 TAB 11/02/17 Medications Current Medications Sodium Chloride 1,000 ml @ 100 mls/hr Q10H IV Last administered on 11/13/18at 05:13; Admin Dose 100 MLS/HR; Start 11/09/18 at 22:00 Morphine Sulfate (morphine) 2 mg Q4H PRN IV SEVERE PAIN LEVEL 7-10 Last administered on 11/11/18at 04:08; Admin Dose 2 MG; Start 11/09/18 at 22:00 Ondansetron HCl (Zofran Inj) 4 mg Q6H PRN IV NAUSEA AND/OR VOMITING; Start 11/09/18 at 22:00 Miscellaneous Information (Pending [facility] Order For Wound Care) This patient garcia... PRN PRN XX WOUND CARE; Start 11/09/18 at 22:30 Diagnostic Test (Pha) (Accu-Chek) 1 ea 02 XX ; Start 11/10/18 at 02:00 Miscellaneous Information 1 ea NOTE XX ; Start 11/10/18 at 02:00 Glucose (Glutose) 15 gm Q15M PRN PO DECREASED GLUCOSE; Start 11/10/18 at 02:00 Glucose (Glutose) 22.5 gm Q15M PRN PO DECREASED GLUCOSE; Start 11/10/18 at 02:00 Dextrose (D50w Syringe) 25 ml Q15M PRN IV DECREASED GLUCOSE; Start 11/10/18 at 02:00 Dextrose (D50w Syringe) 50 ml Q15M PRN IV DECREASED GLUCOSE; Start 11/10/18 at 02:00 Glucagon (Glucagen) 1 mg Q15M PRN IM DECREASED GLUCOSE; Start 11/10/18 at 02:00 Glucose (Glutose) 15 gm Q15M PRN BUCCAL DECREASED GLUCOSE; Start 11/10/18 at 02:00 Vancomycin HCl (Vanco Iv Per Pharmacy) VANCOMYCIN PER PHARMACY PER PROTOCOL XX ; Start 11/10/18 at 13:00 Piperacillin Sod/ Tazobactam Sod 100 ml @ 200 mls/hr Q8 IVPB Last administered on 11/13/18at 06:31; Admin Dose 200 MLS/HR; Start 11/10/18 at 14:00 Ferric Sodium Gluconate Complex 125 mg/Sodium Chloride 110 ml @ 110 mls/hr DAILY@1300 IVPB Last administered on 11/12/18at 14:56; Admin Dose 110 MLS/HR; Start 11/11/18 at 13:00; Stop 11/15/18 at 13:59 Caspofungin 50 mg/ Sodium Chloride 250 ml @ 250 mls/hr Q24H IVPB Last administered on 11/12/18at 16:38; Admin Dose 250 MLS/HR; Start 11/12/18 at 15:00 Vancomycin HCl 250 ml @ 125 mls/hr Q12H IVPB Last administered on 11/13/18at 00:31; Admin Dose 125 MLS/HR; Start 11/12/18 at 12:30 Pantoprazole (Protonix Iv) 40 mg BID@06,18 IV Last administered on 11/13/18at 06:32; Admin Dose 40 MG; Start 11/12/18 at 18:00 Insulin Aspart (Novolog Insulin Pen) NOVOLOG *MILD* ALGORI... Q6 SC ; Start 11/12/18 at 18:00 Assessment/Plan Hospital Course (Demo Recall) 1.Nstemi-minimal positive troponin in the setting of severe anemia. pradeep type 2 demans infarct - on med RX now. 2.GIB - defer to primary team - DR. Rivas follows. 3.anemia -secondary to GIB - hold anti-coag now - Hg 7.9 4.Bradycardia - stable BP currently - will monitor clidally given overall very debilitated state 5.Possible sepsis - on anti-Bx VEGA WISE MD Nov 13, 2018 10:49
--- NOTE | 2018-11-13 11:49 | CONS ---
Assessment/Plan Assessment/Plan Hospital Course (Demo Recall) No acute changes, looks comfortable, afebrile Microbiology: Blood cultures remain negative urine culture grew Destini species, not albicans Indwelling: Trach PEG NGT suprapubic catheter Diagnostics: CT abdomen and pelvis on admission revealed large extraperitoneal fluid collections anasarca cholelithiasis bilateral nonobstructing renal stones diverticulosis of the descending and sigmoid colon bilateral pleural effusions, right greater than left with significant atelectasis/consolidation involving the left right lower lobes. Please see full report in the chart. Chest x-ray on admission revealed new right perihilar and right lower lobe extensive infiltrates and moderate right pleural effusion. Chest x-ray this morning revealed no significant change Antimicrobials: Vancomycin, Cancidas, Zosyn Physical examination: Chronically ill-appearing well-developed obese elderly man who is awake in no distress. Head atraumatic normocephalic neck is supple tracheostomy present chest rise symmetrical breath sounds diminished bases. Heart: S1-S2. Abdomen soft bowel sounds present extremities without cyanosis Assessment: 1. Sepsis, present on admission 2. Healthcare associated pneumonia 3. Urinary tract infection 4. Ascites, possible SBP 5. Non-ST elevation SC 6. Chronic respiratory failure and dysphagia 7. Acute on chronic anemia==> erosive gastritis/esophagitis per EGD 8. Encephalopathy, likely chronic Plan: Stable, wbc decreasing, continue abx, PPI's, pending paracentesis Consultation Date/Type/Reason Admit Date/Time Nov 09, 2018 at 14:44 Initial Consult Date Type of Consult id Requesting Provider: RACHELLE RAMOS MD Date/Time of Note DATE: 11/13/18 TIME: 11:48 Exam/Review of Systems Exam Vitals Vital Signs Date Temp Pulse Resp B/P (MAP) Pulse Ox O2 O2 Flow FiO2 Time Delivery Rate 11/13/18 53 16 100 30 10:59 11/13/18 99/53 (68) Mechanical 10:45 Ventilator 11/13/18 98.2 07:27 Intake and Output 11/12/18 11/12/18 11/13/18 1515:00 23:00 07:00 IntakeIntake Total 250 ml 1080 ml 950 ml OutputOutput Total 600 ml BalanceBalance 250 ml 480 ml 950 ml Results Result Diagram: 11/13/18 0747 11/13/18 0747 Results 24hrs Laboratory Tests Test 11/12/18 12:35 11/12/18 17:48 11/13/18 00:30 11/13/18 06:41 Bedside Glucose 83 111 124 133 Test 11/13/18 07:47 White Blood Count 10.3 # Red Blood Count 3.41 L Hemoglobin 7.9 L Hematocrit 28.0 L Mean Corpuscular 82.1 Volume Mean Corpuscular 23.2 L Hemoglobin Mean Corpuscular 28.2 L Hemoglobin Concent Red Cell 19.6 H Distribution Width Platelet Count 311 Mean Platelet Volume 11.2 H Immature 0.800 H Granulocytes % Neutrophils % 70.2 Lymphocytes % 13.3 L Monocytes % 6.3 Eosinophils % 8.9 H Basophils % 0.5 Nucleated Red Blood 0.0 Cells % Immature 0.080 H Granulocytes # Neutrophils # 7.2 Lymphocytes # 1.4 Monocytes # 0.7 Eosinophils # 0.9 H Basophils # 0.1 Nucleated Red Blood 0.0 Cells # Sodium Level 144 Potassium Level 4.2 Chloride Level 116 H Carbon Dioxide Level 21 Anion Gap 7 Blood Urea Nitrogen 18 Creatinine 0.87 Est Glomerular Filtrat Rate mL/min Glucose Level 118 Calcium Level 8.0 L Creatine Kinase 32 Creatine Kinase 3.8 Index Creatinine Kinase MB 1.21 (Mass) Troponin I 0.095 Medications Medication Current Medications Sodium Chloride 1,000 ml @ 100 mls/hr Q10H IV Last administered on 11/13/18at 05:13; Admin Dose 100 MLS/HR; Start 11/09/18 at 22:00 Morphine Sulfate (morphine) 2 mg Q4H PRN IV SEVERE PAIN LEVEL 7-10 Last administered on 11/11/18at 04:08; Admin Dose 2 MG; Start 11/09/18 at 22:00 Ondansetron HCl (Zofran Inj) 4 mg Q6H PRN IV NAUSEA AND/OR VOMITING; Start at 22:00 Miscellaneous Information (Pending [facility] Order For Wound Care) This patient garcia... PRN PRN XX WOUND CARE; Start 11/09/18 at 22:30 Diagnostic Test (Pha) (Accu-Chek) 1 ea 02 XX ; Start 11/10/18 at 02:00 Miscellaneous Information 1 ea NOTE XX ; Start 11/10/18 at 02:00 Glucose (Glutose) 15 gm Q15M PRN PO DECREASED GLUCOSE; Start 11/10/18 at 02:00 Glucose (Glutose) 22.5 gm Q15M PRN PO DECREASED GLUCOSE; Start 11/10/18 at 02:00 Dextrose (D50w Syringe) 25 ml Q15M PRN IV DECREASED GLUCOSE; Start 11/10/18 at 02:00 Dextrose (D50w Syringe) 50 ml Q15M PRN IV DECREASED GLUCOSE; Start 11/10/18 at 02:00 Glucagon (Glucagen) 1 mg Q15M PRN IM DECREASED GLUCOSE; Start 11/10/18 at 02:00 Glucose (Glutose) 15 gm Q15M PRN BUCCAL DECREASED GLUCOSE; Start 11/10/18 at 02:00 Vancomycin HCl (Vanco Iv Per Pharmacy) VANCOMYCIN PER PHARMACY PER PROTOCOL XX ; Start 11/10/18 at 13:00 Piperacillin Sod/ Tazobactam Sod 100 ml @ 200 mls/hr Q8 IVPB Last administered on 11/13/18at 06:31; Admin Dose 200 MLS/HR; Start 11/10/18 at 14:00 Ferric Sodium Gluconate Complex 125 mg/Sodium Chloride 110 ml @ 110 mls/hr DAILY@1300 IVPB Last administered on 11/12/18at 14:56; Admin Dose 110 MLS/HR; Start 11/11/18 at 13:00; Stop 11/15/18 at 13:59 Caspofungin 50 mg/ Sodium Chloride 250 ml @ 250 mls/hr Q24H IVPB Last administered on 11/12/18at 16:38; Admin Dose 250 MLS/HR; Start 11/12/18 at 15:00 Vancomycin HCl 250 ml @ 125 mls/hr Q12H IVPB Last administered on 11/13/18at 00:31; Admin Dose 125 MLS/HR; Start 11/12/18 at 12:30 Pantoprazole (Protonix Iv) 40 mg BID@06,18 IV Last administered on 11/13/18at 0 6:32; Admin Dose 40 MG; Start 11/12/18 at 18:00 Insulin Aspart (Novolog Insulin Pen) NOVOLOG *MILD* ALGORI... Q6 SC ; Start 11/12/18 at 18:00 SUSANNE LANIER NP Nov 13, 2018 11:49
--- NOTE | 2018-11-13 12:01 | PN ---
Date/Time of Note Date/Time of Note DATE: 11/13/18 TIME: 12:00 Assessment/Plan VTE Prophylaxis Risk score (from Ns)>0 risk: 9 SCD applied (from Ns): No Lines/Catheters IV Catheter Type (from Nrs): Mid Line Urinary Cath still in place: Yes (suprapubic) Assessment/Plan Assessment/Plan - Possible SEPSIS- - ID consult- - Abdominal distention - GI consult - Dr Wolf - Right pulmonary effusion -Dr. Gomez notified in pulmonology consultation. - per pulmonary -Ventilator dependent respiratory failure. - Dr. Gomez notified in pulmonology consultation. 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 Result Diagram: 11/13/18 0747 11/13/18 0747 Results 24hrs Laboratory Tests Test 11/12/18 12:35 11/12/18 17:48 11/13/18 00:30 11/13/18 06:41 Bedside Glucose 83 111 124 133 Test 11/13/18 07:47 White Blood Count 10.3 # Red Blood Count 3.41 L Hemoglobin 7.9 L Hematocrit 28.0 L Mean Corpuscular 82.1 Volume Mean Corpuscular 23.2 L Hemoglobin Mean Corpuscular 28.2 L Hemoglobin Concent Red Cell 19.6 H Distribution Width Platelet Count 311 Mean Platelet Volume 11.2 H Immature 0.800 H Granulocytes % Neutrophils % 70.2 Lymphocytes % 13.3 L Monocytes % 6.3 Eosinophils % 8.9 H Basophils % 0.5 Nucleated Red Blood 0.0 Cells % Immature 0.080 H Granulocytes # Neutrophils # 7.2 Lymphocytes # 1.4 Monocytes # 0.7 Eosinophils # 0.9 H Basophils # 0.1 Nucleated Red Blood 0.0 Cells # Sodium Level 144 Potassium Level 4.2 Chloride Level 116 H Carbon Dioxide Level 21 Anion Gap 7 Blood Urea Nitrogen 18 Creatinine 0.87 Est Glomerular Filtrat Rate mL/min Glucose Level 118 Calcium Level 8.0 L Creatine Kinase 32 Creatine Kinase 3.8 Index Creatinine Kinase MB 1.21 (Mass) Troponin I 0.095 Exam/Review of Systems Exam Vitals Vital Signs Date Temp Pulse Resp B/P (MAP) Pulse Ox O2 O2 Flow FiO2 Time Delivery Rate 11/13/18 53 16 100 30 10:59 11/13/18 99/53 (68) Mechanical 10:45 Ventilator 11/13/18 98.2 07:27 Intake and Output 11/12/18 11/12/18 11/13/18 1515:00 23:00 07:00 IntakeIntake Total 250 ml 1080 ml 950 ml OutputOutput Total 600 ml BalanceBalance 250 ml 480 ml 950 ml Results Results 24hrs Laboratory Tests Test 11/12/18 12:35 11/12/18 17:48 11/13/18 00:30 11/13/18 06:41 Bedside Glucose 83 111 124 133 Test 11/13/18 07:47 White Blood Count 10.3 # Red Blood Count 3.41 L Hemoglobin 7.9 L Hematocrit 28.0 L Mean Corpuscular 82.1 Volume Mean Corpuscular 23.2 L Hemoglobin Mean Corpuscular 28.2 L Hemoglobin Concent Red Cell 19.6 H Distribution Width Platelet Count 311 Mean Platelet Volume 11.2 H Immature 0.800 H Granulocytes % Neutrophils % 70.2 Lymphocytes % 13.3 L Monocytes % 6.3 Eosinophils % 8.9 H Basophils % 0.5 Nucleated Red Blood 0.0 Cells % Immature 0.080 H Granulocytes # Neutrophils # 7.2 Lymphocytes # 1.4 Monocytes # 0.7 Eosinophils # 0.9 H Basophils # 0.1 Nucleated Red Blood 0.0 Cells # Sodium Level 144 Potassium Level 4.2 Chloride Level 116 H Carbon Dioxide Level 21 Anion Gap 7 Blood Urea Nitrogen 18 Creatinine 0.87 Est Glomerular Filtrat Rate mL/min Glucose Level 118 Calcium Level 8.0 L Creatine Kinase 32 Creatine Kinase 3.8 Index Creatinine Kinase MB 1.21 (Mass) Troponin I 0.095 Medications Medication Current Medications Sodium Chloride 1,000 ml @ 100 mls/hr Q10H IV Last administered on 11/13/18at 05:13; Admin Dose 100 MLS/HR; Start 11/09/18 at 22:00 Morphine Sulfate (morphine) 2 mg Q4H PRN IV SEVERE PAIN LEVEL 7-10 Last administered on 11/11/18at 04:08; Admin Dose 2 MG; Start 11/09/18 at 22:00 Ondansetron HCl (Zofran Inj) 4 mg Q6H PRN IV NAUSEA AND/OR VOMITING; Start 11/09/18 at 22:00 Miscellaneous Information (Pending [facility] Order For Wound Care) This patient garcia... PRN PRN XX WOUND CARE; Start 11/09/18 at 22:30 Diagnostic Test (Pha) (Accu-Chek) 1 ea 02 XX ; Start 11/10/18 at 02:00 Miscellaneous Information 1 ea NOTE XX ; Start 11/10/18 at 02:00 Glucose (Glutose) 15 gm Q15M PRN PO DECREASED GLUCOSE; Start 11/10/18 at 02:00 Glucose (Glutose) 22.5 gm Q15M PRN PO DECREASED GLUCOSE; Start 11/10/18 at 02:00 Dextrose (D50w Syringe) 25 ml Q15M PRN IV DECREASED GLUCOSE; Start 11/10/18 at 02:00 Dextrose (D50w Syringe) 50 ml Q15M PRN IV DECREASED GLUCOSE; Start 11/10/18 at 02:00 Glucagon (Glucagen) 1 mg Q15M PRN IM DECREASED GLUCOSE; Start 11/10/18 at 02:00 Glucose (Glutose) 15 gm Q15M PRN BUCCAL DECREASED GLUCOSE; Start 11/10/18 at 02:00 Vancomycin HCl (Vanco Iv Per Pharmacy) VANCOMYCIN PER PHARMACY PER PROTOCOL XX ; Start 11/10/18 at 13:00 Piperacillin Sod/ Tazobactam Sod 100 ml @ 200 mls/hr Q8 IVPB Last administered on 11/13/18at 06:31; Admin Dose 200 MLS/HR; Start 11/10/18 at 14:00 Ferric Sodium Gluconate Complex 125 mg/Sodium Chloride 110 ml @ 110 mls/hr DAILY@1300 IVPB Last administered on 11/12/18at 14:56; Admin Dose 110 MLS/HR; Start 11/11/18 at 13:00; Stop 11/15/18 at 13:59 Caspofungin 50 mg/ Sodium Chloride 250 ml @ 250 mls/hr Q24H IVPB Last administered on 11/12/18at 16:38; Admin Dose 250 MLS/HR; Start 11/12/18 at 15:00 Vancomycin HCl 250 ml @ 125 mls/hr Q12H IVPB Last administered on 11/13/18at 00:31; Admin Dose 125 MLS/HR; Start 11/12/18 at 12:30 Pantoprazole (Protonix Iv) 40 mg BID@06,18 IV Last administered on 11/13/18at 06:32; Admin Dose 40 MG; Start 11/12/18 at 18:00 Insulin Aspart (Novolog Insulin Pen) NOVOLOG *MILD* ALGORI... Q6 SC ; Start 11/12/18 at 18:00 SAMIA LICEA Nov 13, 2018 12:01
[2018-11-13] MEDS: SOD FERRIC GLUC COMPLX 125 MG in SOD CHLORIDE 0.9% 100 ML IVPB SCH (14:30)
[2018-11-13] MEDS: CASPOFUNGIN 50 MG in SOD CHLORIDE 0.9% 250 ML IVPB SCH (15:32)
[2018-11-14] VITALS (21 sets, daily range): BP systolic 97–124; BP diastolic 54–74; PULSE 49–55; RESP 16–20
[2018-11-14] MEDS: VANCOMYCIN 1 GM 250 ML IVPB SCH ×2 (00:30→16:11)
[2018-11-14] MEDS: SOD CHLORIDE 0.9% 1,000 ML IV SCH ×2 (02:00→10:53)
[2018-11-14] MEDS: ACCU-CHEK XX SCH (02:00)
[2018-11-14] MEDS: INSULIN ASPART [NOVOLOG] 3 ML PEN SC SCH ×3 (06:00→17:43)
[2018-11-14] MEDS: PANTOPRAZOLE 40 MG INJ IV SCH ×2 (06:04→17:43)
[2018-11-14] MEDS: PIPER-TAZO 3.375 GM IV (PMX) 100 ML IVPB SCH ×3 (06:05→21:40)
--- NOTE | 2018-11-14 06:40 | PN ---
DATE: 11/13/2018 HISTORY OF PRESENT ILLNESS: The patient is intubated, is unable to communicate. I saw the patient b ecause of abdominal distention. He underwent paracentesis today. He also had coffee-ground material in the NG tube with anemia. Endoscopy showed an ulcer disease whi ch was treated with Hemoclips. He still continues to have a low hemoglobin. In fact, he had very low hemoglobin on admission of 6.9 . Hence bleeding from the lower GI sources should be ruled out. CAT scan of the abdomen showed evid ence of thickening of the rectum which is circumferential thickening. Obviously, malignancy should b e ruled out. PHYSICAL EXAMINATION: GENERAL: He is intubated. He is unresponsive. VITAL SIGNS: Temperature 98, pulse is 103, blood pressure is 118/73. CARDIOVASCULAR: Normal heart sounds. RESPIRATORY: Normal breath sounds. ABDOMEN: Showed less ascites. LABORATORY WORKUP: Hemoglobin is 7.9. BUN is 18, creatinine is 0.87. Troponin is down to 0.095. CLINICAL IMPRESSION: 1. From the ascites standpoint, he had a paracentesis. We will wait for the results of the ascitic fluid. 2. From the anemia standpoint, he has got anemia and gastric ulcer. 3. He has rectal wall thickening which raises the possibility of malignancy; hence, the patient need s colonoscopy. Right now, his heart rate is low around 40, so he may not be a right candidate for time being for colonoscopy. We will wait and see. Once he becomes stable, colonoscopy will be per formed. Dictated By: ANNE BILLINGS/NTS Conf#: [id number] DID#: [id number] CC: RACHELLE RAMOS MD;*EndCC*
[2018-11-14] MEDS: BALSAM PERU/CASTOR OIL 60 GM TUBE TOP SCH ×2 (09:00→21:00)
--- NOTE | 2018-11-14 10:52 | CONS ---
Assessment/Plan Assessment/Plan Assessment/Plan (Daily) Chest x-ray showing diffuse bilateral infiltrates. Ventilator setting; AC of 16, tidal volume 600, PEEP of 5, 30% FiO2. Assessment recommendations; 1. Patient with history of VDR F and chronic encephalopathy admitted for sepsis, currently on appropriate antimicrobial regimen. 2. Possibly bilateral pleural effusions. 3. History of nephrostomy. 4. Status post paracentesis. Possibly related to either cirrhosis of liver or CHF. Continue current supportive care. Continue current antibiotics as well as current ventilator settings. Overall prognosis is poor. Consultation Date/Type/Reason Admit Date/Time Nov 09, 2018 at 14:44 Date of Consultation: Nov 14, 2018 Type of Consult Pulmonary Patient is a 83-year-old male who was admitted on the of this month with abdominal distention. Patient underwent paracentesis about 3.8 L of fluid was removed. 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 By the time I saw the patient, patient appeared comfortable on ventilator via tracheostomy but was unable to give any history by himself whatsoever. History is been obtained from medical records. Past medical history; 1. VDR F 2. Neuropathy. 3. History of nephrostomy. 4. Anemia. 5. Status post tracheostomy and G-tube. 6. Recent EGD performed yesterday. Showed erosive gastritis. Medications; reviewed. Allergies; none. Social history, family history, occupational history not available. Review of system; unable to be obtained. General exam; elderly male, on ventilator via tracheostomy, awake but noncommunicative. Currently in no distress. Date/Time of Note DATE: 11/14/18 TIME: 10:48 Past Medical History Home Meds Reported Medications Multivitamin with Minerals (Multivitamins with Minerals) 1 Each Tablet, 1 EACH GTB DAILY, TAB 11/02/17 Heparin Sodium,Porcine/Pf (HEPARIN SOD 5,000 UNIT/ 0.5 ML) 5,000 Unit/0.5 Ml Vial, 5000 UNIT IJ Q12H, VIAL 11/02/17 Amlodipine Besylate* (Amlodipine Besylate*) 10 Mg Tablet, 10 MG GTB DAILY, #30 TAB HOLD IF SBP<110 11/02/17 Sennosides* (Senna Lax*) 8.6 Mg Tablet, 1 TAB GTB BID, TAB 11/02/17 Famotidine* (Famotidine*) 20 Mg Tablet, 20 MG GTB DAILY, #30 TAB 11/02/17 Hydralazine Hcl* (Hydralazine Hcl*) 25 Mg Tab, 25 MG GTB Q6H PRN for FOR SBP>160, #60 TAB 11/02/17 Bisacodyl* (Bisacodyl*) 10 Mg Supp, 10 MG DC Q24H for CONSTIPATION, SUPP 11/02/17 Docusate Sodium* (Docusate Sodium*) 100 Mg Capsule, 100 MG GTB DAILY, #30 CAP 11/02/17 Cranberry Fruit (CRANBERRY) 450 Mg Tablet, 450 MG GTB DAILY, TAB 11/02/17 Artificial Tears* (Akwa Oint*) 3.5 Gm Oint, 1 APPLIC BOTH EYES Q12H, #1 TUB 11/02/17 Magnesium Hydroxide* (Milk Of Magnesia*) 400 Mg/5 Ml Oral.susp, 30 ML GTB DAILY, ML 11/02/17 Doxazosin Mesylate* (Doxazosin Mesylate*) 4 Mg Tablet, 4 MG GTB HS, TAB 11/02/17 Vit C-Ascorbate Ca-Ascorb Sod (Vitamin C) 500 Mg/15 Ml Liquid, 5 ML GTB BID, ML 11/02/17 Ferrous Sulfate* (Ferrous Sulfate*) 220 Mg/5 Ml Solution, 7.5 ML GTB BID, ML 11/02/17 Metformin Hcl* (Metformin Hcl*) 1,000 Mg Tablet, 1000 MG GTB WITH BREAKFAST DINNE, #60 TAB 11/02/17 Medications Current Medications Sodium Chloride 1,000 ml @ 100 mls/hr Q10H IV Last administered on 11/13/18at 23:27; Admin Dose 100 MLS/HR; Start 11/09/18 at 22:00 Morphine Sulfate (morphine) 2 mg Q4H PRN IV SEVERE PAIN LEVEL 7-10 Last administered on 11/11/18at 04:08; Admin Dose 2 MG; Start 11/09/18 at 22:00 Ondansetron HCl (Zofran Inj) 4 mg Q6H PRN IV NAUSEA AND/OR VOMITING; Start 11/09/18 at 22:00 Miscellaneous Information (Pending [facility] Order For Wound Care) This patient garcia... PRN PRN XX WOUND CARE; Start 11/09/18 at 22:30 Diagnostic Test (Pha) (Accu-Chek) 1 ea 02 XX ; Start 11/10/18 at 02:00 Miscellaneous Information 1 ea NOTE XX ; Start 11/10/18 at 02:00 Glucose (Glutose) 15 gm Q15M PRN PO DECREASED GLUCOSE; Start 11/10/18 at 02:00 Glucose (Glutose) 22.5 gm Q15M PRN PO DECREASED GLUCOSE; Start 11/10/18 at 02:00 Dextrose (D50w Syringe) 25 ml Q15M PRN IV DECREASED GLUCOSE; Start 11/10/18 at 02:00 Dextrose (D50w Syringe) 50 ml Q15M PRN IV DECREASED GLUCOSE; Start 11/10/18 at 02:00 Glucagon (Glucagen) 1 mg Q15M PRN IM DECREASED GLUCOSE; Start 11/10/18 at 02:00 Glucose (Glutose) 15 gm Q15M PRN BUCCAL DECREASED GLUCOSE; Start 11/10/18 at 02:00 Vancomycin HCl (Vanco Iv Per Pharmacy) VANCOMYCIN PER PHARMACY PER PROTOCOL XX ; Start 11/10/18 at 13:00 Piperacillin Sod/ Tazobactam Sod 100 ml @ 200 mls/hr Q8 IVPB Last administered on 11/14/18at 06:05; Admin Dose 200 MLS/HR; Start 11/10/18 at 14:00 Ferric Sodium Gluconate Complex 125 mg/Sodium Chloride 110 ml @ 110 mls/hr DAILY@1300 IVPB Last administered on 11/13/18at 14:30; Admin Dose 110 MLS/HR; Start 11/11/18 at 13:00; Stop 11/15/18 at 13:59 Caspofungin 50 mg/ Sodium Chloride 250 ml @ 250 mls/hr Q24H IVPB Last administered on 11/13/18at 15:32; Admin Dose 250 MLS/HR; Start 11/12/18 at 15:00 Pantoprazole (Protonix Iv) 40 mg BID@06,18 IV Last administered on 11/14/18at 06:04; Admin Dose 40 MG; Start 11/12/18 at 18:00 Insulin Aspart (Novolog Insulin Pen) NOVOLOG *MILD* ALGORI... Q6 SC ; Start 11/12/18 at 18:00 Vancomycin HCl 250 ml @ 125 mls/hr Q24H IVPB ; Start 11/14/18 at 16:00 Allergies: Coded Allergies: No Known Drug Allergies (Verified Allergy, Unknown, 11/09/18) Social History Smoking Status: Unknown if ever smoked Exam/Review of Systems Exam Vitals Vital Signs Date Temp Pulse Resp B/P (MAP) Pulse Ox O2 O2 Flow FiO2 Time Delivery Rate 11/14/18 51 16 92 30 09:24 11/14/18 97.4 99/63 (75) Mechanical 07:08 Ventilator Intake and Output 11/13/18 11/13/18 11/14/18 1414:59 22:59 06:59 IntakeIntake Total 990 ml 560 ml 2100 ml OutputOutput Total 4100 ml 400 ml 1275 ml BalanceBalance -3110 ml 160 ml 825 ml Exam H EENT exam; supple neck, no JVD. No lymphadenopathy. Midline trachea. No thyromegaly. Tracheostomy in place. No neck masses. Chest exam; diminished breath sounds throughout. S1-S2 audible, no murmurs. Regular rhythm. Abdomen exam; soft, G-tube in place. No organomegaly. Bowel sounds audible. Extremity exam; no peripheral edema. Patient has a flexion contractures in all 4 extremities. [employer] exam; patient awake but noncommunicative. Results Result Diagram: 11/13/18 0747 11/13/18 0747 Results 24hrs Laboratory Tests Test 11/13/18 13:01 11/13/18 16:35 11/13/18 23:24 11/13/18 23:32 Bedside Glucose 122 124 139 Vancomycin Level 27.9 *H Trough Test 11/14/18 06:13 Bedside Glucose 131 Medications Medication Current Medications Sodium Chloride 1,000 ml @ 100 mls/hr Q10H IV Last administered on 11/13/18at 23:27; Admin Dose 100 MLS/HR; Start 11/09/18 at 22:00 Morphine Sulfate (morphine) 2 mg Q4H PRN IV SEVERE PAIN LEVEL 7-10 Last administered on 11/11/18at 04:08; Admin Dose 2 MG; Start 11/09/18 at 22:00 Ondansetron HCl (Zofran Inj) 4 mg Q6H PRN IV NAUSEA AND/OR VOMITING; Start 11/09/18 at 22:00 Miscellaneous Information (Pending [facility] Order For Wound Care) This patient garcia... PRN PRN XX WOUND CARE; Start 11/09/18 at 22:30 Diagnostic Test (Pha) (Accu-Chek) 1 ea 02 XX ; Start 11/10/18 at 02:00 Miscellaneous Information 1 ea NOTE XX ; Start 11/10/18 at 02:00 Glucose (Glutose) 15 gm Q15M PRN PO DECREASED GLUCOSE; Start 11/10/18 at 02:00 Glucose (Glutose) 22.5 gm Q15M PRN PO DECREASED GLUCOSE; Start 11/10/18 at 02:00 Dextrose (D50w Syringe) 25 ml Q15M PRN IV DECREASED GLUCOSE; Start 11/10/18 at 02:00 Dextrose (D50w Syringe) 50 ml Q15M PRN IV DECREASED GLUCOSE; Start 11/10/18 at 02:00 Glucagon (Glucagen) 1 mg Q15M PRN IM DECREASED GLUCOSE; Start 11/10/18 at 02:00 Glucose (Glutose) 15 gm Q15M PRN BUCCAL DECREASED GLUCOSE; Start 11/10/18 at 02:00 Vancomycin HCl (Vanco Iv Per Pharmacy) VANCOMYCIN PER PHARMACY PER PROTOCOL XX ; Start 11/10/18 at 13:00 Piperacillin Sod/ Tazobactam Sod 100 ml @ 200 mls/hr Q8 IVPB Last administered on 11/14/18at 06:05; Admin Dose 200 MLS/HR; Start 11/10/18 at 14:00 Ferric Sodium Gluconate Complex 125 mg/Sodium Chloride 110 ml @ 110 mls/hr DAILY@1300 IVPB Last administered on 11/13/18at 14:30; Admin Dose 110 MLS/HR; Start 11/11/18 at 13:00; Stop 11/15/18 at 13:59 Caspofungin 50 mg/ Sodium Chloride 250 ml @ 250 mls/hr Q24H IVPB Last administ ered on 11/13/18at 15:32; Admin Dose 250 MLS/HR; Start 11/12/18 at 15:00 Pantoprazole (Protonix Iv) 40 mg BID@06,18 IV Last administered on 11/14/18at 06:04; Admin Dose 40 MG; Start 11/12/18 at 18:00 Insulin Aspart (Novolog Insulin Pen) NOVOLOG *MILD* ALGORI... Q6 SC ; Start 11/12/18 at 18:00 Vancomycin HCl 250 ml @ 125 mls/hr Q24H IVPB ; Start 11/14/18 at 16:00 MILLA CHAIREZ Nov 14, 2018 10:52
[2018-11-14] MEDS: SOD FERRIC GLUC COMPLX 125 MG in SOD CHLORIDE 0.9% 100 ML IVPB SCH (11:55)
[2018-11-14] MEDS: CASPOFUNGIN 50 MG in SOD CHLORIDE 0.9% 250 ML IVPB SCH (14:55)
--- NOTE | 2018-11-14 15:42 | CONS ---
Assessment/Plan Assessment/Plan Hospital Course (Demo Recall) No acute changes, awake, looks comfortable, afebrile Microbiology: Blood cultures remain negative urine culture grew Destini species, not albicans Indwelling: Trach PEG NGT suprapubic catheter Diagnostics: CT abdomen and pelvis on admission revealed large extraperitoneal fluid collections anasarca cholelithiasis bilateral nonobstructing renal stones diverticulosis of the descending and sigmoid colon bilateral pleural effusions, right greater than left with significant atelectasis/consolidation involving the left right lower lobes. Please see full report in the chart. Chest x-ray on admission revealed new right perihilar and right lower lobe extensive infiltrates and moderate right pleural effusion. Chest x-ray this morning revealed no significant change Antimicrobials: Vancomycin, Cancidas, Zosyn Physical examination: Chronically ill-appearing well-developed obese elderly man who is awake in no distress. Head atraumatic normocephalic neck is supple tracheostomy present chest rise symmetrical breath sounds diminished bases. Heart: S1-S2. Abdomen soft bowel sounds present extremities without cyanosis Assessment: 1. Sepsis, present on admission 2. Healthcare associated pneumonia 3. Urinary tract infection 4. Ascites, possible SBP===> s/p paracentesis 5. Non-ST elevation [place] 6. Chronic respiratory failure and dysphagia 7. Acute on chronic anemia==> erosive gastritis/esophagitis per EGD 8. Encephalopathy, likely chronic Plan: Stable, continue abx, f/u ascitic fluid cx, GI rec-s Consultation Date/Type/Reason Admit Date/Time Nov 09, 2018 at 14:44 Initial Consult Date Type of Consult id Requesting Provider: RACHELLE RAMOS MD Date/Time of Note DATE: 11/14/18 TIME: 15:41 Exam/Review of Systems Exam Vitals Vital Signs Date Temp Pulse Resp B/P (MAP) Pulse Ox O2 O2 Flow FiO2 Time Delivery Rate 11/14/18 54 16 100 30 15:29 11/14/18 98.6 106/54 Mechanical 15:10 (71) Ventilator Intake and Output 11/13/18 11/13/18 11/14/18 1515:00 23:00 07:00 IntakeIntake Total 990 ml 560 ml 2100 ml OutputOutput Total 4100 ml 400 ml 1275 ml BalanceBalance -3110 ml 160 ml 825 ml Results Result Diagram: 11/13/18 0747 11/13/18 0747 Results 24hrs Laboratory Tests Test 11/13/18 16:35 11/13/18 23:24 11/13/18 23:32 11/14/18 06:13 Bedside Glucose 124 139 131 Vancomycin Level 27.9 *H Trough Test 11/14/18 11:49 Bedside Glucose 116 Medications Medication Current Medications Morphine Sulfate (morphine) 2 mg Q4H PRN IV SEVERE PAIN LEVEL 7-10 Last administered on 11/11/18at 04:08; Admin Dose 2 MG; Start 11/09/18 at 22:00 Ondansetron HCl (Zofran Inj) 4 mg Q6H PRN IV NAUSEA AND/OR VOMITING; Start 11/09/18 at 22:00 Miscellaneous Information (Pending [facility] Order For Wound Care) This patient garcia... PRN PRN XX WOUND CARE; Start 11/09/18 at 22:30 Diagnostic Test (Pha) (Accu-Chek) 1 ea 02 XX ; Start 11/10/18 at 02:00 Miscellaneous Information 1 ea NOTE XX ; Start 11/10/18 at 02:00 Glucose (Glutose) 15 gm Q15M PRN PO DECREASED GLUCOSE; Start 11/10/18 at 02:00 Glucose (Glutose) 22.5 gm Q15M PRN PO DECREASED GLUCOSE; Start 11/10/18 at 02:00 Dextrose (D50w Syringe) 25 ml Q15M PRN IV DECREASED GLUCOSE; Start 11/10/18 at 02:00 Dextrose (D50w Syringe) 50 ml Q15M PRN IV DECREASED GLUCOSE; Start 11/10/18 at 02:00 Glucagon (Glucagen) 1 mg Q15M PRN IM DECREASED GLUCOSE; Start 11/10/18 at 02:00 Glucose (Glutose) 15 gm Q15M PRN BUCCAL DECREASED GLUCOSE; Start 11/10/18 at 02:00 Vancomycin HCl (Vanco Iv Per Pharmacy) VANCOMYCIN PER PHARMACY PER PROTOCOL XX ; Start 11/10/18 at 13:00 Piperacillin Sod/ Tazobactam Sod 100 ml @ 200 mls/hr Q8 IVPB Last administered on 11/14/18at 13:34; Admin Dose 200 MLS/HR; Start 11/10/18 at 14:00 Ferric Sodium Gluconate Complex 125 mg/Sodium Chloride 110 ml @ 110 mls/hr DAILY@1300 IVPB Last administered on 11/14/18at 11:55; Admin Dose 110 MLS/HR; Start 11/11/18 at 13:00; Stop 11/15/18 at 13:59 Caspofungin 50 mg/ Sodium Chloride 250 ml @ 250 mls/hr Q24H IVPB Last administered on 11/14/18at 14:55; Admin Dose 250 MLS/HR; Start 11/12/18 at 15:00 Pantoprazole (Protonix Iv) 40 mg BID@06,18 IV Last administered on 11/14/18at 06:04; Admin Dose 40 MG; Start 11/12/18 at 18:00 Insulin Aspart (Novolog Insulin Pen) NOVOLOG *MILD* ALGORI... Q6 SC ; Start 11/12/18 at 18:00 Vancomycin HCl 250 ml @ 125 mls/hr Q24H IVPB ; Start 11/14/18 at 16:00 SUSANNE LANIER NP Nov 14, 2018 15:42
--- NOTE | 2018-11-14 17:04 | CONS ---
Assessment/Plan Assessment/Plan Hospital Course (Demo Recall) IMP: 1.Nstemi-minimal positive troponin in the setting of severe anemia. likley type 2 demans infarct. Nl EF by echo this admit 55% 2.GIB 3.anemia 4.Bradycardia 5.Possible sepsis 6. had pause 3 seconda overnight. ? primary lung problem or primary cardiac etiology RECC: -TELE -Continue abx's and f/u cx data -trend cardiac enzymes and transfuse as necessary -no juni agents -Will follow for possible need for PPM Consultation Date/Type/Reason Admit Date/Time Nov 09, 2018 at 14:44 Initial Consult Date 11/11/2018 Type of Consult Cardiology Reason for Consultation Nstemi Requesting Provider: RACHELLE RAMOS MD Date/Time of Note DATE: 11/14/18 TIME: 17:00 Exam/Review of Systems Vital Signs Vitals Vital Signs Date Temp Pulse Resp B/P (MAP) Pulse Ox O2 O2 Flow FiO2 Time Delivery Rate 11/14/18 53 16:33 11/14/18 16 100 30 15:29 11/14/18 98.6 106/54 Mechanical 15:10 (71) Ventilator Intake and Output 11/13/18 11/13/18 11/14/18 1515:00 23:00 07:00 IntakeIntake Total 990 ml 560 ml 2100 ml OutputOutput Total 4100 ml 400 ml 1275 ml BalanceBalance -3110 ml 160 ml 825 ml Exam Exam Review of Systems: CONSTITUTIONAL: No fevers, chills. PULMONARY: No sob CARDIOVASCULAR: No chest pain/palpitations GASTROINTESTINAL: No nausea/vomiting. GENITOURINARY: No hematuria/dysuria. MUSCULOSKELETAL: No myagias/arthalgias. PSYCHIATRIC: The patient denies depression. NEUROLOGIC: No weakness Constitutional: alert Psych: no complaints Head: normocephalic ENMT: mucosa pink and moist, other (trached) Neck: supple, jvd (9 cm water) Respiratory: diminished breath sounds (at bases/B) Cardiovascular: regular rate and rhythm Gastrointestinal: soft, non-tender Musculoskeletal: muscle tone (normal) Extremities: edema (none) Labs Result Diagram: 11/13/18 0747 11/13/18 0747 Results 24hrs Laboratory Tests Test 11/13/18 23:24 11/13/18 23:32 11/14/18 06:13 11/14/18 11:49 Vancomycin Level 27.9 *H Trough Bedside Glucose 139 131 116 Medications Medications Current Medications Morphine Sulfate (morphine) 2 mg Q4H PRN IV SEVERE PAIN LEVEL 7-10 Last administered on 11/11/18at 04:08; Admin Dose 2 MG; Start 11/09/18 at 22:00 Ondansetron HCl (Zofran Inj) 4 mg Q6H PRN IV NAUSEA AND/OR VOMITING; Start 11/09/18 at 22:00 Miscellaneous Information (Pending [facility] Order For Wound Care) This patient garcia... PRN PRN XX WOUND CARE; Start 11/09/18 at 22:30 Diagnostic Test (Pha) (Accu-Chek) 1 ea 02 XX ; Start 11/10/18 at 02:00 Miscellaneous Information 1 ea NOTE XX ; Start 11/10/18 at 02:00 Glucose (Glutose) 15 gm Q15M PRN PO DECREASED GLUCOSE; Start 11/10/18 at 02:00 Glucose (Glutose) 22.5 gm Q15M PRN PO DECREASED GLUCOSE; Start 11/10/18 at 02:00 Dextrose (D50w Syringe) 25 ml Q15M PRN IV DECREASED GLUCOSE; Start 11/10/18 at 02:00 Dextrose (D50w Syringe) 50 ml Q15M PRN IV DECREASED GLUCOSE; Start 11/10/18 at 02:00 Glucagon (Glucagen) 1 mg Q15M PRN IM DECREASED GLUCOSE; Start 11/10/18 at 02:00 Glucose (Glutose) 15 gm Q15M PRN BUCCAL DECREASED GLUCOSE; Start 11/10/18 at 02:00 Vancomycin HCl (Vanco Iv Per Pharmacy) VANCOMYCIN PER PHARMACY PER PROTOCOL XX ; Start 11/10/18 at 13:00 Piperacillin Sod/ Tazobactam Sod 100 ml @ 200 mls/hr Q8 IVPB Last administered on 11/14/18at 13:34; Admin Dose 200 MLS/HR; Start 11/10/18 at 14:00 Ferric Sodium Gluconate Complex 125 mg/Sodium Chloride 110 ml @ 110 mls/hr DAILY@1300 IVPB Last administered on 11/14/18at 11:55; Admin Dose 110 MLS/HR; Start 11/11/18 at 13:00; Stop 11/15/18 at 13:59 Caspofungin 50 mg/ Sodium Chloride 250 ml @ 250 mls/hr Q24H IVPB Last administered on 11/14/18at 14:55; Admin Dose 250 MLS/HR; Start 11/12/18 at 15:00 Pantoprazole (Protonix Iv) 40 mg BID@06,18 IV Last administered on 11/14/18at 06:04; Admin Dose 40 MG; Start 11/12/18 at 18:00 Insulin Aspart (Novolog Insulin Pen) NOVOLOG *MILD* ALGORI... Q6 SC ; Start 11/12/18 at 18:00 Vancomycin HCl 250 ml @ 125 mls/hr Q24H IVPB Last administered on 11/14/18at 16:11; Admin Dose 125 MLS/HR; Start 11/14/18 at 16:00 SHAYAN BARRETT Nov 14, 2018 17:04
--- NOTE | 2018-11-14 19:37 | PN ---
Date/Time of Note Date/Time of Note DATE: 11/14/18 TIME: 19:37 Assessment/Plan VTE Prophylaxis Risk score (from Nsg)>0 risk: 6 SCD applied (from Nsg): No Lines/Catheters IV Catheter Type (from Nrsg): Mid Line Urinary Cath still in place: Yes (suprapubic cath) Assessment/Plan Assessment/Plan - Possible SEPSIS- - ID consult- - Abdominal distention - GI consult - Dr Wolf - Right pulmonary effusion -Dr. Gomez notified in pulmonology consultation. - per pulmonary -Ventilator dependent respiratory failure. - Dr. Gomez notified in pulmonology consultation. 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 Result Diagram: 11/13/18 0747 11/13/18 0747 Results 24hrs Laboratory Tests Test 11/13/18 23:24 11/13/18 23:32 11/14/18 06:13 11/14/18 11:49 Vancomycin Level 27.9 *H Trough Bedside Glucose 139 131 116 Test 11/14/18 17:42 Bedside Glucose 140 Exam/Review of Systems Exam Vitals Vital Signs Date Temp Pulse Resp B/P (MAP) Pulse Ox O2 O2 Flow FiO2 Time Delivery Rate 11/14/18 56 16 100 30 17:15 11/14/18 98.6 106/54 Mechanical 15:10 (71) Ventilator Intake and Output 11/13/18 11/13/18 11/14/18 1515:00 23:00 07:00 IntakeIntake Total 990 ml 560 ml 2100 ml OutputOutput Total 4100 ml 400 ml 1275 ml BalanceBalance -3110 ml 160 ml 825 ml Results Results 24hrs Laboratory Tests Test 11/13/18 23:24 11/13/18 23:32 11/14/18 06:13 11/14/18 11:49 Vancomycin Level 27.9 *H Trough Bedside Glucose 139 131 116 Test 11/14/18 17:42 Bedside Glucose 140 Medications Medication Current Medications Morphine Sulfate (morphine) 2 mg Q4H PRN IV SEVERE PAIN LEVEL 7-10 Last administered on 11/11/18at 04:08; Admin Dose 2 MG; Start 11/09/18 at 22:00 Ondansetron HCl (Zofran Inj) 4 mg Q6H PRN IV NAUSEA AND/OR VOMITING; Start 11/09/18 at 22:00 Miscellaneous Information (Pending [facility] Order For Wound Care) This patient garcia... PRN PRN XX WOUND CARE; Start 11/09/18 at 22:30 Diagnostic Test (Pha) (Accu-Chek) 1 ea 02 XX ; Start 11/10/18 at 02:00 Miscellaneous Information 1 ea NOTE XX ; Start 11/10/18 at 02:00 Glucose (Glutose) 15 gm Q15M PRN PO DECREASED GLUCOSE; Start 11/10/18 at 02:00 Glucose (Glutose) 22.5 gm Q15M PRN PO DECREASED GLUCOSE; Start 11/10/18 at 02:00 Dextrose (D50w Syringe) 25 ml Q15M PRN IV DECREASED GLUCOSE; Start 11/10/18 at 02:00 Dextrose (D50w Syringe) 50 ml Q15M PRN IV DECREASED GLUCOSE; Start 11/10/18 at 02:00 Glucagon (Glucagen) 1 mg Q15M PRN IM DECREASED GLUCOSE; Start 11/10/18 at 02:00 Glucose (Glutose) 15 gm Q15M PRN BUCCAL DECREASED GLUCOSE; Start 11/10/18 at 02:00 Vancomycin HCl (Vanco Iv Per Pharmacy) VANCOMYCIN PER PHARMACY PER PROTOCOL XX ; Start 11/10/18 at 13:00 Piperacillin Sod/ Tazobactam Sod 100 ml @ 200 mls/hr Q8 IVPB Last administered on 11/14/18at 13:34; Admin Dose 200 MLS/HR; Start 11/10/18 at 14:00 Ferric Sodium Gluconate Complex 125 mg/Sodium Chloride 110 ml @ 110 mls/hr DA ANNA@1300 IVPB Last administered on 11/14/18at 11:55; Admin Dose 110 MLS/HR; Start 11/11/18 at 13:00; Stop 11/15/18 at 13:59 Caspofungin 50 mg/ Sodium Chloride 250 ml @ 250 mls/hr Q24H IVPB Last admi nistered on 11/14/18at 14:55; Admin Dose 250 MLS/HR; Start 11/12/18 at 15:00 Pantoprazole (Protonix Iv) 40 mg BID@06,18 IV Last administered on 11/14/18at 17:43; Admin Dose 40 MG; Start 11/12/18 at 18:00 Insulin Aspart (Novolog Insulin Pen) NOVOLOG *MILD* ALGORI... Q6 SC ; Start 11/12/18 at 18:00 Vancomycin HCl 250 ml @ 125 mls/hr Q24H IVPB Last administered on 11/14/18at 16:11; Admin Dose 125 MLS/HR; Start 11/14/18 at 16:00 SAMIA LICEA Nov 14, 2018 19:37
[2018-11-15] VITALS (21 sets, daily range): BP systolic 111–123; BP diastolic 57–66; PULSE 49–94; RESP 16–20
[2018-11-15] MEDS: ACCU-CHEK XX SCH (02:00)
[2018-11-15] MEDS: PIPER-TAZO 3.375 GM IV (PMX) 100 ML IVPB SCH ×3 (05:49→21:43)
[2018-11-15] MEDS: PANTOPRAZOLE 40 MG INJ IV SCH ×2 (05:49→17:49)
[2018-11-15] MEDS: INSULIN ASPART [NOVOLOG] 3 ML PEN SC SCH ×4 (06:00→17:49)
--- NOTE | 2018-11-15 07:21 | PN ---
DATE: 11/14/2018 SUBJECTIVE: The patient was admitted with severe anemia, abdominal distention and possible non-STEMI . He had upper GI bleeding also, EGD showed ulcer in the stomach, which was treated with Hemoclips. Hemoglobin was in the range of 6.9 to 7.6 grams. He was treated with a PPI. CAT scan of the abdomen showed evidence of rectal wall thickening. He also had a mildly elevated troponin and he is being followed by piece work checker. PHYSICAL EXAMINATION: GENERAL: At this time, the patient is unresponsive. VITAL SIGNS: Temperature 98.6, pulse is 53, blood pressure ____. CARDIOVASCULAR: Normal heart sounds. RESPIRATORY: Normal breath sounds. ABDOMEN: Showed status post paracentesis. Regarding the ascitic fluid, the results are pending. CLINICAL IMPRESSION: The patient presenting with history of abdominal distention, upper gastrointest inal bleeding due to gastric ulcer, he has got ascites, status post paracentesis. He has got non-OC [place] being followed by piece work checker. From the GI standpoint, I would like to defer the colonoscopy because his heart rate has been low in the high 30s and low 40s. Meanwhile, continue supportive therapy. Dictated By: ANNE BILLINGS/NTS Conf#: [id number] DID#: [id number] CC: RACHELLE RAMOS MD;*EndCC*
[2018-11-15] MEDS: BALSAM PERU/CASTOR OIL 60 GM TUBE TOP SCH ×2 (09:38→20:51)
--- NOTE | 2018-11-15 10:49 | CONS ---
Assessment/Plan Assessment/Plan Assessment/Plan (Daily) Ventilator settings; assist control of 16, tidal volume 600, PEEP of 5, 30% FiO2. Assessment and recommendations; 1. Patient with history of chronic nephropathy and VDR F admitted for pneumonia as well as CHF exacerbation, currently on appropriate treatment regimen. 2. History of nephrostomy. 3. Status post paracentesis. Continue current supportive care. Prognosis is poor. CODE STATUS needs to be addressed with the family. Consultation Date/Type/Reason Admit Date/Time Nov 09, 2018 at 14:44 Initial Consult Date 11/14/18 Type of Consult Pulmonary Patient is a 83-year-old male who was admitted on the of this month with abdominal distention. Patient underwent paracentesis about 3.8 L of fluid was removed. 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 By the time I saw the patient, patient appeared comfortable on ventilator via tracheostomy but was unable to give any history by himself whatsoever. History is been obtained from medical records. Past medical history; 1. VDR F 2. Neuropathy. 3. History of nephrostomy. 4. Anemia. 5. Status post tracheostomy and G-tube. 6. Recent EGD performed yesterday. Showed erosive gastritis. Medications; reviewed. Allergies; none. Social history, family history, occupational history not available. Review of system; unable to be obtained. General exam; elderly male, on ventilator via tracheostomy, awake but noncommunicative. Currently in no distress. Requesting Provider: RACHELLE RAMOS MD Date/Time of Note DATE: 11/15/18 TIME: 10:48 24 HR Interval Summary Free Text/Dictation Patient's condition remained stable. Has remained hemodynamically stable. General exam; elderly male, on ventilator via tracheostomy, awake but noncommunicative. Currently in no distress. Exam/Review of Systems Exam Vitals Vital Signs Date Temp Pulse Resp B/P (MAP) Pulse Ox O2 O2 Flow FiO2 Time Delivery Rate 11/15/18 50 16 100 30 09:00 11/15/18 98.6 120/66 Mechanical 07:14 (84) Ventilator Intake and Output 11/14/18 11/14/18 11/15/18 1515:00 23:00 07:00 IntakeIntake Total 210 ml 640 ml 680 ml OutputOutput Total 1150 ml 850 ml BalanceBalance 210 ml -510 ml -170 ml Exam H ENT exam; supple neck, positive JVD. No lymphadenopathy. Midline trachea. No thyromegaly. Tracheostomy in place. Insertion site is clean. Chest exam; diminished breath sounds bilaterally. S1-S2 audible, no murmurs. Regular rhythm. Abdomen exam; soft, no organomegaly. G-tube in place. Bowel sounds audible. Extremity exam; trace edema. BUYER AGENT exam; patient remains noncommunicative. Results Result Diagram: 11/13/18 0747 11/13/18 0747 Results 24hrs Laboratory Tests Test 11/14/18 11:49 11/14/18 17:42 11/15/18 00:10 11/15/18 06:05 Bedside Glucose 116 140 123 132 Medications Medication Current Medications Morphine Sulfate (morphine) 2 mg Q4H PRN IV SEVERE PAIN LEVEL 7-10 Last admi nistered on 11/11/18at 04:08; Admin Dose 2 MG; Start 11/09/18 at 22:00 Ondansetron HCl (Zofran Inj) 4 mg Q6H PRN IV NAUSEA AND/OR VOMITING; Start 11/09/18 at 22:00 Miscellaneous Information (Pending [facility] Order For Wound Care) This patient garcia... PRN PRN XX WOUND CARE; Start 11/09/18 at 22:30 Diagnostic Test (Pha) (Accu-Chek) 1 ea 02 XX ; Start 11/10/18 at 02:00 Miscellaneous Information 1 ea NOTE XX ; Start 11/10/18 at 02:00 Glucose (Glutose) 15 gm Q15M PRN PO DECREASED GLUCOSE; Start 11/10/18 at 02:00 Glucose (Glutose) 22.5 gm Q15M PRN PO DECREASED GLUCOSE; Start 11/10/18 at 02:00 Dextrose (D50w Syringe) 25 ml Q15M PRN IV DECREASED GLUCOSE; Start 11/10/18 at 02:00 Dextrose (D50w Syringe) 50 ml Q15M PRN IV DECREASED GLUCOSE; Start 11/10/18 at 02:00 Glucagon (Glucagen) 1 mg Q15M PRN IM DECREASED GLUCOSE; Start 11/10/18 at 02:00 Glucose (Glutose) 15 gm Q15M PRN BUCCAL DECREASED GLUCOSE; Start 11/10/18 at 02:00 Vancomycin HCl (Vanco Iv Per Pharmacy) VANCOMYCIN PER PHARMACY PER PROTOCOL XX ; Start 11/10/18 at 13:00 Piperacillin Sod/ Tazobactam Sod 100 ml @ 200 mls/hr Q8 IVPB Last administered on 11/15/18at 05:49; Admin Dose 200 MLS/HR; Start 11/10/18 at 14:00 Ferric Sodium Gluconate Complex 125 mg/Sodium Chloride 110 ml @ 110 mls/hr DAILY@1300 IVPB Last administered on 11/14/18at 11:55; Admin Dose 110 MLS/HR; Start 11/11/18 at 13:00; Stop 11/15/18 at 13:59 Caspofungin 50 mg/ Sodium Chloride 250 ml @ 250 mls/hr Q24H IVPB Last administered on 11/14/18at 14:55; Admin Dose 250 MLS/HR; Start 11/12/18 at 15:00 Pantoprazole (Protonix Iv) 40 mg BID@06,18 IV Last administered on 11/15/18at 05:49; Admin Dose 40 MG; Start 11/12/18 at 18:00 Insulin Aspart (Novolog Insulin Pen) NOVOLOG *MILD* ALGORI... Q6 SC ; Start 11/12/18 at 18:00 Vancomycin HCl 250 ml @ 125 mls/hr Q24H IVPB Last administered on 11/14/18at 16:11; Admin Dose 125 MLS/HR; Start 11/14/18 at 16:00 MILLA CHAIREZ Nov 15, 2018 10:49
[2018-11-15] MEDS: SOD FERRIC GLUC COMPLX 125 MG in SOD CHLORIDE 0.9% 100 ML IVPB SCH (12:15)
--- NOTE | 2018-11-15 13:27 | CONS ---
Assessment/Plan Assessment/Plan Hospital Course (Demo Recall) IMP: 1.Nstemi-minimal positive troponin in the setting of severe anemia. likley type 2 demans infarct. Nl EF by echo this admit 55% 2.GIB 3.anemia 4.Bradycardia 5.Possible sepsis 6. had pause 3 seconds overnight. ? primary lung problem or primary cardiac etiology. No recurrence RECC: -TELE -Continue abx's and f/u cx data -trend cardiac enzymes and transfuse as necessary -no juni agents -After discussion between primary and EP no pacemaker implant as there is no chance for meaningful recovery and patient is primarily bedbound. Consultation Date/Type/Reason Admit Date/Time Nov 09, 2018 at 14:44 Initial Consult Date 11/11/2018 Type of Consult Cardiology Reason for Consultation Nstemi Requesting Provider: RACHELLE RAMOS MD Date/Time of Note DATE: 11/15/18 TIME: 13:24 Exam/Review of Systems Vital Signs Vitals Vital Signs Date Temp Pulse Resp B/P (MAP) Pulse Ox O2 O2 Flow FiO2 Time Delivery Rate 11/15/18 54 16 100 30 13:00 11/15/18 98.3 114/65 Mechanical 11:25 (81) Ventilator Intake and Output 11/14/18 11/14/18 11/15/18 1515:00 23:00 07:00 IntakeIntake Total 210 ml 640 ml 680 ml OutputOutput Total 1150 ml 850 ml BalanceBalance 210 ml -510 ml -170 ml Exam Exam Review of Systems: CONSTITUTIONAL: No fevers, chills. PULMONARY: No sob CARDIOVASCULAR: No chest pain/palpitations GASTROINTESTINAL: No nausea/vomiting. GENITOURINARY: No hematuria/dysuria. MUSCULOSKELETAL: No myagias/arthalgias. PSYCHIATRIC: The patient denies depression. NEUROLOGIC: No weakness Constitutional: alert Psych: no complaints Head: normocephalic ENMT: mucosa pink and moist Neck: supple, jvd Respiratory: diminished breath sounds (at bases/B) Cardiovascular: regular rate and rhythm Gastrointestinal: soft, non-tender Musculoskeletal: muscle tone (normal) Extremities: edema (none) Labs Result Diagram: 11/13/18 0747 11/13/18 0747 Results 24hrs Laboratory Tests Test 11/14/18 17:42 11/15/18 00:10 11/15/18 06:05 11/15/18 12:13 Bedside Glucose 140 123 132 129 Medications Medications Current Medications Morphine Sulfate (morphine) 2 mg Q4H PRN IV SEVERE PAIN LEVEL 7-10 Last administered on 11/11/18at 04:08; Admin Dose 2 MG; Start 11/09/18 at 22:00 Ondansetron HCl (Zofran Inj) 4 mg Q6H PRN IV NAUSEA AND/OR VOMITING; Start 11/09/18 at 22:00 Miscellaneous Information (Pending [facility] Order For Wound Care) This patient garcia... PRN PRN XX WOUND CARE; Start 11/09/18 at 22:30 Diagnostic Test (Pha) (Accu-Chek) 1 ea 02 XX ; Start 11/10/18 at 02:00 Miscellaneous Information 1 ea NOTE XX ; Start 11/10/18 at 02:00 Glucose (Glutose) 15 gm Q15M PRN PO DECREASED GLUCOSE; Start 11/10/18 at 02:00 Glucose (Glutose) 22.5 gm Q15M PRN PO DECREASED GLUCOSE; Start 11/10/18 at 02:00 Dextrose (D50w Syringe) 25 ml Q15M PRN IV DECREASED GLUCOSE; Start 11/10/18 at 02:00 Dextrose (D50w Syringe) 50 ml Q15M PRN IV DECREASED GLUCOSE; Start 11/10/18 at 02:00 Glucagon (Glucagen) 1 mg Q15M PRN IM DECREASED GLUCOSE; Start 11/10/18 at 02:00 Glucose (Glutose) 15 gm Q15M PRN BUCCAL DECREASED GLUCOSE; Start 11/10/18 at 02:00 Vancomycin HCl (Vanco Iv Per Pharmacy) VANCOMYCIN PER PHARMACY PER PROTOCOL XX ; Start 11/10/18 at 13:00 Piperacillin Sod/ Tazobactam Sod 100 ml @ 200 mls/hr Q8 IVPB Last administered on 11/15/18at 05:49; Admin Dose 200 MLS/HR; Start 11/10/18 at 14:00 Ferric Sodium Gluconate Complex 125 mg/Sodium Chloride 110 ml @ 110 mls/hr DAILY@1300 IVPB Last administered on 11/15/18at 12:15; Admin Dose 110 MLS/HR; Start 11/11/18 at 13:00; Stop 11/15/18 at 13:59 Caspofungin 50 mg/ Sodium Chloride 250 ml @ 250 mls/hr Q24H IVPB Last administered on 11/14/18at 14:55; Admin Dose 250 MLS/HR; Start 11/12/18 at 15:00 Pantoprazole (Protonix Iv) 40 mg BID@06,18 IV Last administered on 11/15/18at 05:49; Admin Dose 40 MG; Start 11/12/18 at 18:00 Insulin Aspart (Novolog Insulin Pen) NOVOLOG *MILD* ALGORI... Q6 SC ; Start 11/12/18 at 18:00 Vancomycin HCl 250 ml @ 125 mls/hr Q24H IVPB Last administered on 11/14/18at 16:11; Admin Dose 125 MLS/HR; Start 11/14/18 at 16:00 SHAYAN BARRETT Nov 15, 2018 13:27
--- NOTE | 2018-11-15 15:23 | CONS ---
Assessment/Plan Assessment/Plan Hospital Course (Demo Recall) No acute changes, looks comfortable, no fevers Microbiology: Blood cultures remain negative urine culture grew Destini species, not albicans Indwelling: Trach PEG NGT suprapubic catheter Diagnostics: CT abdomen and pelvis on admission revealed large extraperitoneal fluid collections anasarca cholelithiasis bilateral nonobstructing renal stones diverticulosis of the descending and sigmoid colon bilateral pleural effusions, right greater than left with significant atelectasis/consolidation involving the left right lower lobes. Please see full report in the chart. Chest x-ray on admission revealed new right perihilar and right lower lobe extensive infiltrates and moderate right pleural effusion. Chest x-ray this morning revealed no significant change Antimicrobials: Vancomycin, Cancidas, Zosyn Physical examination: Chronically ill-appearing well-developed obese elderly man who is awake in no distress. Head atraumatic normocephalic neck is supple tracheostomy present chest rise symmetrical breath sounds diminished bases. Heart: S1-S2. Abdomen soft bowel sounds present extremities without cyanosis Assessment: 1. Sepsis, present on admission 2. Healthcare associated pneumonia 3. Urinary tract infection 4. Ascites, possible SBP===> s/p paracentesis 5. Non-ST elevation [place] 6. Chronic respiratory failure and dysphagia 7. Acute on chronic anemia==> erosive gastritis/esophagitis per EGD 8. Encephalopathy, likely chronic Plan: Stable, continue abx, f/u ascitic fluid cx Consultation Date/Type/Reason Admit Date/Time Nov 09, 2018 at 14:44 Initial Consult Date Type of Consult id Requesting Provider: RACHELLE RAMOS MD Date/Time of Note DATE: 11/15/18 TIME: 15:22 Exam/Review of Systems Exam Vitals Vital Signs Date Temp Pulse Resp B/P (MAP) Pulse Ox O2 O2 Flow FiO2 Time Delivery Rate 11/15/18 98.8 53 18 111/57 100 Mechanical 15:10 (75) Ventilator 11/15/18 30 15:00 Intake and Output 11/14/18 11/14/18 11/15/18 1515:00 23:00 07:00 IntakeIntake Total 210 ml 640 ml 680 ml OutputOutput Total 1150 ml 850 ml BalanceBalance 210 ml -510 ml -170 ml Results Result Diagram: 11/13/18 0747 11/13/18 0747 Results 24hrs Laboratory Tests Test 11/14/18 17:42 11/15/18 00:10 11/15/18 06:05 11/15/18 12:13 Bedside Glucose 140 123 132 129 Medications Medication Current Medications Morphine Sulfate (morphine) 2 mg Q4H PRN IV SEVERE PAIN LEVEL 7-10 Last administered on 11/11/18at 04:08; Admin Dose 2 MG; Start 11/09/18 at 22:00 Ondansetron HCl (Zofran Inj) 4 mg Q6H PRN IV NAUSEA AND/OR VOMITING; Start 11/09/18 at 22:00 Miscellaneous Information (Pending [facility] Order For Wound Care) This patient garcia... PRN PRN XX WOUND CARE; Start 11/09/18 at 22:30 Diagnostic Test (Pha) (Accu-Chek) 1 ea 02 XX ; Start 11/10/18 at 02:00 Miscellaneous Information 1 ea NOTE XX ; Start 11/10/18 at 02:00 Glucose (Glutose) 15 gm Q15M PRN PO DECREASED GLUCOSE; Start 11/10/18 at 02:00 Glucose (Glutose) 22.5 gm Q15M PRN PO DECREASED GLUCOSE; Start 11/10/18 at 02:00 Dextrose (D50w Syringe) 25 ml Q15M PRN IV DECREASED GLUCOSE; Start 11/10/18 at 02:00 Dextrose (D50w Syringe) 50 ml Q15M PRN IV DECREASED GLUCOSE; Start 11/10/18 at 02:00 Glucagon (Glucagen) 1 mg Q15M PRN IM DECREASED GLUCOSE; Start 11/10/18 at 02:00 Glucose (Glutose) 15 gm Q15M PRN BUCCAL DECREASED GLUCOSE; Start 11/10/18 at 02:00 Vancomycin HCl (Vanco Iv Per Pharmacy) VANCOMYCIN PER PHARMACY PER PROTOCOL XX ; Start 11/10/18 at 13:00 Piperacillin Sod/ Tazobactam Sod 100 ml @ 200 mls/hr Q8 IVPB Last administered on 11/15/18at 14:34; Admin Dose 200 MLS/HR; Start 11/10/18 at 14:00 Caspofungin 50 mg/ Sodium Chloride 250 ml @ 250 mls/hr Q24H IVPB Last administered on 11/14/18at 14:55; Admin Dose 250 MLS/HR; Start 11/12/18 at 15:00 Pantoprazole (Protonix Iv) 40 mg BID@06,18 IV Last administered on 11/15/18at 05:49; Admin Dose 40 MG; Start 11/12/18 at 18:00 Insulin Aspart (Novolog Insulin Pen) NOVOLOG *MILD* ALGORI... Q6 SC ; Start 11/12/18 at 18:00 Vancomycin HCl 250 ml @ 125 mls/hr Q24H IVPB Last administered on 11/14/18at 16:11; Admin Dose 125 MLS/HR; Start 11/14/18 at 16:00 SUSANNE LANIER NP Nov 15, 2018 15:23
[2018-11-15] MEDS: CASPOFUNGIN 50 MG in SOD CHLORIDE 0.9% 250 ML IVPB SCH (15:25)
--- NOTE | 2018-11-15 15:48 | PN ---
Date/Time of Note Date/Time of Note DATE: 11/15/18 TIME: 15:47 Assessment/Plan VTE Prophylaxis Risk score (from Ns)>0 risk: 7 SCD applied (from Nsg): Yes Lines/Catheters IV Catheter Type (from Nrsg): Peripheral IV Assessment/Plan Assessment/Plan - Possible SEPSIS- - ID consult- - Abdominal distention - GI consult - Dr Wolf - Right pulmonary effusion -Dr. Gomez notified in pulmonology consultation. - per pulmonary -Ventilator dependent respiratory failure. - Dr. Gomez notified in pulmonology consultation. 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 Result Diagram: 11/13/18 0747 11/13/18 0747 Results 24hrs Laboratory Tests Test 11/14/18 17:42 11/15/18 00:10 11/15/18 06:05 11/15/18 12:13 Bedside Glucose 140 123 132 129 Subjective 24 Hr Interval Summary Free Text/Dictation sp paracentesis Subjective hx not possible: pt non-verbal Constitutional: requiring O2 Exam/Review of Systems Exam Vitals Vital Signs Date Temp Pulse Resp B/P (MAP) Pulse Ox O2 O2 Flow FiO2 Time Delivery Rate 11/15/18 98.8 53 18 111/57 100 Mechanical 15:10 (75) Ventilator 11/15/18 30 15:00 Intake and Output 11/14/18 11/14/18 11/15/18 1515:00 23:00 07:00 IntakeIntake Total 210 ml 640 ml 680 ml OutputOutput Total 1150 ml 850 ml BalanceBalance 210 ml -510 ml -170 ml Constitutional: well developed, non-verbal, frail, obese Psych: nl mood/affect Eyes: nl lids ENMT: nl external ears & nose Neck: non-tender Respiratory: clear to auscultation Cardiovascular: nl pulses, other Gastrointestinal: soft, other Musculoskeletal: muscle weakness, range of motion Extremities: normal pulses Neurological: unresponsive Skin: other Results Results 24hrs Laboratory Tests Test 11/14/18 17:42 11/15/18 00:10 11/15/18 06:05 11/15/18 12:13 Bedside Glucose 140 123 132 129 Medications Medication Current Medications Morphine Sulfate (morphine) 2 mg Q4H PRN IV SEVERE PAIN LEVEL 7-10 Last administered on 11/11/18at 04:08; Admin Dose 2 MG; Start 11/09/18 at 22:00 Ondansetron HCl (Zofran Inj) 4 mg Q6H PRN IV NAUSEA AND/OR VOMITING; Start 11/09/18 at 22:00 Miscellaneous Information (Pending [facility] Order For Wound Care) This patient garcia... PRN PRN XX WOUND CARE; Start 11/09/18 at 22:30 Diagnostic Test (Pha) (Accu-Chek) 1 ea 02 XX ; Start 11/10/18 at 02:00 Miscellaneous Information 1 ea NOTE XX ; Start 11/10/18 at 02:00 Glucose (Glutose) 15 gm Q15M PRN PO DECREASED GLUCOSE; Start 11/10/18 at 02:00 Glucose (Glutose) 22.5 gm Q15M PRN PO DECREASED GLUCOSE; Start 11/10/18 at 02:00 Dextrose (D50w Syringe) 25 ml Q15M PRN IV DECREASED GLUCOSE; Start 11/10/18 at 02:00 Dextrose (D50w Syringe) 50 ml Q15M PRN IV DECREASED GLUCOSE; Start 11/10/18 at 02:00 Glucagon (Glucagen) 1 mg Q15M PRN IM DECREASED GLUCOSE; Start 11/10/18 at 02:00 Glucose (Glutose) 15 gm Q15M PRN BUCCAL DECREASED GLUCOSE; Start 11/10/18 at 02:00 Vancomycin HCl (Vanco Iv Per Pharmacy) VANCOMYCIN PER PHARMACY PER PROTOCOL XX ; Start 11/10/18 at 13:00 Piperacillin Sod/ Tazobactam Sod 100 ml @ 200 mls/hr Q8 IVPB Last administered on 11/15/18at 14:34; Admin Dose 200 MLS/HR; Start 11/10/18 at 14:00 Caspofungin 50 mg/ Sodium Chloride 250 ml @ 250 mls/hr Q24H IVPB Last administered on 11/15/18at 15:25; Admin Dose 250 MLS/HR; Start 11/12/18 at 15:00 Pantoprazole (Protonix Iv) 40 mg BID@06,18 IV Last administered on 11/15/18at 05:49; Admin Dose 40 MG; Start 11/12/18 at 18:00 Insulin Aspart (Novolog Insulin Pen) NOVOLOG *MILD* ALGORI... Q6 SC ; Start 11/12/18 at 18:00 Vancomycin HCl 250 ml @ 125 mls/hr Q24H IVPB Last administered on 11/14/18at 16:11; Admin Dose 125 MLS/HR; Start 11/14/18 at 16:00 SAMIA LICEA Nov 15, 2018 15:48
[2018-11-15] MEDS: VANCOMYCIN 1 GM 250 ML IVPB SCH (17:25)
[2018-11-16] VITALS (20 sets, daily range): BP systolic 104–137; BP diastolic 52–69; PULSE 49–57; RESP 16–20
[2018-11-16] MEDS: ACCU-CHEK XX SCH (01:42)
[2018-11-16] MEDS: PIPER-TAZO 3.375 GM IV (PMX) 100 ML IVPB SCH ×3 (05:51→21:37)
[2018-11-16] MEDS: PANTOPRAZOLE 40 MG INJ IV SCH ×2 (05:51→17:02)
[2018-11-16] MEDS: INSULIN ASPART [NOVOLOG] 3 ML PEN SC SCH ×4 (05:58→17:03)
[2018-11-16] MEDS: BALSAM PERU/CASTOR OIL 60 GM TUBE TOP SCH ×2 (08:39→21:25)
--- NOTE | 2018-11-16 10:51 | CONS ---
Assessment/Plan Assessment/Plan Assessment/Plan (Daily) Ventilator setting; AC of 16, tidal volume 600, PEEP of 5, 30% FiO2. Assessment and recommendations; 1. Patient with a history of VDRF and chronic encephalopathy admitted for pneumonia, currently on appropriate antimicrobial regimen. 2. Prior history of nephrostomy, tracheostomy and G-tube placement. 3. Status post paracentesis. Continue current supportive care. Consider discharge to custodial with continuation of antibiotics per ID recommendations. Overall prognosis remains very poor. Consultation Date/Type/Reason Admit Date/Time Nov 09, 2018 at 14:44 Initial Consult Date 11/14/18 Type of Consult Pulmonary Patient is a 83-year-old male who was admitted on the of this month with abdominal distention. Patient underwent paracentesis about 3.8 L of fluid was removed. 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 By the time I saw the patient, patient appeared comfortable on ventilator via tracheostomy but was unable to give any history by himself whatsoever. History is been obtained from medical records. Past medical history; 1. VDR F 2. Neuropathy. 3. History of nephrostomy. 4. Anemia. 5. Status post tracheostomy and G-tube. 6. Recent EGD performed yesterday. Showed erosive gastritis. Medications; reviewed. Allergies; none. Social history, family history, occupational history not available. Review of system; unable to be obtained. General exam; elderly male, on ventilator via tracheostomy, awake but noncommunicative. Currently in no distress. Requesting Provider: RACHELLE RAMOS MD Date/Time of Note DATE: 11/16/18 TIME: 10:49 24 HR Interval Summary Free Text/Dictation Patient's condition remains stable. Remains awake but noncommunicative due to chronic encephalopathy. Patient has remained hemodynamically stable. General exam; elderly male, on ventilator via tracheostomy, awake but noncommunicative. Currently in no distress. Exam/Review of Systems Exam Vitals Vital Signs Date Temp Pulse Resp B/P (MAP) Pulse Ox O2 O2 Flow FiO2 Time Delivery Rate 11/16/18 48 16 100 30 09:10 11/16/18 98.5 124/64 07:17 (84) 11/15/18 Mechanical 15:10 Ventilator Intake and Output 11/15/18 11/15/1811/16/19 1515:00 23:00 07:00 IntakeIntake Total 750 ml 780 ml OutputOutput Total 400 ml 350 ml BalanceBalance 350 ml 430 ml Exam HEENT exam; supple neck, no JVD. No lymphadenopathy. Midline trachea. No thyromegaly. Patient has multiple carious teeth. Tracheostomy in place. Chest exam; diminished but clear breath sounds. S1-S2 audible, no murmurs. Regular rhythm. Abdomen exam; soft, no organomegaly. Bowel sounds are audible. Extremity exam; no peripheral edema. 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 Results Result Diagram: 11/16/18 0818 11/16/18 0818 Results 24hrs Laboratory Tests Test 11/15/18 12:13 11/15/18 16:02 11/15/18 17:46 11/15/18 23:53 Bedside Glucose 129 120 139 White Blood Count 10.4 Red Blood Count 3.62 L Hemoglobin 8.7 L Hematocrit 30.8 L Mean Corpuscular 85.1 Volume Mean Corpuscular 24.0 L Hemoglobin Mean Corpuscular 28.2 L Hemoglobin Concent Red Cell 21.2 H Distribution Width Platelet Count 280 Mean Platelet Volume 11.3 H Immature 0.700 H Granulocytes % Neutrophils % 74.7 Lymphocytes % 11.4 L Monocytes % 5.4 Eosinophils % 7.4 H Basophils % 0.4 Nucleated Red Blood 0.0 Cells % Immature 0.070 H Granulocytes # Neutrophils # 7.8 H Lymphocytes # 1.2 Monocytes # 0.6 Eosinophils # 0.8 H Basophils # 0.0 Nucleated Red Blood 0.0 Cells # Sodium Level 146 H Potassium Level 3.5 Chloride Level 118 H Carbon Dioxide Level 23 Anion Gap 5 Blood Urea Nitrogen 15 Creatinine 0.95 Est Glomerular Filtrat Rate mL/min Glucose Level 122 Calcium Level 8.1 L Test 11/16/18 05:58 11/16/18 08:18 Bedside Glucose 117 White Blood Count 10.0 Red Blood Count 3.54 L Hemoglobin 8.4 L Hematocrit 30.5 L Mean Corpuscular 86.2 Volume Mean Corpuscular 23.7 L Hemoglobin Mean Corpuscular 27.5 L Hemoglobin Concent Red Cell 21.5 H Distribution Width Platelet Count 283 Mean Platelet Volume 11.5 H Immature 0.800 H Granulocytes % Neutrophils % 71.0 Lymphocytes % 13.9 L Monocytes % 6.0 Eosinophils % 7.8 H Basophils % 0.5 Nucleated Red Blood 0.0 Cells % Immature 0.080 H Granulocytes # Neutrophils # 7.1 Lymphocytes # 1.4 Monocytes # 0.6 Eosinophils # 0.8 H Basophils # 0.1 Nucleated Red Blood 0.0 Cells # Sodium Level 146 H Potassium Level 3.8 Chloride Level 120 H Carbon Dioxide Level 22 Anion Gap 4 L Blood Urea Nitrogen 15 Creatinine 0.97 Est Glomerular Filtrat Rate mL/min Glucose Level 119 Calcium Level 8.4 Hepatitis B Surface NEGATIVE Antigen Hepatitis C Antibody NEGATIVE Medications Medication Current Medications Morphine Sulfate (morphine) 2 mg Q4H PRN IV SEVERE PAIN LEVEL 7-10 Last administered on 11/11/18at 04:08; Admin Dose 2 MG; Start 11/09/18 at 22:00 Ondansetron HCl (Zofran Inj) 4 mg Q6H PRN IV NAUSEA AND/OR VOMITING; Start 11/09/18 at 22:00 Miscellaneous Information (Pending [facility] Order For Wound Care) This patient garcia... PRN PRN XX WOUND CARE; Start 11/09/18 at 22:30 Diagnostic Test (Pha) (Accu-Chek) 1 ea 02 XX ; Start 11/10/18 at 02:00 Miscellaneous Information 1 ea NOTE XX ; Start 11/10/18 at 02:00 Glucose (Glutose) 15 gm Q15M PRN PO DECREASED GLUCOSE; Start 11/10/18 at 02:00 Glucose (Glutose) 22.5 gm Q15M PRN PO DECREASED GLUCOSE; Start 11/10/18 at 02:00 Dextrose (D50w Syringe) 25 ml Q15M PRN IV DECREASED GLUCOSE; Start 11/10/18 at 02:00 Dextrose (D50w Syringe) 50 ml Q15M PRN IV DECREASED GLUCOSE; Start 11/10/18 at 02:00 Glucagon (Glucagen) 1 mg Q15M PRN IM DECREASED GLUCOSE; Start 11/10/18 at 02:00 Glucose (Glutose) 15 gm Q15M PRN BUCCAL DECREASED GLUCOSE; Start 11/10/18 at 02:00 Vancomycin HCl (Vanco Iv Per Pharmacy) VANCOMYCIN PER PHARMACY PER PROTOCOL XX ; Start 11/10/18 at 13:00 Piperacillin Sod/ Tazobactam Sod 100 ml @ 200 mls/hr Q8 IVPB Last administered on 11/16/18 05:51; Admin Dose 200 MLS/HR; Start 11/10/18 at 14:00 Caspofungin 50 mg/ Sodium Chloride 250 ml @ 250 mls/hr Q24H IVPB Last administered on 11/15/18 15:25; Admin Dose 250 MLS/HR; Start 11/12/18 at 15:00 Pantoprazole (Protonix Iv) 40 mg BID@06,18 IV Last administered on 11/16/18at 05:51; Admin Dose 40 MG; Start 11/12/18 at 18:00 Insulin Aspart (Novolog Insulin Pen) NOVOLOG *MILD* ALGORI... Q6 SC ; Start 11/12/18 at 18:00 Vancomycin HCl 250 ml @ 125 mls/hr Q24H IVPB Last administered on 11/15/18 17:25; Admin Dose 125 MLS/HR; Start 11/14/18 at 16:00 MILLA CHAIREZ Nov 16, 2018 10:51
--- NOTE | 2018-11-16 14:43 | CONS ---
Assessment/Plan Assessment/Plan Hospital Course (Demo Recall) IMP: 1.Nstemi-minimal positive troponin in the setting of severe anemia. likely type 2 demand infarct. Nl EF by echo this admit 55% 2.GIB- s/p endoscopy with ulcer 3.anemia 4.Bradycardia-mainly 40-50's with stable BP 5.Possible sepsis 6. Had pause 3 seconds overnight. ? primary lung problem or primary cardiac etiology. No recurrence since. RECC: -TELE -Continue abx's and f/u cx data -trend cardiac enzymes and transfuse as necessary -no juni agents -After discussion between primary and EP no pacemaker implant as there is no chance for meaningful recovery and patient is primarily bedbound. -Gentl elasix diuresis Consultation Date/Type/Reason Admit Date/Time Nov 09, 2018 at 14:44 Initial Consult Date 11/11/2018 Type of Consult Cardiology Reason for Consultation Nstemi Requesting Provider: RACHELLE RAMOS MD Date/Time of Note DATE: 11/16/18 TIME: 14:40 Exam/Review of Systems Vital Signs Vitals Vital Signs Date Temp Pulse Resp B/P (MAP) Pulse Ox O2 O2 Flow FiO2 Time Delivery Rate 11/16/18 51 12:11 11/16/18 98.4 18 116/65 100 11:46 (82) 11/16/18 30 11:10 11/15/18 Mechanical 15:10 Ventilator Intake and Output 11/15/18 11/15/18 11/16/18 1515:00 23:00 07:00 IntakeIntake Total 750 ml 780 ml OutputOutput Total 400 ml 350 ml BalanceBalance 350 ml 430 ml Exam Exam Review of Systems: CONSTITUTIONAL: No fevers, chills. PULMONARY: trached CARDIOVASCULAR: No obvious chest pain/palpitations GASTROINTESTINAL: No nausea/vomiting. GENITOURINARY: No hematuria/dysuria. MUSCULOSKELETAL: No obvious myagias/arthalgias. PSYCHIATRIC: NO documented psych NEUROLOGIC: encephalopathic Constitutional: alert Psych: confusion Head: normocephalic ENMT: mucosa pink and moist Neck: supple, jvd (9-10 cm water) Respiratory: diminished breath sounds (at bases/B) Cardiovascular: regular rate and rhythm Gastrointestinal: soft, non-tender Musculoskeletal: muscle tone (normal) Extremities: pitting pedal edema (bilateral) Neurological: other (encephalopathic) Labs Result Diagram: 11/16/18 0818 11/16/18 0818 Results 24hrs Laboratory Tests Test 11/15/18 16:02 11/15/18 17:46 11/15/18 23:53 11/16/18 05:58 White Blood Count 10.4 Red Blood Count 3.62 L Hemoglobin 8.7 L Hematocrit 30.8 L Mean Corpuscular 85.1 Volume Mean Corpuscular 24.0 L Hemoglobin Mean Corpuscular 28.2 L Hemoglobin Concent Red Cell 21.2 H Distribution Width Platelet Count 280 Mean Platelet Volume 11.3 H Immature 0.700 H Granulocytes % Neutrophils % 74.7 Lymphocytes % 11.4 L Monocytes % 5.4 Eosinophils % 7.4 H Basophils % 0.4 Nucleated Red Blood 0.0 Cells % Immature 0.070 H Granulocytes # Neutrophils # 7.8 H Lymphocytes # 1.2 Monocytes # 0.6 Eosinophils # 0.8 H Basophils # 0.0 Nucleated Red Blood 0.0 Cells # Sodium Level 146 H Potassium Level 3.5 Chloride Level 118 H Carbon Dioxide Level 23 Anion Gap 5 Blood Urea Nitrogen 15 Creatinine 0.95 Est Glomerular Filtrat Rate mL/min Glucose Level 122 Calcium Level 8.1 L Bedside Glucose 120 139 117 Test 11/16/18 08:18 11/16/18 11:59 White Blood Count 10.0 Red Blood Count 3.54 L Hemoglobin 8.4 L Hematocrit 30.5 L Mean Corpuscular 86.2 Volume Mean Corpuscular 23.7 L Hemoglobin Mean Corpuscular 27.5 L Hemoglobin Concent Red Cell 21.5 H Distribution Width Platelet Count 283 Mean Platelet Volume 11.5 H Immature 0.800 H Granulocytes % Neutrophils % 71.0 Lymphocytes % 13.9 L Monocytes % 6.0 Eosinophils % 7.8 H Basophils % 0.5 Nucleated Red Blood 0.0 Cells % Immature 0.080 H Granulocytes # Neutrophils # 7.1 Lymphocytes # 1.4 Monocytes # 0.6 Eosinophils # 0.8 H Basophils # 0.1 Nucleated Red Blood 0.0 Cells # Sodium Level 146 H Potassium Level 3.8 Chloride Level 120 H Carbon Dioxide Level 22 Anion Gap 4 L Blood Urea Nitrogen 15 Creatinine 0.97 Est Glomerular Filtrat Rate mL/min Glucose Level 119 Calcium Level 8.4 Hepatitis B Surface NEGATIVE Antigen Hepatitis C Antibody NEGATIVE Bedside Glucose 124 Medications Medications Current Medications Morphine Sulfate (morphine) 2 mg Q4H PRN IV SEVERE PAIN LEVEL 7-10 Last administered on 11/11/18at 04:08; Admin Dose 2 MG; Start 11/09/18 at 22:00 Ondansetron HCl (Zofran Inj) 4 mg Q6H PRN IV NAUSEA AND/OR VOMITING; Start 11/09/18 at 22:00 Miscellaneous Information [facility] This patient garcia... PRN PRN XX WOUND CARE; Start 11/09/18 at 22:30 Diagnostic Test (Pha) (Accu-Chek) 1 ea 02 XX ; Start 11/10/18 at 02:00 Miscellaneous Information 1 ea NOTE XX ; Start 11/10/18 at 02:00 Glucose (Glutose) 15 gm Q15M PRN PO DECREASED GLUCOSE; Start 11/10/18 at 02:00 Glucose (Glutose) 22.5 gm Q15M PRN PO DECREASED GLUCOSE; Start 11/10/18 at 02:00 Dextrose (D50w Syringe) 25 ml Q15M PRN IV DECREASED GLUCOSE; Start 11/10/18 at 02:00 Dextrose (D50w Syringe) 50 ml Q15M PRN IV DECREASED GLUCOSE; Start 11/10/18 at 02:00 Glucagon (Glucagen) 1 mg Q15M PRN IM DECREASED GLUCOSE; Start 11/10/18 at 02:00 Glucose (Glutose) 15 gm Q15M PRN BUCCAL DECREASED GLUCOSE; Start 11/10/18 at 02:00 Vancomycin HCl (Vanco Iv Per Pharmacy) VANCOMYCIN PER PHARMACY PER PROTOCOL XX ; Start 11/10/18 at 13:00 Piperacillin Sod/ Tazobactam Sod 100 ml @ 200 mls/hr Q8 IVPB Last administered on 11/16/18at 13:15; Admin Dose 200 MLS/HR; Start 11/10/18 at 14:00 Caspofungin 50 mg/ Sodium Chloride 250 ml @ 250 mls/hr Q24H IVPB Last administered on 11/15/18at 15:25; Admin Dose 250 MLS/HR; Start 11/12/18 at 15:00 Pantoprazole (Protonix Iv) 40 mg BID@06,18 IV Last administered on 11/16/18at 05:51; Admin Dose 40 MG; Start 11/12/18 at 18:00 Insulin Aspart (Novolog Insulin Pen) NOVOLOG *MILD* ALGORI... Q6 SC ; Start 11/12/18 at 18:00 Vancomycin HCl 250 ml @ 125 mls/hr Q24H IVPB Last administered on 11/15/18at 17:25; Admin Dose 125 MLS/HR; Start 11/14/18 at 16:00 SHAYAN BARRETT Nov 16, 2018 14:43
[2018-11-16] MEDS: CASPOFUNGIN 50 MG in SOD CHLORIDE 0.9% 250 ML IVPB SCH (14:48)
[2018-11-16] MEDS ORDERED: FUROSEMIDE 20 MG INJ IV ONE (15:00)
--- NOTE | 2018-11-16 15:03 | CONS ---
Assessment/Plan Assessment/Plan Hospital Course (Demo Recall) No acute changes, awake, looks comfortable, no fevers Microbiology: Blood cultures remain negative urine culture grew Destini species, not albicans, ascites fluid cultures growing gram-negative rods Indwelling: Trach PEG NGT suprapubic catheter Diagnostics: CT abdomen and pelvis on admission revealed large extraperitoneal fluid collections anasarca cholelithiasis bilateral nonobstructing renal stones diverticulosis of the descending and sigmoid colon bilateral pleural effusions, right greater than left with significant atelectasis/consolidation involving the left right lower lobes. Please see full report in the chart. Chest x-ray on admission revealed new right perihilar and right lower lobe extensive infiltrates and moderate right pleural effusion. Chest x-ray this morning revealed no significant change Antimicrobials: Vancomycin, Cancidas, Zosyn Physical examination: Chronically ill-appearing well-developed obese elderly man who is awake in no distress. Head atraumatic normocephalic neck is supple tracheostomy present chest rise symmetrical breath sounds diminished bases. Heart: S1-S2. Abdomen soft bowel sounds present extremities without cyanosis Assessment: 1. Sepsis, present on admission 2. Healthcare associated pneumonia 3. Urinary tract infection 4. SBP===> fluid culture + GNR 5. Non-ST elevation NM 6. Chronic respiratory failure and dysphagia 7. Acute on chronic anemia==> erosive gastritis/esophagitis per EGD 8. Encephalopathy, somewhat improved Plan: Remains stable, continue abx, f/u ascitic fluid cx Consultation Date/Type/Reason Admit Date/Time Nov 09, 2018 at 14:44 Initial Consult Date Type of Consult id Requesting Provider: RACHELLE RAMOS MD Date/Time of Note DATE: 11/16/18 TIME: 15:01 Exam/Review of Systems Exam Vitals Vital Signs Date Temp Pulse Resp B/P (MAP) Pulse Ox O2 O2 Flow FiO2 Time Delivery Rate 11/16/18 52 16 100 30 12:50 11/16/18 98.4 116/65 11:46 (82) 11/15/18 Mechanical 15:10 Ventilator Intake and Output 11/15/18 11/15/18 11/16/18 1414:59 22:59 06:59 IntakeIntake Total 750 ml 780 ml OutputOutput Total 400 ml 350 ml BalanceBalance 350 ml 430 ml Results Result Diagram: 11/16/18 0818 11/16/18 0818 Results 24hrs Laboratory Tests Test 11/15/18 16:02 11/15/18 17:46 11/15/18 23:53 11/16/18 05:58 White Blood Count 10.4 Red Blood Count 3.62 L Hemoglobin 8.7 L Hematocrit 30.8 L Mean Corpuscular 85.1 Volume Mean Corpuscular 24.0 L Hemoglobin Mean Corpuscular 28.2 L Hemoglobin Concent Red Cell 21.2 H Distribution Width Platelet Count 280 Mean Platelet Volume 11.3 H Immature 0.700 H Granulocytes % Neutrophils % 74.7 Lymphocytes % 11.4 L Monocytes % 5.4 Eosinophils % 7.4 H Basophils % 0.4 Nucleated Red Blood 0.0 Cells % Immature 0.070 H Granulocytes # Neutrophils # 7.8 H Lymphocytes # 1.2 Monocytes # 0.6 Eosinophils # 0.8 H Basophils # 0.0 Nucleated Red Blood 0.0 Cells # Sodium Level 146 H Potassium Level 3.5 Chloride Level 118 H Carbon Dioxide Level 23 Anion Gap 5 Blood Urea Nitrogen 15 Creatinine 0.95 Est Glomerular Filtrat Rate mL/min Glucose Level 122 Calcium Level 8.1 L Bedside Glucose 120 139 117 Test 11/16/18 08:18 11/16/18 11:59 White Blood Count 10.0 Red Blood Count 3.54 L Hemoglobin 8.4 L Hematocrit 30.5 L Mean Corpuscular 86.2 Volume Mean Corpuscular 23.7 L Hemoglobin Mean Corpuscular 27.5 L Hemoglobin Concent Red Cell 21.5 H Distribution Width Platelet Count 283 Mean Platelet Volume 11.5 H Immature 0.800 H Granulocytes % Neutrophils % 71.0 Lymphocytes % 13.9 L Monocytes % 6.0 Eosinophils % 7.8 H Basophils % 0.5 Nucleated Red Blood 0.0 Cells % Immature 0.080 H Granulocytes # Neutrophils # 7.1 Lymphocytes # 1.4 Monocytes # 0.6 Eosinophils # 0.8 H Basophils # 0.1 Nucleated Red Blood 0.0 Cells # Sodium Level 146 H Potassium Level 3.8 Chloride Level 120 H Carbon Dioxide Level 22 Anion Gap 4 L Blood Urea Nitrogen 15 Creatinine 0.97 Est Glomerular Filtrat Rate mL/min Glucose Level 119 Calcium Level 8.4 Hepatitis B Surface NEGATIVE Antigen Hepatitis C Antibody NEGATIVE Bedside Glucose 124 Medications Medication Current Medications Morphine Sulfate (morphine) 2 mg Q4H PRN IV SEVERE PAIN LEVEL 7-10 Last administered on 11/11/18at 04:08; Admin Dose 2 MG; Start 11/09/18 at 22:00 Ondansetron HCl (Zofran Inj) 4 mg Q6H PRN IV NAUSEA AND/OR VOMITING; Start 11/09/18 at 22:00 Miscellaneous Information (Pending [facility] Order For Wound Care) This patient garcia... PRN PRN XX WOUND CARE; Start 11/09/18 at 22:30 Diagnostic Test (Pha) (Accu-Chek) 1 ea 02 XX ; Start 11/10/18 at 02:00 Miscellaneous Information 1 ea NOTE XX ; Start 11/10/18 at 02:00 Glucose (Glutose) 15 gm Q15M PRN PO DECREASED GLUCOSE; Start 11/10/18 at 02:00 Glucose (Glutose) 22.5 gm Q15M PRN PO DECREASED GLUCOSE; Start 11/10/18 at 02:00 Dextrose (D50w Syringe) 25 ml Q15M PRN IV DECREASED GLUCOSE; Start 11/10/18 at 02:00 Dextrose (D50w Syringe) 50 ml Q15M PRN IV DECREASED GLUCOSE; Start 11/10/18 at 02:00 Glucagon (Glucagen) 1 mg Q15M PRN IM DECREASED GLUCOSE; Start 11/10/18 at 02:00 Glucose (Glutose) 15 gm Q15M PRN BUCCAL DECREASED GLUCOSE; Start 11/10/18 at 02:00 Vancomycin HCl (Vanco Iv Per Pharmacy) VANCOMYCIN PER PHARMACY PER PROTOCOL XX ; Start 11/10/18 at 13:00 Piperacillin Sod/ Tazobactam Sod 100 ml @ 200 mls/hr Q8 IVPB Last administered on 11/16/18at 13:15; Admin Dose 200 MLS/HR; Start 11/10/18 at 14:00 Caspofungin 50 mg/ Sodium Chloride 250 ml @ 250 mls/hr Q24H IVPB Last administered on 11/16/18at 14:48; Admin Dose 250 MLS/HR; Start 11/12/18 at 15:00 Pantoprazole (Protonix Iv) 40 mg BID@06,18 IV Last administered on 11/16/18at 05:51; Admin Dose 40 MG; Start 11/12/18 at 18:00 Insulin Aspart (Novolog Insulin Pen) NOVOLOG *MILD* ALGORI... Q6 SC ; Start 11/12/18 at 18:00 Vancomycin HCl 250 ml @ 125 mls/hr Q24H IVPB Last administered on 11/15/18at 17:25; Admin Dose 125 MLS/HR; Start 11/14/18 at 16:00 Furosemide (Lasix) 20 mg ONCE ONCE IV Last administered on 11/16/18at 14:54; Admin Dose 20 MG; Start 11/16/18 at 15:00; Stop 11/16/18 at 15:01 Furosemide (Lasix) 20 mg DAILY IV ; Start 11/18/18 at 09:00; Status SUSANNE SANTO NP Nov 16, 2018 15:03
[2018-11-16] MEDS: VANCOMYCIN 1 GM 250 ML IVPB SCH (17:03)
[2018-11-17] VITALS (24 sets, daily range): BP systolic 119–142; BP diastolic 63–97; PULSE 53–60; RESP 16–22
[2018-11-17] MEDS: ACCU-CHEK XX SCH (02:00)
[2018-11-17] MEDS: PANTOPRAZOLE 40 MG INJ IV SCH ×2 (05:50→18:02)
[2018-11-17] MEDS: PIPER-TAZO 3.375 GM IV (PMX) 100 ML IVPB SCH ×2 (05:50→14:16)
[2018-11-17] MEDS: INSULIN ASPART [NOVOLOG] 3 ML PEN SC SCH ×4 (06:00→18:00)
[2018-11-17] MEDS: BALSAM PERU/CASTOR OIL 60 GM TUBE TOP SCH ×2 (08:20→21:59)
--- NOTE | 2018-11-17 10:15 | CONS ---
Consult Date/Type/Reason Admit Date/Time Nov 09, 2018 at 14:44 Initial Consult Date Requesting Provider: RACHELLE RAMOS MD Date/Time of Note DATE: 11/17/18 TIME: 10:12 Subjective NO acute events - bren but BP Ok - per discussion with PMD and Dr. Flores - no pacer planned as chance for meaningful recovery is negligible ROS: No fever, no chills, no nausea, no vomiting, no diarrhea/constipation - per nurse Objective Vitals Vital Signs Date Temp Pulse Resp B/P (MAP) Pulse Ox O2 O2 Flow FiO2 Time Delivery Rate 11/17/18 98.7 57 18 128/97 96 Mechanical 07:57 (107) Ventilator Trach Collar 11/17/18 30 07:45 Intake and Output 11/16/18 11/16/18 11/17/18 1515:00 23:00 07:00 IntakeIntake Total 1180 ml 780 ml OutputOutput Total 350 ml 1600 ml BalanceBalance 830 ml -820 ml Exam General: WN/WD/NAD, AOx 0 HEENT: Unicetric/atraumatic/EOMI (does not follow commands) NECK: trach Lymph: no lymphadenopathy HEART: regular with no S3, II/ systolic murmur at apex LUNGS: Coarse sounds ABD: soft, NT, ND, +BS : Intact Neuro: non focal SKIN: chronic changes EXT: trace edema Results/Medications Result Diagram: 11/16/1818 11/16/1818 Results 24 hrs Laboratory Tests Test 11/16/18 11:59 11/16/18 17:03 11/16/18 23:55 11/17/18 05:59 Bedside Glucose 124 111 109 120 Home Meds Reported Medications Multivitamin with Minerals (Multivitamins with Minerals) 1 Each Tablet, 1 EACH GTB DAILY, TAB 11/02/17 Heparin Sodium,Porcine/Pf (HEPARIN SOD 5,000 UNIT/ 0.5 ML) 5,000 Unit/0.5 Ml Vial, 5000 UNIT IJ Q12H, VIAL 11/02/17 Amlodipine Besylate* (Amlodipine Besylate*) 10 Mg Tablet, 10 MG GTB DAILY, #30 TAB HOLD IF SBP<110 11/02/17 Sennosides* (Senna Lax*) 8.6 Mg Tablet, 1 TAB GTB BID, TAB 11/02/17 Famotidine* (Famotidine*) 20 Mg Tablet, 20 MG GTB DAILY, #30 TAB 11/02/17 Hydralazine Hcl* (Hydralazine Hcl*) 25 Mg Tab, 25 MG GTB Q6H PRN for FOR SBP>160, #60 TAB 11/02/17 Bisacodyl* (Bisacodyl*) 10 Mg Supp, 10 MG MD Q24H for CONSTIPATION, SUPP 11/02/17 Docusate Sodium* (Docusate Sodium*) 100 Mg Capsule, 100 MG GTB DAILY, #30 CAP 11/02/17 Cranberry Fruit (CRANBERRY) 450 Mg Tablet, 450 MG GTB DAILY, TAB 11/02/17 Artificial Tears* (Akwa Oint*) 3.5 Gm Oint, 1 APPLIC BOTH EYES Q12H, #1 TUB 11/02/17 Magnesium Hydroxide* (Milk Of Magnesia*) 400 Mg/5 Ml Oral.susp, 30 ML GTB DAILY, ML 11/02/17 Doxazosin Mesylate* (Doxazosin Mesylate*) 4 Mg Tablet, 4 MG GTB HS, TAB 11/02/17 Vit C-Ascorbate Ca-Ascorb Sod (Vitamin C) 500 Mg/15 Ml Liquid, 5 ML GTB BID, ML 11/02/17 Ferrous Sulfate* (Ferrous Sulfate*) 220 Mg/5 Ml Solution, 7.5 ML GTB BID, ML 11/02/17 Metformin Hcl* (Metformin Hcl*) 1,000 Mg Tablet, 1000 MG GTB WITH BREAKFAST DINNE, #60 TAB 11/02/17 Medications Current Medications Morphine Sulfate (morphine) 2 mg Q4H PRN IV SEVERE PAIN LEVEL 7-10 Last administered on 11/11/18at 04:08; Admin Dose 2 MG; Start 11/09/18 at 22:00 Ondansetron HCl (Zofran Inj) 4 mg Q6H PRN IV NAUSEA AND/OR VOMITING; Start 11/09/18 at 22:00 Miscellaneous Information (Pending [facility] Order For Wound Care) This patient garcia... PRN PRN XX WOUND CARE; Start 11/09/18 at 22:30 Diagnostic Test (Pha) (Accu-Chek) 1 ea 02 XX ; Start 11/10/18 at 02:00 Miscellaneous Information 1 ea NOTE XX ; Start 11/10/18 at 02:00 Glucose (Glutose) 15 gm Q15M PRN PO DECREASED GLUCOSE; Start 11/10/18 at 02:00 Glucose (Glutose) 22.5 gm Q15M PRN PO DECREASED GLUCOSE; Start 11/10/18 at 02:00 Dextrose (D50w Syringe) 25 ml Q15M PRN IV DECREASED GLUCOSE; Start 11/10/18 at 02:00 Dextrose (D50w Syringe) 50 ml Q15M PRN IV DECREASED GLUCOSE; Start 11/10/18 at 02:00 Glucagon (Glucagen) 1 mg Q15M PRN IM DECREASED GLUCOSE; Start 11/10/18 at 02:00 Glucose (Glutose) 15 gm Q15M PRN BUCCAL DECREASED GLUCOSE; Start 11/10/18 at 02:00 Vancomycin HCl (Vanco Iv Per Pharmacy) VANCOMYCIN PER PHARMACY PER PROTOCOL XX ; Start 11/10/18 at 13:00 Piperacillin Sod/ Tazobactam Sod 100 ml @ 200 mls/hr Q8 IVPB Last administered on 11/17/18at 05:50; Admin Dose 200 MLS/HR; Start 11/10/18 at 14:00 Caspofungin 50 mg/ Sodium Chloride 250 ml @ 250 mls/hr Q24H IVPB Last administered on 11/16/18at 14:48; Admin Dose 250 MLS/HR; Start 11/12/18 at 15:00 Pantoprazole (Protonix Iv) 40 mg BID@06,18 IV Last administered on 11/17/18at 05:50; Admin Dose 40 MG; Start 11/12/18 at 18:00 Insulin Aspart (Novolog Insulin Pen) NOVOLOG *MILD* ALGORI... Q6 SC ; Start 11/12/18 at 18:00 Vancomycin HCl 250 ml @ 125 mls/hr Q24H IVPB Last administered on 11/16/18at 17:03; Admin Dose 125 MLS/HR; Start 11/14/18 at 16:00 Furosemide (Lasix) 20 mg DAILY IV ; Start 11/18/18 at 09:00; Status UNV Assessment/Plan Hospital Course (Demo Recall) 1.Nstemi-minimal positive troponin in the setting of severe anemia. pradeep type 2 demand infarct - on med RX now. NO intervention palnned. 2.GIB - defer to primary team - DR. Rivas follows. 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 3.anemia -secondary to GIB - hold anti-coag now. 4.Bradycardia - stable BP currently - not planned now as pt has no true chance for reasonable recovery. 5.Possible sepsis - on anti-Bx - better. 6. CHF - increased fluid satus - gentle diuresis now. VEGA WISE MD Nov 17, 2018 10:15
--- NOTE | 2018-11-17 11:54 | PN ---
Date/Time of Note Date/Time of Note DATE: 11/17/18 TIME: 11:52 Assessment/Plan VTE Prophylaxis Risk score (from Nsg)>0 risk: 8 SCD applied (from Nsg): Yes Lines/Catheters IV Catheter Type (from Nrsg): Saline Lock Urinary Cath still in place: Yes (SUPRAPUBIC CATH) Reason Cath still needed: urinary retention Assessment/Plan Assessment/Plan -SEPSIS- - ID consult - NSTEMI - per cardio - Arrhythmias - per cardio - Abdominal distention - GI consult - Dr Wolf - Right pulmonary effusion -Dr. Gomez notified in pulmonology consultation. - per pulmonary -Ventilator dependent respiratory failure. - Dr. Gomez notified in pulmonology consultation. 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 Result Diagram: 11/16/1818 11/16/18 0818 Results 24hrs Laboratory Tests Test 11/16/18 11:59 11/16/18 17:03 11/16/18 23:55 11/17/18 05:59 Bedside Glucose 124 111 109 120 Test 11/17/18 11:32 Bedside Glucose 115 Subjective 24 Hr Interval Summary Free Text/Dictation - Arrhythmias- cardiology follows Exam/Review of Systems Exam Vitals Vital Signs Date Temp Pulse Resp B/P (MAP) Pulse Ox O2 O2 Flow FiO2 Time Delivery Rate 11/17/18 98.0 57 22 119/70 96 Room Air 11:49 (86) 11/17/18 30 07:45 Intake and Output 11/16/18 11/16/18 11/17/18 1515:00 23:00 07:00 IntakeIntake Total 1180 ml 780 ml OutputOutput Total 350 ml 1600 ml BalanceBalance 830 ml -820 ml Results Results 24hrs Laboratory Tests Test 11/16/18 11:59 11/16/18 17:03 11/16/18 23:55 11/17/18 05:59 Bedside Glucose 124 111 109 120 Test 11/17/18 11:32 Bedside Glucose 115 Medications Medication Current Medications Morphine Sulfate (morphine) 2 mg Q4H PRN IV SEVERE PAIN LEVEL 7-10 Last administered on 11/11/18at 04:08; Admin Dose 2 MG; Start 11/09/18 at 22:00 Ondansetron HCl (Zofran Inj) 4 mg Q6H PRN IV NAUSEA AND/OR VOMITING; Start 11/09/18 at 22:00 Miscellaneous Information (Pending [facility] Order For Wound Care) This patient garcia... PRN PRN XX WOUND CARE; Start 11/09/18 at 22:30 Diagnostic Test (Pha) (Accu-Chek) 1 ea 02 XX ; Start 11/10/18 at 02:00 Miscellaneous Information 1 ea NOTE XX ; Start 11/10/18 at 02:00 Glucose (Glutose) 15 gm Q15M PRN PO DECREASED GLUCOSE; Start 11/10/18 at 02:00 Glucose (Glutose) 22.5 gm Q15M PRN PO DECREASED GLUCOSE; Start 11/10/18 at 02:00 Dextrose (D50w Syringe) 25 ml Q15M PRN IV DECREASED GLUCOSE; Start 11/10/18 at 02:00 Dextrose (D50w Syringe) 50 ml Q15M PRN IV DECREASED GLUCOSE; Start 11/10/18 at 02:00 Glucagon (Glucagen) 1 mg Q15M PRN IM DECREASED GLUCOSE; Start 11/10/18 at 02:00 Glucose (Glutose) 15 gm Q15M PRN BUCCAL DECREASED GLUCOSE; Start 11/10/18 at 02:00 Vancomycin HCl (Vanco Iv Per Pharmacy) VANCOMYCIN PER PHARMACY PER PROTOCOL XX ; Start 11/10/18 at 13:00 Piperacillin Sod/ Tazobactam Sod 100 ml @ 200 mls/hr Q8 IVPB Last administered on 11/17/18at 05:50; Admin Dose 200 MLS/HR; Start 11/10/18 at 14:00 Caspofungin 50 mg/ Sodium Chloride 250 ml @ 250 mls/hr Q24H IVPB Last administered on 11/16/18at 14:48; Admin Dose 250 MLS/HR; Start 11/12/18 at 15:00 Pantoprazole (Protonix Iv) 40 mg BID@06,18 IV Last administered on 11/17/18at 05:50; Admin Dose 40 MG; Start 11/12/18 at 18:00 Insulin Aspart (Novolog Insulin Pen) NOVOLOG *MILD* ALGORI... Q6 SC ; Start 11/12/18 at 18:00 Vancomycin HCl 250 ml @ 125 mls/hr Q24H IVPB Last administered on 11/16/18at 17:03; Admin Dose 125 MLS/HR; Start 11/14/18 at 16:00 Furosemide (Lasix) 20 mg DAILY IV ; Start 11/18/18 at 09:00; Status SAMIA RENE Nov 17, 2018 11:54
[2018-11-17] MEDS: CASPOFUNGIN 50 MG in SOD CHLORIDE 0.9% 250 ML IVPB SCH (16:10)
[2018-11-17] MEDS: VANCOMYCIN 1 GM 250 ML IVPB SCH (16:33)
--- NOTE | 2018-11-17 17:55 | CONS ---
Assessment/Plan Assessment/Plan Hospital Course (Demo Recall) ID PROGRESS NOTE CURRENT ABX=Day # => Vancomycin, Cancidas, Zosyn 11/16/18 0818 11/16/18 0818 24H INTERVAL SUMMARY * Resting comfortable, no fevers, VSS, NAD, no new issues, no c/o offered * Microbiology: Blood cultures remain negative urine culture grew Destini species, not albicans, ascites fluid cultures growing gram-negative rods * ASCITIC CX (+) BODY FLUID CULTURE Final Organism 1 KLEB PNEUMONIAE CARBAPENEMASE QUANTITY SCANT GROWTH . MULTI DRUG RESISTANT ORGANISM KLEB PNEUM KLEB PNEUM M.I.C. RX M.I.C. RX --------- --- --------- --- AMIKACIN 16 S CEFAZOLIN R CEFEPIME 16 R CEFOTAXIME R CIPROFLOXACIN >=4 R GENTAMICIN >=16 R LEVOFLOXACIN >=8 R MEROPENEM >32 R TOBRAMYCIN >=16 R TRIMETHOPRIM/SULFAMETHOXAZOLE >=320 R PIPERACILLIN/TAZOBACTAM >=128 R * Diagnostics: * CT abdomen and pelvis on admission revealed large extraperitoneal fluid collections anasarca cholelithiasis bilateral nonobstructing renal stones diverticulosis of the descending and sigmoid colon bilateral pleural effusions, right greater than left with significant atelectasis/consolidation involving the left right lower lobes. Please see full report in the chart. * Chest x-ray on admission revealed new right perihilar and right lower lobe extensive infiltrates and moderate right pleural effusion. Chest x-ray this morning revealed no significant change PHYSICAL EXAMINATION: GENERAL:VSS, NAD HEENT: Unremarkable NECK: Supple, trachea midline. CHEST: Rise symmetrical, without dyspnea on observation HEART: Pulse RRR ABDOMEN: Soft, ND EXTREMITIES: Warm, moves all extremities ID ASSESSMENT 83 yo M admit with: 1. Sepsis, present on admission 2. Healthcare associated pneumonia 3. Urinary tract infection 4. SBP===> ASCITIC CX (+) BODY FLUID CULTURE Final Organism 1 KLEB PNEUMONIAE CARBAPENEMASE QUANTITY SCANT GROWTH . MULTI DRUG RESISTANT ORGANISM 5. Non-ST elevation [place] 6. Chronic respiratory failure and dysphagia 7. Acute on chronic anemia==> erosive gastritis/esophagitis per EGD 8. Encephalopathy, somewhat improved INVASIVES: Trach PEG NGT suprapubic catheter ABX ALLERGY: KNDA CURRENT ABX: => Vancomycin, Cancidas, Zosyn ID RECOMMENDATIONS 1. Change Zosyn to Amikacin 2. DC Vanco IV 3. Continue Cancidas . . Consultation Date/Type/Reason Admit Date/Time Nov 09, 2018 at 14:44 Initial Consult Date 11/14/18 Requesting Provider: RACHELLE RAMOS MD Date/Time of Note DATE: 11/17/18 TIME: 17:55 Exam/Review of Systems Exam Vitals Vital Signs Date Temp Pulse Resp B/P (MAP) Pulse Ox O2 O2 Flow FiO2 Time Delivery Rate 11/17/18 98.0 57 19 122/63 96 Mechanical 16:02 (82) Ventilator Trach Collar 11/17/18 30 15:03 Intake and Output 11/16/18 11/16/18 11/17/18 1515:00 23:00 07:00 IntakeIntake Total 1180 ml 780 ml OutputOutput Total 350 ml 1600 ml BalanceBalance 830 ml -820 ml Results Result Diagram: 11/16/18 0818 11/16/18 0818 Results 24hrs Laboratory Tests Test 11/16/18 23:55 11/17/18 05:59 11/17/18 11:32 Bedside Glucose 109 120 115 Medications Medication Current Medications Morphine Sulfate (morphine) 2 mg Q4H PRN IV SEVERE PAIN LEVEL 7-10 Last administered on 11/11/18at 04:08; Admin Dose 2 MG; Start 11/09/18 at 22:00 Ondansetron HCl (Zofran Inj) 4 mg Q6H PRN IV NAUSEA AND/OR VOMITING; Start 11/09/18 at 22:00 [facility]iscellaneous Information [facility] This patient garcia... PRN PRN XX WOUND CARE; Start 11/09/18 at 22:30 Diagnostic Test (Pha) (Accu-Chek) 1 ea 02 XX ; Start 11/10/18 at 02:00 Miscellaneous Information 1 ea NOTE XX ; Start 11/10/18 at 02:00 Glucose (Glutose) 15 gm Q15M PRN PO DECREASED GLUCOSE; Start 11/10/18 at 02:00 Glucose (Glutose) 22.5 gm Q15M PRN PO DECREASED GLUCOSE; Start 11/10/18 at 02:00 Dextrose (D50w Syringe) 25 ml Q15M PRN IV DECREASED GLUCOSE; Start 11/10/18 at 02:00 Dextrose (D50w Syringe) 50 ml Q15M PRN IV DECREASED GLUCOSE; Start 11/10/18 at 02:00 Glucagon (Glucagen) 1 mg Q15M PRN IM DECREASED GLUCOSE; Start 11/10/18 at 02:00 Glucose (Glutose) 15 gm Q15M PRN BUCCAL DECREASED GLUCOSE; Start 11/10/18 at 02:00 Vancomycin HCl (Vanco Iv Per Pharmacy) VANCOMYCIN PER PHARMACY PER PROTOCOL XX ; Start 11/10/18 at 13:00 Piperacillin Sod/ Tazobactam Sod 100 ml @ 200 mls/hr Q8 IVPB Last administered on 11/17/18at 14:16; Admin Dose 200 MLS/HR; Start 11/10/18 at 14:00 Caspofungin 50 mg/ Sodium Chloride 250 ml @ 250 mls/hr Q24H IVPB Last administered on 11/17/18at 16:10; Admin Dose 250 MLS/HR; Start 11/12/18 at 15:00 Pantoprazole (Protonix Iv) 40 mg BID@06,18 IV Last administered on 11/17/18at 05:50; Admin Dose 40 MG; Start 11/12/18 at 18:00 Insulin Aspart (Novolog Insulin Pen) NOVOLOG *MILD* ALGORI... Q6 SC ; Start 11/12/18 at 18:00 Vancomycin HCl 250 ml @ 125 mls/hr Q24H IVPB Last administered on 11/17/18at 16:33; Admin Dose 125 MLS/HR; Start 11/14/18 at 16:00 Furosemide (Lasix) 20 mg DAILY IV ; Start 11/18/18 at 09:00; Status UNV Miscellaneous Information (*Rx Drug Level Order Reminder*) VANCOMYCIN TROUGH AT 1500 1500 ONCE XX ; Start 11/18/18 at 15:00; Stop 11/18/18 at 15:01 RAYMUNDO ROBLEDO NP Nov 17, 2018 17:55
[2018-11-17] MEDS ORDERED: AMIKACIN IV PER PHARMACY XX SCH (18:30)
[2018-11-17] MEDS ORDERED: AMIKACIN 1,000 MG in SOD CHLORIDE 0.9% 100 ML IVPB SCH (21:00)
--- NOTE | 2018-11-17 22:18 | CONS ---
Consult Date/Type/Reason Admit Date/Time Nov 09, 2018 at 14:44 Initial Consult Date 11/14/18 Type of Consultation: Pulm Requesting Provider: RACHELLE RAMOS MD Date/Time of Note DATE: 11/17/18 TIME: 22:16 Subjective No events overnight. Stable on MV Objective Vitals Vital Signs Date Temp Pulse Resp B/P (MAP) Pulse Ox O2 O2 Flow FiO2 Time Delivery Rate 11/17/18 98.4 57 19 122/63 100 20:44 (82) 11/17/18 30 19:30 11/17/18 Mechanical 16:02 Ventilator Trach Collar Intake and Output 11/16/18 11/16/18 11/17/18 1515:00 23:00 07:00 IntakeIntake Total 1180 ml 780 ml OutputOutput Total 350 ml 1600 ml BalanceBalance 830 ml -820 ml Exam HEENT: Neck supple; no JVD; no LAD: + trach CVS: RRR, S1 and S2 CHEST: Coarse BS b/l ABD: Distended, NT, + BS EXT: No c/c; + edema Results/Medications Result Diagram: 11/16/1881711/16/1818 Results 24 hrs Laboratory Tests Test 11/16/18 23:55 11/17/18 05:59 11/17/18 11:32 11/17/18 18:01 Bedside Glucose 109 120 115 120 Home Meds Reported Medications Multivitamin with Minerals (Multivitamins with Minerals) 1 Each Tablet, 1 EACH GTB DAILY, TAB 11/02/17 Heparin Sodium,Porcine/Pf (HEPARIN SOD 5,000 UNIT/ 0.5 ML) 5,000 Unit/0.5 Ml Vial, 5000 UNIT IJ Q12H, VIAL 11/02/17 Amlodipine Besylate* (Amlodipine Besylate*) 10 Mg Tablet, 10 MG GTB DAILY, #30 TAB HOLD IF SBP<110 11/02/17 Sennosides* (Senna Lax*) 8.6 Mg Tablet, 1 TAB GTB BID, TAB 11/02/17 Famotidine* (Famotidine*) 20 Mg Tablet, 20 MG GTB DAILY, #30 TAB 11/02/17 Hydralazine Hcl* (Hydralazine Hcl*) 25 Mg Tab, 25 MG GTB Q6H PRN for FOR SBP>160, #60 TAB 11/02/17 Bisacodyl* (Bisacodyl*) 10 Mg Supp, 10 MG MT Q24H for CONSTIPATION, SUPP 11/02/17 Docusate Sodium* (Docusate Sodium*) 100 Mg Capsule, 100 MG GTB DAILY, #30 CAP 11/02/17 Cranberry Fruit (CRANBERRY) 450 Mg Tablet, 450 MG GTB DAILY, TAB 11/02/17 Artificial Tears* (Akwa Oint*) 3.5 Gm Oint, 1 APPLIC BOTH EYES Q12H, #1 TUB 11/02/17 Magnesium Hydroxide* (Milk Of Magnesia*) 400 Mg/5 Ml Oral.susp, 30 ML GTB DAILY, ML 11/02/17 Doxazosin Mesylate* (Doxazosin Mesylate*) 4 Mg Tablet, 4 MG GTB HS, TAB 11/02/17 Vit C-Ascorbate Ca-Ascorb Sod (Vitamin C) 500 Mg/15 Ml Liquid, 5 ML GTB BID, ML 11/02/17 Ferrous Sulfate* (Ferrous Sulfate*) 220 Mg/5 Ml Solution, 7.5 ML GTB BID, ML 11/02/17 Metformin Hcl* (Metformin Hcl*) 1,000 Mg Tablet, 1000 MG GTB WITH BREAKFAST DINNE, #60 TAB 11/02/17 Medications Current Medications Morphine Sulfate (morphine) 2 mg Q4H PRN IV SEVERE PAIN LEVEL 7-10 Last administered on 11/11/18at 04:08; Admin Dose 2 MG; Start 11/09/18 at 22:00 Ondansetron HCl (Zofran Inj) 4 mg Q6H PRN IV NAUSEA AND/OR VOMITING; Start 11/09/18 at 22:00 Miscellaneous Information [facility] This patient garcia... PRN PRN XX WOUND CARE; Start 11/09/18 at 22:30 Diagnostic Test (Pha) (Accu-Chek) 1 ea 02 XX ; Start 11/10/18 at 02:00 Miscellaneous Information 1 ea NOTE XX ; Start 11/10/18 at 02:00 Glucose (Glutose) 15 gm Q15M PRN PO DECREASED GLUCOSE; Start 11/10/18 at 02:00 Glucose (Glutose) 22.5 gm Q15M PRN PO DECREASED GLUCOSE; Start 11/10/18 at 02:00 Dextrose (D50w Syringe) 25 ml Q15M PRN IV DECREASED GLUCOSE; Start 11/10/18 at 02:00 Dextrose (D50w Syringe) 50 ml Q15M PRN IV DECREASED GLUCOSE; Start 11/10/18 at 02:00 Glucagon (Glucagen) 1 mg Q15M PRN IM DECREASED GLUCOSE; Start 11/10/18 at 02:00 Glucose (Glutose) 15 gm Q15M PRN BUCCAL DECREASED GLUCOSE; Start 11/10/18 at 02:00 Caspofungin 50 mg/ Sodium Chloride 250 ml @ 250 mls/hr Q24H IVPB Last administered on 11/17/18at 16:10; Admin Dose 250 MLS/HR; Start 11/12/18 at 15:00 Pantoprazole (Protonix Iv) 40 mg BID@06,18 IV Last administered on 11/17/18at 18:02; Admin Dose 40 MG; Start 11/12/18 at 18:00 Insulin Aspart (Novolog Insulin Pen) NOVOLOG *MILD* ALGORI... Q6 SC ; Start 11/12/18 at 18:00 Furosemide (Lasix) 20 mg DAILY IV ; Start 11/18/18 at 09:00; Status UNV Amikacin Sulfate (Amikacin Iv Per Pharmacy) AMIKACIN PER PHARMACY NOTE XX ; Start 11/17/18 at 18:30 Amikacin Sulfate 1000 mg/Sodium Chloride 104 ml @ 104 mls/hr Q48H IVPB Last administered on 11/17/18at 22:10; Admin Dose 104 MLS/HR; Start 11/17/18 at 21:00 Miscellaneous Information (*Rx Drug Level Order Reminder*) RANDOM AMIKACIN LEVEL... 0700 ONCE XX ; Start 11/18/18 at 07:00; Stop 11/18/18 at 07:01 Assessment/Plan Assessment/Plan (Daily) IMP: 1. Sepsis 2. HCAP 3. UTI 4. SBP 5 NSTEMI 6. VDRF RECS: 1. Vent support 2. Abx per ID 3. Follow-up Cxs 4. TF/Free H20 MISHA DAVIS MD Nov 17, 2018 22:18
[2018-11-18] VITALS (24 sets, daily range): BP systolic 109–149; BP diastolic 60–80; PULSE 55–67; RESP 16–19
[2018-11-18] MEDS: ACCU-CHEK XX SCH (02:00)
[2018-11-18] MEDS: PANTOPRAZOLE 40 MG INJ IV SCH ×2 (05:46→17:40)
[2018-11-18] MEDS: INSULIN ASPART [NOVOLOG] 3 ML PEN SC SCH ×4 (05:46→17:37)
[2018-11-18] MEDS: FUROSEMIDE 20 MG INJ IV SCH (08:15)
[2018-11-18] MEDS: BALSAM PERU/CASTOR OIL 60 GM TUBE TOP SCH ×2 (08:16→20:13)
--- NOTE | 2018-11-18 11:34 | CONS ---
Assessment/Plan Assessment/Plan Hospital Course (Demo Recall) ID PROGRESS NOTE CURRENT ABX=Day # =>Vancomycin, Cancidas, AMIKACIN S/P Zosyn 11/16/18 0818 11/18/18 0730 24H INTERVAL SUMMARY * ABX ADJUSTED YESTERDAY * Chronic encephalopathy/chronic VDRF -- noncommunicative * Resting comfortable, no fevers, VSS, NAD * Microbiology: Blood cultures remain negative urine culture grew Destini species, not albicans, ascites fluid cultures growing gram-negative rods * ASCITIC CX (+) BODY FLUID CULTURE Final Organism 1 KLEB PNEUMONIAE CARBAPENEMASE QUANTITY SCANT GROWTH . MULTI DRUG RESISTANT ORGANISM KLEB PNEUM KLEB PNEUM M.I.C. RX M.I.C. RX --------- --- --------- --- AMIKACIN 16 S CEFAZOLIN R CEFEPIME 16 R CEFOTAXIME R CIPROFLOXACIN >=4 R GENTAMICIN >=16 R LEVOFLOXACIN >=8 R MEROPENEM >32 R TOBRAMYCIN >=16 R TRIMETHOPRIM/SULFAMETHOXAZOLE >=320 R PIPERACILLIN/TAZOBACTAM >=128 R * Diagnostics: * CT abdomen and pelvis on admission revealed large extraperitoneal fluid collections anasarca cholelithiasis bilateral nonobstructing renal stones diverticulosis of the descending and sigmoid colon bilateral pleural effusions, right greater than left with significant atelectasis/consolidation involving the left right lower lobes. Please see full report in the chart. * Chest x-ray on admission revealed new right perihilar and right lower lobe extensive infiltrates and moderate right pleural effusion. Chest x-ray this morning revealed no significant change PHYSICAL EXAMINATION: GENERAL:VSS, NAD HEENT: Unremarkable NECK: Supple, trachea midline. CHEST: Rise symmetrical, without dyspnea on observation HEART: Pulse RRR ABDOMEN: Soft, ND EXTREMITIES: Warm, moves all extremities ID ASSESSMENT 83 yo M admit with: 1. Sepsis, present on admission 2. Healthcare associated pneumonia 3. Urinary tract infection 4. SBP===> ASCITIC CX (+) BODY FLUID CULTURE Final Organism 1 KLEB PNEUMONIAE CARBAPENEMASE QUANTITY SCANT GROWTH . MULTI DRUG RESISTANT ORGANISM 5. Non-ST elevation [place] 6. Chronic respiratory failure and dysphagia 7. Acute on chronic anemia==> erosive gastritis/esophagitis per EGD 8. Encephalopathy, somewhat improved INVASIVES: Trach PEG NGT suprapubic catheter ABX ALLERGY: KNDA CURRENT ABX: => Vancomycin, Cancidas, AMIKACIN S/P Zosyn ID RECOMMENDATIONS 1. ABX ADJUSTED YESTERDAY -- CONTINUE . . Consultation Date/Type/Reason Admit Date/Time Nov 09, 2018 at 14:44 Initial Consult Date 11/14/18 Requesting Provider: RACHELLE RAMOS MD Date/Time of Note DATE: 11/18/18 TIME: 11:31 Exam/Review of Systems Exam Vitals Vital Signs Date Temp Pulse Resp B/P (MAP) Pulse Ox O2 O2 Flow FiO2 Time Delivery Rate 11/18/18 98.1 55 16 128/75 100 11:17 (92) 11/18/18 30 07:40 11/17/18 Mechanical 16:02 Ventilator Trach Collar Intake and Output 11/17/18 11/17/18 11/18/18 1515:00 23:00 07:00 IntakeIntake Total 940 ml 730 ml OutputOutput Total 850 ml 550 ml BalanceBalance 90 ml 180 ml Results Result Diagram: 11/16/18 0818 11/18/18 0730 Results 24hrs Laboratory Tests Test 11/17/18 11:32 11/17/18 18:01 11/18/18 00:12 11/18/18 05:45 Bedside Glucose 115 120 114 114 Test 11/18/18 07:30 Blood Urea Nitrogen 16 Creatinine 0.95 Medications Medication Current Medications Morphine Sulfate (morphine) 2 mg Q4H PRN IV SEVERE PAIN LEVEL 7-10 Last administered on 11/11/18at 04:08; Admin Dose 2 MG; Start 11/09/18 at 22:00 Ondansetron HCl (Zofran Inj) 4 mg Q6H PRN IV NAUSEA AND/OR VOMITING; Start 11/09/18 at 22:00 [facility] This patient garcia... PRN PRN XX WOUND CARE; Start 11/09/18 at 22:30 Diagnostic Test (Pha) (Accu-Chek) 1 ea 02 XX ; Start 11/10/18 at 02:00 Miscellaneous Information 1 ea NOTE XX ; Start 11/10/18 at 02:00 Glucose (Glutose) 15 gm Q15M PRN PO DECREASED GLUCOSE; Start 11/10/18 at 02:00 Glucose (Glutose) 22.5 gm Q15M PRN PO DECREASED GLUCOSE; Start 11/10/18 at 02:00 Dextrose (D50w Syringe) 25 ml Q15M PRN IV DECREASED GLUCOSE; Start 11/10/18 at 02:00 Dextrose (D50w Syringe) 50 ml Q15M PRN IV DECREASED GLUCOSE; Start 11/10/18 at 02:00 Glucagon (Glucagen) 1 mg Q15M PRN IM DECREASED GLUCOSE; Start 11/10/18 at 02:00 Glucose (Glutose) 15 gm Q15M PRN BUCCAL DECREASED GLUCOSE; Start 11/10/18 at 02:00 Caspofungin 50 mg/ Sodium Chloride 250 ml @ 250 mls/hr Q24H IVPB Last adminis tered on 11/17/18at 16:10; Admin Dose 250 MLS/HR; Start 11/12/18 at 15:00 Pantoprazole (Protonix Iv) 40 mg BID@06,18 IV Last administered on 11/18/18at 05:46; Admin Dose 40 MG; Start 11/12/18 at 18:00 Insulin Aspart (Novolog Insulin Pen) NOVOLOG *MILD* ALGORI... Q6 SC ; Start 11/12/18 at 18:00 Furosemide (Lasix) 20 mg DAILY IV Last administered on 11/18/18at 08:15; Admin Dose 20 MG; Start 11/18/18 at 09:00 Amikacin Sulfate (Amikacin Iv Per Pharmacy) AMIKACIN PER PHARMACY NOTE XX ; Start 11/17/18 at 18:30 Amikacin Sulfate 1000 mg/Sodium Chloride 104 ml @ 104 mls/hr Q48H IVPB Last administered on 11/17/18at 22:10; Admin Dose 104 MLS/HR; Start 11/17/18 at 21:00 RAYMUNDO ROBLEDO NP Nov 18, 2018 11:34
[2018-11-18] MEDS: CASPOFUNGIN 50 MG in SOD CHLORIDE 0.9% 250 ML IVPB SCH (14:22)
--- NOTE | 2018-11-18 14:26 | CONS ---
Consult Date/Type/Reason Admit Date/Time Nov 09, 2018 at 14:44 Initial Consult Date Type of Consultation: Pulm Requesting Provider: RACHELLE RAMOS MD Date/Time of Note DATE: 11/18/18 TIME: 14:24 Subjective NO acute events - pt comfortable overall - HR better - no pacer planned. ROS: No fever, no chills, no nausea, no vomiting, no diarrhea/constipation - per nurse Objective Vitals Vital Signs Date Temp Pulse Resp B/P (MAP) Pulse Ox O2 O2 Flow FiO2 Time Delivery Rate 11/18/18 72 16 100 30 13:31 11/18/18 98.1 128/75 11:17 (92) 11/17/18 Mechanical 16:02 Ventilator Trach Collar Intake and Output 11/17/18 11/17/18 11/18/18 1515:00 23:00 07:00 IntakeIntake Total 1190 ml 730 ml OutputOutput Total 850 ml 550 ml BalanceBalance 340 ml 180 ml Exam General: WN/WD/NAD, AOx 0 HEENT: Unicetric/atraumatic/EOMI (does not follow commands) NECK: JVD elevated, no thyromegaly - TRACH Lymph: no lymphadenopathy HEART: regular with no S3, II/ systolic murmur at apex LUNGS: Coarse sounds ABD: soft, NT, ND, +BS : Intact Neuro: non focal SKIN: chronic changes EXT: trace edema Results/Medications Result Diagram: 11/16/18 0818 11/18/18 0730 Results 24 hrs Laboratory Tests Test 11/17/18 18:01 11/18/18 00:12 11/18/18 05:45 11/18/18 07:30 Bedside Glucose 120 114 114 Blood Urea Nitrogen 16 Creatinine 0.95 Test 11/18/18 11:46 Bedside Glucose 137 Home Meds Reported Medications Multivitamin with Minerals (Multivitamins with Minerals) 1 Each Tablet, 1 EACH GTB DAILY, TAB 11/02/17 Heparin Sodium,Porcine/Pf (HEPARIN SOD 5,000 UNIT/ 0.5 ML) 5,000 Unit/0.5 Ml Vial, 5000 UNIT IJ Q12H, VIAL 11/02/17 Amlodipine Besylate* (Amlodipine Besylate*) 10 Mg Tablet, 10 MG GTB DAILY, #30 TAB HOLD IF SBP<110 11/02/17 Sennosides* (Senna Lax*) 8.6 Mg Tablet, 1 TAB GTB BID, TAB 11/02/17 Famotidine* (Famotidine*) 20 Mg Tablet, 20 MG GTB DAILY, #30 TAB 11/02/17 Hydralazine Hcl* (Hydralazine Hcl*) 25 Mg Tab, 25 MG GTB Q6H PRN for FOR SBP>160, #60 TAB 11/02/17 Bisacodyl* (Bisacodyl*) 10 Mg Supp, 10 MG NE Q24H for CONSTIPATION, SUPP 11/02/17 Docusate Sodium* (Docusate Sodium*) 100 Mg Capsule, 100 MG GTB DAILY, #30 CAP 11/02/17 Cranberry Fruit (CRANBERRY) 450 Mg Tablet, 450 MG GTB DAILY, TAB 11/02/17 Artificial Tears* (Akwa Oint*) 3.5 Gm Oint, 1 APPLIC BOTH EYES Q12H, #1 TUB 11/02/17 Magnesium Hydroxide* (Milk Of Magnesia*) 400 Mg/5 Ml Oral.susp, 30 ML GTB DAILY, ML 11/02/17 Doxazosin Mesylate* (Doxazosin Mesylate*) 4 Mg Tablet, 4 MG GTB HS, TAB 11/02/17 Vit C-Ascorbate Ca-Ascorb Sod (Vitamin C) 500 Mg/15 Ml Liquid, 5 ML GTB BID, ML 11/02/17 Ferrous Sulfate* (Ferrous Sulfate*) 220 Mg/5 Ml Solution, 7.5 ML GTB BID, ML 11/02/17 Metformin Hcl* (Metformin Hcl*) 1,000 Mg Tablet, 1000 MG GTB WITH BREAKFAST DINNE, #60 TAB 11/02/17 Medications Current Medications Morphine Sulfate (morphine) 2 mg Q4H PRN IV SEVERE PAIN LEVEL 7-10 Last administered on 11/11/18at 04:08; Admin Dose 2 MG; Start 11/09/18 at 22:00 Ondansetron HCl (Zofran Inj) 4 mg Q6H PRN IV NAUSEA AND/OR VOMITING; Start 11/09/18 at 22:00 Miscellaneous Information (Pending [facility] Order For Wound Care) This patient garcia... PRN PRN XX WOUND CARE; Start 11/09/18 at 22:30 Diagnostic Test (Pha) (Accu-Chek) 1 ea 02 XX ; Start 11/10/18 at 02:00 Miscellaneous Information 1 ea NOTE XX ; Start 11/10/18 at 02:00 Glucose (Glutose) 15 gm Q15M PRN PO DECREASED GLUCOSE; Start 11/10/18 at 02:00 Glucose (Glutose) 22.5 gm Q15M PRN PO DECREASED GLUCOSE; Start 11/10/18 at 02:00 Dextrose (D50w Syringe) 25 ml Q15M PRN IV DECREASED GLUCOSE; Start 11/10/18 at 02:00 Dextrose (D50w Syringe) 50 ml Q15M PRN IV DECREASED GLUCOSE; Start 11/10/18 at 02:00 Glucagon (Glucagen) 1 mg Q15M PRN IM DECREASED GLUCOSE; Start 11/10/18 at 02:00 Glucose (Glutose) 15 gm Q15M PRN BUCCAL DECREASED GLUCOSE; Start 11/10/18 at 02:00 Caspofungin 50 mg/ Sodium Chloride 250 ml @ 250 mls/hr Q24H IVPB Last administered on 11/18/18at 14:22; Admin Dose 250 MLS/HR; Start 11/12/18 at 15:00 Pantoprazole (Protonix Iv) 40 mg BID@06,18 IV Last administered on 11/18/18at 05:46; Admin Dose 40 MG; Start 11/12/18 at 18:00 Insulin Aspart (Novolog Insulin Pen) NOVOLOG *MILD* ALGORI... Q6 SC ; Start 11/12/18 at 18:00 Furosemide (Lasix) 20 mg DAILY IV Last administered on 11/18/18at 08:15; Admin Dose 20 MG; Start 11/18/18 at 09:00 Amikacin Sulfate (Amikacin Iv Per Pharmacy) AMIKACIN PER PHARMACY NOTE XX ; Start 11/17/18 at 18:30 Amikacin Sulfate 1000 mg/Sodium Chloride 104 ml @ 104 mls/hr Q48H IVPB Last administered on 11/17/18at 22:10; Admin Dose 104 MLS/HR; Start 11/17/18 at 21:00 Assessment/Plan Hospital Course (Demo Recall) 1.Nstemi-minimal positive troponin in the setting of severe anemia. pradeep type 2 demand infarct - on med RX now. NO intervention planned. HR better now. 2.GIB - defer to primary team - DR. Rivas follows. H/H stable t 8.4. Will follow clinically. 3.anemia -secondary to GIB - hold anti-coag now. 4.Bradycardia - stable BP currently - not planned now as pt has no true chance f or reasonable recovery. HR better now. 5.Possible sepsis - on anti-Bx - better. 6. CHF - increased fluid satus - gentle diuresis now. VEGA WISE MD Nov 18, 2018 14:26
--- NOTE | 2018-11-18 14:38 | PN ---
Date/Time of Note Date/Time of Note DATE: 11/18/18 TIME: 14:38 Assessment/Plan VTE Prophylaxis Risk score (from Nsg)>0 risk: 6 SCD applied (from Nsg): No Lines/Catheters IV Catheter Type (from Nrsg): Peripheral IV Urinary Cath still in place: Yes (suprapubic) Assessment/Plan Assessment/Plan -SEPSIS- - ID consult - NSTEMI - per cardio - Arrhythmias - per cardio - Abdominal distention - GI consult - Dr Wolf - Right pulmonary effusion -Dr. Gomez notified in pulmonology consultation. - per pulmonary -Ventilator dependent respiratory failure. - Dr. Gomez notified in pulmonology consultation. 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 Result Diagram: 11/16/18 0818 11/18/18 0730 Results 24hrs Laboratory Tests Test 11/17/18 18:01 11/18/18 00:12 11/18/18 05:45 11/18/18 07:30 Bedside Glucose 120 114 114 Blood Urea Nitrogen 16 Creatinine 0.95 Test 11/18/18 11:46 Bedside Glucose 137 Exam/Review of Systems Exam Vitals Vital Signs Date Temp Pulse Resp B/P (MAP) Pulse Ox O2 O2 Flow FiO2 Time Delivery Rate 11/18/18 72 16 100 30 13:31 11/18/18 98.1 128/75 11:17 (92) 11/17/18 Mechanical 16:02 Ventilator Trach Collar Intake and Output 11/17/18 11/17/18 11/18/18 1414:59 22:59 06:59 IntakeIntake Total 1140 ml 780 ml OutputOutput Total 850 ml 550 ml BalanceBalance 290 ml 230 ml Results Results 24hrs Laboratory Tests Test 11/17/18 18:01 11/18/18 00:12 11/18/18 05:45 11/18/18 07:30 Bedside Glucose 120 114 114 Blood Urea Nitrogen 16 Creatinine 0.95 Test 11/18/18 11:46 Bedside Glucose 137 Medications Medication Current Medications Morphine Sulfate (morphine) 2 mg Q4H PRN IV SEVERE PAIN LEVEL 7-10 Last administered on 11/11/18at 04:08; Admin Dose 2 MG; Start 11/09/18 at 22:00 Ondansetron HCl (Zofran Inj) 4 mg Q6H PRN IV NAUSEA AND/OR VOMITING; Start 11/09/18 at 22:00 Miscellaneous Information (Pending [facility] Order For Wound Care) This patient garcia... PRN PRN XX WOUND CARE; Start 11/09/18 at 22:30 Diagnostic Test (Pha) (Accu-Chek) 1 ea 02 XX ; Start 11/10/18 at 02:00 Miscellaneous Information 1 ea NOTE XX ; Start 11/10/18 at 02:00 Glucose (Glutose) 15 gm Q15M PRN PO DECREASED GLUCOSE; Start 11/10/18 at 02:00 Glucose (Glutose) 22.5 gm Q15M PRN PO DECREASED GLUCOSE; Start 11/10/18 at 02:00 Dextrose (D50w Syringe) 25 ml Q15M PRN IV DECREASED GLUCOSE; Start 11/10/18 at 02:00 Dextrose (D50w Syringe) 50 ml Q15M PRN IV DECREASED GLUCOSE; Start 11/10/18 at 02:00 Glucagon (Glucagen) 1 mg Q15M PRN IM DECREASED GLUCOSE; Start 11/10/18 at 02:00 Glucose (Glutose) 15 gm Q15M PRN BUCCAL DECREASED GLUCOSE; Start 11/10/18 at 02:00 Caspofungin 50 mg/ Sodium Chloride 250 ml @ 250 mls/hr Q24H IVPB Last administered on 11/18/18at 14:22; Admin Dose 250 MLS/HR; Start 11/12/18 at 15:00 Pantoprazole (Protonix Iv) 40 mg BID@06,18 IV Last administered on 11/18/18at 05:46; Admin Dose 40 MG; Start 11/12/18 at 18:00 Insulin Aspart (Novolog Insulin Pen) NOVOLOG *MILD* ALGORI... Q6 SC ; Start 11/12/18 at 18:00 Furosemide (Lasix) 20 mg DAILY IV Last administered on 11/18/18at 08:15; Admin Dose 20 MG; Start 11/18/18 at 09:00 Amikacin Sulfate (Amikacin Iv Per Pharmacy) AMIKACIN PER PHARMACY NOTE XX ; Start 11/17/18 at 18:30 Amikacin Sulfate 1000 mg/Sodium Chloride 104 ml @ 104 mls/hr Q48H IVPB Last administered on 11/17/18at 22:10; Admin Dose 104 MLS/HR; Start 11/17/18 at 21:00 SAMIA LICEA Nov 18, 2018 14:38
--- NOTE | 2018-11-18 16:48 | CONS ---
Consult Date/Type/Reason Admit Date/Time Nov 09, 2018 at 14:44 Initial Consult Date 11/14/18 Type of Consultation: Pulm Requesting Provider: RACHELLE RAMOS MD Date/Time of Note DATE: 11/18/18 TIME: 16:47 Subjective No events overnight. Objective Vitals Vital Signs Date Temp Pulse Resp B/P (MAP) Pulse Ox O2 O2 Flow FiO2 Time Delivery Rate 11/18/18 67 16:00 11/18/18 16 100 30 15:33 11/18/18 98.0 130/75 15:05 (93) 11/17/18 Mechanical 16:02 Ventilator Trach Collar Intake and Output 11/17/18 11/17/18 11/18/18 1414:59 22:59 06:59 IntakeIntake Total 1140 ml 780 ml OutputOutput Total 850 ml 550 ml BalanceBalance 290 ml 230 ml Exam HEENT: Neck supple; no JVD; no LAD: + trach CVS: RRR, S1 and S2 CHEST: Coarse BS b/l ABD: Distended, NT, + BS EXT: No c/c; + edema Results/Medications Result Diagram: 11/18/18 1511 11/18/18 1511 Results 24 hrs Laboratory Tests Test 11/17/18 18:01 11/18/18 00:12 11/18/18 05:45 11/18/18 07:30 Bedside Glucose 120 114 114 Blood Urea Nitrogen 16 Creatinine 0.95 Test 11/18/18 11:46 11/18/18 15:11 Bedside Glucose 137 White Blood Count 9.4 Red Blood Count 3.76 L Hemoglobin 9.0 L Hematocrit 32.1 L Mean Corpuscular 85.4 Volume Mean Corpuscular 23.9 L Hemoglobin Mean Corpuscular 28.0 L Hemoglobin Concent Red Cell 23.0 H Distribution Width Platelet Count 262 Mean Platelet Volume 11.2 H Immature 0.400 Granulocytes % Neutrophils % 69.9 Lymphocytes % 15.6 Monocytes % 4.6 Eosinophils % 8.9 H Basophils % 0.6 Nucleated Red Blood 0.0 Cells % Immature 0.040 H Granulocytes # Neutrophils # 6.5 Lymphocytes # 1.5 Monocytes # 0.4 Eosinophils # 0.8 H Basophils # 0.1 Nucleated Red Blood 0.0 Cells # Sodium Level 145 H Potassium Level 3.8 Chloride Level 116 H Carbon Dioxide Level 25 Anion Gap 4 L Blood Urea Nitrogen 16 Creatinine 0.92 Est Glomerular Filtrat Rate mL/min Glucose Level 116 Calcium Level 8.6 Home Meds Reported Medications Multivitamin with Minerals (Multivitamins with Minerals) 1 Each Tablet, 1 EACH GTB DAILY, TAB 11/02/17 Heparin Sodium,Porcine/Pf (HEPARIN SOD 5,000 UNIT/ 0.5 ML) 5,000 Unit/0.5 Ml Vial, 5000 UNIT IJ Q12H, VIAL 11/02/17 Amlodipine Besylate* (Amlodipine Besylate*) 10 Mg Tablet, 10 MG GTB DAILY, #30 TAB HOLD IF SBP<110 11/02/17 Sennosides* (Senna Lax*) 8.6 Mg Tablet, 1 TAB GTB BID, TAB 11/02/17 Famotidine* (Famotidine*) 20 Mg Tablet, 20 MG GTB DAILY, #30 TAB 11/02/17 Hydralazine Hcl* (Hydralazine Hcl*) 25 Mg Tab, 25 MG GTB Q6H PRN for FOR SBP>160, #60 TAB 11/02/17 Bisacodyl* (Bisacodyl*) 10 Mg Supp, 10 MG IA Q24H for CONSTIPATION, SUPP 11/02/17 Docusate Sodium* (Docusate Sodium*) 100 Mg Capsule, 100 MG GTB DAILY, #30 CAP 11/02/17 Cranberry Fruit (CRANBERRY) 450 Mg Tablet, 450 MG GTB DAILY, TAB 11/02/17 Artificial Tears* (Akwa Oint*) 3.5 Gm Oint, 1 APPLIC BOTH EYES Q12H, #1 TUB 11/02/17 Magnesium Hydroxide* (Milk Of Magnesia*) 400 Mg/5 Ml Oral.susp, 30 ML GTB DAILY, ML 11/02/17 Doxazosin Mesylate* (Doxazosin Mesylate*) 4 Mg Tablet, 4 MG GTB HS, TAB 11/02/17 Vit C-Ascorbate Ca-Ascorb Sod (Vitamin C) 500 Mg/15 Ml Liquid, 5 ML GTB BID, ML 11/02/17 Ferrous Sulfate* (Ferrous Sulfate*) 220 Mg/5 Ml Solution, 7.5 ML GTB BID, ML 11/02/17 Metformin Hcl* (Metformin Hcl*) 1,000 Mg Tablet, 1000 MG GTB WITH BREAKFAST DINNE, #60 TAB 11/02/17 Medications Current Medications Morphine Sulfate (morphine) 2 mg Q4H PRN IV SEVERE PAIN LEVEL 7-10 Last administered on 11/11/18at 04:08; Admin Dose 2 MG; Start 11/09/18 at 22:00 Ondansetron HCl (Zofran Inj) 4 mg Q6H PRN IV NAUSEA AND/OR VOMITING; Start 11/09/18 at 22:00 Miscellaneous Information (Pending [facility] Order For Wound Care) This patient garcia... PRN PRN XX WOUND CARE; Start 11/09/18 at 22:30 Diagnostic Test (Pha) (Accu-Chek) 1 ea 02 XX ; Start 11/10/18 at 02:00 Miscellaneous Information 1 ea NOTE XX ; Start 11/10/18 at 02:00 Glucose (Glutose) 15 gm Q15M PRN PO DECREASED GLUCOSE; Start 11/10/18 at 02:00 Glucose (Glutose) 22.5 gm Q15M PRN PO DECREASED GLUCOSE; Start 11/10/18 at 02:00 Dextrose (D50w Syringe) 25 ml Q15M PRN IV DECREASED GLUCOSE; Start 11/10/18 at 02:00 Dextrose (D50w Syringe) 50 ml Q15M PRN IV DECREASED GLUCOSE; Start 11/10/18 at 02:00 Glucagon (Glucagen) 1 mg Q15M PRN IM DECREASED GLUCOSE; Start 11/10/18 at 02:00 Glucose (Glutose) 15 gm Q15M PRN BUCCAL DECREASED GLUCOSE; Start 11/10/18 at 02:00 Caspofungin 50 mg/ Sodium Chloride 250 ml @ 250 mls/hr Q24H IVPB Last administered on 11/18/18at 14:22; Admin Dose 250 MLS/HR; Start 11/12/18 at 15:00 Pantoprazole (Protonix Iv) 40 mg BID@06,18 IV Last administered on 11/18/18at 05:46; Admin Dose 40 MG; Start 11/12/18 at 18:00 Insulin Aspart (Novolog Insulin Pen) NOVOLOG *MILD* ALGORI... Q6 SC ; Start 11/12/18 at 18:00 Furosemide (Lasix) 20 mg DAILY IV Last administered on 11/18/18at 08:15; Admin Dose 20 MG; Start 11/18/18 at 09:00 Amikacin Sulfate (Amikacin Iv Per Pharmacy) AMIKACIN PER PHARMACY NOTE XX ; Start 11/17/18 at 18:30 Amikacin Sulfate 1000 mg/Sodium Chloride 104 ml @ 104 mls/hr Q48H IVPB Last administered on 11/17/18at 22:10; Admin Dose 104 MLS/HR; Start 11/17/18 at 21:00 Assessment/Plan Assessment/Plan (Daily) IMP: 1. Sepsis 2. HCAP 3. UTI 4. SBP 5 NSTEMI 6. VDRF RECS: 1. Vent support 2. Abx per ID 3. Follow-up Cxs 4. TF/Free H20 MISHA DAVIS MD Nov 18, 2018 16:48
[2018-11-19] VITALS (23 sets, daily range): BP systolic 89–136; BP diastolic 55–71; PULSE 32–76; RESP 16–21
[2018-11-19] MEDS: ACCU-CHEK XX SCH (01:12)
[2018-11-19] MEDS: PANTOPRAZOLE 40 MG INJ IV SCH ×2 (05:55→17:48)
[2018-11-19] MEDS: INSULIN ASPART [NOVOLOG] 3 ML PEN SC SCH ×4 (06:00→17:48)
--- NOTE | 2018-11-19 10:17 | CONS ---
Assessment/Plan Assessment/Plan Assessment/Plan (Daily) Ventilator setting; reviewed. Assessment and recommendations; 1. Patient with history of chronic encephalopathy and VDR F admitted with bilateral pneumonia currently on appropriate antimicrobial regimen. 2. Status post paracentesis. 3. Anemia. Continue current supportive care. Obtain follow-up chest x-ray. Consultation Date/Type/Reason Admit Date/Time Nov 09, 2018 at 14:44 Initial Consult Date 11/14/18 Type of Consult Pulmonary Patient is a 83-year-old male who was admitted on the of this month with abdominal distention. Patient underwent paracentesis about 3.8 L of fluid was removed. 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 By the time I saw the patient, patient appeared comfortable on ventilator via tracheostomy but was unable to give any history by himself whatsoever. History is been obtained from medical records. Past medical history; 1. VDR F 2. Neuropathy. 3. History of nephrostomy. 4. Anemia. 5. Status post tracheostomy and G-tube. 6. Recent EGD performed yesterday. Showed erosive gastritis. Medications; reviewed. Allergies; none. Social history, family history, occupational history not available. Review of system; unable to be obtained. General exam; elderly male, on ventilator via tracheostomy, awake but noncommunicative. Currently in no distress. Requesting Provider: RACHELLE RAMOS MD Date/Time of Note DATE: 11/19/18 TIME: 10:16 24 HR Interval Summary Free Text/Dictation Patient's condition remains stable. Has remained hemodynamically stable. General exam; elderly male, on ventilator via tracheostomy, noncommunicative. Currently in no distress. Exam/Review of Systems Exam Vitals Vital Signs Date Temp Pulse Resp B/P (MAP) Pulse Ox O2 O2 Flow FiO2 Time Delivery Rate 11/19/18 55 08:57 11/19/18 98.0 16 136/71 100 07:45 (92) 11/19/18 30 07:40 11/17/18 Mechanical 16:02 Ventilator Trach Collar Intake and Output 11/18/18 11/18/18 11/19/18 1515:00 23:00 07:00 IntakeIntake Total 890 ml 680 ml OutputOutput Total 1700 ml 700 ml BalanceBalance -810 ml -20 ml Exam HE ENT exam; supple neck, no JVD. No lymphadenopathy. Midline trachea. No thyromegaly. Tracheostomy in place. Insertion site is clean. Chest exam; diminished breath sounds bilaterally. S1-S2 audible, no murmurs. Regular rhythm. Abdomen exam; soft, protuberant. No organomegaly. G-tube in place. Bowel sounds audible. Extremity exam; trace edema. [employer] exam; patient remains noncommunicative. Results Result Diagram: 11/18/18 1511 11/18/18 1511 Results 24hrs Laboratory Tests Test 11/18/18 11:46 11/18/18 15:11 11/18/18 17:36 11/19/18 00:22 Bedside Glucose 137 128 115 White Blood Count 9.4 Red Blood Count 3.76 L Hemoglobin 9.0 L Hematocrit 32.1 L Mean Corpuscular 85.4 Volume Mean Corpuscular 23.9 L Hemoglobin Mean Corpuscular 28.0 L Hemoglobin Concent Red Cell 23.0 H Distribution Width Platelet Count 262 Mean Platelet Volume 11.2 H Immature 0.400 Granulocytes % Neutrophils % 69.9 Lymphocytes % 15.6 Monocytes % 4.6 Eosinophils % 8.9 H Basophils % 0.6 Nucleated Red Blood 0.0 Cells % Immature 0.040 H Granulocytes # Neutrophils # 6.5 Lymphocytes # 1.5 Monocytes # 0.4 Eosinophils # 0.8 H Basophils # 0.1 Nucleated Red Blood 0.0 Cells # Sodium Level 145 H Potassium Level 3.8 Chloride Level 116 H Carbon Dioxide Level 25 Anion Gap 4 L Blood Urea Nitrogen 16 Creatinine 0.92 Est Glomerular Filtrat Rate mL/min Glucose Level 116 Calcium Level 8.6 Test 11/19/18 06:01 Bedside Glucose 115 Medications Medication Current Medications Morphine Sulfate (morphine) 2 mg Q4H PRN IV SEVERE PAIN LEVEL 7-10 Last adminis tered on 11/11/18at 04:08; Admin Dose 2 MG; Start 11/09/18 at 22:00 Ondansetron HCl (Zofran Inj) 4 mg Q6H PRN IV NAUSEA AND/OR VOMITING; Start 11/09/18 at 22:00 Misc[facility] This patient garcia... PRN PRN XX WOUND CARE; Start 11/09/18 at 22:30 Diagnostic Test (Pha) (Accu-Chek) 1 ea 02 XX ; Start 11/10/18 at 02:00 Miscellaneous Information 1 ea NOTE XX ; Start 11/10/18 at 02:00 Glucose (Glutose) 15 gm Q15M PRN PO DECREASED GLUCOSE; Start 11/10/18 at 02:00 Glucose (Glutose) 22.5 gm Q15M PRN PO DECREASED GLUCOSE; Start 11/10/18 at 02:00 Dextrose (D50w Syringe) 25 ml Q15M PRN IV DECREASED GLUCOSE; Start 11/10/18 at 02:00 Dextrose (D50w Syringe) 50 ml Q15M PRN IV DECREASED GLUCOSE; Start 11/10/18 at 02:00 Glucagon (Glucagen) 1 mg Q15M PRN IM DECREASED GLUCOSE; Start 11/10/18 at 02:00 Glucose (Glutose) 15 gm Q15M PRN BUCCAL DECREASED GLUCOSE; Start 11/10/18 at 02:00 Caspofungin 50 mg/ Sodium Chloride 250 ml @ 250 mls/hr Q24H IVPB Last a dministered on 11/18/18at 14:22; Admin Dose 250 MLS/HR; Start 11/12/18 at 15:00 Pantoprazole (Protonix Iv) 40 mg BID@06,18 IV Last administered on 11/19/18at 05:55; Admin Dose 40 MG; Start 11/12/18 at 18:00 Insulin Aspart (Novolog Insulin Pen) NOVOLOG *MILD* ALGORI... Q6 SC ; Start 11/12/18 at 18:00 Furosemide (Lasix) 20 mg DAILY IV Last administered on 11/18/18at 08:15; Admin Dose 20 MG; Start 11/18/18 at 09:00 Amikacin Sulfate (Amikacin Iv Per Pharmacy) AMIKACIN PER PHARMACY NOTE XX ; Start 11/17/18 at 18:30 Amikacin Sulfate 1000 mg/Sodium Chloride 104 ml @ 104 mls/hr Q48H IVPB Last administered on 11/17/18at 22:10; Admin Dose 104 MLS/HR; Start 11/17/18 at 21:00 MILLA CHAIREZ Nov 19, 2018 10:17
--- NOTE | 2018-11-19 10:52 | CONS ---
Assessment/Plan Assessment/Plan Hospital Course (Demo Recall) #Anemia -2/2 GI bleed and iron deficiency. pt has since had the duodenal ulcer cauterized -s/p IV iron -Hg currently greater than 9 -labs reveal no signs of hemolysis, monoclonal gammopathy or vitamin b12/folate deficiency -TSH wnl #Rectal wall thickening -colonoscopy on hold given his bradycardia -pt may have an underlying rectal malignancy #NSTEMI -likely 2/2 demand ischemia -cards following Consultation Date/Type/Reason Admit Date/Time Nov 09, 2018 at 14:44 Initial Consult Date 11/10/18 Type of Consult hematology Reason for Consultation anemia Requesting Provider: RACHELLE RAMOS MD Date/Time of Note DATE: 11/19/18 TIME: 10:49 24 HR Interval Summary Free Text/Dictation HG currently stable. Exam/Review of Systems Exam Vitals Vital Signs Date Temp Pulse Resp B/P (MAP) Pulse Ox O2 O2 Flow FiO2 Time Delivery Rate 11/19/18 55 08:57 11/19/18 98.0 16 136/71 100 07:45 (92) 11/19/18 30 07:40 11/17/18 Mechanical 16:02 Ventilator Trach Collar Intake and Output 11/18/18 11/18/18 11/19/18 1414:59 22:59 06:59 IntakeIntake Total 890 ml 680 ml OutputOutput Total 1700 ml 700 ml BalanceBalance -810 ml -20 ml Constitutional: non-verbal Head: normocephalic Eyes: nl conjunctiva ENMT: nl external ears & nose Neck: supple Respiratory: clear to auscultation Cardiovascular: regular rate and rhythm Gastrointestinal: soft Musculoskeletal: nl extremities to inspection Results Result Diagram: 11/18/18 1511 11/18/18 1511 Results 24hrs Laboratory Tests Test 11/18/18 11:46 11/18/18 15:11 11/18/18 17:36 11/19/18 00:22 Bedside Glucose 137 128 115 White Blood Count 9.4 Red Blood Count 3.76 L Hemoglobin 9.0 L Hematocrit 32.1 L Mean Corpuscular 85.4 Volume Mean Corpuscular 23.9 L Hemoglobin Mean Corpuscular 28.0 L Hemoglobin Concent Red Cell 23.0 H Distribution Width Platelet Count 262 Mean Platelet Volume 11.2 H Immature 0.400 Granulocytes % Neutrophils % 69.9 Lymphocytes % 15.6 Monocytes % 4.6 Eosinophils % 8.9 H Basophils % 0.6 Nucleated Red Blood 0.0 Cells % Immature 0.040 H Granulocytes # Neutrophils # 6.5 Lymphocytes # 1.5 Monocytes # 0.4 Eosinophils # 0.8 H Basophils # 0.1 Nucleated Red Blood 0.0 Cells # Sodium Level 145 H Potassium Level 3.8 Chloride Level 116 H Carbon Dioxide Level 25 Anion Gap 4 L Blood Urea Nitrogen 16 Creatinine 0.92 Est Glomerular Filtrat Rate mL/min Glucose Level 116 Calcium Level 8.6 Test 11/19/18 06:01 Bedside Glucose 115 Medications Medication Current Medications Morphine Sulfate (morphine) 2 mg Q4H PRN IV SEVERE PAIN LEVEL 7-10 Last administered on 11/11/18at 04:08; Admin Dose 2 MG; Start 11/09/18 at 22:00 Ondansetron HCl (Zofran Inj) 4 mg Q6H PRN IV NAUSEA AND/OR VOMITING; Start 11/09/18 at 22:00 Miscellaneous Information (Pending [facility] Order For Wound Care) This patient garcia... PRN PRN XX WOUND CARE; Start 11/09/18 at 22:30 Diagnostic Test (Pha) (Accu-Chek) 1 ea 02 XX ; Start 11/10/18 at 02:00 Miscellaneous Information 1 ea NOTE XX ; Start 11/10/18 at 02:00 Glucose (Glutose) 15 gm Q15M PRN PO DECREASED GLUCOSE; Start 11/10/18 at 02:00 Glucose (Glutose) 22.5 gm Q15M PRN PO DECREASED GLUCOSE; Start 11/10/18 at 02:00 Dextrose (D50w Syringe) 25 ml Q15M PRN IV DECREASED GLUCOSE; Start 11/10/18 at 02:00 Dextrose (D50w Syringe) 50 ml Q15M PRN IV DECREASED GLUCOSE; Start 11/10/18 at 02:00 Glucagon (Glucagen) 1 mg Q15M PRN IM DECREASED GLUCOSE; Start 11/10/18 at 02:00 Glucose (Glutose) 15 gm Q15M PRN BUCCAL DECREASED GLUCOSE; Start 11/10/18 at 02:00 Caspofungin 50 mg/ Sodium Chloride 250 ml @ 250 mls/hr Q24H IVPB Last administered on 11/18/18at 14:22; Admin Dose 250 MLS/HR; Start 11/12/18 at 15:00 Pantoprazole (Protonix Iv) 40 mg BID@06,18 IV Last administered on 11/19/18at 05:55; Admin Dose 40 MG; Start 11/12/18 at 18:00 Insulin Aspart (Novolog Insulin Pen) NOVOLOG *MILD* ALGORI... Q6 SC ; Start 11/12/18 at 18:00 Furosemide (Lasix) 20 mg DAILY IV Last administered on 11/18/18at 08:15; Admin Dose 20 MG; Start 11/18/18 at 09:00 Amikacin Sulfate (Amikacin Iv Per Pharmacy) AMIKACIN PER PHARMACY NOTE XX ; Start 11/17/18 at 18:30 Amikacin Sulfate 1000 mg/Sodium Chloride 104 ml @ 104 mls/hr Q48H IVPB Last administered on 11/17/18at 22:10; Admin Dose 104 MLS/HR; Start 11/17/18 at 21:00 IRENE RANDLE M.D. Nov 19, 2018 10:52
[2018-11-19] MEDS: FUROSEMIDE 20 MG INJ IV SCH (11:08)
[2018-11-19] MEDS: BALSAM PERU/CASTOR OIL 60 GM TUBE TOP SCH ×2 (11:08→22:20)
--- NOTE | 2018-11-19 12:03 | CONS ---
Assessment/Plan Assessment/Plan Hospital Course (Demo Recall) IMP: 1.Nstemi-minimal positive troponin in the setting of severe anemia. likely type 2 demand infarct. Nl EF by echo this admit 55% 2.GIB- s/p endoscopy with ulcer 3.anemia 4.Bradycardia-mainly 40-50's with stable BP 5.Possible sepsis 6. Had pause 3 seconds overnight. ? primary lung problem or primary cardiac etiology. No recurrence since. RECC: -Tele -Continue abx's and f/u cx data -trend cardiac enzymes and transfuse as necessary -no juni agents -After discussion between primary and EP no pacemaker implant as there is no chance for meaningful recovery and patient is primarily bedbound. -Gentle lasix diuresis Consultation Date/Type/Reason Admit Date/Time Nov 09, 2018 at 14:44 Initial Consult Date 11/11/2018 Type of Consult Cardiology Reason for Consultation nstemi Requesting Provider: RACHELLE RAMOS MD Date/Time of Note DATE: 11/19/18 TIME: 12:00 Exam/Review of Systems Vital Signs Vitals Vital Signs Date Temp Pulse Resp B/P (MAP) Pulse Ox O2 O2 Flow FiO2 Time Delivery Rate 11/19/18 98.1 61 16 89/55 (66) 99 11:34 11/19/18 30 07:40 11/17/18 Mechanical 16:02 Ventilator Trach Collar Intake and Output 11/18/18 11/18/18 11/19/18 1515:00 23:00 07:00 IntakeIntake Total 890 ml 680 ml OutputOutput Total 1700 ml 700 ml BalanceBalance -810 ml -20 ml Exam Exam Review of Systems: CONSTITUTIONAL: No fevers, chills. PULMONARY: No sob CARDIOVASCULAR: No chest pain/palpitations GASTROINTESTINAL: No nausea/vomiting. GENITOURINARY: No hematuria/dysuria. MUSCULOSKELETAL: No myagias/arthalgias. PSYCHIATRIC: The patient denies depression. NEUROLOGIC: lethargic Constitutional: alert Psych: no complaints Head: normocephalic ENMT: mucosa pink and moist Neck: supple, jvd (9 cm water) Respiratory: diminished breath sounds Cardiovascular: regular rate and rhythm Gastrointestinal: soft, non-tender Musculoskeletal: muscle weakness (generalized) Extremities: edema (bilateral) Neurological: other (No focal deficits) Labs Result Diagram: 11/19/18 1031 11/18/18 1511 Results 24hrs Laboratory Tests Test 11/18/18 15:11 11/18/18 17:36 11/19/18 00:22 11/19/18 06:01 White Blood Count 9.4 Red Blood Count 3.76 L Hemoglobin 9.0 L Hematocrit 32.1 L Mean Corpuscular 85.4 Volume Mean Corpuscular 23.9 L Hemoglobin Mean Corpuscular 28.0 L Hemoglobin Concent Red Cell 23.0 H Distribution Width Platelet Count 262 Mean Platelet 11.2 H Volume Immature 0.400 Granulocytes % Neutrophils % 69.9 Lymphocytes % 15.6 Monocytes % 4.6 Eosinophils % 8.9 H Basophils % 0.6 Nucleated Red 0.0 Blood Cells % Immature 0.040 H Granulocytes # Neutrophils # 6.5 Lymphocytes # 1.5 Monocytes # 0.4 Eosinophils # 0.8 H Basophils # 0.1 Nucleated Red 0.0 Blood Cells # Sodium Level 145 H Potassium Level 3.8 Chloride Level 116 H Carbon Dioxide 25 Level Anion Gap 4 L Blood Urea 16 Nitrogen Creatinine 0.92 Est Glomerular Filtrat Rate mL/min Glucose Level 116 Calcium Level 8.6 Bedside Glucose 128 115 115 Test 11/19/18 10:31 11/19/18 11:24 11/19/18 11:55 White Blood Count 7.6 Red Blood Count 3.61 L Hemoglobin 8.8 L Hematocrit 31.2 L Mean Corpuscular 86.4 Volume Mean Corpuscular 24.4 L Hemoglobin Mean Corpuscular 28.2 L Hemoglobin Concent Red Cell 23.0 H Distribution Width Platelet Count 234 Mean Platelet 11.3 H Volume Immature 0.700 H Granulocytes % Neutrophils % 65.0 Lymphocytes % 20.5 Monocytes % 5.0 Eosinophils % 8.1 H Basophils % 0.7 Nucleated Red 0.0 Blood Cells % Immature 0.050 H Granulocytes # Neutrophils # 5.0 Lymphocytes # 1.6 Monocytes # 0.4 Eosinophils # 0.6 H Basophils # 0.1 Nucleated Red 0.0 Blood Cells # Iron Level 22 L Total Iron Binding Pending Capacity Percent Iron Pending Saturation Bedside Glucose 121 Lab Scanned Report REFERENCE LAB Medications Medications Current Medications Morphine Sulfate (morphine) 2 mg Q4H PRN IV SEVERE PAIN LEVEL 7-10 Last administered on 11/11/18at 04:08; Admin Dose 2 MG; Start 11/09/18 at 22:00 Ondansetron HCl (Zofran Inj) 4 mg Q6H PRN IV NAUSEA AND/OR VOMITING; Start 11/09/18 at 22:00 Miscellaneous Information (Pending [facility] Order For Wound Care) This patient garcia... PRN PRN XX WOUND CARE; Start 11/09/18 at 22:30 Diagnostic Test (Pha) (Accu-Chek) 1 ea 02 XX ; Start 11/10/18 at 02:00 Miscellaneous Information 1 ea NOTE XX ; Start 11/10/18 at 02:00 Glucose (Glutose) 15 gm Q15M PRN PO DECREASED GLUCOSE; Start 11/10/18 at 02:00 Glucose (Glutose) 22.5 gm Q15M PRN PO DECREASED GLUCOSE; Start 11/10/18 at 02:00 Dextrose (D50w Syringe) 25 ml Q15M PRN IV DECREASED GLUCOSE; Start 11/10/18 at 02:00 Dextrose (D50w Syringe) 50 ml Q15M PRN IV DECREASED GLUCOSE; Start 11/10/18 at 02:00 Glucagon (Glucagen) 1 mg Q15M PRN IM DECREASED GLUCOSE; Start 11/10/18 at 02:00 Glucose (Glutose) 15 gm Q15M PRN BUCCAL DECREASED GLUCOSE; Start 11/10/18 at 02:00 Caspofungin 50 mg/ Sodium Chloride 250 ml @ 250 mls/hr Q24H IVPB Last administered on 11/18/18at 14:22; Admin Dose 250 MLS/HR; Start 11/12/18 at 15:00 Pantoprazole (Protonix Iv) 40 mg BID@06,18 IV Last administered on 11/19/18at 05:55; Admin Dose 40 MG; Start 11/12/18 at 18:00 Insulin Aspart (Novolog Insulin Pen) NOVOLOG *MILD* ALGORI... Q6 SC ; Start 11/12/18 at 18:00 Furosemide (Lasix) 20 mg DAILY IV Last administered on 11/19/18at 11:08; Admin Dose 20 MG; Start 11/18/18 at 09:00 Amikacin Sulfate (Amikacin Iv Per Pharmacy) AMIKACIN PER PHARMACY NOTE XX ; Start 11/17/18 at 18:30 Amikacin Sulfate 1000 mg/Sodium Chloride 254 ml @ 127 mls/hr Q48H IVPB ; Start 11/19/18 at 21:00 SHAYAN BARRETT Nov 19, 2018 12:02
--- NOTE | 2018-11-19 12:26 | PN ---
Date/Time of Note Date/Time of Note DATE: 11/19/18 TIME: 12:20 Assessment/Plan VTE Prophylaxis Risk score (from Ns)>0 risk: 9 SCD applied (from Nsg): No Lines/Catheters IV Catheter Type (from Nrs): Saline Lock Urinary Cath still in place: Yes (supra pubic catheter) Assessment/Plan Result Diagram: 11/19/18 1031 11/18/18 1511 Results 24hrs Laboratory Tests Test 11/18/18 15:11 11/18/18 17:36 11/19/18 00:22 11/19/18 06:01 White Blood Count 9.4 Red Blood Count 3.76 L Hemoglobin 9.0 L Hematocrit 32.1 L Mean Corpuscular 85.4 Volume Mean Corpuscular 23.9 L Hemoglobin Mean Corpuscular 28.0 L Hemoglobin Concent Red Cell 23.0 H Distribution Width Platelet Count 262 Mean Platelet 11.2 H Volume Immature 0.400 Granulocytes % Neutrophils % 69.9 Lymphocytes % 15.6 Monocytes % 4.6 Eosinophils % 8.9 H Basophils % 0.6 Nucleated Red 0.0 Blood Cells % Immature 0.040 H Granulocytes # Neutrophils # 6.5 Lymphocytes # 1.5 Monocytes # 0.4 Eosinophils # 0.8 H Basophils # 0.1 Nucleated Red 0.0 Blood Cells # Sodium Level 145 H Potassium Level 3.8 Chloride Level 116 H Carbon Dioxide 25 Level Anion Gap 4 L Blood Urea 16 Nitrogen Creatinine 0.92 Est Glomerular Filtrat Rate mL/min Glucose Level 116 Calcium Level 8.6 Bedside Glucose 128 115 115 Test 11/19/18 10:31 11/19/18 11:24 11/19/18 11:55 White Blood Count 7.6 Red Blood Count 3.61 L Hemoglobin 8.8 L Hematocrit 31.2 L Mean Corpuscular 86.4 Volume Mean Corpuscular 24.4 L Hemoglobin Mean Corpuscular 28.2 L Hemoglobin Concent Red Cell 23.0 H Distribution Width Platelet Count 234 Mean Platelet 11.3 H Volume Immature 0.700 H Granulocytes % Neutrophils % 65.0 Lymphocytes % 20.5 Monocytes % 5.0 Eosinophils % 8.1 H Basophils % 0.7 Nucleated Red 0.0 Blood Cells % Immature 0.050 H Granulocytes # Neutrophils # 5.0 Lymphocytes # 1.6 Monocytes # 0.4 Eosinophils # 0.6 H Basophils # 0.1 Nucleated Red 0.0 Blood Cells # Iron Level 22 L Total Iron Binding 239 L Capacity Percent Iron 9 L Saturation Bedside Glucose 121 Lab Scanned Report REFERENCE LAB Subjective 24 Hr Interval Summary Subjective hx not possible: pt non-verbal Constitutional: requiring O2 Exam/Review of Systems Exam Vitals Vital Signs Date Temp Pulse Resp B/P (MAP) Pulse Ox O2 O2 Flow FiO2 Time Delivery Rate 11/19/18 65 16 98 30 11:40 11/19/18 98.1 89/55 (66) 11:34 11/17/18 Mechanical 16:02 Ventilator Trach Collar Intake and Output 11/18/18 11/18/18 11/19/18 1414:59 22:59 06:59 IntakeIntake Total 890 ml 680 ml OutputOutput Total 1700 ml 700 ml BalanceBalance -810 ml -20 ml Constitutional: non-verbal Eyes: nl lids Respiratory: clear to auscultation, other Cardiovascular: nl pulses, other (s1s2) Gastrointestinal: soft, other Musculoskeletal: muscle weakness Extremities: normal pulses Neurological: unresponsive Results Results 24hrs Laboratory Tests Test 11/18/18 15:11 11/18/18 17:36 11/19/18 00:22 11/19/18 06:01 White Blood Count 9.4 Red Blood Count 3.76 L Hemoglobin 9.0 L Hematocrit 32.1 L Mean Corpuscular 85.4 Volume Mean Corpuscular 23.9 L Hemoglobin Mean Corpuscular 28.0 L Hemoglobin Concent Red Cell 23.0 H Distribution Width Platelet Count 262 Mean Platelet 11.2 H Volume Immature 0.400 Granulocytes % Neutrophils % 69.9 Lymphocytes % 15.6 Monocytes % 4.6 Eosinophils % 8.9 H Basophils % 0.6 Nucleated Red 0.0 Blood Cells % Immature 0.040 H Granulocytes # Neutrophils # 6.5 Lymphocytes # 1.5 Monocytes # 0.4 Eosinophils # 0.8 H Basophils # 0.1 Nucleated Red 0.0 Blood Cells # Sodium Level 145 H Potassium Level 3.8 Chloride Level 116 H Carbon Dioxide 25 Level Anion Gap 4 L Blood Urea 16 Nitrogen Creatinine 0.92 Est Glomerular Filtrat Rate mL/min Glucose Level 116 Calcium Level 8.6 Bedside Glucose 128 115 115 Test 11/19/18 10:31 11/19/18 11:24 11/19/18 11:55 White Blood Count 7.6 Red Blood Count 3.61 L Hemoglobin 8.8 L Hematocrit 31.2 L Mean Corpuscular 86.4 Volume Mean Corpuscular 24.4 L Hemoglobin Mean Corpuscular 28.2 L Hemoglobin Concent Red Cell 23.0 H Distribution Width Platelet Count 234 Mean Platelet 11.3 H Volume Immature 0.700 H Granulocytes % Neutrophils % 65.0 Lymphocytes % 20.5 Monocytes % 5.0 Eosinophils % 8.1 H Basophils % 0.7 Nucleated Red 0.0 Blood Cells % Immature 0.050 H Granulocytes # Neutrophils # 5.0 Lymphocytes # 1.6 Monocytes # 0.4 Eosinophils # 0.6 H Basophils # 0.1 Nucleated Red 0.0 Blood Cells # Iron Level 22 L Total Iron Binding 239 L Capacity Percent Iron 9 L Saturation Bedside Glucose 121 Lab Scanned Report REFERENCE LAB Medications Medication Current Medications Morphine Sulfate (morphine) 2 mg Q4H PRN IV SEVERE PAIN LEVEL 7-10 Last administered on 11/11/18at 04:08; Admin Dose 2 MG; Start 11/09/18 at 22:00 Ondansetron HCl (Zofran Inj) 4 mg Q6H PRN IV NAUSEA AND/OR VOMITING; Start 11/09/18 at 22:00 Miscellaneous Information (Pending [facility] Order For Wound Care) This patient garcia... PRN PRN XX WOUND CARE; Start 11/09/18 at 22:30 Diagnostic Test (Pha) (Accu-Chek) 1 ea 02 XX ; Start 11/10/18 at 02:00 Miscellaneous Information 1 ea NOTE XX ; Start 11/10/18 at 02:00 Glucose (Glutose) 15 gm Q15M PRN PO DECREASED GLUCOSE; Start 11/10/18 at 02:00 Glucose (Glutose) 22.5 gm Q15M PRN PO DECREASED GLUCOSE; Start 11/10/18 at 02:00 Dextrose (D50w Syringe) 25 ml Q15M PRN IV DECREASED GLUCOSE; Start 11/10/18 at 02:00 Dextrose (D50w Syringe) 50 ml Q15M PRN IV DECREASED GLUCOSE; Start 11/10/18 at 02:00 Glucagon (Glucagen) 1 mg Q15M PRN IM DECREASED GLUCOSE; Start 11/10/18 at 02:00 Glucose (Glutose) 15 gm Q15M PRN BUCCAL DECREASED GLUCOSE; Start 11/10/18 at 02:00 Caspofungin 50 mg/ Sodium Chloride 250 ml @ 250 mls/hr Q24H IVPB Last adminis tered on 11/18/18at 14:22; Admin Dose 250 MLS/HR; Start 11/12/18 at 15:00 Pantoprazole (Protonix Iv) 40 mg BID@06,18 IV Last administered on 11/19/18at 05:55; Admin Dose 40 MG; Start 11/12/18 at 18:00 Insulin Aspart (Novolog Insulin Pen) NOVOLOG *MILD* ALGORI... Q6 SC ; Start 11/12/18 at 18:00 Furosemide (Lasix) 20 mg DAILY IV Last administered on 11/19/18at 11:08; Admin Dose 20 MG; Start 11/18/18 at 09:00 Amikacin Sulfate (Amikacin Iv Per Pharmacy) AMIKACIN PER PHARMACY NOTE XX ; Start 11/17/18 at 18:30 Amikacin Sulfate 1000 mg/Sodium Chloride 254 ml @ 127 mls/hr Q48H IVPB ; Start 11/19/18 at 21:00 SAMIA LICEA Nov 19, 2018 12:26
[2018-11-19] MEDS ORDERED: AMIKACIN 1,000 MG in SOD CHLORIDE 0.9% 250 ML IVPB SCH ×2 (14:00→21:00)
--- NOTE | 2018-11-19 14:09 | CONS ---
Assessment/Plan Assessment/Plan Hospital Course (Demo Recall) No acute events overnight patient is in no distress looks comfortable. Ascytic fluid cultures grew Klebsiella, multidrug resistant, urine culture grew Destini albicans Antimicrobials: Amikacin, Cancidas Indwelling: Trach PEG NGT suprapubic catheter Diagnostics: CT abdomen and pelvis on admission revealed large extraperitoneal fluid collections anasarca cholelithiasis bilateral nonobstructing renal stones diverticulosis of the descending and sigmoid colon bilateral pleural effusions, right greater than left with significant atelectasis/consolidation involving the left right lower lobes. Please see full report in the chart. Chest x-ray on admission revealed new right perihilar and right lower lobe extensive infiltrates and moderate right pleural effusion. Chest x-ray this morning revealed no significant change Physical examination: Chronically ill-appearing well-developed obese elderly man who is awake in no distress. Head atraumatic normocephalic neck is supple tracheostomy present chest rise symmetrical breath sounds diminished bases. Heart: S1-S2. Abdomen soft bowel sounds present extremities without cyanosis Assessment: 1. Sepsis, present on admission 2. Healthcare associated pneumonia 3. Urinary tract infection 4. SBP 5. Non-ST elevation [place] 6. Chronic respiratory failure and dysphagia 7. Acute on chronic anemia==> erosive gastritis/esophagitis per EGD 8. Encephalopathy, somewhat improved Plan: Remains stable, continue abx Consultation Date/Type/Reason Admit Date/Time Nov 09, 2018 at 14:44 Initial Consult Date Type of Consult id Requesting Provider: RACHELLE RAMOS MD Date/Time of Note DATE: 11/19/18 TIME: 14:07 Exam/Review of Systems Exam Vitals Vital Signs Date Temp Pulse Resp B/P (MAP) Pulse Ox O2 O2 Flow FiO2 Time Delivery Rate 11/19/18 68 12:30 11/19/18 16 98 30 11:40 11/19/18 98.1 89/55 (66) 11:34 11/17/18 Mechanical 16:02 Ventilator Trach Collar Intake and Output 11/18/18 11/18/18 11/19/18 1515:00 23:00 07:00 IntakeIntake Total 890 ml 680 ml OutputOutput Total 1700 ml 700 ml BalanceBalance -810 ml -20 ml Results Result Diagram: 11/19/18 1031 11/18/18 1511 Results 24hrs Laboratory Tests Test 11/18/18 15:11 11/18/18 17:36 11/19/18 00:22 11/19/18 06:01 White Blood Count 9.4 Red Blood Count 3.76 L Hemoglobin 9.0 L Hematocrit 32.1 L Mean Corpuscular 85.4 Volume Mean Corpuscular 23.9 L Hemoglobin Mean Corpuscular 28.0 L Hemoglobin Concent Red Cell 23.0 H Distribution Width Platelet Count 262 Mean Platelet 11.2 H Volume Immature 0.400 Granulocytes % Neutrophils % 69.9 Lymphocytes % 15.6 Monocytes % 4.6 Eosinophils % 8.9 H Basophils % 0.6 Nucleated Red 0.0 Blood Cells % Immature 0.040 H Granulocytes # Neutrophils # 6.5 Lymphocytes # 1.5 Monocytes # 0.4 Eosinophils # 0.8 H Basophils # 0.1 Nucleated Red 0.0 Blood Cells # Sodium Level 145 H Potassium Level 3.8 Chloride Level 116 H Carbon Dioxide 25 Level Anion Gap 4 L Blood Urea 16 Nitrogen Creatinine 0.92 Est Glomerular Filtrat Rate mL/min Glucose Level 116 Calcium Level 8.6 Bedside Glucose 128 115 115 Test 11/19/18 10:31 11/19/18 11:24 11/19/18 11:55 White Blood Count 7.6 Red Blood Count 3.61 L Hemoglobin 8.8 L Hematocrit 31.2 L Mean Corpuscular 86.4 Volume Mean Corpuscular 24.4 L Hemoglobin Mean Corpuscular 28.2 L Hemoglobin Concent Red Cell 23.0 H Distribution Width Platelet Count 234 Mean Platelet 11.3 H Volume Immature 0.700 H Granulocytes % Neutrophils % 65.0 Lymphocytes % 20.5 Monocytes % 5.0 Eosinophils % 8.1 H Basophils % 0.7 Nucleated Red 0.0 Blood Cells % Immature 0.050 H Granulocytes # Neutrophils # 5.0 Lymphocytes # 1.6 Monocytes # 0.4 Eosinophils # 0.6 H Basophils # 0.1 Nucleated Red 0.0 Blood Cells # Iron Level 22 L Total Iron Binding 239 L Capacity Percent Iron 9 L Saturation Ferritin 97.9 Bedside Glucose 121 Lab Scanned Report REFERENCE LAB Medications Medication Current Medications Morphine Sulfate (morphine) 2 mg Q4H PRN IV SEVERE PAIN LEVEL 7-10 Last administered on 11/11/18at 04:08; Admin Dose 2 MG; Start 11/09/18 at 22:00 Ondansetron HCl (Zofran Inj) 4 mg Q6H PRN IV NAUSEA AND/OR VOMITING; Start 11/09/18 at 22:00 Miscellaneous Information (Pending [facility] Order For Wound Care) This patient garcia... PRN PRN XX WOUND CARE; Start 11/09/18 at 22:30 Diagnostic Test (Pha) (Accu-Chek) 1 ea 02 XX ; Start 11/10/18 at 02:00 Miscellaneous Information 1 ea NOTE XX ; Start 11/10/18 at 02:00 Glucose (Glutose) 15 gm Q15M PRN PO DECREASED GLUCOSE; Start 11/10/18 at 02:00 Glucose (Glutose) 22.5 gm Q15M PRN PO DECREASED GLUCOSE; Start 11/10/18 at 02:00 Dextrose (D50w Syringe) 25 ml Q15M PRN IV DECREASED GLUCOSE; Start 11/10/18 at 02:00 Dextrose (D50w Syringe) 50 ml Q15M PRN IV DECREASED GLUCOSE; Start 11/10/18 at 02:00 Glucagon (Glucagen) 1 mg Q15M PRN IM DECREASED GLUCOSE; Start 11/10/18 at 02:00 Glucose (Glutose) 15 gm Q15M PRN BUCCAL DECREASED GLUCOSE; Start 11/10/18 at 02:00 Caspofungin 50 mg/ Sodium Chloride 250 ml @ 250 mls/hr Q24H IVPB Last administered on 11/18/18at 14:22; Admin Dose 250 MLS/HR; Start 11/12/18 at 15:00 Pantoprazole (Protonix Iv) 40 mg BID@06,18 IV Last administered on 11/19/18at 05:55; Admin Dose 40 MG; Start 11/12/18 at 18:00 Insulin Aspart (Novolog Insulin Pen) NOVOLOG *MILD* ALGORI... Q6 SC ; Start 11/12/18 at 18:00 Furosemide (Lasix) 20 mg DAILY IV Last administered on 11/19/18at 11:08; Admin Dose 20 MG; Start 11/18/18 at 09:00 Amikacin Sulfate (Amikacin Iv Per Pharmacy) AMIKACIN PER PHARMACY NOTE XX ; Start 11/17/18 at 18:30 Amikacin Sulfate 1000 mg/Sodium Chloride 254 ml @ 127 mls/hr Q36H IVPB Last administered on 11/19/18at 13:36; Admin Dose 127 MLS/HR; Start 11/19/18 at 14:00 SUSANNE LANIER NP Nov 19, 2018 14:09
[2018-11-19] MEDS: CASPOFUNGIN 50 MG in SOD CHLORIDE 0.9% 250 ML IVPB SCH (15:56)
[2018-11-20] VITALS (20 sets, daily range): BP systolic 106–138; BP diastolic 51–72; PULSE 40–76; RESP 16–22
[2018-11-20] MEDS: ACCU-CHEK XX SCH (02:00)
[2018-11-20] MEDS: INSULIN ASPART [NOVOLOG] 3 ML PEN SC SCH ×4 (06:00→17:09)
[2018-11-20] MEDS: PANTOPRAZOLE 40 MG INJ IV SCH ×2 (06:22→17:09)
--- NOTE | 2018-11-20 06:22 | PN ---
Date/Time of Note Date/Time of Note DATE: 11/20/18 TIME: 06:22 Assessment/Plan VTE Prophylaxis Risk score (from Ns)>0 risk: 9 SCD applied (from Nsg): No Lines/Catheters IV Catheter Type (from Nrs): Saline Lock Urinary Cath still in place: Yes (SUPRA PUBIC) Assessment/Plan Result Diagram: 11/19/18 1031 11/18/18 1511 Results 24hrs Laboratory Tests Test 11/19/18 10:31 11/19/18 11:24 11/19/18 11:55 11/19/18 17:25 White Blood Count 7.6 Red Blood Count 3.61 L Hemoglobin 8.8 L Hematocrit 31.2 L Mean Corpuscular 86.4 Volume Mean Corpuscular 24.4 L Hemoglobin Mean Corpuscular 28.2 L Hemoglobin Concent Red Cell 23.0 H Distribution Width Platelet Count 234 Mean Platelet 11.3 H Volume Immature 0.700 H Granulocytes % Neutrophils % 65.0 Lymphocytes % 20.5 Monocytes % 5.0 Eosinophils % 8.1 H Basophils % 0.7 Nucleated Red 0.0 Blood Cells % Immature 0.050 H Granulocytes # Neutrophils # 5.0 Lymphocytes # 1.6 Monocytes # 0.4 Eosinophils # 0.6 H Basophils # 0.1 Nucleated Red 0.0 Blood Cells # Iron Level 22 L Total Iron Binding 239 L Capacity Percent Iron 9 L Saturation Ferritin 97.9 Bedside Glucose 121 121 Lab Scanned Report REFERENCE LAB Test 11/20/18 00:27 Bedside Glucose 130 Exam/Review of Systems Exam Vitals Vital Signs Date Temp Pulse Resp B/P (MAP) Pulse Ox O2 O2 Flow FiO2 Time Delivery Rate 11/20/18 98.3 58 18 110/62 93 04:55 (78) 11/20/18 30 04:32 11/17/18 Mechanical 16:02 Ventilator Trach Collar Intake and Output 11/19/18 11/19/18 11/20/18 1414:59 22:59 06:59 IntakeIntake Total 1004 ml 680 ml OutputOutput Total 1500 ml 400 ml BalanceBalance -496 ml 280 ml Results Results 24hrs Laboratory Tests Test 11/19/18 10:31 11/19/18 11:24 11/19/18 11:55 11/19/18 17:25 White Blood Count 7.6 Red Blood Count 3.61 L Hemoglobin 8.8 L Hematocrit 31.2 L Mean Corpuscular 86.4 Volume Mean Corpuscular 24.4 L Hemoglobin Mean Corpuscular 28.2 L Hemoglobin Concent Red Cell 23.0 H Distribution Width Platelet Count 234 Mean Platelet 11.3 H Volume Immature 0.700 H Granulocytes % Neutrophils % 65.0 Lymphocytes % 20.5 Monocytes % 5.0 Eosinophils % 8.1 H Basophils % 0.7 Nucleated Red 0.0 Blood Cells % Immature 0.050 H Granulocytes # Neutrophils # 5.0 Lymphocytes # 1.6 Monocytes # 0.4 Eosinophils # 0.6 H Basophils # 0.1 Nucleated Red 0.0 Blood Cells # Iron Level 22 L Total Iron Binding 239 L Capacity Percent Iron 9 L Saturation Ferritin 97.9 Bedside Glucose 121 121 Lab Scanned Report REFERENCE LAB Test 11/20/18 00:27 Bedside Glucose 130 Medications Medication Current Medications Morphine Sulfate (morphine) 2 mg Q4H PRN IV SEVERE PAIN LEVEL 7-10 Last administered on 11/11/18at 04:08; Admin Dose 2 MG; Start 11/09/18 at 22:00 Ondansetron HCl (Zofran Inj) 4 mg Q6H PRN IV NAUSEA AND/OR VOMITING; Start 11/09/18 at 22:00 Miscellaneous Information (Pending [facility] Order For Wound Care) This patient garcia... PRN PRN XX WOUND CARE; Start 11/09/18 at 22:30 Diagnostic Test (Pha) (Accu-Chek) 1 ea 02 XX ; Start 11/10/18 at 02:00 Miscellaneous Information 1 ea NOTE XX ; Start 11/10/18 at 02:00 Glucose (Glutose) 15 gm Q15M PRN PO DECREASED GLUCOSE; Start 11/10/18 at 02:00 Glucose (Glutose) 22.5 gm Q15M PRN PO DECREASED GLUCOSE; Start 11/10/18 at 02:00 Dextrose (D50w Syringe) 25 ml Q15M PRN IV DECREASED GLUCOSE; Start 11/10/18 at 02:00 Dextrose (D50w Syringe) 50 ml Q15M PRN IV DECREASED GLUCOSE; Start 11/10/18 at 02:00 Glucagon (Glucagen) 1 mg Q15M PRN IM DECREASED GLUCOSE; Start 11/10/18 at 02:00 Glucose (Glutose) 15 gm Q15M PRN BUCCAL DECREASED GLUCOSE; Start 11/10/18 at 02:00 Caspofungin 50 mg/ Sodium Chloride 250 ml @ 250 mls/hr Q24H IVPB Last administered on 11/19/18at 15:56; Admin Dose 250 MLS/HR; Start 11/12/18 at 15:00 Pantoprazole (Protonix Iv) 40 mg BID@06,18 IV Last administered on 11/19/18at 17:48; Admin Dose 40 MG; Start 11/12/18 at 18:00 Insulin Aspart (Novolog Insulin Pen) NOVOLOG *MILD* ALGORI... Q6 SC ; Start 11/12/18 at 18:00 Furosemide (Lasix) 20 mg DAILY IV Last administered on 11/19/18at 11:08; Admin Dose 20 MG; Start 11/18/18 at 09:00 Amikacin Sulfate (Amikacin Iv Per Pharmacy) AMIKACIN PER PHARMACY NOTE XX ; Start 11/17/18 at 18:30 Amikacin Sulfate 1000 mg/Sodium Chloride 254 ml @ 127 mls/hr Q36H IVPB Last administered on 11/19/18at 13:36; Admin Dose 127 MLS/HR; Start 11/19/18 at 14:00 SAMIA LICEA Nov 20, 2018 06:22
[2018-11-20] MEDS: FUROSEMIDE 20 MG INJ IV SCH (09:55)
[2018-11-20] MEDS: BALSAM PERU/CASTOR OIL 60 GM TUBE TOP SCH ×2 (09:55→20:29)
--- NOTE | 2018-11-20 10:50 | CONS ---
Assessment/Plan Assessment/Plan Assessment/Plan (Daily) Ventilator setting; AC of 16, tidal volume 600, PEEP of 5, 30% FiO2. Assessment recommendations; 1. Patient admitted with bilateral pneumonia currently on appropriate antimicrobial regimen. 2. CHF. 3. VDRF. 4. Severe chronic encephalopathy. 5. Status post paracentesis on of this month. Likely due to CHF. 6.. Gastritis. 7. History of nephrostomy. 8. Anemia. Continue current supportive care. Chest x-ray from today is pending. Further recommendations once chest x-ray is obtained. Overall prognosis remains poor. Consultation Date/Type/Reason Admit Date/Time Nov 09, 2018 at 14:44 Initial Consult Date 11/14/18 Type of Consult Pulmonary Patient is a 83-year-old male who was admitted on the of this month with abdominal distention. Patient underwent paracentesis about 3.8 L of fluid was removed. 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 By the time I saw the patient, patient appeared comfortable on ventilator via tracheostomy but was unable to give any history by himself whatsoever. History is been obtained from medical records. Past medical history; 1. VDR F 2. Neuropathy. 3. History of nephrostomy. 4. Anemia. 5. Status post tracheostomy and G-tube. 6. Recent EGD performed yesterday. Showed erosive gastritis. Medications; reviewed. Allergies; none. Social history, family history, occupational history not available. Review of system; unable to be obtained. General exam; elderly male, on ventilator via tracheostomy, awake but noncommunicative. Currently in no distress. Requesting Provider: RACHELLE RAMOS MD Date/Time of Note DATE: 11/20/18 TIME: 10:48 24 HR Interval Summary Free Text/Dictation The patient's condition has remained stable. Has remained hemodynamically stable. No untoward events reported. General exam; elderly male, on ventilator via tracheostomy, awake but noncommunicative. Currently in no distress. Exam/Review of Systems Exam Vitals Vital Signs Date Temp Pulse Resp B/P (MAP) Pulse Ox O2 O2 Flow FiO2 Time Delivery Rate 11/20/18 98.0 41 22 106/51 100 Mechanical 08:02 (69) Ventilator Trach Collar 11/20/18 30 04:32 Intake and Output 4/29/19 4/29/19 4/30/19 1515:00 23:00 07:00 IntakeIntake Total 1004 ml 680 ml OutputOutput Total 1500 ml 400 ml BalanceBalance -496 ml 280 ml Exam H EENT exam; supple neck, no JVD. No lymphadenopathy. Midline trachea. No thyromegaly. Tracheostomy in place. Patient has carious teeth. Chest exam; diminished breath sounds bilaterally. S1-S2 audible, no murmurs. Regular rhythm. Abdomen exam; soft, G-tube in place. No organomegaly. Protuberant. Bowel sounds audible. Extremity exam; trace edema. [employer] exam; patient remains noncommunicative. Results Result Diagram: 11/20/18 0736 11/20/18 0736 Results 24hrs Laboratory Tests Test 11/19/18 11:24 11/19/18 11:55 11/19/18 17:25 11/20/18 00:27 Bedside Glucose 121 121 130 Lab Scanned Report REFERENCE LAB Test 11/20/18 06:20 11/20/18 07:36 Bedside Glucose 133 White Blood Count 8.2 Red Blood Count 3.60 L Hemoglobin 8.7 L Hematocrit 30.7 L Mean Corpuscular 85.3 Volume Mean Corpuscular 24.2 L Hemoglobin Mean Corpuscular 28.3 L Hemoglobin Concent Red Cell 23.0 H Distribution Width Platelet Count 241 Mean Platelet 11.9 H Volume Immature 0.600 H Granulocytes % Neutrophils % 64.9 Lymphocytes % 21.5 Monocytes % 5.6 Eosinophils % 6.8 Basophils % 0.6 Nucleated Red 0.0 Blood Cells % Immature 0.050 H Granulocytes # Neutrophils # 5.3 Lymphocytes # 1.8 Monocytes # 0.5 Eosinophils # 0.6 H Basophils # 0.1 Nucleated Red 0.0 Blood Cells # Sodium Level 145 H Potassium Level 3.9 Chloride Level 114 H Carbon Dioxide 23 Level Anion Gap 8 Blood Urea 20 Nitrogen Creatinine 1.08 Est Glomerular Filtrat Rate mL/min Glucose Level 109 Calcium Level 8.7 Medications Medication Current Medications Morphine Sulfate (morphine) 2 mg Q4H PRN IV SEVERE PAIN LEVEL 7-10 Last administered on 11/11/18at 04:08; Admin Dose 2 MG; Start 11/09/18 at 22:00 Ondansetron HCl (Zofran Inj) 4 mg Q6H PRN IV NAUSEA AND/OR VOMITING; Start 11/09/18 at 22:00 Miscellaneous Information (Pending [facility] Order For Wound Care) This patient garcia... PRN PRN XX WOUND CARE; Start 11/09/18 at 22:30 Diagnostic Test (Pha) (Accu-Chek) 1 ea 02 XX ; Start 11/10/18 at 02:00 Miscellaneous Information 1 ea NOTE XX ; Start 11/10/18 at 02:00 Glucose (Glutose) 15 gm Q15M PRN PO DECREASED GLUCOSE; Start 11/10/18 at 02:00 Glucose (Glutose) 22.5 gm Q15M PRN PO DECREASED GLUCOSE; Start 11/10/18 at 02:00 Dextrose (D50w Syringe) 25 ml Q15M PRN IV DECREASED GLUCOSE; Start 11/10/18 at 02:00 Dextrose (D50w Syringe) 50 ml Q15M PRN IV DECREASED GLUCOSE; Start 11/10/18 at 02:00 Glucagon (Glucagen) 1 mg Q15M PRN IM DECREASED GLUCOSE; Start 11/10/18 at 02:00 Glucose (Glutose) 15 gm Q15M PRN BUCCAL DECREASED GLUCOSE; Start 11/10/18 at 02:00 Caspofungin 50 mg/ Sodium Chloride 250 ml @ 250 mls/hr Q24H IVPB Last administered on 11/19/18at 15:56; Admin Dose 250 MLS/HR; Start 11/12/18 at 15:00 Pantoprazole (Protonix Iv) 40 mg BID@06,18 IV Last administered on 11/20/18at 06:22; Admin Dose 40 MG; Start 11/12/18 at 18:00 Insulin Aspart (Novolog Insulin Pen) NOVOLOG *MILD* ALGORI... Q6 SC ; Start 11/12/18 at 18:00 Furosemide (Lasix) 20 mg DAILY IV Last administered on 11/20/18at 09:55; Admin Dose 20 MG; Start 11/18/18 at 09:00 Amikacin Sulfate (Amikacin Iv Per Pharmacy) AMIKACIN PER PHARMACY NOTE XX ; Start 11/17/18 at 18:30 Amikacin Sulfate 1000 mg/Sodium Chloride 254 ml @ 127 mls/hr Q36H IVPB Last administered on 11/19/18at 13:36; Admin Dose 127 MLS/HR; Start 11/19/18 at 14:00 MILLA CHAIREZ Nov 20, 2018 10:50
--- NOTE | 2018-11-20 13:37 | CONS ---
Assessment/Plan Assessment/Plan Hospital Course (Demo Recall) #Anemia -2/2 GI bleed and iron deficiency. pt has since had the duodenal ulcer cauterized -s/p IV iron -Hg currently greater than 9 -labs reveal no signs of hemolysis, monoclonal gammopathy or vitamin b12/folate deficiency -TSH wnl #Rectal wall thickening -colonoscopy on hold given his bradycardia -pt may have an underlying rectal malignancy #NSTEMI -likely 2/2 demand ischemia -cards following Consultation Date/Type/Reason Admit Date/Time Nov 09, 2018 at 14:44 Initial Consult Date 11/10/18 Type of Consult hematology Reason for Consultation anemia Requesting Provider: RACHELLE RAMOS MD Date/Time of Note DATE: 11/20/18 TIME: 13:33 24 HR Interval Summary Free Text/Dictation no acute overnight events Exam/Review of Systems Exam Vitals Vital Signs Date Temp Pulse Resp B/P (MAP) Pulse Ox O2 O2 Flow FiO2 Time Delivery Rate 11/20/18 98.5 44 19 109/67 100 Mechanical 12:06 (81) Ventilator Trach Collar 11/20/18 30 10:50 Intake and Output 11/19/18 11/19/18 11/20/18 1515:00 23:00 07:00 IntakeIntake Total 1004 ml 680 ml OutputOutput Total 1500 ml 400 ml BalanceBalance -496 ml 280 ml Constitutional: non-verbal Psych: no complaints Head: normocephalic Eyes: nl conjunctiva ENMT: nl external ears & nose Neck: supple Respiratory: clear to auscultation Cardiovascular: regular rate and rhythm Gastrointestinal: soft Musculoskeletal: nl extremities to inspection Results Result Diagram: 11/20/18 0736 11/20/18 0736 Results 24hrs Laboratory Tests Test 11/19/18 17:25 11/20/18 00:27 11/20/18 06:20 11/20/18 07:36 Bedside Glucose 121 130 133 White Blood Count 8.2 Red Blood Count 3.60 L Hemoglobin 8.7 L Hematocrit 30.7 L Mean Corpuscular 85.3 Volume Mean Corpuscular 24.2 L Hemoglobin Mean Corpuscular 28.3 L Hemoglobin Concent Red Cell 23.0 H Distribution Width Platelet Count 241 Mean Platelet Volume 11.9 H Immature 0.600 H Granulocytes % Neutrophils % 64.9 Lymphocytes % 21.5 Monocytes % 5.6 Eosinophils % 6.8 Basophils % 0.6 Nucleated Red Blood 0.0 Cells % Immature 0.050 H Granulocytes # Neutrophils # 5.3 Lymphocytes # 1.8 Monocytes # 0.5 Eosinophils # 0.6 H Basophils # 0.1 Nucleated Red Blood 0.0 Cells # Sodium Level 145 H Potassium Level 3.9 Chloride Level 114 H Carbon Dioxide Level 23 Anion Gap 8 Blood Urea Nitrogen 20 Creatinine 1.08 Est Glomerular Filtrat Rate mL/min Glucose Level 109 Calcium Level 8.7 Test 11/20/18 11:59 Bedside Glucose 120 Medications Medication Current Medications Morphine Sulfate (morphine) 2 mg Q4H PRN IV SEVERE PAIN LEVEL 7-10 Last administered on 11/11/18at 04:08; Admin Dose 2 MG; Start 11/09/18 at 22:00 Ondansetron HCl (Zofran Inj) 4 mg Q6H PRN IV NAUSEA AND/OR VOMITING; Start 11/09/18 at 22:00 Miscellaneous Information (Pending [facility] Order For Wound Care) This patient garcia... PRN PRN XX WOUND CARE; Start 11/09/18 at 22:30 Diagnostic Test (Pha) (Accu-Chek) 1 ea 02 XX ; Start 11/10/18 at 02:00 Miscellaneous Information 1 ea NOTE XX ; Start 11/10/18 at 02:00 Glucose (Glutose) 15 gm Q15M PRN PO DECREASED GLUCOSE; Start 11/10/18 at 02:00 Glucose (Glutose) 22.5 gm Q15M PRN PO DECREASED GLUCOSE; Start 11/10/18 at 02:00 Dextrose (D50w Syringe) 25 ml Q15M PRN IV DECREASED GLUCOSE; Start 11/10/18 at 02:00 Dextrose (D50w Syringe) 50 ml Q15M PRN IV DECREASED GLUCOSE; Start 11/10/18 at 02:00 Glucagon (Glucagen) 1 mg Q15M PRN IM DECREASED GLUCOSE; Start 11/10/18 at 02:00 Glucose (Glutose) 15 gm Q15M PRN BUCCAL DECREASED GLUCOSE; Start 11/10/18 at 02:00 Caspofungin 50 mg/ Sodium Chloride 250 ml @ 250 mls/hr Q24H IVPB Last administered on 11/19/18at 15:56; Admin Dose 250 MLS/HR; Start 11/12/18 at 15:00 Pantoprazole (Protonix Iv) 40 mg BID@06,18 IV Last administered on 11/20/18at 06:22; Admin Dose 40 MG; Start 11/12/18 at 18:00 Insulin Aspart (Novolog Insulin Pen) NOVOLOG *MILD* ALGORI... Q6 SC ; Start 11/12/18 at 18:00 Furosemide (Lasix) 20 mg DAILY IV Last administered on 11/20/18at 09:55; Admin Dose 20 MG; Start 11/18/18 at 09:00 Amikacin Sulfate (Amikacin Iv Per Pharmacy) AMIKACIN PER PHARMACY NOTE XX ; Start 11/17/18 at 18:30 Amikacin Sulfate 1000 mg/Sodium Chloride 254 ml @ 127 mls/hr Q36H IVPB Last administered on 11/19/18at 13:36; Admin Dose 127 MLS/HR; Start 11/19/18 at 14:00 Miscellaneous Information (*Rx Drug Level Order Reminder*) AMIKACIN TROUGH ON @ 100 0100 ONCE XX ; Start 11/21/18 at 01:00; Stop 11/21/18 at 01:01 IRENE RANDLE M.D. Nov 20, 2018 13:37
--- NOTE | 2018-11-20 13:42 | CONS ---
Consult Date/Type/Reason Admit Date/Time Nov 09, 2018 at 14:44 Initial Consult Date Type of Consultation: Pulm Requesting Provider: RACHELLE RAMOS MD Date/Time of Note DATE: 11/20/18 TIME: 13:40 Subjective NO acute events - recurrent bren noted - BP stable - decision was made not to proceed with pacer. ROS: No fever, no chills, no nausea, no vomiting, no diarrhea/constipation - per nurse Objective Vitals Vital Signs Date Temp Pulse Resp B/P (MAP) Pulse Ox O2 O2 Flow FiO2 Time Delivery Rate 11/20/18 98.5 44 19 109/67 100 Mechanical 12:06 (81) Ventilator Trach Collar 11/20/18 30 10:50 Intake and Output 11/19/18 11/19/18 11/20/18 1414:59 22:59 06:59 IntakeIntake Total 1004 ml 680 ml OutputOutput Total 1500 ml 400 ml BalanceBalance -496 ml 280 ml Exam General: WN/WD/NAD, AOx 0 HEENT: Unicetric/atraumatic/EOMI (does not follow commands) NECK: trach Lymph: no lymphadenopathy HEART: regular with no S3, II/ systolic murmur at apex LUNGS: Coarse sounds ABD: soft, NT, ND, +BS : Intact Neuro: non focal SKIN: chronic changes EXT: trace edema Results/Medications Result Diagram: 11/20/18 0736 11/20/18 0736 Results 24 hrs Laboratory Tests Test 11/19/18 17:25 11/20/18 00:27 11/20/18 06:20 11/20/18 07:36 Bedside Glucose 121 130 133 White Blood Count 8.2 Red Blood Count 3.60 L Hemoglobin 8.7 L Hematocrit 30.7 L Mean Corpuscular 85.3 Volume Mean Corpuscular 24.2 L Hemoglobin Mean Corpuscular 28.3 L Hemoglobin Concent Red Cell 23.0 H Distribution Width Platelet Count 241 Mean Platelet Volume 11.9 H Immature 0.600 H Granulocytes % Neutrophils % 64.9 Lymphocytes % 21.5 Monocytes % 5.6 Eosinophils % 6.8 Basophils % 0.6 Nucleated Red Blood 0.0 Cells % Immature 0.050 H Granulocytes # Neutrophils # 5.3 Lymphocytes # 1.8 Monocytes # 0.5 Eosinophils # 0.6 H Basophils # 0.1 Nucleated Red Blood 0.0 Cells # Sodium Level 145 H Potassium Level 3.9 Chloride Level 114 H Carbon Dioxide Level 23 Anion Gap 8 Blood Urea Nitrogen 20 Creatinine 1.08 Est Glomerular Filtrat Rate mL/min Glucose Level 109 Calcium Level 8.7 Test 11/20/18 11:59 Bedside Glucose 120 Home Meds Reported Medications Multivitamin with Minerals (Multivitamins with Minerals) 1 Each Tablet, 1 EACH GTB DAILY, TAB 11/02/17 Heparin Sodium,Porcine/Pf (HEPARIN SOD 5,000 UNIT/ 0.5 ML) 5,000 Unit/0.5 Ml Vial, 5000 UNIT IJ Q12H, VIAL 11/02/17 Amlodipine Besylate* (Amlodipine Besylate*) 10 Mg Tablet, 10 MG GTB DAILY, #30 TAB HOLD IF SBP<110 11/02/17 Sennosides* (Senna Lax*) 8.6 Mg Tablet, 1 TAB GTB BID, TAB 11/02/17 Famotidine* (Famotidine*) 20 Mg Tablet, 20 MG GTB DAILY, #30 TAB 11/02/17 Hydralazine Hcl* (Hydralazine Hcl*) 25 Mg Tab, 25 MG GTB Q6H PRN for FOR SBP>160, #60 TAB 11/02/17 Bisacodyl* (Bisacodyl*) 10 Mg Supp, 10 MG KS Q24H for CONSTIPATION, SUPP 11/02/17 Docusate Sodium* (Docusate Sodium*) 100 Mg Capsule, 100 MG GTB DAILY, #30 CAP 11/02/17 Cranberry Fruit (CRANBERRY) 450 Mg Tablet, 450 MG GTB DAILY, TAB 11/02/17 Artificial Tears* (Akwa Oint*) 3.5 Gm Oint, 1 APPLIC BOTH EYES Q12H, #1 TUB 11/02/17 Magnesium Hydroxide* (Milk Of Magnesia*) 400 Mg/5 Ml Oral.susp, 30 ML GTB DAILY, ML 11/02/17 Doxazosin Mesylate* (Doxazosin Mesylate*) 4 Mg Tablet, 4 MG GTB HS, TAB 11/02/17 Vit C-Ascorbate Ca-Ascorb Sod (Vitamin C) 500 Mg/15 Ml Liquid, 5 ML GTB BID, ML 11/02/17 Ferrous Sulfate* (Ferrous Sulfate*) 220 Mg/5 Ml Solution, 7.5 ML GTB BID, ML 11/02/17 Metformin Hcl* (Metformin Hcl*) 1,000 Mg Tablet, 1000 MG GTB WITH BREAKFAST DINNE, #60 TAB 11/02/17 Medications Current Medications Morphine Sulfate (morphine) 2 mg Q4H PRN IV SEVERE PAIN LEVEL 7-10 Last admin istered on 11/11/18at 04:08; Admin Dose 2 MG; Start 11/09/18 at 22:00 Ondansetron HCl (Zofran Inj) 4 mg Q6H PRN IV NAUSEA AND/OR VOMITING; Start 11/09/18 at 22:00 Miscellaneous Information (Pending [facility] Order For Wound Care) This patient garcia... PRN PRN XX WOUND CARE; Start 11/09/18 at 22:30 Diagnostic Test (Pha) (Accu-Chek) 1 ea 02 XX ; Start 11/10/18 at 02:00 Miscellaneous Information 1 ea NOTE XX ; Start 11/10/18 at 02:00 Glucose (Glutose) 15 gm Q15M PRN PO DECREASED GLUCOSE; Start 11/10/18 at 02:00 Glucose (Glutose) 22.5 gm Q15M PRN PO DECREASED GLUCOSE; Start 11/10/18 at 02:00 Dextrose (D50w Syringe) 25 ml Q15M PRN IV DECREASED GLUCOSE; Start 11/10/18 at 02:00 Dextrose (D50w Syringe) 50 ml Q15M PRN IV DECREASED GLUCOSE; Start 11/10/18 at 02:00 Glucagon (Glucagen) 1 mg Q15M PRN IM DECREASED GLUCOSE; Start 11/10/18 at 02:00 Glucose (Glutose) 15 gm Q15M PRN BUCCAL DECREASED GLUCOSE; Start 11/10/18 at 02:00 Caspofungin 50 mg/ Sodium Chloride 250 ml @ 250 mls/hr Q24H IVPB Last administered on 11/19/18at 15:56; Admin Dose 250 MLS/HR; Start 11/12/18 at 15:00 Pantoprazole (Protonix Iv) 40 mg BID@06,18 IV Last administered on 11/20/18at 06:22; Admin Dose 40 MG; Start 11/12/18 at 18:00 Insulin Aspart (Novolog Insulin Pen) NOVOLOG *MILD* ALGORI... Q6 SC ; Start 11/12/18 at 18:00 Furosemide (Lasix) 20 mg DAILY IV Last administered on 11/20/18at 09:55; Admin Dose 20 MG; Start 11/18/18 at 09:00 Amikacin Sulfate (Amikacin Iv Per Pharmacy) AMIKACIN PER PHARMACY NOTE XX ; Start 11/17/18 at 18:30 Amikacin Sulfate 1000 mg/Sodium Chloride 254 ml @ 127 mls/hr Q36H IVPB Last administered on 11/19/18at 13:36; Admin Dose 127 MLS/HR; Start 11/19/18 at 14:00 Miscellaneous Information (*Rx Drug Level Order Reminder*) AMIKACIN TROUGH ON @ 100 0100 ONCE XX ; Start 11/21/18 at 01:00; Stop 11/21/18 at 01:01 Assessment/Plan Hospital Course (Demo Recall) 1.Nstemi-minimal positive troponin in the setting of severe anemia. likley type 2 demand infarct - on med RX now. NO intervention planned. HR better now. Con't med rx. 2.GIB - defer to primary team - DR. Rivas follows. H/H stable t 8.7. Will follow clinically. 3.anemia -secondary to GIB - hold anti-coag now. 4.Bradycardia - stable BP currently - not planned now as pt has no true chance for reasonable recovery. HR better now. Decision not to proceed with pacer made. 5.Possible sepsis - on anti-Bx - better. NO new fevers. 6. CHF - increased fluid satus - gentle diuresis now. VEGA WISE MD Nov 20, 2018 13:42
[2018-11-20] MEDS: CASPOFUNGIN 50 MG in SOD CHLORIDE 0.9% 250 ML IVPB SCH (15:27)
--- NOTE | 2018-11-20 15:45 | CONS ---
Assessment/Plan Assessment/Plan Hospital Course (Demo Recall) No acute events overnight Ascytic fluid cultures grew Klebsiella, multidrug resistant, urine culture grew Destini albicans Antimicrobials: Amikacin, Cancidas Indwelling: Trach PEG suprapubic catheter Diagnostics: CT abdomen and pelvis on admission revealed large extraperitoneal fluid collections anasarca cholelithiasis bilateral nonobstructing renal stones diverticulosis of the descending and sigmoid colon bilateral pleural effusions, right greater than left with significant atelectasis/consolidation involving the left right lower lobes. Please see full report in the chart. Chest x-ray on admission revealed new right perihilar and right lower lobe extensive infiltrates and moderate right pleural effusion. Chest x-ray this morning revealed no significant change Physical examination: Chronically ill-appearing well-developed obese elderly man who is awake in no distress. Head atraumatic normocephalic neck is supple tracheostomy present chest rise symmetrical breath sounds diminished bases. Heart: S1-S2. Abdomen soft bowel sounds present extremities without cyanosis Assessment: 1. Sepsis, present on admission 2. Healthcare associated pneumonia 3. Urinary tract infection 4. SBP 5. Non-ST elevation KS 6. Chronic respiratory failure and dysphagia 7. Acute on chronic anemia==> erosive gastritis/esophagitis per EGD 8. Encephalopathy, somewhat improved Plan: Remains stable, continue Amikacin to complete 2 weeks, dc Cancidas Consultation Date/Type/Reason Admit Date/Time Nov 09, 2018 at 14:44 Initial Consult Date Type of Consult id Requesting Provider: RACHELLE RAMOS MD Date/Time of Note DATE: 11/20/18 TIME: 15:45 Exam/Review of Systems Exam Vitals Vital Signs Date Temp Pulse Resp B/P (MAP) Pulse Ox O2 O2 Flow FiO2 Time Delivery Rate 11/20/18 98.5 44 19 109/67 100 Mechanical 12:06 (81) Ventilator Trach Collar 11/20/18 30 10:50 Intake and Output 11/19/18 11/19/18 11/20/18 1515:00 23:00 07:00 IntakeIntake Total 1004 ml 680 ml OutputOutput Total 1500 ml 400 ml BalanceBalance -496 ml 280 ml Results Result Diagram: 11/20/18 0736 11/20/18 0736 Results 24hrs Laboratory Tests Test 11/19/18 17:25 11/20/18 00:27 11/20/18 06:20 11/20/18 07:36 Bedside Glucose 121 130 133 White Blood Count 8.2 Red Blood Count 3.60 L Hemoglobin 8.7 L Hematocrit 30.7 L Mean Corpuscular 85.3 Volume Mean Corpuscular 24.2 L Hemoglobin Mean Corpuscular 28.3 L Hemoglobin Concent Red Cell 23.0 H Distribution Width Platelet Count 241 Mean Platelet Volume 11.9 H Immature 0.600 H Granulocytes % Neutrophils % 64.9 Lymphocytes % 21.5 Monocytes % 5.6 Eosinophils % 6.8 Basophils % 0.6 Nucleated Red Blood 0.0 Cells % Immature 0.050 H Granulocytes # Neutrophils # 5.3 Lymphocytes # 1.8 Monocytes # 0.5 Eosinophils # 0.6 H Basophils # 0.1 Nucleated Red Blood 0.0 Cells # Sodium Level 145 H Potassium Level 3.9 Chloride Level 114 H Carbon Dioxide Level 23 Anion Gap 8 Blood Urea Nitrogen 20 Creatinine 1.08 Est Glomerular Filtrat Rate mL/min Glucose Level 109 Calcium Level 8.7 Test 11/20/18 11:59 Bedside Glucose 120 Medications Medication Current Medications Morphine Sulfate (morphine) 2 mg Q4H PRN IV SEVERE PAIN LEVEL 7-10 Last administered on 11/11/18at 04:08; Admin Dose 2 MG; Start 11/09/18 at 22:00 Ondansetron HCl (Zofran Inj) 4 mg Q6H PRN IV NAUSEA AND/OR VOMITING; Start 11/09/18 at 22:00 Miscellaneous Information (Pending [facility] Order For Wound Care) This patient garcia... PRN PRN XX WOUND CARE; Start 11/09/18 at 22:30 Diagnostic Test (Pha) (Accu-Chek) 1 ea 02 XX ; Start 11/10/18 at 02:00 Miscellaneous Information 1 ea NOTE XX ; Start 11/10/18 at 02:00 Glucose (Glutose) 15 gm Q15M PRN PO DECREASED GLUCOSE; Start 11/10/18 at 02:00 Glucose (Glutose) 22.5 gm Q15M PRN PO DECREASED GLUCOSE; Start 11/10/18 at 02:00 Dextrose (D50w Syringe) 25 ml Q15M PRN IV DECREASED GLUCOSE; Start 11/10/18 at 02:00 Dextrose (D50w Syringe) 50 ml Q15M PRN IV DECREASED GLUCOSE; Start 11/10/18 at 02:00 Glucagon (Glucagen) 1 mg Q15M PRN IM DECREASED GLUCOSE; Start 11/10/18 at 02:00 Glucose (Glutose) 15 gm Q15M PRN BUCCAL DECREASED GLUCOSE; Start 11/10/18 at 02:00 Caspofungin 50 mg/ Sodium Chloride 250 ml @ 250 mls/hr Q24H IVPB Last administ ered on 11/20/18at 15:27; Admin Dose 250 MLS/HR; Start 11/12/18 at 15:00 Pantoprazole (Protonix Iv) 40 mg BID@06,18 IV Last administered on 11/20/18at 06:22; Admin Dose 40 MG; Start 11/12/18 at 18:00 Insulin Aspart (Novolog Insulin Pen) NOVOLOG *MILD* ALGORI... Q6 SC ; Start 11/12/18 at 18:00 Furosemide (Lasix) 20 mg DAILY IV Last administered on 11/20/18at 09:55; Admin Dose 20 MG; Start 11/18/18 at 09:00 Amikacin Sulfate (Amikacin Iv Per Pharmacy) AMIKACIN PER PHARMACY NOTE XX ; Start 11/17/18 at 18:30 Amikacin Sulfate 1000 mg/Sodium Chloride 254 ml @ 127 mls/hr Q36H IVPB Last administered on 11/19/18at 13:36; Admin Dose 127 MLS/HR; Start 11/19/18 at 14:00 Miscellaneous Information (*Rx Drug Level Order Reminder*) AMIKACIN TROUGH ON @ 100 0100 ONCE XX ; Start 11/21/18 at 01:00; Stop 11/21/18 at 01:01 SUSANNE LANIER NP Nov 20, 2018 15:45
== END 2018-11-20 21:37 | DRG 870 ==
LOC: E/R 14:31 → TEL 14:44
PROVIDERS: ADMIT Internal Medicine; ATTEND Internal Medicine
PROC: 5A1955Z Respiratory Ventilation, Greater than 96 Consecutive Hours (ICD-10-PCS; principal; 2018-11-09)
PROC: 30233N1 Transfusion of Nonautologous Red Blood Cells into Peripheral Vein, Percutaneous Approach (ICD-10-PCS; 2018-11-11)
PROC: 0W3P8ZZ Control Bleeding in Gastrointestinal Tract, Via Natural or Artificial Opening Endoscopic (ICD-10-PCS; 2018-11-12)
PROC: 0W9G3ZX Drainage of Peritoneal Cavity, Percutaneous Approach, Diagnostic (ICD-10-PCS; 2018-11-13)
DX: A41.9 Sepsis, unspecified organism (principal); L89.313 Pressure ulcer of right buttock, stage 3; J18.9 Pneumonia, unspecified organism; K25.4 Chronic or unspecified gastric ulcer with hemorrhage; K29.71 Gastritis, unspecified, with bleeding; I21.A1 Myocardial infarction type 2; K65.2 Spontaneous bacterial peritonitis; J96.10 Chronic respiratory failure, unspecified whether with hypoxia or hypercapnia; G93.49 Other encephalopathy; G83.4 Cauda equina syndrome; I47.2 Ventricular tachycardia; R18.8 Other ascites; J90 Pleural effusion, not elsewhere classified; Z99.11 Dependence on respirator [ventilator] status; B37.49 Other urogenital candidiasis; R65.20 Severe sepsis without septic shock; R13.10 Dysphagia, unspecified; D63.8 Anemia in other chronic diseases classified elsewhere; I69.998 Other sequelae following unspecified cerebrovascular disease; M62.50 Muscle wasting and atrophy, not elsewhere classified, unspecified site; E66.9 Obesity, unspecified; Z68.38 Body mass index [BMI] 38.0-38.9, adult; K80.20 Calculus of gallbladder without cholecystitis without obstruction; N20.0 Calculus of kidney; K57.90 Diverticulosis of intestine, part unspecified, without perforation or abscess without bleeding; I25.10 Atherosclerotic heart disease of native coronary artery without angina pectoris; I44.30 Unspecified atrioventricular block; Z93.6 Other artificial openings of urinary tract status; Z93.1 Gastrostomy status; Z87.891 Personal history of nicotine dependence; D50.0 Iron deficiency anemia secondary to blood loss (chronic); R00.1 Bradycardia, unspecified; B96.1 Klebsiella pneumoniae [K. pneumoniae] as the cause of diseases classified elsewhere; Z93.0 Tracheostomy status; Z16.24 Resistance to multiple antibiotics; I11.0 Hypertensive heart disease with heart failure; I50.9 Heart failure, unspecified
CPT/HCPCS: 36415; 36430; 36600; 71045; 74018; 74176; 80048; 80053; 80150; 80202; 81001; 82550; 82553; 82565; 82607; 82668; 82728; 82803; 82962; 83010; 83036; 83540; 83605; 83615; 84155; 84165; 84443; 84484; 84520; 85025; 85045; 85610; 85730; 86803; 86850; 86900; 86901; 86920; 87070; 87081; 87086; 87340; 88104; 88107; 88305; 93005; 93306; 94002; 94003; C9113; J0278; J1450; J1815; J1940; J2270; J2543; J2916; J3010; J3370; J7030; J7040; J7050; P9016